=== PATIENT | male | born 1935 | race Caucasian/White ===

== ENCOUNTER 2024-03-20 09:44 | Outpatient (CLI) | payer MEDICARE, BC, SELFPAY ==
--- OUTSIDE RECORDS SUMMARY | 2024-03-20 09:51 | XMS_ITS | Clinical Summary ---
Author Organization [facility] Address [address] [place] [address] Care Team Providers Care Video Clerk Name Role Phone Unavailable Primary Care Provider Unavailabl e Source Comments Patient records contain information from all sites at [facility]. For routine questions regarding patient records, call [phone] during business hours, M-F 8:00 AM - 5:00 PM Central Time. Record requests for emergency care only can be directed to [phone] at any time.[facility] Allergies No known active allergies Medications Medication Sig Dispensed Refills Start Date End Date Status multivitamin-minerals- lutein (Multivitamin 50 Plus) tablet Take 1 tablet by mouth daily. (CENTRUM SILVER) tablet Active calcium carbonate-vitamin D3 600-125 mg-unit tablet Take 2,000 Units by mouth daily. 2016 Active ascorbic acid, vitamin C, 500 mg capsule Take 1,000 mg by mouth daily. Active Active Problems Problem Noted Date Diagnosed Date Primary Malignant Neoplasm Of Prostate 6 Immunizations Name Administration Dates Next Due Tdap 09/20/2016,06/25/2012 Social History Tobacco Use Types Packs/Day Years Used Date Smoking Tobacco: Unknown Nutrition Answer Date Recorded Nutrition: EVOO Fat Source Unknown 10/27 Nutrition: Servings of Fruits/Vegetables per Day Not on file 10/27/2020 Dental Answer Date Recorded Dental: Regular Dentist Unknown 10/27/19 21 Sex and Gender Information Value Date Recorded Sex Assigned at Not on file Gender Identity Not on file Sexual Orientation Not on file Last Filed Vital Signs Vital Sign Reading Time Taken Comments Blood Pressure 140/74 07/12/2020 11:15 AM DESIGN LEADER Pulse 60 07/12/2020 11:15 AM DESIGN LEADER Temperature 37.3 ??C (99.1 ??F) 07/12/2020 1 1:15 AM DESIGN LEADER Respiratory Rate 20 07/12/2020 8:28 AM DESIGN LEADER Oxygen Saturation 96% 07/12/2020 11: 15 AM DESIGN LEADER Inhaled Oxygen Concentration - - Weight 101 kg (222 lb 10.6 oz) 2016 2:13 PM CDT Vital sign result from Clinical Notes. Height 175.3 cm (5' 9) 07/12/2020 8:27 AM DESIGN LEADER Body Mass Index 32.98 09/20/2016 4:53 PM DESIGN LEADER Plan of Treatment Health Maintenance Due Date Last Done Comments Zoster Vaccines (1 of 2) 1986 Depression Screening (Annual PHQ-2) 09/04/2023 Fall Risk Screen (Annual) 09/04/2023 COVID-19 Vaccine (5 - 2022-2 4 season) 2023 07/11/2023, 07/13/2021, 12/01/2020, Additional history exists Influenza Vaccine (#1) 2024 , 06/08/2022, 06/30/2021, Additional history exists DTaP,Tdap,and Td Vaccines (3 - Td or Tdap) 09/20/2026 09/20/2016, 06/25/2012 Pneumococcal vaccine (65+ years) Completed 02/23/20 23
--- OUTSIDE RECORDS SUMMARY | 2024-03-20 09:51 | XMS_ITS | Encounter Summary ---
Author Organization [facility] Address [address] [address] Care Team Providers Care Educational Coordinator Name Role Phone Unavailable Primary Care Provider Unavailabl e Reason for Referral * Procedure/Equipment (Routine) - Closed Specialty Diagnoses / Procedures Referred By Contac t Referred To Contact Diagnoses TESSIE (obstructive sleep apnea) Excessive daytime sleepiness Procedures Sleep Diagnostic Tests: PSG Colby Hammond MD [address] [facility] [address] [place] [address] Referral ID Status Reason Start Date Expiration Date Visits Re quested Visits Authorized [id number] Closed 07/13/2023 02/13/2024 1 1 Reason for Visit * Procedure/Equipment (Routine) - Closed Specialty Diagnoses / Procedures Referred By Contdania t Referred To Contact Diagnoses TESSIE (obstructive sleep apnea) Excessive daytime sleepiness Procedures Sleep Diagnostic Tests: PSG Colby Hammond MD [address] [facility] [address] [place] [address] Referral ID Status Reason Start Date Expiration Date Visits Re quested Visits Authorized [id number] Closed 07/13/2023 02/13/2024 1 1 Encounter Details Date Type Department Care Team (Latest Contact Info) Description 12/17/2023 8:00 PM CDT - 12/17/2023 11:59 PM CDT Hospital Encounter Specialty Center [address] [facility] [address] [address] [place] [address] Discharge Disposition: Home Social History Tobacco Use Types Packs/Day Years Used Date Smoking Tobacco: Former Pipe Q uit: 1967 Alcohol Use Standard Drinks/Week Comments Yes 4 (1 standard drink = 0.6 oz pur e alcohol) Sex and Gender Information Value Date Recorded Sex Assigned at Not on file Gender Identity Not on file Sexual Orientation Not on file documented as of this encounter Medications at Time of Discharge Medication Sig Dispensed Refills Start Date End Date Doxepin HCl 3 MG TABS Take 1 Tablet (3 mg) by mouth daily at bedtime. For the night of the sleep study if needed. The tech can tell you when to take it. 1 Tablet 11/16/2023 documented as of this encounter Progress Notes * Nancy Hughes - 12/17/2023 8:00 PM CDT This is a diagnostic PSG. Melatonin 10 mg and Benadryl 25 mg was taken prior to lights out. The patient slept reclined in a recliner as he does at home. Moderate snoring was present and therewere frequent associated RERA's at times. Obstructive respiratory events occurred sporadically and there was a abe oxygen saturation of 89%. Frequent periodic leg movements were present as well. * Colby Hammond MD - 12/17/2023 12:00 AM CDT NAME: DASHAWN COTE CSN: [id number] CLINIC NOTE DATE OF SERVICE: 12/17/2023 : 1935 DESCRIPTION OF STUDY: This is a nocturnal polysomnogram. The patient slept 7.1 of 8.4 hours of recording time for a sleep efficiency of 84%. Sleep latency was 4 minutes, REM latency 10 minutes. Overall sleep architecture shows stage R 14%, N3 3%, N2 78%, N1 5%. Cardiac evaluation shows average heart rate of 45 with no arrhythmias noted. Respiratory evaluation shows a baseline sat of 96 with a low of 89. Evaluation for periodic limb movements showed 558periodic limb movements, giving a PLMS index of 79 per hour and a PLMS arousal index of 6 per hour.Evaluation for sleep-disordered breathing demonstrated 12 obstructive apneas, 36 obstructive hypopneas, and 20 RERAs using the 4% rule. This gives an AHI of 7 per hour. The RDI is 11 per hour, low sat is 89 using 4% rule. ASSESSMENT: 1.This sleep study, therefore, shows mild obstructive sleep apnea with AHI of 7 per hour, RDI of 11per hour and a low sat of 89, use a 4% rule. 2.Periodic limb movements of sleep with a PLMS index of 79 per hour and a PLMS arousal index of 6 per hour. PLAN: Followup will be in clinic to review the results of study and would recommend outpatient AutoAdjust CPAP trial with followup download and clinical correlation for therapeutic benefit for mild sleep-disordered breathing. Alternative to CPAP would be a mandibular advancement device. Attention should also be directed to the periodic limb movement to sleep. There is a marked periodic limb movement index of 79 per hour. Recommend clinical correlation for possible periodic limb movement disorder and medical treatment if clinically indicated. MD JANNETH SHANE/DAKOTAS /[id number] documented in this encounter Plan of Treatment Not on file documented as of this encounter Procedures Procedure Name Priority Date/Time Associated Diagnosis Comments SLEEP DIAGNOSTIC TESTS (POLYSMITH) Routine 12/17/2023 10:25 PM CDT TESSIE (obstructive sleep apnea) Excessive daytime sleepiness documented in this encounter Results * Sleep Diagnostic Tests: PSG (12/17/2023 10:25 PM CDT) Colby Hammond MD HP DUMMY [facility]ES PN POLYSMITH documented in this encounter Visit Diagnoses Diagnosis TESSIE (obstructive sleep apnea)- Primary Obstructive sleep apnea (adult) (pediatric) Periodic limb movement disorder Excessive daytime sleepiness documented in this encounter
--- OUTSIDE RECORDS SUMMARY | 2024-03-20 09:51 | XMS_ITS | Clinical Summary ---
Author Organization [facility] Address [place], [place] [address] Care Team Providers Care Fisheries Biologist Name Role Phone Trace Tom MD Primary Care Provid er Allergies No known active allergies Medications Medication Sig Dispensed Refills Start Date End Date Status calcium carb/D3/magnesium/ zinc (CALCIUM-MAGNESIUM -ZINC-VIT D ORAL) Take 1 Tab by mouth once daily. Active cholecalciferol (VITAMIN D3) 2,000 unit capsule Take 2,000 Units by mouth once daily. Active folic acid/multivit-min/ lutein (CENTRUM SILVER ORAL) Take 1 tablet by mouth once daily. Active vit A/C/E/zinc/seleniu m/copper (VISION FORMULA ORAL) Take 1 capsule by mouth once daily. Active zinc 50 mg tablet Take 50 mg by mouth once daily. Active glucosam/nazario-msm1 /C/darin/bosw (OSTEO BI-FLEX TRIPLE STRENGTH ORAL) Take 2 tablets by mouth once daily. Active acetaminophen (TYLENOL EXTRA STRGTH) 500 mg tablet Take 1,000 mg by mouth 2 times daily if needed (For pain). Max acetaminophen dose: 4000mg in 24 hrs. Active torsemide (DEMADEX) 10 mg tablet Take 10 mg by mouth once daily if needed. Active ascorbic acid, vitamin C, (VITAMIN C) 1,000 mg tablet Take 1,000 mg by mouth once daily. Active MAGNESIUM ORAL Take 1,000 mg by mouth once daily. Active HYDROcodone-acetam inophen (NORCO) 5-325 mg per tabletIndications: Basal cell carcinoma (BCC) of chest,Malignant melanoma of skin of abdomen (HC) Take 1 Tablet by mouth every 4 hours if needed for Pain. Max acetaminophen dose: 4000 mg in 24 hrs. 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 02/02/2022 Primary osteoarthritis of right hip 01/18/2018 Prostate cancer Hyperlipidemia H/O: stroke Elevated prostate specific antigen (PSA) BPH with urinary obstruction Basal cell carcinoma of skin Basal cell carcinoma of chest Hip osteoarthritis Social History Tobacco Use Types Packs/Day Years Used Date Smoking Tobacco: Former Pipe Q uit: 1967 Smokeless Tobacco: Never Alcohol Use Standard Drinks/Week Comments Yes 0 (1 standard drink = 0.6 oz pur e alcohol) 3 drinks a week Sex and Gender Information Value Date Recorded Sex Assigned at Not on file Gender Identity Not on file Sexual Orientation Not on file Obstetrics History Last Filed Vital Signs Vital Sign Reading Time Taken Comments Blood Pressure 167/81 02/02/2022 2:00 PM CDT Pulse 54 02/02/2022 2:00 PM CDT Temperature 36 ??C (96.8 ??F) 02/02/2022 2:00 PM CDT Respiratory Rate 22 02/02/2022 2:00 PM CDT Oxygen Saturation 96% 02/02/2022 2:00 PM CDT Inhaled Oxygen Concentration - - Weight 96.8 kg (213 lb 6.4 oz) 02/02/2022 10:05 AM CDT Height 170.2 cm (5' 7) 02/02/2022 10:05 AM CDT Body Mass Index 33.42 02/02/2022 10:05 AM CDT Plan of Treatment Health Maintenance Due Date Last Done Comments Tdap 11/24/1946 Depression screening for age 12+ 1948 BMI (ht and wt on same day) for age 18+ 1954 Tetanus booster 1956 Zoster (shingles) series for age 50+ (1 of 2) 1986 Medicare Wellness for age 65+ 2001 Pneumococcal series for age 65+ (1 of 1 - PCV) 2001 COVID-19 vaccine series ( 2022- season) 2023 07/13/2021, 12/01/2020, 11/04/2020 Influenza for age 65+ 05/05/2024 Medical Devices Implanted Type Area Act Tutor Device Identifier Shelf Expiration Date Model / Serial / Lot Cancellous Bone Screw Implanted:Qty: 1 on 01/30/2018 by Dickson Sevilal MD at [facility] Right: Hip [employer] 10/29/2022 / / [id number] Cluster Acetabluar Shell Implanted:Qty: 1 on 01/30/2018 by Dickson Sevilla MD at [facility] Right: Hip [employer] 10/16/2022 / / [id number] Polyethlene Insert Implanted:Qty: 1 on 01/30/2018 by Dickson Sevilla MD at [facility] Right: Hip [employer] 07/09/2022 / / [id number] Neck Angle Hip Stem Implanted:Qty: 1 on 01/30/2018 by Dickson Sevilla MD at [facility] Right: Hip [employer] 11/24/2022 / / [id number] C-Taper Femoral Head Implanted:Qty: 1 on 01/30/2018 by Dickson Sevilla MD at [facility] Right: Hip [employer] 10/29/2022 / / [id number] Advance Directives * Full Code (Latest Code Status on File) Date Activated Date Inactivated Comments 02/02/2022 9:34 AM 02/02/2022 5:37 PM Question Answer Comments Code Status Discussion: Other not disc ussed * Full Code Date Activated Date Inactivated Comments 01/30/2018 2:58 PM 02/02/2018 4:38 PM * Full Code Date Activated Date Inactivated Comments 01/30/2018 10:51 AM 01/30/2018 2:57 PM Care Teams Fisheries Biologist Relationship Specialty Start Date End Date Trace Tom MD [address] [place] [address] PCP - General Family Practice 01/25/22
--- OUTSIDE RECORDS SUMMARY | 2024-03-20 09:51 | XMS_ITS ---
Author Organization [facility] Address [address] [place] [address] Care Team Providers Care Transitional Kindergarten Teacher Name Role Phone Unavailable Unavailable Unavailable Surgery Details Not on file Complications Check Surgery Details section. Procedure Estimated Blood Loss Check Surgery Details section. Procedure Findings Check Surgery Details section. Procedure Specimens Taken Check Surgery Details section.
--- OUTSIDE RECORDS SUMMARY | 2024-03-20 09:51 | XMS_ITS | Referral Summary ---
Author Organization [place] Address [facility] [place] [address] Care Team Providers Care Road Freight Brake Coupler Name Role Phone Clinic, [facility] Primary Care Provider + Allergies No known active allergies Medications Medication Sig Dispensed Refills Start Date End Date Status HYDROcodone-acetamin ophen (NORCO) 5-325 MG tabletIndications:Le ntigo maligna (H) Take 1 tablet by mouth every 4 hours as needed for moderate to severe pain 25 tablet 06/26/2020 Active multivitamin (CENTRUM SILVER) tablet Take 1 tablet by mouth daily Active zinc gluconate 50 MG tablet Take 50 mg by mouth daily Active aspirin (ASA) 325 MG EC tabletIndications:Ce rebrovascular Accident Take 650 mg by mouth daily Active Ascorbic Acid (VITAMIN C) 500 MG CAPS Take 1,000 mg by mouth Active Social History Tobacco Use Types Packs/Day Years Used Date Smoking Tobacco: Former Pipe Q uit: 1967 Smokeless Tobacco: Never Alcohol Use Standard Drinks/Week Comments Yes 0 (1 standard drink = 0.6 oz pur e alcohol) 1-2 drink per day Adolescent Education Answer Date Record ed Getting School Help Needed Not on file 06/11 Sex and Gender Information Value Date Recorded Sex Assigned at Not on file Gender Identity Not on file Sexual Orientation Not on file Last Filed Vital Signs Vital Sign Reading Time Taken Comments Blood Pressure 140/70 06/26/2020 12:30 PM CDT Pulse 59 06/26/2020 9:10 AM CDT Temperature 37.4 ??C (99.3 ??F) 06/26/2020 9:10 AM CD T Respiratory Rate 16 06/26/2020 12:3 0 PM CDT Oxygen Saturation 98% 06/26/2020 12: 30 PM CDT Inhaled Oxygen Concentration - - Weight 94.7 kg (208 lb 12.8 oz) 06/26/2020 9:10 AM CDT Height 172.7 cm (5' 8) 06/26/2020 9:10 AM CDT Body Mass Index 31.75 06/26/2020 9:10 AM CDT Plan of Treatment Not on file Care Teams Road Freight Brake Coupler Relationship Specialty Start Date End Date Clinic, [address] [address] PCP - General 06/26/20
--- OUTSIDE RECORDS SUMMARY | 2024-03-20 09:51 | XMS_ITS | Clinical Summary ---
Author Organization [place] Address [facility] [place] [address] Care Team Providers Care Railroad Car Cleaning Supervisor Name Role Phone Clinic, [facility] Primary Care Provider + Allergies No [...] of Treatment Not on file Care Teams Railroad Car Cleaning Supervisor Relationship Specialty Start Date End Date Clinic, [address] [address] PCP - General 06/26/20
--- OUTSIDE RECORDS SUMMARY | 2024-03-20 09:51 | XMS_ITS | Encounter Summary ---
Author Organization [facility] Address [address] [place] [address] Care Team Providers Care Health Information Specialist Name Role Phone Unavailable Primary Care Provider Unavailabl e Reason for Visit * Reason Comments Follow-up Encounter Details Date Type Department Care Team (Late st Contact Info) Description 01/09/2024 11:15 AM CDT Tele[facility]icine Special[facility] [address] Pulmonary Medicine [address] [place], [place] [id number] Rebecca Butler PA-C [address] [facility] [address] [place], [place] [id number] Mild obstructive sleep apnea (Primary Dx) Social History Tobacco Use Types Packs/Day Years Used Date Smoking Tobacco: Former Pipe Q uit: 1967 Alcohol Use Standard Drinks/Week Comments Yes 4 (1 standard drink = 0.6 oz pur e alcohol) Sex and Gender Information Value Date Recorded Sex Assigned at Not on file Gender Identity Not on file Sexual Orientation Not on file documented as of this encounter Last Filed Vital Signs Vital Sign Reading Time Taken Comments Blood Pressure - - Pulse - - Temperature - - Respiratory Rate - - Oxygen Saturation - - Inhaled Oxygen Concentration - - Weight 90.7 kg (200 lb) 01/09/2024 9:15 AM CDT Height 167.6 cm (5' 6) 01/09/2024 9:15 AM CDT Body Mass Index 32.28 01/09/2024 9:15 AM CDT documented in this encounter Progress Notes * Rebecca Butler PA-C - 01/09/2024 11:15 AM CDT IMPRESSION AND PLAN: Dashawn Kraus is a 88 y.o. male who returns to discuss results of PSG. Mild obstructive sleep apnea sleeping in recliner. PSG 12/17/2023: AHI 7, RDI 11, O2 abe 89, wt. 200 lbs, sxs: snore, apnea, eds. Pathophysiology and consequences of untreated TESSIE discussed including increased risk for afib, HTN,CVA, heart failure, and fatigue-related motor vehicle accidents. Treatment options discussed including PAP therapy, mandibular repositioning device, weight loss, positional therapy, and surgery. In shared decision making, Dashawn and his elected not to pursue further treatment of TESSIE aside from continuing to sleep in a recliner as he already does - which is reasonable given mild severity with upright / semirecumbent positioning. Informed alcohol will worsen severity. Encouraged to sleep on sides when sleeping on couch or in bed. Discussed importance of maintaining regular sleep schedule to avoid eds. Follow up with sleep medicine as needed. Questions answered to best of ability. Total time 30 minutes, more than half spent in face to face counseling and coordination of care. Rebecca Butler PA-C This visit was conducted via video. Patient was at home / work, provider was at the clinic. -- -- -- -- -- CHIEF COMPLAINT: PSG follow up HPI: Dashawn Kraus is a 88 y.o. male who returns to discuss the results of his recent PSG sleep study for further evaluation of snoring, apnea, eds. Initial consultation with Dr. Hammond. Carroll white by nature. Prefers bedtime around midnight and often wakes just once per night to urinateand goes back to bed until 10-11am. Does not nap. His disagrees. Mayo he slept well on night of sleep study. He slept in a recliner as he does at home. CLINICAL DATA PSG RESULTS personally reviewed in detail with the patient: DATE: 12/17/2023 Weight: 200 lbs Sleep Efficiency: 84% Sleep Architecture: N3 3%, REM 14%, REM latency 10 minutes PLMS index: 79 PLMS arousal index: 6 AHI: 7 events/hr RDI: 11 events/hr O2 abe: 89% ESS: 05/28 (12/17/2023) INTERVAL MEDICAL HISTORY: reviewed SOCIAL HISTORY: reports that he quit smoking about 57 years ago. His smoking use included pipe. He does not have any smokeless tobacco history on file. He reports current alcohol use of about 4.0 standard drinks of alcohol per week. PHYSICAL EXAM: Ht 5' 6 (1.676 m) Wt 200 lb (90.7 kg) BMI 32.28 kg/m?? - video visit GEN: Pleasant male. Alert, demonstrates appropriate insight and judgement. Resp: Appears unlabored. documented in this encounter Plan of Treatment Not on file documented as of this encounter Visit Diagnoses Diagnosis Mild obstructive sleep apnea- Primary Obstructive sleep apnea (adult) (pediatric) documented in this encounter
--- OUTSIDE RECORDS SUMMARY | 2024-03-20 09:51 | XMS_ITS | Referral Summary ---
Author Organization [facility] Address [address] [place] [address] Care Team Providers Care Airframe And Power Plant Mechanic Name Role Phone Unavailable Primary Care Provider Unavailabl e Source Comments Patient records contain information from all sites at [facility]. For routine questions regarding patient records, call [phone] during business hours, M-F 8:00 AM - 5:00 PM Central Time. Record requests for emergency care only can be directed to [phone] at any time.[facility] Allergies No known active allergies Medications Medication [...] Comments Blood Pressure 140/74 07/12/2020 11:15 AM TEACHER BALLET Pulse 60 07/12/2020 11:15 AM TEACHER BALLET Temperature 37.3 ??C (99.1 ??F) 07/12/2020 1 1:15 AM TEACHER BALLET Respiratory Rate 20 07/12/2020 8:28 AM TEACHER BALLET Oxygen Saturation 96% 07/12/2020 11: 15 AM TEACHER BALLET Inhaled Oxygen Concentration - - Weight 101 kg (222 lb 10.6 oz) 2016 2:13 PM CDT Vital sign result from Clinical Notes. Height 175.3 cm (5' 9) 07/12/2020 8:27 AM TEACHER BALLET Body Mass Index 32.98 09/20/2016 4:53 PM TEACHER BALLET Plan of Treatment Not on file
--- OUTSIDE RECORDS SUMMARY | 2024-03-20 09:51 | XMS_ITS | Clinical Summary ---
Author Organization [facility] Address [address], [place] [address] Care Team Providers Care Flamer Sealer Name Role Phone Unavailable Primary Care Provider Unavailabl e Source Comments You are receiving this document as you are listed as the primary care provider,follow-up provider, or the patient has been referred to you for consultation.This is in compliance with the Medicare and[facility] Cent[facility] EHR Incentive Program,which states Providers who transition their patient to another setting of careor provider of care or refers their patient to another provider of care shouldprovide summary care record for each transition of care or referral. [facility] Allergies No known active allergies Medications Medication Sig Dispensed Refills Start Date End Date Status Doxepin HCl 3 MG TABS Take 1 Tablet (3 mg) by mouth daily at bedtime. For the night of the sleep study if needed. The tech can tell you when to take it. 1 Tablet 11/16/2023 Active Active Problems Problem Noted Date Diagnosed Date TESSIE (obstructive sleep apnea) 11/16/2023 Excessive daytime sleepiness 11/16/2023 Encounters Date Type Department Care Team Description 01/09/2024 11:15 AM CDT [facility] [address] Pulmonary Medicine [address] [place] [address] Rebecca Butler PA-C Mild obstructive sleep apnea (Primary Dx) from Last 3 Months Social History Tobacco Use Types Packs/Day Years Used Date Smoking Tobacco: Former Pipe Q uit: 1966 Tobacco Cessation:Counseling Given: Not Answered Alcohol Use Standard Drinks/Week Comments Yes 4 (1 standard drink = 0.6 oz pur e alcohol) Sex and Gender Information Value Date Recorded Sex Assigned at Not on file Gender Identity Not on file Sexual Orientation Not on file Last Filed Vital Signs Vital Sign Reading Time Taken Comments Blood Pressure - - Pulse 53 11/16/2023 1:20 PM CDT Temperature - - Respiratory Rate - - Oxygen Saturation 99% 11/16/2023 1:20 PM CDT Inhaled Oxygen Concentration - - Weight 90.7 kg (200 lb) 01/09/2024 9:15 AM CDT Height 167.6 cm (5' 6) 01/09/2024 9:15 AM CDT Body Mass Index 32.28 01/09/2024 9:15 AM CDT Plan of Treatment Health Maintenance Due Date Last Done Comments Medicare Annual Wellness Visit 1935 Zoster/Shingles (1 of 2) 1986 COVID-19 Vaccine ( season) 2023 07/11/2023, 07/13/2021, 12/01/2020, Additional history exists Influenza (#1) 2024 07/11/2023, 1001/2022, 06/30/2021, Additional history exists DTaP/Tdap/Td (3 - Tdap) 09/20/2026 09/20/2016, 06/25 Pneumococcal 65+ Yrs Completed 02/22/2023 HepA Aged Out No longer eligi ble based on patient's age to complete this topic HepB Aged Out No longer eligi ble based on patient's age to complete this topic Hib Aged Out No longer eligi ble based on patient's age to complete this topic IPV (Polio) Aged Out No longer eligi ble based on patient's age to complete this topic MCV4 Aged Out No longer eligi ble based on patient's age to complete this topic DASHAWN COTE Personal/Famil y 1935 [address] [place] [address]
== END 2024-03-20 09:45 | disposition home or self-care (01) ==
PROVIDERS: Visit Provider Surgery
DX: I87.312 Chronic venous hypertension (idiopathic) with ulcer of left lower extremity (principal); L97.822 Non-pressure chronic ulcer of other part of left lower leg with fat layer exposed; L03.116 Cellulitis of left lower limb; B95.61 Methicillin susceptible Staphylococcus aureus infection as the cause of diseases classified elsewhere
CPT/HCPCS: 87070; 87186; 97597; G0463

== ENCOUNTER 2024-03-27 08:39 | Outpatient (CLI) | payer MEDICARE, BC, SELFPAY ==
--- OUTSIDE RECORDS SUMMARY | 2024-03-27 08:41 | XMS_ITS | Encounter Summary ---
Author Name [facility] [place] [facility] [place] Address [address] [place] [address] Care Team Providers Care [employer] Black Trainer Name Role Phone GARY JONES Primary Care Provider Unavaila ble Insurance Providers: All historical and current Section Date Range: From patient's date of to the date document was created. This section includes the names of all active insurance providers for the patient. Insurance Provider Type of Coverage Plan Name Start of Policy Coverage End of Policy Coverage Group Number Member ID Insurance Provider's Telephone Number Policy Duncan's Name Patient's Relationship to Policy Duncan [facility] (WNR) MEDICARE ADVANTAGE [facility] (WNR) Sep 04, 2021 [id number] [phone] Merna COTE PATIENT Selected Encounter This section includes the information on record at [place] for the Encounter. Date/Time Encounter Type Encounter Description Reason Provider Source Feb 28, 2024 09:00 AM OFFICE O/P EST MOD 30 MIN PRIMARY CARE/MEDICINE ICD-10-CM Z00.8 Encounter for other general examination IVETH JONES Encounter Template Text not used by [place] Assessments - Encounter Diagnoses This section includes the primary and secondary diagnoses documented for the Encounter. Date/Time Primary/Secondary Diagnosis Diagnosis Name Provider Source Feb 28, 2024 10:02 AM PRIMARY Encounter for other general examination IVETH JONSE CB Feb 28, 2024 10:02 AM SECONDARY Edema, unspecified IVETH JONES CB Feb 28, 2024 10:02 AM SECONDARY Personal history of malignant neoplasm of prostate KARENIVETH MENENDEZ [facility] Feb 28, 2024 10:02 AM SECONDARY Unspecified open wound, unspecified ankle, initial encounter IVETH JONES Plan of Treatment: Future Appointments (+ 6 months) and Future Tests (+/- 45 days) The Plan of Treatment section includes future care activities for the patient from all [place] [facility]. This section includes future appointments and future orders which are active, pending or scheduled. Future Appointments This section includes appointments that were scheduled to occur 6 months from the date of the Encounter, up to a maximum of 20 appointments. The data comes from all [place] treatment facilities. Appointment Date/Time Appointment Type Appointme nt Facility Name Mar 14, 2024 11:00 AM AMBULATORY - MEDICINE BETTIE GONZALEZ [facility] May 01, 2024 08:00 AM AMBULATORY - SURGERY [facility] Active, Pending, and Scheduled Orders This section includes a listing of several types of active, pending, and scheduled orders, including clinic medications orders, diagnostic test orders, procedure orders and consult orders; where the start date of the order is 45 days before the date of the Encounter or 45 days after the date of theEncounter. The data comes from all [place] treatment facilities. Test Date/Time Test Type Test Details Facility Name Mar 19, 2024 09:04 AM Consult Order VASCULAR O UTPT-VARICOSE VEINS/VENOUS ULCERS [facility] Director's Choice SHON FERNANEDZ Lab Results: +/- 30 days of the encounter This section includes the Chemistry and Hematology Lab Results on record with [place] for the patient. Radiology Reports and Pathology Reports are provided separately, in subsequent sections. Lab Results This section contains the Chemistry/Hematology Results that were resulted 30 days before or 30 daysafter the date of the Encounter. Date/Time Source Result Type Result - Unit Interpretation Reference Range Comment Feb 28, 2024 09:59 AM [facility] CBC & DIFF Specimen Type: BLOOD Comment: Automated Differential Performed Ordering Provider: IVETH JONES Report Released Date/Time: Feb 28, 2024 09:41 AM Reporting Lab: [facility] [id number] Performing Lab: [facility] [id number] WBC 7.34 10*3/uL 4.0-11.0 RBC 4.19 10*6/uL L 4.6-6.2 HGB 13.4 g/dL L 13.5-17.9 HCT 40.6 L 41-54 MCV 96.9 fL 80-100 MCH 32.0 pg 27-33 MCHC 33.0 g/dL 32.0-37.5 PLT 273 10*3/uL 150-400 MPV 9.8 fL 7.4-10.4 NEUT 67.8 40.0-80.0 LYMPHS 18.9 15.0-45.0 MONO 9.5 2.0-12.0 EOSINO 2.6 0.0-6.0 BASO 0.7 0.0-2.0 RDW 13.8 11.5-14.5 ABS LYMPH 1.39 10*3/uL 1.0-4.0 ABS MONO 0.70 10*3/uL 0.1-1.0 ABS NEUT 4.97 10*3/uL 2.0-7.7 ABS EOS 0.19 10*3/uL 0-0.5 ABS BASO 0.05 10*3/uL 0-0.2 IG(META,MYELO,P RO) 0.5 ABS IMMATURE GRAN 0.04 10*3/uL 0-0.1 Feb 28, 2024 09:59 AM [facility] COMPREHENSIVE METABOLIC PANEL+MG Specimen Type: PLASMA No comment entered. Ordering Provider: IVETH JONES Report Released Date/Time: Feb 28, 2024 09:41 AM Reporting Lab: [facility] [id number] Performing Lab: [facility] [id number] CREATININE 1.0 mg/dL 0.7-1.2 UREA NITROGEN 24 mg/dL 8-26 GLUCOSE 90 mg/dL 70-100 SODIUM 143 mmol/L 136-145 POTASSIUM 4.1 mmol/L 3.5-5.1 CHLORIDE 107 mmol/L 98-107 CO2 27 mmol/L 22-29 CALCIUM 9.8 mg/dL 8.4-10.2 PROTEIN,TOTAL 7.3 g/dL 6.0-8.3 ALBUMIN 4.2 g/dL 3.5-5.2 BILIRUBIN, TOTAL 0.8 mg/dL 0.2-1.2 MAGNESIUM 2.3 mg/dL 1.6-2.6 ANION GAP 9 mmol/L 5-15 ALKALINE PHOSPHATASE 66 U/L 40-150 ALT/SGPT 13 U/L <55 AST/SGOT 18 U/L <34 .CREAT EGFR(CKD-EPI) 73 >60 Feb 28, 2024 09:59 AM [facility] PSA Specimen Type: SERUM No comment entered. Ordering Provider: IVETH JONES Report Released Date/Time: Feb 28, 2024 09:41 AM Reporting Lab: [facility] [id number] Performing Lab: [facility] [id number] PSA 0.28 ng/mL <4.00 Feb 28, 2024 09:59 AM [facility] LIPID PANEL,NON-FASTING Specimen Type: PLASMA No comment entered. Ordering Provider: IVETH JONES Report Released Date/Time: Feb 28, 2024 09:51 AM Reporting Lab: [facility] [id number] Performing Lab: [facility] [id number] CHOLESTEROL 236 mg/dL H <199 .HDL 48 mg/dL >40 LDL CALCULATION 161 mg/dL H <99 VLDL CALCULATION 27 mg/dL <29 NON HDL CHOLESTEROL 188 mg/dL H <129 TRIG(NON FASTING) 134 mg/dL <149 Vital Signs: All taken on the encounter date This section contains inpatient and outpatient Vital Signs collected on the date of the Encounter. Date/Time Temperature Pulse Blood Pressure Respiratory Rate SP02 Pain Height Weight Body Mass Index Source Feb 28, 2024 09:18 AM 97.5 49 128/74 16 95 4 67.5 198.9 31 [facility] Social History: Smoking Status (Most current) and Tobacco Use (All prior to encounter date) This section includes the most current, and the historical, smoking and tobacco- related health factors from the [place] facility where the Encounter took place. Current Smoking Status This section includes the most current smoking, or tobacco-related health factor, from the [place] facility where the Encounter took place. Date/Time Current Smoking Status Comment Brandon paula Feb 28, 2024 09:00 AM VA-TOBACCO NEVER USED [facility] Tobacco Use History This section includes a history of the smoking, or tobacco-related health factors, that were collected on or before the date of the Encounter. The data comes from the [place] facility where the Encounter took place. Date/Time Smoking Status/Tobacco Use Comment F acility Feb 22, 2023 09:30 AM VA-TOBACCO FORMER USER [facility] FERNANDE[facility] Feb 22, 2023 09:30 AM VA-TOBACCO QUIT 15 YRS OR MORE [facility] Advance Directives: All historical and current Section Date Range: From patient's date of to the date document was created. This section includes ALL of a patient's completed or amended [place] Advance and Rescinded Directives. The entries below indicate that a directive exists for the patient, but an actual copy is not included with this document. The data comes from all [place] facilities. Date Advance Directives Provider Source Apr 19, 2023 ADVANCE DIRECTIVE DISCUSSION RALEIGH RHODES Apr 19, 2023 ADVANCE DIRECTIVE YOVANA RHODES [facility] Encounter Notes: All associated encounter notes This section contains the clinical notes associated to the Encounter. Date/Time Encounter Note(s) Provider Source Feb 29, 2024 10:24 AM LETTERS: LOCAL TITLE: FOLLOW UP RESULTS LETTER STANDARD TITLE: LETTERS DATE OF NOTE: FEB 29, 2024@10:24 ENTRY DATE: FEB 29, 2024@10:24:34 AUTHOR: GARY JONES COSIGNER: URGENCY: STATUS: COMPLETED [facility] [address] [place] [address] Feb [place] [address] [facility] [id number] Dear [place]: I am writing to inform you of the results of testing that you had done recently at the [facility]. - Cholesterol Tests (HDL = good and LDL = bad) CHOLESTEROL 236 H (02/28/24) (prefer less than 200) HDL 48 (02/28/24) (prefer more than 39) LDL CALCULATION 161 H (02/28/24) (prefer less than 100) MEASURED LDL____ (prefer less than 100) TRIGLYCERIDE____ (prefer less than 150) - Complete Blood Count (red/white blood cell counts and platelets) White count: WBC 7.34 (02/28/24) (normal is 4.0-11.0) Hemoglobin: HGB 13.4 L (02/28/24) (normal Male is 13.5-17.9; Female is 11.5-16) Hematocrit: HCT 40.6 L (02/28/24) (normal Male is 41-54; Female is 34.5-48) Platelets: PLT 273 (02/28/24) (normal is 150-400) - Electrolytes including sodium and potassium SODIUM 143 (02/28/24) (normal is 136-145) POTASSIUM 4.1 (02/28/24) (normal is 3.5-5.1) - Calcium CALCIUM 9.8 (02/28/24) (normal is 8.5-10.1) - Kidney function CREATININE 1.0 (02/28/24)(normal Male = less than 1.2; normal Female = less than 1.0)) UREA NITROGEN 24 (02/28/24) (normal Male is 8-26; normal Female is 10- 20) - Blood Sugar GLUCOSE 90 (02/28/24) (normal is 70 - 100 if fasting) - Liver function Tests AST/SGOT 18 (02/28/24) (normal 15-37) ALT/SGPT 13 (02/28/24) (normal 13-61) ALK PHOSPHATASE 66 (02/28/24) (normal 45-117) BILIRUBIN, TOTAL 0.8 (02/28/24) (normal 0.2-1.0) - Prostate Test: PSA 0.28 (02/28/24) (normal 0-4) Additional Comments: Your ldl or badcholesterol is very high. This puts you at increased risk of stroke and heart attack. We shoudl put you on a astatin medication to bring it down. If you are agreeable to starting medication please let my nurse know. Everything else looks good. If you have any further questions or problems, please contact our nursing staff or provider at the following number: [phone]. Sincerely, GARY JONES PHYSICIAN GARY JONES [facility] Feb 28, 2024 10:04 AM MEDICATION MGT NOTE: LOCAL TITLE: MEDICATION RECONCILIATION NOTE STANDARD TITLE: MEDICATION MGT NOTE DATE OF NOTE: FEB 28, 2024@10:04 ENTRY DATE: FEB 28, 2024@10:04:09 AUTHOR: GARY JONES EXP COSIGNER: URGENCY: STATUS: COMPLETED MEDICATION RECONCILIATION Active Outpatient Medications (excluding Supplies): Outpatient Medications Status ======= 1) ALBUTEROL 90MCG (CFC-F) 200D ORAL INHL INHALE 1 PUFF ACTIVE BY INHALATION EVERY 6 HOURS NEEDED FOR SHORTNESS OF BREATH 2) CARBOXYMETHYLCELLULOSE NA 0.5% OPH SOLN INSTILL 1 ACTIVE DROP IN BOTH EYES FOUR TIMES A DAY NEEDED FOR DRY EYES 3) TORSEMIDE 20MG TAB TAKE ONE TABLET BY MOUTH EVERY DAY PENDING Non-VA Medications Status ======= 1) Non-VA ASCORBIC ACID 500MG TAB 500MG MOUTH EVERY DAY ACTIVE 2) Non-VA CHOLECALCIFEROL TAB 1 TAB MOUTH ACTIVE 3) Non-VA IBUPROFEN 600MG TAB 600MG MOUTH THREE TIMES A ACTIVE DAY NEEDED 4) Non-VA MULTIVITAMIN CAP/TAB 1 TABLET MOUTH EVERY DAY ACTIVE 5) Non-VA ZINC 50MG (FROM SULFATE) CAP 50MG MOUTH EVERY ACTIVE DAY 8 Total Medications Medications listed above are accurate and should continue as ordered. /felix/ GARY JONES PHYSICIAN Signed: 02/28/2024 10:04 GARY JONES [facility] Feb 28, 2024 09:36 AM H & P NOTE: LOCAL TITLE: CB ANNUAL VISIT STANDARD TITLE: H & P NOTE DATE OF NOTE: FEB 28, 2024@09:36 ENTRY DATE: FEB 28, 2024@09:37:04 AUTHOR: GARY JONES EXP COSIGNER: URGENCY: STATUS: COMPLETED Annual visit Non [facility] Providers: dermatology in [facility], Urology [facility] Chief complaint: Patient is here for a routine annual visit. HPI: Patient continues to have problems with edema in his legs and feet. He tries to wear compression stockings buthas ahard time getting them on. He does puthis feet up durign the day. He has beeo torsemide but was only using it :when needed:. Now he takes it about 5 days a week. A few days ago had an open area develop on the left ankle. He has tirado ulcers before. This one looks clean , shallow and not infected now. They instrument tester ontinue what they are doing with daily dresing changes,. However if gets bigger or infected will need to go to wound clinic Assessment/Plan: 1. Routine labs today 2. ophtho sees regularly 3. dentist sdue 4. Audio got new hearing aides recently 5. Medications reviewed, 6. Will have him follow up with adrianase in 2 weeks for wound check, may need to go to wound cliic and or vascular if does not improve Labs and medications reviewed with patient. Discussed plan of care, patient verbalized understanding and agrees with plan. FU in 1 year for annual exam, sooner with any concerns. Clinical Reminders: Prostate Cancer F/U PSA: PSA ordered at this visit. Past Medical History: Computerized Problem List is the source for the followin. 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 Malignant melanoma ACTIVE 3. Edema ACTIVE trated for prostate ca with 44 radiation treatments treated fro prostate cancer with 44 radiation treatments 4. Exposure to potentially hazardous substance (SCT 1 ACTIVE Entered through [facility] Documentation Initiative 5. 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 NEURO: neg for new motor or sensory complains SKIN: neg for new rash, lesion Physical Exam: Vitals: Blood Pressure: 128/74 (02/28/2024 09:18) Pulse: 49 (02/28/2024 09:18) Pulse Oximetry: 95% (02/28/2024 09:18) Resp: 16 (02/28/2024 09:18) Temp: 97.5 F [36.4 C] (02/28/2024 09:18) Height: 67.5 in [171.5 cm] (02/28/2024 09:18) Weight: 198.9 lb [90.22 kg] (02/28/2024 09:18) BMI:30.8 GENERAL:well developed, well nourished pt in nad. EYES:PERRLA,EOMI, conjuntiva clear, no discharge,wears glasses. EARS:canals clear, TMs intact NOSE:Nostrils patent, no discharge, THROAT:No enlarged tonsils, no inflammation, no exudate or ulcers. NECK: supple, no obvious thyromegaly HEART:Regular rate and rhythm , no obvious murmurs/rubs RESPIRATORY: Lungs clear to auscultation b/l, no rales or wheezes. ABDOMEN:soft, nontender, nondistended, no organomegaly, normal bs. MSK:normal gait, moves all extremities, no joints swelling, rom normal. NEURO:alert and oriented, cranial nerves II-XII intact, speech clear, strength equal b/l, normal gait and movement, PSYCH: normal affect, well groomed SKIN:warm adn dry, normal color, abole lat left ankle quarter sized shallow uleration, not red, no puss only scant clear drainage EXT: no cyanosis, no edema lower ext b/l Allergies: Patient has answered NKA SLT - Lab Tests Selected No data available for: REGIONAL ALLERGY PROFILE Vaccinations: IM - Immunizations ADMINISTERED Immunization Series Date Facility Reaction Info COVID-19 (MODERNA), MRNA, LNP-S,* 3 07/13/2021 [facility]* COVID-19 (MODERNA), MRNA, LNP-S,* 2 12/01/2020 [facility]* COVID-19 (MODERNA), MRNA, LNP-S,* 1 11/04/2020 [facility]* COVID-19 (PFIZER), MRNA, LNP-S, * 1 07/11/2023 [facility] * HEP B, UNSPECIFIED FORMULATION 03/25/2010 [facility] INFLUENZA, HIGH-DOSE, QUADRIVALE* 07/11/2023 [facility] * INFLUENZA, HIGH-DOSE, QUADRIVALE* 06/08/2022 [facility] [facility] INFLU[facility], HIGH-DOSE, QUADRIVALE* 06/30/2021 [facility] [facility] INFLU[facility], HIGH-DOSE, TRIVALENT,* 08/15/2019 [facility] [facility] [place], HIGH-DOSE, TRIVALENT,* 07/17/2017 [facility] [facility] IN[facility], HIGH-DOSE, TRIVALENT,* 10/08/2015 [facility] INFLU[facility], HIGH-DOSE, TRIVALENT,* 06/05/2013 [facility] [facility] INFLUENZA, SPLIT VIRUS, QUADRIVA* 06/24/2016 [facility] INFLU[facility], SPLIT VIRUS, TRIVALEN* 06/30/2011 [facility] [facility] INFLU[facility], SPLIT VIRUS, TRIVALEN* 09/18/2012 [facility] [facility] INFLU[facility]ZA, UNSPECIFIED FORMULATI* 06/08/2022 [facility]* NOVEL [id number] 06/30/2009 [facility] [facility] PNEUMOCOCCAL CONJUGATE PCV20, PO* 02/22/2023 [facility] * TDAP 09/20/2016 [facility]* TDAP 06/25/2012 [facility] [facility] CONTRAINDICATED No data available REFUSED ======= No data available * Value is truncated; see the Detailed Immunizations Health Summary Component [DIM] for complete text ====== Labs: pending /es/ GARY JONES PHYSICIAN Signed: 02/28/2024 10:03 GARY JONES [facility] Feb 28, 2024 09:20 AM PRIMARY CARE NURSING NOTE: LOCAL TITLE: [facility] NURSING PROGRESS NOTE STANDARD TITLE: PRIMARY CARE NURSING NOTE DATE OF NOTE: FEB 28, 2024@09:20 ENTRY DATE: FEB 28, 2024@09:20:24 AUTHOR: TOOTIE ANDERSON COSIGNER: URGENCY: STATUS: COMPLETED [facility] NURSING PROGRESS NOTE Has ADDENDA TYPE OF VISIT: Appointment Check In Type of appointment: In-person appointment REASON FOR VISIT: Annual ALLERGIES: Patient has answered NKA VITAL SIGNS: Blood Pressure: 128/74 (02/28/2024 09:18) Pulse: 49 (02/28/2024 09:18) Respiration: 16 (02/28/2024 09:18) Temperature: 97.5 F [36.4 C] (02/28/2024 09:18) Weight: 198.9 lb [90.22 kg] (02/28/2024 09:18) Height: 67.5 in [171.5 cm] (02/28/2024 09:18) BMI: 30.8 O2 Sat: 95% (02/28/2024 09:18) Pain: 4 (02/28/2024 09:18) PAIN SCREEN: Patient is having significant pain that they would like to talk to their provider about today. Acute pain is new pain, which as been present for less than 6 months Words used to describe pain: achy Number that best describes pain intensity on average in the past week: 4 Pain located in the following location(s): other: L ankle Pain has been happening for: less than one week Pain is worse when: other: . Pain is better when: other: . MEDICATION Active Outpatient Medications (including Supplies): ALBUTEROL 90MCG (CFC-F) 200D ORAL INHL INHALE 1 PUFF BY ACTIVE INHALATION EVERY 6 HOURS NEEDED FOR SHORTNESS OF BREATH CARBOXYMETHYLCELLULOSE NA 0.5% OPH SOLN INSTILL 1 DROP IN ACTIVE BOTH EYES FOUR TIMES A DAY NEEDED FOR DRY EYES Non-VA ASCORBIC ACID 500MG TAB 500MG MOUTH EVERY DAY ACTIVE Non-VA CHOLECALCIFEROL TAB 1 TAB MOUTH ACTIVE Non-VA IBUPROFEN 600MG TAB 600MG MOUTH THREE TIMES A DAY ACTIVE NEEDED Non-VA MULTIVITAMIN CAP/TAB 1 TABLET MOUTH EVERY DAY ACTIVE Non-VA TORSEMIDE 20MG TAB 20MG MOUTH ACTIVE Non-VA ZINC 50MG (FROM SULFATE) CAP 50MG MOUTH EVERY DAY ACTIVE Over the Counter/Herbal Medications: The patient states that they take some outside medications and/or herbals. WHOLE HEALTH QUESTIONS: Whole Health Screening Why is addressing your overall health important to you? What do you want your health for (why do you want to be healthy)? . ADV DIR Notification and Screening: ADVANCE DIRECTIVE NOTIFICATION: Patient was given written notification of the following rights: 1. Accept or refuse any medical treatment. 2. Complete a durable power of transactional attorney for health care. 3. Complete a living will. ADVANCE DIRECTIVE SCREENING: Does patient have an Advance Directive? The patient has an Advance Directive. Does the patient wish to make any changes or revoke their current Advance Directive? No changes requested at this time. Suicide Screen: C-SSRS Screening [place] Suicide Severity Rating Scale (C-SSRS) screener 1. Over the past month, have you wished you were or wished you could go to sleep and not wake up? No 2. Over the past month, have you had any actual thoughts of killing yourself? No 3. Over the past month, have you been thinking about how you might do this? Response not required due to responses to other questions. 4. Over the past month, have you had these thoughts and had some intention of acting on them? Response not required due to responses to other questions. 5. Over the past month, have you started to work out or worked out the details of how to kill yourself? Response not required due to responses to other questions. 6. If yes, at any time in the past month did you intend to carry out this plan? Response not required due to responses to other questions. 7. In your lifetime, have you ever done anything, started to do anything, or prepared to do anything to end your life (for example, collected pills, obtained a gun, gave away valuables, went to the roof but didn't jump)? No 8. If YES, was this within the past 3 months? Response not required due to responses to other questions. Depression Screening: Perform PHQ-2 A PHQ-2 screen was performed. The score was 0 which is a negative screen for depression. Over the past two weeks, how often have you been bothered by the following problems? 1. Little interest or pleasure in doing things Not at all 2. Feeling down, depressed, or hopeless Not at all Alcohol Use Screen (AUDIT-C): Alcohol Screen: SCREEN FOR ALCOHOL (AUDIT-C) An alcohol screening test (AUDIT-C) was negative (score=3). 1. How often did you have a drink containing alcohol in the past year? Consider a drink to be a 12 ounce can or bottle of regular beer, 8 ounces of malt liquor, a 5 ounce glass of table wine, or a 1.5 ounce shot of liquor (like scotch, gin, or vodka). Two to three times per week 2. How many drinks containing alcohol did you have on a typical day when you were drinking in the past year? One or two drinks 3. How often did you have six or more drinks on one occasion in the past year? Never Tobacco Use Screening: The patient has never used tobacco. Nursing Annual Screening: Fall History Screen During the past 12 months, have you had any falls? Patient reports having one fall without injury requiring treatment. MEDICATIONS: Patient is on one of the following medication classes: Antihypertensives, Antidepressants, Antipsychotics, Diuretics, or Controlled substance medication used for pain. Script Talk Screen Are you able to read your prescription bottles with your glasses, magnifiers or other aids? Yes or patient not taking any prescriptions. Skin Screen Patient reports any current pressure ulcers, a history of pressure ulcers, or a wound from a medical biller coder or Patient is bed-confined or a wheelchair-user or Patient requires assistance to transfer/change position No, Skin Screen is Negative Home Abuse/Violence Screen Is your home free of abuse and violence? Yes MOVE! Program Screen Body Mass Index (BMI)= 30.8 [place]: Collection DT Specimen Test Name Result Units Ref Range 02/22/2023 11:09 BLOOD !! HEMOGLOBIN A1C 5.0 % 4.0 - 6.0 !! Indicates COMMENTS AVAILABLE...Refer to Interim Lab Report. [place] Hgb A1C: No data available [place] Hgb A1C: No data available Point of Care Hgb A1C: POC HGB A1C____ Outpatient Nutrition Screen Body Mass Index (BMI)= 30.8 [place]: Collection DT Specimen Test Name Result Units Ref Range 02/22/2023 11:09 BLOOD !! HEMOGLOBIN A1C 5.0 % 4.0 - 6.0 !! Indicates COMMENTS AVAILABLE...Refer to Interim Lab Report. [place] Hgb A1C: No data available [place] Hgb A1C: No data available Point of Care Hgb A1C: POC HGB A1C____ Is patient's BMI less than 18.5? No Does patient have swallowing, coughing, or chewing problems affecting oral intake? No Has patient experienced unplanned weight loss or gain greater than 10 pounds over the last 2 months? No Is patient's Hgb A1C (Glycosylated Hemoglobin) greater than 9.5? Information not available Is patient receiving Total Parenteral Nutrition (TPN) or Tube Feedings? No Patient Health Education Screen BARRIERS/SPECIAL NEEDS: Physical limitations Hearing limitations Visual limitations Other need or barrier (specify): CANE PREFERRED STYLE OF LEARNING: Watching something Listening Reading Client Assistive Service ([place]EN[place]A) Screen Does the patient require assistance with outpatient visit? No /es/ TOOTIE ANDERSON LPN LPN [facility] Signed: 02/28/2024 09:38 02/28/2024 ADDENDUM STATUS: COMPLETED Herpes Zoster (Shingles) Vaccine: The patient declines to receive the recommended dose of zoster (shingles) vaccine. Immunization: ZOSTER RECOMBINANT Refusal Reason: PATIENT DECISION Patient refuses all immunization(s) in the ZOSTER group Date Documented: 02/28/24 11:05 Homelessness/Food Insecurity Screen: In the past 2 months, have you been living in stable housing that you own, rent, or stay in as part of a household? Yes - Living in stable housing. Are you worried or concerned that in the next 2 months you may NOT have stable housing that you own, rent, or stay in as part of a household? No - Not worried about housing near future The reports the following: Within the past 12 months, you worried whether your food would run out before you got money to buy more. Never true Within the past 12 months, the food you bought just didn't last and you didn't have money to get more. Never true Food Assistance Programs [facility] Food Assistance Programs [facility] WHOLE HEALTH QUESTIONS: Whole Health Screening Why is addressing your overall health important to you? What do you want your health for (why do you want to be healthy)? . So I can be active Limited only be my medical problem. /felix/ KANG BELCHER LPN [facility] Signed: 02/28/2024 11:20 TOOTIE ANDERSON [facility]
--- OUTSIDE RECORDS SUMMARY | 2024-03-27 08:41 | XMS_ITS | Encounter Summary ---
Author Name [place] Organization [place] Address [address] [place] [id number] Care Team Providers Care Air Traffic Control Equipment Repairer Name Role Phone GARY JONES Primary Care Provider [facility] Insurance Providers: All historical and current Section Date Range: From patient's date of to the date document was created. This section includes the names of all active insurance providers for the patient. Insurance Provider Type of Coverage Plan Name Start of Policy Coverage End of Policy Coverage Group Number Member ID Insurance Provider's Telephone Number Policy Duncan's Name Patient's Relationship to Policy Duncan [facility] (WNR) MEDICARE ADVANTAGE [facility] (WNR) Sep 04, 2021 [id number] [phone] Merna COTE PATIENT Selected Encounter This section includes the information on record at [place] for the Encounter. Date/Time Encounter Type Encounter Description Reason Pro vider Source Dec 28, 2023 08:11 AM Outpatient Encounter EVENT (HISTORICAL) IHE Encounter Template Text not used by [place] Plan of Treatment: Future Appointments (+ 6 months) and Future Tests (+/- 45 days) The Plan of Treatment section includes future care activities for the patient from all [place] treatmentfacilities. This section includes future appointments and future orders which are active, pending or scheduled. Future Appointments This section includes appointments that were scheduled to occur 6 months from the date of the Encounter, up to a maximum of 20 appointments. The data comes from all [place] treatment facilities. Appointment Date/Time Appointment Type Appointme nt Facility Name January 15, 2024 07:45 AM AMBULATORY - SURGERY [facility] Feb 28, 2024 09:00 AM AMBULATORY - MEDICINE [facility] Mar 14, 2024 11:00 AM AMBULATORY - [facility]ICINE [facility] May 01, 2024 08:00 AM AMBULATORY - SURGERY [facility] Advance Directives: All historical and current Section Date Range: From patient's date of to the date document was created. This section includes ALL of a patient's completed or amended [place] Advance and Rescinded Directives. The entries below indicate that a directive exists for the patient, but an actual copy is not included with this document. The data comes from all [place] facilities. Date Advance Directives Provider Source Apr 19, 2023 ADVANCE DIRECTIVE DISCUSSION RALEIGH RHODES [facility] Apr 19, 2023 ADVANCE DIRECTIVE YOVANA RHODES [facility]
--- OUTSIDE RECORDS SUMMARY | 2024-03-27 08:41 | XMS_ITS | Encounter Summary ---
Author Name [place] Address [address] [place] [id number] Care Team Providers Care Hat Mender Name Role Phone GARY JONES [facility] Insurance Providers: All historical and current Section Date Range: From patient's date of to the date document was created. This section includes the names of all active insurance providers for the patient. Insurance Provider Type of Coverage Plan Name Start of Policy Coverage End of Policy Coverage Group Number Member ID Insurance Provider's Telephone Number Policy Duncan's Name Patient's Relationship to Policy Duncan [facility] (WNR) MEDICARE ADVANTAGE [facility] (WNR) Sep 04, 2021 [id number] [phone] Merna COTE PATIENT Selected Encounter This section includes the information on record at [place] for the Encounter. Date/Time Encounter Type Encounter Description Reason Provider Source January 15, 2024 07:45 AM HEARING AID FITTING/CHECKIN G AUDIOLOGY ICD-10-CM 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 loss, bilateral JOSH TINAJERO Todd Encounter Template Text not used by [place] Assessments - Encounter Diagnoses This section includes the primary and secondary diagnoses documented for the Encounter. Date/Time Primary/Secondary Diagnosis Diagnosis Name Provider Source January 15, 2024 08:35 AM PRIMARY Sensorineural hearing loss, bilateral JOSH TINAJERO [facility] January 15, 2024 08:35 AM SECONDARY Encounter for fitting and adjustment of hearing aid JOSH TINAJERO [facility] January 15, 2024 08:35 AM SECONDARY Tinnitus, bilateral JOSH TINAJERO [facility] Plan of Treatment: Future Appointments (+ 6 months) and Future Tests (+/- 45 days) The Plan of Treatment section includes future care activities for the patient from all [place] [facility]. This section includes future appointments and future orders which are active, pending or scheduled. Future Appointments This section includes appointments that were scheduled to occur 6 months from the date of the Encounter, up to a maximum of 20 appointments. The data comes from all [place] treatment facilities. Appointment Date/Time Appointment Type Appointme nt Facility Name Feb 28, 2024 09:00 AM AM[facility]ULATORY - MEDICINE [facility] Mar 14, 2024 11:00 AM AMBULATORY - MEDICINE [facility] May 01, 2024 08:00 AM AMBULATORY - SURGERY [facility] Advance Directives: All historical and current Section Date Range: From patient's date of to the date document was created. This section includes ALL of a patient's completed or amended [place] Advance and Rescinded Directives. The entries below indicate that a directive exists for the patient, but an actual copy is not included with this document. The data comes from all [place] facilities. Date Advance Directives Provider Source Apr 19, 2023 ADVANCE DIRECTIVE DISCUSSION RALEIGH RHODES [facility] Apr 19, 2023 ADVANCE DIRECTIVE YOVANA RHODES [facility] Encounter Notes: All associated encounter notes This section contains the clinical notes associated to the Encounter. Date/Time Encounter Note(s) Provider Source January 15, 2024 08:25 AM AUDIOLOGY NOTE: LOCAL TITLE: AUDIOLOGY CLINIC NOTE STANDARD TITLE: AUDIOLOGY NOTE DATE OF NOTE: JANUARY 15, 2024@08:25 ENTRY DATE: JANUARY 15, 2024@08:25:58 AUTHOR: JOSH TINAJERO EXP COSIGNER: URGENCY: STATUS: COMPLETED SUBJECT: LEONG Service AUDIOLOGY CLINIC NOTE Has ADDENDA DIAGNOSIS: Sensorineural Hearing Loss, Bilateral Tinnitus, Bilateral Encounter for fitting and adjustment of hearing aid REASON FOR VISIT: Hearing aid service The was last seen in this clinic on 08/02/2023. The is Service Connected for Hearing Loss/Tinnitus. [place] was accompanied by his , Pat. The wears the following hearing aids: HEARING AIDS (Right/Left) fit: 05/30/23 Make: Lloyd Model: Stefany AI ITC R Serial #s: [id number] Accessories: oracle database analyst/Starlink Mini Remote Flex: [id number] [employer] Remote Control 2.0: [id number] Concerns reported today by : Right aid SN: weak/intermittent sound Left aid SN: weak PROCEDURES: OTOSCOPY Bilaterally: Free of excessive cerumen. Normal appearing TM's and canals. HEARING AID REPAIR/MODIFICATION (x2): (Serial #: [id number]) - Both hearing aids are cleaned and checked today. - Wax filters and microphone filters are significantly plugged. - Right food service manager is pushed in - Wax filters and microphone filters are replaced. - After this, listening check confirms both the left aid is working well, the right aid is weak. HEARING AID REPROGRAMMING: (Serial #:[id number] ) - Both hearing aids are connected to the fitting software today. - Firmware updated, AU. - reports the left hearing aid sounds clear and comfortable after these changes. The right food service manager is pushed in and will need to be sent in for repair. - Ordered more supplies in [place] for patient. PLAN: - Regular follow up recommended to monitor for changes in hearing, or as medically indicated. - RTC for servicing of amplification as needed. Patient is in agreement with this plan. Tech note: Please mail repaired hearing aid to once received. /felix/ ISMAEL BRADEN STAFF LIBRARY CLERK Signed: 01/15/2024 08:35 01/20/2024 ADDENDUM STATUS: COMPLETED MAILING REPAIRED RIGHT HEARING AID TO THE ADDRESS ON FILE /felix/ CHRISTY Mckeon [facility] Room Choice WORK ORDER SORTING CLERK Signed: 01/20/2024 07:33 JOSH TINAJERO [facility]
--- OUTSIDE RECORDS SUMMARY | 2024-03-27 08:41 | XMS_ITS | Encounter Summary ---
Author Name [place] Address [address] [place] [address] Care Team Providers Care Licensed Clinical Social Worker Name Role Phone GARY JONES Primary Care Provider Earlene fishman Insurance Providers: All historical and current Section Date Range: From patient's date of to the date document was created. This section includes the names of all active insurance providers for the patient. Insurance Provider Type of Coverage Plan Name Start of Policy Coverage End of Policy Coverage Group Number Member ID Insurance Provider's Telephone Number Policy Duncan's Name Patient's Relationship to Policy Duncan [facility] (WNR) MEDICARE ADVANTAGE [facility] (WNR) Sep 04, 2021 [id number] [phone] Merna COTE PATIENT Selected Encounter This section includes the information on record at [place] for the Encounter. Date/Time Encounter Type Encounter Description Reason Provider Source Mar 14, 2024 11:00 AM OFF/OP EST JANUARY X REQ PHY/QHP PRIMARY CARE/MEDICINE ICD-10-CM Z71.9 Counseling, unspecified ROLAND ROBBINS Encounter Template Text not used by [place] Assessments - Encounter Diagnoses This section includes the primary and secondary diagnoses documented for the Encounter. Date/Time Primary/Secondary Diagnosis Diagnosis Name Provider Source Mar 19, 2024 08:51 AM PRIMARY Counseling, unspecified [facility] Plan of Treatment: Future Appointments (+ 6 months) and Future Tests (+/- 45 days) The Plan of Treatment section includes future care activities for the patient from all [place] [facility]. This section includes future appointments and future orders which are active, pending or scheduled. Future Appointments This section includes appointments that were scheduled to occur 6 months from the date of the Encounter, up to a maximum of 20 appointments. The data comes from all [place] treatment facilities. Appointment Date/Time Appointment Type Appointme nt Facility Name May 01, 2024 08:00 AM AMBULATORY - SURGERY [facility] Active, Pending, and Scheduled Orders This section includes a listing of several types of active, pending, and scheduled orders, including clinic medications orders, diagnostic test orders, procedure orders and consult orders; where the start date of the order is 45 days before the date of the Encounter or 45 days after the date of theEncounter. The data comes from all [facility]. Test Date/Time Test Type Test Details Facility Name Mar 19, 2024 09:04 AM Consult Order VASCULAR O UTPT-VARICOSE VEINS/VENOUS ULCERS Cons Nutritional Services Host's Choice [facility] Lab Results: +/- 30 days of the encounter This section includes the Chemistry and Hematology Lab Results on record with [place] for the patient. Radiology Reports and Pathology Reports are provided separately, in subsequent sections. Lab Results This section contains the Chemistry/Hematology Results that were resulted 30 days before or 30 daysafter the date of the Encounter. Date/Time Source Result Type Result - Unit Interpretation Reference Range Comment Feb 28, 2024 09:59 AM [facility] CBC & DIFF Specimen Type: BLOOD Comment: Automated Differential Performed Ordering Provider: IVETH JONES Report Released Date/Time: Feb 28, 2024 09:41 AM Reporting Lab: [facility] [id number] Performing Lab: [facility] [address] WBC 7.34 10*3/uL 4.0-11.0 RBC 4.19 10*6/uL [...] 10*3/uL 0-0.1 Feb 28, 2024 09:59 AM [facility] COMPREHENSIVE METABOLIC PANEL+MG Specimen Type: PLASMA No comment entered. Ordering Provider: IVETH JONES Report Released Date/Time: Feb 28, 2024 09:41 AM Reporting Lab: [facility] [id number] Performing Lab: [facility] [id number] CREATININE 1.0 mg/dL 0.7-1.2 UREA NITROGEN 24 [...] 73 >60 Feb 28, 2024 09:59 AM [facility] PSA Specimen Type: SERUM No comment entered. Ordering Provider: IVETH JONES Report Released Date/Time: Feb 28, 2024 09:41 AM Reporting Lab: [facility] [id number] Performing Lab: [facility] [id number] PSA 0.28 ng/mL <4.00 Feb 28, 2024 09:59 AM [facility] LIPID PANEL,NON-FASTING Specimen Type: PLASMA No comment entered. Ordering Provider: IVETH JONES Report Released Date/Time: Feb 28, 2024 09:51 AM Reporting Lab: [facility] [id number] Performing Lab: [facility] [address] CHOLESTEROL 236 mg/dL H <199 .HDL 48 mg/dL >40 LDL CALCULATION 161 mg/dL H <99 VLDL CALCULATION 27 mg/dL <29 NON HDL CHOLESTEROL 188 mg/dL H <129 TRIG(NON FASTING) 134 mg/dL <149 Social History: Smoking Status (Most current) and Tobacco Use (All prior to encounter date) This section includes the most current, and the historical, smoking and tobacco- related health factors from the [place] facility where the Encounter took place. Current Smoking Status This section includes the most current smoking, or tobacco-related health factor, from the [place] facility where the Encounter took place. Date/Time Current Smoking Status Comment Brandon nisa Feb 28, 2024 09:00 AM VA-TOBACCO NEVER USED [facility] Tobacco Use History This section includes a history of the smoking, or tobacco-related health factors, that were collected on or before the date of the Encounter. The data comes from the [place] facility where the Encounter took place. Date/Time Smoking Status/Tobacco Use Comment F acility Feb 22, 2023 09:30 AM VA-TOBACCO FORMER USER [facility] Feb 22, 2023 09:30 AM VA-TOBACCO QUIT 15 YRS OR MORE [facility] Advance Directives: All historical and current Section Date Range: From patient's date of to the date document was created. This section includes ALL of a patient's completed or amended [place] Advance and Rescinded Directives. The entries below indicate that a directive exists for the patient, but an actual copy is not included with this document. The data comes from all [place] facilities. Date Advance Directives Provider Source Apr 19, 2023 ADVANCE DIRECTIVE DISCUSSION [facility] RHODES [facility] Apr 19, 2023 ADVANCE DIRECTIVE YOVANA RH[facility]ES [facility] Encounter Notes: All associated encounter notes This section contains the clinical notes associated to the Encounter. Date/Time Encounter Note(s) Provider Source Mar 14, 2024 11:38 AM NURSING OUTPATIENT NOTE: LOCAL TITLE: [facility] MEDIC[facility]INIC NURSING RN NOTE STANDARD TITLE: NURSING OUTPATIENT NOTE DATE OF NOTE: MAR 14, 2024@11:38 ENTRY DATE: MAR 14, 2024@11:38:35 AUTHOR: ROLAND ROBBINS COSIGNER: URGENCY: STATUS: COMPLETED TYPE OF VISIT: Nurse Clinic REASON FOR VISIT: [place] came to clinic for scheduled RN clinic appt, wound check and possible vascular consult as per previous MD note as noted below: Patient continues to have problems with edema [...] , shallow and not infected now. They data deliverables manager ontinue what they are doing with daily dresing changes,. However if gets bigger or infected will need to go to wound clinic Assessment: ALLERGIES: FACILITY ALLERGY/ADR -------- No Remote Allergy/ADR Data available for this patient [facility] No Known Allergies Utility Tender Carding evaluated pt's lower extremities for changes in edema and also wound on left lateral aspect of ankle (approx. size of a quarter). Wound appears to be closed/dry, skin is not open or oozing, no drainage or signs of infection noted. Pt and SO report wound looks better. Pt was not wearing compression stockings. Edema is minimal. Utility Tender Carding did not see wound when pt was in clinic on 02/27. MD alerted and evaluated pt in clinic today. Per MD, wound is looking much better. Pt advised to keep area clean and dry. Wound is closed and healing, MD advised to use a small about of abx oint for the next weeks or so, also ok to use Vaseline, as the purpose is to keep wound from drying out too much while healing. MD did offer vascular consult due to what appears to be vascular issues such as venous insufficiency, hx of ulcerations, and edema. OF note: pt requested the results of recent labs, particularly lipid panel. Pt stated he has been using his own concoction (OTC or natural herbs) to treat cholesterol. Pt did not say what he is taking. 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 MD also reviewed lab results with pt. MSA provided a copy of labs results today at check out. PLAN: Pt reports difficulty with putting on compression stockings, stated they are too tight and uncomfortable. Pt was given 2 pairs of white DM senifoot stockings, which will offer some support and comfort but should not be difficult to put on. Pt tried a pair on in clinic, reports stocking feel good. Will place prosthetics consult and hold for MD review/signature--size large issued as pt reported shoe size of 11. Pt to address need for and concerns with compression stocking with vascular. Will place vascular consult and hold for MD signature. Pt is aware he should receive a call soon regarding an appt. Pt to call PACT if any questions arise such as opening of wound, redness, or s/s of infection. Pt will return to clinic on 03/28 @ 1100 for wound check. Utility Tender Carding will remain available to assist as needed. /felix/ ROLAND ROBBINS,RN REGISTERED NURSE Signed: 03/19/2024 08:52 Receipt Acknowledged By: 03/19/2024 09:06 /felix/ GARY JONES PHYSICIAN ROLAND ROBBINS [facility]
--- OUTSIDE RECORDS SUMMARY | 2024-03-27 08:41 | XMS_ITS | Continuity of Care Document ---
Author Name [facility] Organization [facility] Care Team Providers Care Master Esthetician Name Role Phone [facility] Unavailable Unavailable Problems Combined list of problems from Department of Defense and Veterans Affairs facilities. It does not include entries that were removed or entered in error. Problem Status Onset Date Problem Type Date of Resolution Comments Source Exposure to potentially hazardous substance ([facility] [id number]) Active 11/10/19 24 Condition Nov 10, 2023 Entered By: FLORES KENNEDY Comment: [facility] you bake3 JOSIE Documentation Initiative [facility] Edema Active Condition Feb 22 Entered By: GARY JONES Comment: trated for prostate ca with 44 radiation treatmentsFeb 22, 2023 Entered By: GARY JONES Comment: treated fro prostate cancer with 44 radiation treatments [facility] 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 Active Condition Feb 22, 2023 Entered By: GARY JONES Comment: treated prostate cancer with 44 radiation treatments [facility] Malignant melanoma Active Condition [facility] Obstructive Sleep Apnea of Adult ([facility] [id number]) Active Condition Dec 28, 2023 Entered By: WILEY ARTHUR Comment: See scanned records in [facility] for details [facility] Diagnosis: ICD-10-CM Z71.9 Counseling, unspecified Active Diagnosis [facility] Diagnosis: ICD-10-CM Z00.8 Encounter for other general examination Active Diagnosis [facility] Diagnosis: ICD-10-CM 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 loss, bilateral Active Diagnosis [facility] Diagnosis: ICD-10-CM 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, right eye Active Diagnosis [facility] Diagnosis: ICD-10-CM Z46.1 Encounter for fitting and adjustment of hearing aid Active Diagnosis [facility] Diagnosis: ICD-10-CM G47.39 Other sleep apnea Active Diagnosis [facility] Diagnosis: ICD-10-CM 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 Medication Details Route Status Patient Instructions Prescription Expires Prescription Number Last Dispense Date Ordering Provider Order Date Order Qty Source ALBUTEROL 90MCG/ACTUA T (CFC-F) INHL,ORAL,8 .5GM DOSE COUNTER ALBUTERO L 90MCG/AC TUAT (CFC-F) INHL,ORA L,8.5GM DOSE COUNTER Active INHALE 1 PUFF BY INHALATI ON EVERY 6 HOURS NEEDED FOR SHORTNES S OF BREATH FOR SHORTNES S OF BREATH Jul 12, 2023 2 Jul 12, 2024 [id number] Jul 12, 2023 GARY JONES RESPIR ATORY (INHAL ATION) ACTIVE 07/12/2024 [id number] GARY JONES 2022 2 [facility] ASCORBIC ACID 500MG TAB ASCORBIC ACID 500MG TAB Non-VA TAKE ONE TABLET BY MOUTH EVERY DAY FOR VITAMIN C SUPPLEME NT Feb 22, 2023 Non-VA Document ed by: GARY JONES Document ed at: [facility] ORAL ACTIVE GARY JONES 2022 [facility] CARBOXYMETH YLCELLULOSE NA 0.5% SOLN,OPH CARBOXYM ETHYLCEL LULOSE NA 0.5% SOLN,OPH Active INSTILL 1 DROP IN BOTH EYES FOUR TIMES A DAY NEEDED FOR DRY EYES FOR DRY EYES Nov 01, 2023 15 Nov 01, 2024 [id number] Nov 02, 2023 [facility]AM[facility] ,CHRISTINA H [place] [facility] OPHTHA LMIC ACTIVE 11/01/2024 [id number] GRAMATES, CHRISTINA H 2023 15 [place] [facility] CHOLECALCIF VAL TAB CHOLECAL CIFEROL TAB Non-VA TAKE 1 TAB BY MOUTH Feb 28, 2024 Non-VA Document ed by: GARY JONES Document ed at: [facility] ORAL ACTIVE GARY JONES 2023 [facility] IBUPROFEN 600MG TAB IBUPROFE N 600MG TAB Non-VA TAKE ONE TABLET BY MOUTH THREE TIMES A DAY NEEDED Feb 28, 2024 Non-VA Document ed by: GARY JONES Document ed at: [facility] ORAL ACTIVE GARY JONES 2023 [facility] MULTIVITAMI NS CAP/TAB MULTIVIT AMINS CAP/TAB Non-VA TAKE ONE TABLET BY MOUTH EVERY DAY FOR SUPPLEME NT Feb 22, 2023 Non-VA Document ed by: GARY JONES Document ed at: [facility] ORAL ACTIVE GARY JONES 2022 [facility] TORSEMIDE 20MG TAB TORSEMID E 20MG TAB Active TAKE ONE TABLET BY MOUTH EVERY DAY FOR EXCESS FLUID FOR EXCESS FLUID Feb 28, 2024 90 Feb 28, 2025 [id number] Feb 28, 2024 [facility] ORAL ACTIVE 02/28/2025 [id number] GARY JONES 2023 90 [facility] ZINC 50MG (FROM SULFATE) CAP ZINC 50MG (FROM SULFATE) CAP Non-VA TAKE 1 CAPSULE BY MOUTH EVERY DAY UNKNOWN Feb 22, 2023 Non-VA Document ed by: GARY JONES Document ed at: [facility] ORAL ACTIVE GARY JONES 2022 SHARADHA [facility] Immunizations Combined list of available immunizations from the Department of Defense and Veterans Affairs facilities. Immunization Series Date Given Administered By Site Reaction Lot Number CVX Code Drug Secretary Of Police Status Comments Source COVID-19 (The Original [employer]), MRNA, LNP-S, PF, JASON-SUCROSE, 30 MCG/0.3 ML (AGES 12+ YEARS) 1 2022 TOOTIE ANDERSON LEFT DELTO ID [id number] 309 complet ed [facility] INFLUENZA, HIGH-DOSE, QUADRIVALENT 2022 TOOTIE ANDERSON LEFT DELTO ID [id number] 197 complet ed [facility] PNEUMOCOCCAL CONJUGATE PCV20, POLYSACCHARID E [id number] CONJUGATE, ADJUVANT, PF 2022 TOOTIE ANDERSON LEFT DELTO ID [id number] 216 complet ed [facility] INFLUENZA, HIGH-DOSE, QUADRIVALENT, PF 2021 197 complet ed [facility] INFLUENZA, UNSPECIFIED FORMULATION 2021 88 complet ed [facility] COVID-19 (MODERNA), MRNA, LNP-S, PF, 100 MCG/0.5ML DOSE OR 50 MCG/0.25ML DOSE 3 2020 207 complet ed [facility] INFLUENZA, HIGH-DOSE, QUADRIVALENT, PF 2020 197 complet ed [facility] COVID-19 (MODERNA), MRNA, LNP-S, PF, 100 MCG/0.5ML DOSE OR 50 MCG/0.25ML DOSE 2 2020 207 complet ed [facility] COVID-19 (MODERNA), MRNA, LNP-S, PF, 100 MCG/0.5ML DOSE OR 50 MCG/0.25ML DOSE 1 2020 207 complet ed [facility] INFLUENZA, HIGH-DOSE, TRIVALENT, PF 2018 135 complet ed [facility] INFLUENZA, HIGH-DOSE, TRIVALENT, PF 2016 135 complet ed [facility] TDAP 2016 115 complet ed [facility] INFLUENZA, SPLIT VIRUS, QUADRIVALENT, PF 2015 150 complet ed [facility] INFLUENZA, HIGH-DOSE, TRIVALENT, PF 2015 135 complet ed [facility] INFLUENZA, HIGH-DOSE, TRIVALENT, PF 2012 135 complet ed [facility] INFLUENZA, SPLIT VIRUS, TRIVALENT, PRESERVATIVE 2012 141 complet ed [facility] TDAP 2011 115 complet [employer] INFLUENZA, SPLIT VIRUS, TRIVALENT, PF 2010 140 complet [employer] HEP B, UNSPECIFIED FORMULATION 2009 45 complet [employer] NOVEL INFLUENZA-H1N 1-09 2008 127 complet ed [facility] Results Combined list of recent chemistry, hematology and other laboratory results from Department of Defense and Veterans Affairs, ranging from 15 months to all on record, depending upon the facility. Order Name Results Value Reference Range Date Interpretation Specimen Comments Source CBC & DIFF LEUKOCYTES [#/VOLUME] IN BLOOD BY AUTOMATED COUNT 7.34 10*3/u L 4.0 - 11.0 02/27 Specimen Type: BLOOD Comment: Automated Differentia l Performed Ordering Provider: KATIE JONES Report Released Date/Time: Feb 28, 2024 09:41 AM Reporting Lab: [facility] [address] Performing Lab: [facility] [address] [facility] CBC & DIFF ERYTHROCYTE S [#/VOLUME] IN BLOOD BY AUTOMATED COUNT 4.19 10*6/u L 4.6 - 6.2 02/27 L Specimen Type: BLOOD Comment: Automated Differentia l Performed Ordering Provider: KATIE JONES Report Released Date/Time: Feb 28, 2024 09:41 AM Reporting Lab: [facility] [address] Performing Lab: [facility] [address] [facility] CBC & DIFF HEMOGLOBIN [MASS/VOLUM E] IN BLOOD 13.4 g/dL 13.5 - 17.9 02/27 L Specimen Type: BLOOD Comment: Automated Differentia l Performed Ordering Provider: KATIE JONES Report Released Date/Time: Feb 28, 2024 09:41 AM Reporting Lab: [facility] [address] Performing Lab: [facility] [address] [facility] CBC & DIFF HEMATOCRIT [VOLUME FRACTION] OF BLOOD BY AUTOMATED COUNT 40.6 41 - 54 02/27 L Specimen Type: BLOOD Comment: Automated Differentia l Performed Ordering Provider: KATIE JONES Report Released Date/Time: Feb 28, 2024 09:41 AM Reporting Lab: [facility] [address] Performing Lab: [facility] [address] [facility] CBC & DIFF MCV [ENTITIC VOLUME] BY AUTOMATED COUNT 96.9 fL 80 - 100 02/27 Specimen Type: BLOOD Comment: Automated Differentia l Performed Ordering Provider: KATIE JONES Report Released Date/Time: Feb 28, 2024 09:41 AM Reporting Lab: [facility] [address] Performing Lab: [facility] [address] [facility] CBC & DIFF MCH [ENTITIC MASS] BY AUTOMATED COUNT 32.0 pg 27 - 33 02/27 Specimen Type: BLOOD Comment: Automated Differentia l Performed Ordering Provider: KATIE JONES Report Released Date/Time: Feb 28, 2024 09:41 AM Reporting Lab: [facility] [address] Performing Lab: [facility] [address] [facility] CBC & DIFF MCHC [MASS/VOLUM E] BY AUTOMATED COUNT 33.0 g/dL 32.0 - 37.5 02/27 Specimen Type: BLOOD Comment: Automated Differentia l Performed Ordering Provider: KATIE JONES Report Released Date/Time: Feb 28, 2024 09:41 AM Reporting Lab: [facility] [address] Performing Lab: [facility] [address] [facility] CBC & DIFF PLATELETS [#/VOLUME] IN BLOOD BY AUTOMATED COUNT 273 10*3/u L 150 - 400 02/27 Specimen Type: BLOOD Comment: Automated Differentia l Performed Ordering Provider: KATIE JONES Report Released Date/Time: Feb 28, 2024 09:41 AM Reporting Lab: [facility] [address] Performing Lab: [facility] [address] [facility] CBC & DIFF PLATELET MEAN VOLUME [ENTITIC VOLUME] IN BLOOD BY AUTOMATED COUNT 9.8 fL 7.4 - 10.4 02/27 Specimen Type: BLOOD Comment: Automated Differentia l Performed Ordering Provider: KATIE JONES Report Released Date/Time: Feb 28, 2024 09:41 AM Reporting Lab: [facility] [address] Performing Lab: [facility] [address] [facility] CBC & DIFF NEUTROPHILS /100 LEUKOCYTES IN BLOOD BY MANUAL COUNT 67.8 40.0 - 80.0 02/27 Specimen Type: BLOOD Comment: Automated Differentia l Performed Ordering Provider: KATIE JONES Report Released Date/Time: Feb 28, 2024 09:41 AM Reporting Lab: [facility] [address] Performing Lab: [facility] [address] [facility] CBC & DIFF LYMPHOCYTES /100 LEUKOCYTES IN BLOOD BY MANUAL COUNT 18.9 15.0 - 45.0 02/27 Specimen Type: BLOOD Comment: Automated Differentia l Performed Ordering Provider: KATIE JONES Report Released Date/Time: Feb 28, 2024 09:41 AM Reporting Lab: [facility] [address] Performing Lab: [facility] [address] [facility] CBC & DIFF MONOCYTES/1 00 LEUKOCYTES IN BLOOD BY AUTOMATED COUNT 9.5 2.0 - 12.0 02/27 Specimen Type: BLOOD Comment: Automated Differentia l Performed Ordering Provider: KATIE JONES Report Released Date/Time: Feb 28, 2024 09:41 AM Reporting Lab: [facility] [address] Performing Lab: [facility] [address] [facility] CBC & DIFF EOSINOPHILS /100 LEUKOCYTES IN BLOOD BY AUTOMATED COUNT 2.6 0.0 - 6.0 02/27 Specimen Type: BLOOD Comment: Automated Differentia l Performed Ordering Provider: KATIE JONES Report Released Date/Time: Feb 28, 2024 09:41 AM Reporting Lab: [facility] [address] Performing Lab: [facility] [address] [facility] CBC & DIFF BASOPHILS/1 00 LEUKOCYTES IN BLOOD BY MANUAL COUNT 0.7 0.0 - 2.0 02/27 Specimen Type: BLOOD Comment: Automated Differentia l Performed Ordering Provider: KATIE JONES Report Released Date/Time: Feb 28, 2024 09:41 AM Reporting Lab: [facility] [address] Performing Lab: [facility] [address] [facility] CBC & DIFF ERYTHROCYTE DISTRIBUTIO N WIDTH [RATIO] BY AUTOMATED COUNT 13.8 11.5 - 14.5 02/27 Specimen Type: BLOOD Comment: Automated Differentia l Performed Ordering Provider: KATIE JONES Report Released Date/Time: Feb 28, 2024 09:41 AM Reporting Lab: [facility] [address] Performing Lab: [facility] [address] [facility] CBC & DIFF LYMPHOCYTES [#/VOLUME] IN BLOOD BY AUTOMATED COUNT 1.39 10*3/u L 1.0 - 4.0 02/27 Specimen Type: BLOOD Comment: Automated Differentia l Performed Ordering Provider: KATIE JONES Report Released Date/Time: Feb 28, 2024 09:41 AM Reporting Lab: [facility] [address] Performing Lab: [facility] [address] [facility] CBC & DIFF MONOCYTES [#/VOLUME] IN BLOOD BY AUTOMATED COUNT 0.70 10*3/u L 0.1 - 1.0 02/27 Specimen Type: BLOOD Comment: Automated Differentia l Performed Ordering Provider: KATIE JONES Report Released Date/Time: Feb 28, 2024 09:41 AM Reporting Lab: [facility] [address] Performing Lab: [facility] [address] [facility] CBC & DIFF NEUTROPHILS [#/VOLUME] IN BLOOD BY AUTOMATED COUNT 4.97 10*3/u L 2.0 - 7.7 02/27 Specimen Type: BLOOD Comment: Automated Differentia l Performed Ordering Provider: KATIE JONES Report Released Date/Time: Feb 28, 2024 09:41 AM Reporting Lab: [facility] [address] Performing Lab: [facility] [address] [facility] CBC & DIFF EOSINOPHILS [#/VOLUME] IN BLOOD BY AUTOMATED COUNT 0.19 10*3/u L 0 - 0.5 02/27 Specimen Type: BLOOD Comment: Automated Differentia l Performed Ordering Provider: KATIE JONES Report Released Date/Time: Feb 28, 2024 09:41 AM Reporting Lab: [facility] [address] Performing Lab: [facility] [address] [facility] CBC & DIFF BASOPHILS [#/VOLUME] IN BLOOD BY AUTOMATED COUNT 0.05 10*3/u L 0 - 0.2 02/27 Specimen Type: BLOOD Comment: Automated Differentia l Performed Ordering Provider: KATIE JONES Report Released Date/Time: Feb 28, 2024 09:41 AM Reporting Lab: [facility] [address] Performing Lab: [facility] [address] [facility] CBC & DIFF IG(META,MYE LO,PRO) 0.5 02/27 Specimen Type: BLOOD Comment: Automated Differentia l Performed Ordering Provider: KATIE JONES Report Released Date/Time: Feb 28, 2024 09:41 AM Reporting Lab: [facility] [address] Performing Lab: [facility] [address] [facility] CBC & DIFF IMMATURE GRANULOCYTE S [PRESENCE] IN BLOOD BY AUTOMATED COUNT 0.04 10*3/u L 0 - 0.1 02/27 Specimen Type: BLOOD Comment: Automated Differentia l Performed Ordering Provider: KATIE JONES Report Released Date/Time: Feb 28, 2024 09:41 AM Reporting Lab: [facility] [address] Performing Lab: [facility] [address] [facility] COMPREHEN SIVE METABOLIC PANEL+MG CREATININE [MASS/VOLUM E] IN SERUM OR PLASMA 1.0 mg/dL 0.7 - 1.2 02/27 Specimen Type: PLASMA No comment entered. Ordering Provider: KATIE JONES Report Released Date/Time: Feb 28, 2024 09:41 AM Reporting Lab: [facility] [address] Performing Lab: [facility] [address] [facility] COMPREHEN SIVE METABOLIC PANEL+MG UREA NITROGEN [MASS/VOLUM E] IN SERUM OR PLASMA 24 mg/dL 8 - 26 02/27 Specimen Type: PLASMA No comment entered. Ordering Provider: KATIE JONES Report Released Date/Time: Feb 28, 2024 09:41 AM Reporting Lab: [facility] [address] Performing Lab: [facility] [address] [facility] COMPREHEN SIVE METABOLIC PANEL+MG GLUCOSE [MASS/VOLUM E] IN SERUM OR PLASMA 90 mg/dL 70 - 100 02/27 Specimen Type: PLASMA No comment entered. Ordering Provider: KATIE JONES Report Released Date/Time: Feb 28, 2024 09:41 AM Reporting Lab: [facility] [address] Performing Lab: [facility] [address] [facility] COMPREHEN SIVE METABOLIC PANEL+MG SODIUM [MOLES/VOLU ME] IN SERUM OR PLASMA 143 mmol/L 136 - 145 02/27 Specimen Type: PLASMA No comment entered. Ordering Provider: KATIE JONES Report Released Date/Time: Feb 28, 2024 09:41 AM Reporting Lab: [facility] [address] Performing Lab: [facility] [address] [facility] COMPREHEN SIVE METABOLIC PANEL+MG POTASSIUM [MOLES/VOLU ME] IN SERUM OR PLASMA 4.1 mmol/L 3.5 - 5.1 02/27 Specimen Type: PLASMA No comment entered. Ordering Provider: KATIE JONES Report Released Date/Time: Feb 28, 2024 09:41 AM Reporting Lab: [facility] [address] Performing Lab: [facility] [address] [facility] COMPREHEN SIVE METABOLIC PANEL+MG CHLORIDE [MOLES/VOLU ME] IN SERUM OR PLASMA 107 mmol/L 98 - 107 02/27 Specimen Type: PLASMA No comment entered. Ordering Provider: KATIE JONES Report Released Date/Time: Feb 28, 2024 09:41 AM Reporting Lab: [facility] [address] Performing Lab: [facility] [address] [facility] COMPREHEN SIVE METABOLIC PANEL+MG CARBON DIOXIDE, TOTAL [MOLES/VOLU ME] IN SERUM OR PLASMA 27 mmol/L 22 - 29 02/27 Specimen Type: PLASMA No comment entered. Ordering Provider: KATIE JONES Report Released Date/Time: Feb 28, 2024 09:41 AM Reporting Lab: [facility] [address] Performing Lab: [facility] [address] [facility] COMPREHEN SIVE METABOLIC PANEL+MG CALCIUM [MASS/VOLUM E] IN SERUM OR PLASMA 9.8 mg/dL 8.4 - 10.2 02/27 Specimen Type: PLASMA No comment entered. Ordering Provider: KATIE JONES Report Released Date/Time: Feb 28, 2024 09:41 AM Reporting Lab: [facility] [address] Performing Lab: [facility] [address] [facility] COMPREHEN SIVE METABOLIC PANEL+MG PROTEIN [MASS/VOLUM E] IN SERUM OR PLASMA 7.3 g/dL 6.0 - 8.3 02/27 Specimen Type: PLASMA No comment entered. Ordering Provider: KATIE JONES Report Released Date/Time: Feb 28, 2024 09:41 AM Reporting Lab: [facility] [address] Performing Lab: [facility] [address] [facility] COMPREHEN SIVE METABOLIC PANEL+MG ALBUMIN [MASS/VOLUM E] IN SERUM OR PLASMA 4.2 g/dL 3.5 - 5.2 02/27 Specimen Type: PLASMA No comment entered. Ordering Provider: KATIE JONES Report Released Date/Time: Feb 28, 2024 09:41 AM Reporting Lab: [facility] [address] Performing Lab: [facility] [address] [facility] COMPREHEN SIVE METABOLIC PANEL+MG BILIRUBIN.T OTAL [MASS/VOLUM E] IN SERUM OR PLASMA 0.8 mg/dL 0.2 - 1.2 02/27 Specimen Type: PLASMA No comment entered. Ordering Provider: KATIE JONES Report Released Date/Time: Feb 28, 2024 09:41 AM Reporting Lab: [facility] [address] Performing Lab: [facility] [address] [facility] COMPREHEN SIVE METABOLIC PANEL+MG MAGNESIUM [MASS/VOLUM E] IN SERUM OR PLASMA 2.3 mg/dL 1.6 - 2.6 02/27 Specimen Type: PLASMA No comment entered. Ordering Provider: KATIE JONES Report Released Date/Time: Feb 28, 2024 09:41 AM Reporting Lab: [facility] [address] Performing Lab: [facility] [address] [facility] COMPREHEN SIVE METABOLIC PANEL+MG ANION GAP IN SERUM OR PLASMA 9 mmol/L 5 - 15 02/27 Specimen Type: PLASMA No comment entered. Ordering Provider: KATIE JONES Report Released Date/Time: Feb 28, 2024 09:41 AM Reporting Lab: [facility] [address] Performing Lab: [facility] [address] [facility] COMPREHEN SIVE METABOLIC PANEL+MG ALKALINE PHOSPHATASE [ENZYMATIC ACTIVITY/VO LUME] IN SERUM OR PLASMA 66 U/L 40 - 150 02/27 Specimen Type: PLASMA No comment entered. Ordering Provider: KATIE JONES Report Released Date/Time: Feb 28, 2024 09:41 AM Reporting Lab: [facility] [address] Performing Lab: [facility] [address] [facility] COMPREHEN SIVE METABOLIC PANEL+MG ALANINE AMINOTRANSF ERASE [ENZYMATIC ACTIVITY/VO LUME] IN SERUM OR PLASMA 13 U/L <55 - 55 02/27 Specimen Type: PLASMA No comment entered. Ordering Provider: KATIE JONES Report Released Date/Time: Feb 28, 2024 09:41 AM Reporting Lab: [facility] [address] Performing Lab: [facility] [address] [facility] COMPREHEN SIVE METABOLIC PANEL+MG ASPARTATE AMINOTRANSF ERASE [ENZYMATIC ACTIVITY/VO LUME] IN SERUM OR PLASMA 18 U/L <34 - 34 02/27 Specimen Type: PLASMA No comment entered. Ordering Provider: KATIE JONES Report Released Date/Time: Feb 28, 2024 09:41 AM Reporting Lab: [facility] [address] Performing Lab: [facility] [address] [facility] COMPREHEN SIVE METABOLIC PANEL+MG GLOMERULAR FILTRATION RATE/1.73 SQ M.PREDICTED [VOLUME RATE/AREA] IN SERUM, PLASMA OR BLOOD BY CREATININE- BASED FORMULA (CKD-EPI 2020) 73 60 02/27 Specimen Type: PLASMA No comment entered. Ordering Provider: KATIE JONES Report Released Date/Time: Feb 28, 2024 09:41 AM Reporting Lab: [facility] [address] Performing Lab: [facility] [address] [facility] PSA PROSTATE SPECIFIC AG [MASS/VOLUM E] IN SERUM OR PLASMA 0.28 ng/mL <4.00 - 4.00 02/27 Specimen Type: SERUM No comment entered. Ordering Provider: KATIE JONES Report Released Date/Time: Feb 28, 2024 09:41 AM Reporting Lab: [facility] [address] Performing Lab: [facility] [address] [facility] LIPID PANEL,NON -FASTING CHOLESTEROL [MASS/VOLUM E] IN SERUM OR PLASMA 236 mg/dL <199 - 199 02/27 H Specimen Type: PLASMA No comment entered. Ordering Provider: KATIE JONES Report Released Date/Time: Feb 28, 2024 09:51 AM Reporting Lab: [facility] [address] Performing Lab: [facility] [address] [facility] LIPID PANEL,NON -FASTING CHOLESTEROL IN HDL [MASS/VOLUM E] IN SERUM OR PLASMA 48 mg/dL 40 02/27 Specimen Type: PLASMA No comment entered. Ordering Provider: KATIE JONES Report Released Date/Time: Feb 28, 2024 09:51 AM Reporting Lab: [facility] [address] Performing Lab: [facility] [address] [facility] LIPID PANEL,NON -FASTING CHOLESTEROL IN LDL [MASS/VOLUM E] IN SERUM OR PLASMA BY CALCULATION 161 mg/dL <99 - 99 02/27 H Specimen Type: PLASMA No comment entered. Ordering Provider: KATIE JONES Report Released Date/Time: Feb 28, 2024 09:51 AM Reporting Lab: [facility] [address] Performing Lab: [facility] [address] [facility] LIPID PANEL,NON -FASTING CHOLESTEROL IN VLDL [MASS/VOLUM E] IN SERUM OR PLASMA BY CALCULATION 27 mg/dL <29 - 29 02/27 Specimen Type: PLASMA No comment entered. Ordering Provider: KATIE JONES Report Released Date/Time: Feb 28, 2024 09:51 AM Reporting Lab: [facility] [address] Performing Lab: [facility] [address] [facility] LIPID PANEL,NON -FASTING CHOLESTEROL NON HDL [MASS/VOLUM E] IN SERUM OR PLASMA 188 mg/dL <129 - 129 02/27 H Specimen Type: PLASMA No comment entered. Ordering Provider: KATIE JONES Report Released Date/Time: Feb 28, 2024 09:51 AM Reporting Lab: [facility] [address] Performing Lab: [facility] [address] [facility] LIPID PANEL,NON -FASTING TRIGLYCERID E [MASS/VOLUM E] IN SERUM OR PLASMA 134 mg/dL <149 - 149 02/27 Specimen Type: PLASMA No comment entered. Ordering Provider: KATIE JONES Report Released Date/Time: Feb 28, 2024 09:51 AM Reporting Lab: [facility] [address] Performing Lab: [facility] [address] [facility] B 12 COBALAMIN (VITAMIN B12) [MASS/VOLUM E] IN SERUM OR PLASMA 532 pg/mL 213 - 816 04/04 Specimen Type: SERUM No comment entered. Ordering Provider: KATIE JONES Report Released Date/Time: Feb 23, 2023 09:34 AM Reporting Lab: [facility] [address] Performing Lab: [facility] [address] [facility] FOLATE FOLATE [MASS/VOLUM E] IN SERUM OR PLASMA 14.8 ng/mL 7.0 04/04 Specimen Type: SERUM No comment entered. Ordering Provider: KATIE JONES Report Released Date/Time: Feb 23, 2023 09:34 AM Reporting Lab: [facility] [address] Performing Lab: [facility] [address] [facility] CBC & DIFF LEUKOCYTES [#/VOLUME] IN BLOOD BY AUTOMATED COUNT 6.47 10*3/u L 4.0 - 11.0 04/04 Specimen Type: BLOOD Comment: Automated Differentia l Performed Ordering Provider: KATIE JONES Report Released Date/Time: Feb 23, 2023 09:34 AM Reporting Lab: [facility] [address] Performing Lab: [facility] [address] [facility] CBC & DIFF ERYTHROCYTE S [#/VOLUME] IN BLOOD BY AUTOMATED COUNT 3.99 10*6/u L 4.6 - 6.2 04/04 L Specimen Type: BLOOD Comment: Automated Differentia l Performed Ordering Provider: KATIE JONES Report Released Date/Time: Feb 23, 2023 09:34 AM Reporting Lab: [facility] [address] Performing Lab: [facility] [address] [facility] CBC & DIFF HEMOGLOBIN [MASS/VOLUM E] IN BLOOD 12.6 g/dL 13.5 - 17.9 04/04 L Specimen Type: BLOOD Comment: Automated Differentia l Performed Ordering Provider: KATIE JONES Report Released Date/Time: Feb 23, 2023 09:34 AM Reporting Lab: [facility] [address] Performing Lab: [facility] [address] [facility] CBC & DIFF HEMATOCRIT [VOLUME FRACTION] OF BLOOD BY AUTOMATED COUNT 38.2 41 - 54 04/04 L Specimen Type: BLOOD Comment: Automated Differentia l Performed Ordering Provider: KATEI JONES Report Released Date/Time: Feb 23, 2023 09:34 AM Reporting Lab: [facility] [address] Performing Lab: [facility] [address] [facility] CBC & DIFF MCV [ENTITIC VOLUME] BY AUTOMATED COUNT 95.7 fL 80 - 100 04/04 Specimen Type: BLOOD Comment: Automated Differentia l Performed Ordering Provider: KATIE JONES Report Released Date/Time: Feb 23, 2023 09:34 AM Reporting Lab: [facility] [address] Performing Lab: [facility] [address] [facility] CBC & DIFF MCH [ENTITIC MASS] BY AUTOMATED COUNT 31.6 pg 27 - 33 04/04 Specimen Type: BLOOD Comment: Automated Differentia l Performed Ordering Provider: KATIE JONES Report Released Date/Time: Feb 23, 2023 09:34 AM Reporting Lab: [facility] [address] Performing Lab: [facility] [address] [facility] CBC & DIFF MCHC [MASS/VOLUM E] BY AUTOMATED COUNT 33.0 g/dL 32.0 - 37.5 04/04 Specimen Type: BLOOD Comment: Automated Differentia l Performed Ordering Provider: KATIE JONES Report Released Date/Time: Feb 23, 2023 09:34 AM Reporting Lab: [facility] [address] Performing Lab: [facility] [address] [facility] CBC & DIFF PLATELETS [#/VOLUME] IN BLOOD BY AUTOMATED COUNT 285 10*3/u L 150 - 400 04/04 Specimen Type: BLOOD Comment: Automated Differentia l Performed Ordering Provider: KATIE JONES Report Released Date/Time: Feb 23, 2023 09:34 AM Reporting Lab: [facility] [address] Performing Lab: [facility] [address] [facility] CBC & DIFF PLATELET MEAN VOLUME [ENTITIC VOLUME] IN BLOOD BY AUTOMATED COUNT 9.0 fL 7.4 - 10.4 04/04 Specimen Type: BLOOD Comment: Automated Differentia l Performed Ordering Provider: KATIE JONES Report Released Date/Time: Feb 23, 2023 09:34 AM Reporting Lab: [facility] [address] Performing Lab: [facility] [address] [facility] CBC & DIFF NEUTROPHILS /100 LEUKOCYTES IN BLOOD BY MANUAL COUNT 67.9 40.0 - 80.0 04/04 Specimen Type: BLOOD Comment: Automated Differentia l Performed Ordering Provider: KATIE JONES Report Released Date/Time: Feb 23, 2023 09:34 AM Reporting Lab: [facility] [address] Performing Lab: [facility] [address] [facility] CBC & DIFF LYMPHOCYTES /100 LEUKOCYTES IN BLOOD BY MANUAL COUNT 18.7 15.0 - 45.0 04/04 Specimen Type: BLOOD Comment: Automated Differentia l Performed Ordering Provider: KATIE JONES Report Released Date/Time: Feb 23, 2023 09:34 AM Reporting Lab: [facility] [address] Performing Lab: [facility] [address] [facility] CBC & DIFF MONOCYTES/1 00 LEUKOCYTES IN BLOOD BY AUTOMATED COUNT 8.8 2.0 - 12.0 04/04 Specimen Type: BLOOD Comment: Automated Differentia l Performed Ordering Provider: KATEI JONES Report Released Date/Time: Feb 23, 2023 09:34 AM Reporting Lab: [facility] [address] Performing Lab: [facility] [address] [facility] CBC & DIFF EOSINOPHILS /100 LEUKOCYTES IN BLOOD BY AUTOMATED COUNT 3.1 0.0 - 6.0 04/04 Specimen Type: BLOOD Comment: Automated Differentia l Performed Ordering Provider: KATIE JONES Report Released Date/Time: Feb 23, 2023 09:34 AM Reporting Lab: [facility] [address] Performing Lab: [facility] [address] [facility] CBC & DIFF BASOPHILS/1 00 LEUKOCYTES IN BLOOD BY MANUAL COUNT 0.6 0.0 - 2.0 04/04 Specimen Type: BLOOD Comment: Automated Differentia l Performed Ordering Provider: KATIE JONES Report Released Date/Time: Feb 23, 2023 09:34 AM Reporting Lab: [facility] [address] Performing Lab: [facility] [address] [facility] CBC & DIFF ERYTHROCYTE DISTRIBUTIO N WIDTH [RATIO] BY AUTOMATED COUNT 14.1 11.5 - 14.5 04/04 Specimen Type: BLOOD Comment: Automated Differentia l Performed Ordering Provider: KATIE JONES Report Released Date/Time: Feb 23, 2023 09:34 AM Reporting Lab: [facility] [address] Performing Lab: [facility] [address] [facility] CBC & DIFF LYMPHOCYTES [#/VOLUME] IN BLOOD BY AUTOMATED COUNT 1.21 10*3/u L 1.0 - 4.0 04/04 Specimen Type: BLOOD Comment: Automated Differentia l Performed Ordering Provider: KATIE JONES Report Released Date/Time: Feb 23, 2023 09:34 AM Reporting Lab: [facility] [address] Performing Lab: [facility] [address] [facility] CBC & DIFF MONOCYTES [#/VOLUME] IN BLOOD BY AUTOMATED COUNT 0.57 10*3/u L 0.1 - 1.0 04/04 Specimen Type: BLOOD Comment: Automated Differentia l Performed Ordering Provider: KATIE JONES Report Released Date/Time: Feb 23, 2023 09:34 AM Reporting Lab: [facility] [address] Performing Lab: [facility] [address] [facility] CBC & DIFF NEUTROPHILS [#/VOLUME] IN BLOOD BY AUTOMATED COUNT 4.39 10*3/u L 2.0 - 7.7 04/04 Specimen Type: BLOOD Comment: Automated Differentia l Performed Ordering Provider: KATIE JONES Report Released Date/Time: Feb 23, 2023 09:34 AM Reporting Lab: [facility] [address] Performing Lab: [facility] [address] [facility] CBC & DIFF EOSINOPHILS [#/VOLUME] IN BLOOD BY AUTOMATED COUNT 0.20 10*3/u L 0 - 0.5 04/04 Specimen Type: BLOOD Comment: Automated Differentia l Performed Ordering Provider: KATIE JONES Report Released Date/Time: Feb 23, 2023 09:34 AM Reporting Lab: [facility] [address] Performing Lab: [facility] [address] [facility] CBC & DIFF BASOPHILS [#/VOLUME] IN BLOOD BY AUTOMATED COUNT 0.04 10*3/u L 0 - 0.2 04/04 Specimen Type: BLOOD Comment: Automated Differentia l Performed Ordering Provider: KATIE JONES Report Released Date/Time: Feb 23, 2023 09:34 AM Reporting Lab: [facility] [address] Performing Lab: [facility] [address] [facility] CBC & DIFF IG(META,MYE LO,PRO) 0.9 04/04 Specimen Type: BLOOD Comment: Automated Differentia l Performed Ordering Provider: KATIE JONES Report Released Date/Time: Feb 23, 2023 09:34 AM Reporting Lab: [facility] [address] Performing Lab: [facility] [address] [facility] CBC & DIFF IMMATURE GRANULOCYTE S [PRESENCE] IN BLOOD BY AUTOMATED COUNT 0.06 10*3/u L 0 - 0.1 04/04 Specimen Type: BLOOD Comment: Automated Differentia l Performed Ordering Provider: KATIE JONES Report Released Date/Time: Feb 23, 2023 09:34 AM Reporting Lab: [facility] [address] Performing Lab: [facility] [address] [facility] IRON GROUP IRON [MASS/VOLUM E] IN SERUM OR PLASMA 69 ug/dL 65 - 175 04/04 Specimen Type: PLASMA No comment entered. Ordering Provider: KATIE JONES Report Released Date/Time: Feb 23, 2023 09:34 AM Reporting Lab: [facility] [address] Performing Lab: [facility] [address] [facility] IRON GROUP IRON BINDING CAPACITY [MASS/VOLUM E] IN SERUM OR PLASMA 263 ug/dL 250 - 425 04/04 Specimen Type: PLASMA No comment entered. Ordering Provider: KATIE JONES Report Released Date/Time: Feb 23, 2023 09:34 AM Reporting Lab: [facility] [address] Performing Lab: [facility] [address] [facility] IRON GROUP FERRITIN [MASS/VOLUM E] IN SERUM OR PLASMA 453.6 ng/mL 21.8 - 274.7 04/04 H Specimen Type: PLASMA No comment entered. Ordering Provider: KATIE JONES Report Released Date/Time: Feb 23, 2023 09:34 AM Reporting Lab: [facility] [address] Performing Lab: [facility] [address] [facility] IRON GROUP IRON SATURATION 26 20 - 50 04/04 Specimen Type: PLASMA No comment entered. Ordering Provider: KATIE JONES Report Released Date/Time: Feb 23, 2023 09:34 AM Reporting Lab: [facility] [address] Performing Lab: [facility] [address] [facility] IRON GROUP TRANSFERRIN [MASS/VOLUM E] IN SERUM OR PLASMA 210 mg/dL 163 - 382 04/04 Specimen Type: PLASMA No comment entered. Ordering Provider: KATIE JONES Report Released Date/Time: Feb 23, 2023 09:34 AM Reporting Lab: [facility] [address] Performing Lab: [facility] [address] [facility] COMPREHEN SIVE METABOLIC PANEL+MG CREATININE [MASS/VOLUM E] IN SERUM OR PLASMA 0.9 mg/dL 0.7 - 1.2 02/22 Specimen Type: PLASMA No comment entered. Ordering Provider: KATIE JONES Report Released Date/Time: Feb 22, 2023 10:40 AM Reporting Lab: [facility] [address] Performing Lab: [facility] [address] [facility] COMPREHEN SIVE METABOLIC PANEL+MG UREA NITROGEN [MASS/VOLUM E] IN SERUM OR PLASMA 16 mg/dL 8 - 26 02/22 Specimen Type: PLASMA No comment entered. Ordering Provider: KATIE JONES Report Released Date/Time: Feb 22, 2023 10:40 AM Reporting Lab: [facility] [address] Performing Lab: [facility] [address] [facility] COMPREHEN SIVE METABOLIC PANEL+MG GLUCOSE [MASS/VOLUM E] IN SERUM OR PLASMA 88 mg/dL 70 - 100 02/22 Specimen Type: PLASMA No comment entered. Ordering Provider: KATIE OJNES Report Released Date/Time: Feb 22, 2023 10:40 AM Reporting Lab: [facility] [address] Performing Lab: [facility] [address] [facility] COMPREHEN SIVE METABOLIC PANEL+MG SODIUM [MOLES/VOLU ME] IN SERUM OR PLASMA 141 mmol/L 136 - 145 02/22 Specimen Type: PLASMA No comment entered. Ordering Provider: KATIE JONES Report Released Date/Time: Feb 22, 2023 10:40 AM Reporting Lab: [facility] [address] Performing Lab: [facility] [address] [facility] COMPREHEN SIVE METABOLIC PANEL+MG POTASSIUM [MOLES/VOLU ME] IN SERUM OR PLASMA 4.4 mmol/L 3.5 - 5.1 02/22 Specimen Type: PLASMA No comment entered. Ordering Provider: KATIE JONES Report Released Date/Time: Feb 22, 2023 10:40 AM Reporting Lab: [facility] [address] Performing Lab: [facility] [address] [facility] COMPREHEN SIVE METABOLIC PANEL+MG CHLORIDE [MOLES/VOLU ME] IN SERUM OR PLASMA 109 mmol/L 98 - 107 02/22 H Specimen Type: PLASMA No comment entered. Ordering Provider: KATIE JONES Report Released Date/Time: Feb 22, 2023 10:40 AM Reporting Lab: [facility] [address] Performing Lab: [facility] [address] [facility] COMPREHEN SIVE METABOLIC PANEL+MG CARBON DIOXIDE, TOTAL [MOLES/VOLU ME] IN SERUM OR PLASMA 24 mmol/L 22 - 29 02/22 Specimen Type: PLASMA No comment entered. Ordering Provider: KATIE JONES Report Released Date/Time: Feb 22, 2023 10:40 AM Reporting Lab: [facility] [address] Performing Lab: [facility] [address] [facility] COMPREHEN SIVE METABOLIC PANEL+MG CALCIUM [MASS/VOLUM E] IN SERUM OR PLASMA 9.1 mg/dL 8.4 - 10.2 02/22 Specimen Type: PLASMA No comment entered. Ordering Provider: KATIE JONES Report Released Date/Time: Feb 22, 2023 10:40 AM Reporting Lab: [facility] [address] Performing Lab: [facility] [address] [facility] COMPREHEN SIVE METABOLIC PANEL+MG PROTEIN [MASS/VOLUM E] IN SERUM OR PLASMA 6.7 g/dL 6.0 - 8.3 02/22 Specimen Type: PLASMA No comment entered. Ordering Provider: KATIE JONES Report Released Date/Time: Feb 22, 2023 10:40 AM Reporting Lab: [facility] [address] Performing Lab: [facility] [address] [facility] COMPREHEN SIVE METABOLIC PANEL+MG ALBUMIN [MASS/VOLUM E] IN SERUM OR PLASMA 3.9 g/dL 3.5 - 5.2 02/22 Specimen Type: PLASMA No comment entered. Ordering Provider: KATIE JONES Report Released Date/Time: Feb 22, 2023 10:40 AM Reporting Lab: [facility] [address] Performing Lab: [facility] [address] [facility] COMPREHEN SIVE METABOLIC PANEL+MG BILIRUBIN.T OTAL [MASS/VOLUM E] IN SERUM OR PLASMA 0.8 mg/dL 0.2 - 1.2 02/22 Specimen Type: PLASMA No comment entered. Ordering Provider: KATIE JONES Report Released Date/Time: Feb 22, 2023 10:40 AM Reporting Lab: [facility] [address] Performing Lab: [facility] [address] [facility] COMPREHEN SIVE METABOLIC PANEL+MG MAGNESIUM [MASS/VOLUM E] IN SERUM OR PLASMA 2.2 mg/dL 1.6 - 2.6 02/22 Specimen Type: PLASMA No comment entered. Ordering Provider: KATIE JONES Report Released Date/Time: Feb 22, 2023 10:40 AM Reporting Lab: [facility] [address] Performing Lab: [facility] [address] [facility] COMPREHEN SIVE METABOLIC PANEL+MG ANION GAP IN SERUM OR PLASMA 8 mmol/L 5 - 15 02/22 Specimen Type: PLASMA No comment entered. Ordering Provider: KATIE JONES Report Released Date/Time: Feb 22, 2023 10:40 AM Reporting Lab: [facility] [address] Performing Lab: [facility] [address] [facility] COMPREHEN SIVE METABOLIC PANEL+MG ALKALINE PHOSPHATASE [ENZYMATIC ACTIVITY/VO LUME] IN SERUM OR PLASMA 70 U/L 40 - 150 02/22 Specimen Type: PLASMA No comment entered. Ordering Provider: KATIE JONES Report Released Date/Time: Feb 22, 2023 10:40 AM Reporting Lab: [facility] [address] Performing Lab: [facility] [address] [facility] COMPREHEN SIVE METABOLIC PANEL+MG ALANINE AMINOTRANSF ERASE [ENZYMATIC ACTIVITY/VO LUME] IN SERUM OR PLASMA 10 U/L 02/22 Specimen Type: PLASMA No comment entered. Ordering Provider: KATIE JONES Report Released Date/Time: Feb 22, 2023 10:40 AM Reporting Lab: [facility] [address] Performing Lab: [facility] [address] [facility] COMPREHEN SIVE METABOLIC PANEL+MG ASPARTATE AMINOTRANSF ERASE [ENZYMATIC ACTIVITY/VO LUME] IN SERUM OR PLASMA 19 U/L 02/22 Specimen Type: PLASMA No comment entered. Ordering Provider: KATIE JONES Report Released Date/Time: Feb 22, 2023 10:40 AM Reporting Lab: [facility] [address] Performing Lab: [place] [address] [facility] COMPREHEN SIVE METABOLIC PANEL+MG GLOMERULAR FILTRATION RATE/1.73 SQ M.PREDICTED [VOLUME RATE/AREA] IN SERUM, PLASMA OR BLOOD BY CREATININE- BASED FORMULA (CKD-EPI 2020) 83 02/22 Specimen Type: PLASMA No comment entered. Ordering Provider: KATIE JONES Report Released Date/Time: Feb 22, 2023 10:40 AM Reporting Lab: [facility] [address] Performing Lab: [facility] [address] [facility] HEMOGLOBI N A1C HEMOGLOBIN A1C/HEMOGLO BIN.TOTAL IN BLOOD 5.0 4.0 - 6.0 02/22 Specimen Type: BLOOD Comment: Values obtained from A1C measurement s can vary. For typical A1C assays, a reported value of 7.0 could actually be between 6.7 and 7.3 if measured by a reference method. A reported value of 9.0 could actually be between 8.7 and 9.3. Ref: http://www. ngsp.org/[place] Pdata.asp Ordering Provider: KATIE JONES Report Released Date/Time: Feb 22, 2023 10:40 AM Reporting Lab: [facility] [address] Performing Lab: [facility] [place] [address] [facility] Vital Signs Combined list of inpatient and outpatient Vital Signs from Department of Defense and Veterans Affairs, ranging from 12 months to all on record, depending upon the facility. Vital Sign Value Date Comments Source Encounters Combined list of: 1) Encounters from Department of [facility] facilities going back up to thelast 18 months. 2) Encounters from the Department of [facility] facilities going back up to 280 months. Location Location Details Encounter Type Encounter Number Reason For Visit Attending Provider ADM Date DC Date Status Disposition Source [facility] Outpatient Encounter [id number] 02[facility]P EST MOD 30-39 MIN [id number] Diagnos is: ICD-10- CM Z00.8 Encount er for other general examina tion
Bob JONES EBMANA Martinez 02/22 [facility] Outpatient Encounter [id number] 02/24 [facility] [place] Outpatient Encounter [id number] 03/20 [facility] [place] [facility] [place] [place] [id number] Diagnos is: ICD-10- CM Z01.118 Encntr for exam of ears and hearing w oth abnorma l finding s
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, right eye<br/ > KAM FLORES 04/10 [facility] Outpatient Encounter [id number] 04/11 [facility] Outpatient Encounter [id number] 04/19 [facility] OFFICE O/P NEW MOD 45-59 MIN [id number] Diagnos is: ICD-10- CM 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, right eye<br/ > GRAMATES,P EGGY H 05/10 [facility] CONFORMITY EVALUATION [id number] Diagnos is: ICD-10- CM Z46.1 Encount er for fitting and adjustm ent of hearing aid<br/ > NEERU TINAJERO 05/30 [facility] Outpatient Encounter [id number] 07/01 [facility] OFFICE O/P EST LOW 20-29 MIN [id number] Diagnos is: ICD-10- CM G47.39 Other sleep apnea<b r/> KRAEN,R EBECCA L 07/11 [facility] EAR IMPRESSION [id number] Diagnos is: ICD-10- CM Z46.1 Encount er for fitting and adjustm ent of hearing aid<br/ > NEERU TINAJERO 08/02 [facility] OFFICE O/P EST MOD 30 MIN [id number] Diagnos is: ICD-10- CM 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
NEREU TINAJERO 01/14 [place] [facility] SHON FERNANDEZ OFFICE O/P EST MOD 30 MIN [id number] Diagnos is: ICD-10- CM Z00.8 Encount er for other general examina tion
Bob JONES EBECCA L 02/27 [facility] OFF/OP EST MAY X REQ PHY/QHP [id number] Diagnos is: ICD-10- CM Z71.9 [place] Maori ing, unspeci fied
WHITE,MARC A R 03/14 [facility] Social History Combined list of available smoking, tobacco, and other social history from Department of Defense and Veterans Affairs facilities. Social History Type Response Date Comment Sourc e Tobacco smoking status [facility]-TOBAC[facility] NEVER USED 02/28/20 24 [facility] FERNANDE[facility] History of tobacco use [place]-TOBAC[place] FORMER USER 02/22/2023 SHON FERNANDEZ Plan of Care List of future care activities from Department [facility] facilities. Additional future care activities may be listed in the Assessment and Plan section. Date/Time Care Activity Care Activity Detail Facili ty 05/01/2024 AMBULATORY - SURGERY AMBULATORY - SURGERY [facility] 03/19/2024 Consult Order VASCULAR OUTPT-V ARICOSE VEINS/VENOUS ULCERS Cons [employer]ement Storage Worker's Choice SHON FERNANDEZ Advance Directives List of completed, amended, or rescinded Advance Directives on record at [facility] facilities. An actual copy of the Directive is not included. Date Advance Directive Provider Source 04/19/2023 ADVANCE DIRECTIVE DISCUSSION RALEIGH RHODES 04/19/2023 ADVANCE DIRECTIVE YOVANA RHODES [facility]
--- OUTSIDE RECORDS SUMMARY | 2024-03-27 08:41 | XMS_ITS | Clinical Summary ---
Author Organization [facility] Address [address] [place] [address] Care Team Providers Care Respiratory Assistant Name Role Phone Unavailable Primary Care Provider Unavailabl e Source Comments Patient records contain information from all sites at [facility]. For routine questions regarding patient records, call [phone] during business hours, M-F 8:00 AM - 5:00 PM Central Time. Record requests for emergency care only can be directed to [phone] at any time.[facility] Allergies No known active allergies Medications Medication [...] Comments Blood Pressure 140/74 07/12/2020 11:15 AM RUBBER WORKER Pulse 60 07/12/2020 11:15 AM RUBBER WORKER Temperature 37.3 ??C (99.1 ??F) 07/12/2020 1 1:15 AM RUBBER WORKER Respiratory Rate 20 07/12/2020 8:28 AM RUBBER WORKER Oxygen Saturation 96% 07/12/2020 11: 15 AM RUBBER WORKER Inhaled Oxygen Concentration - - Weight 101 kg (222 lb 10.6 oz) 2016 2:13 PM CDT Vital sign result from Clinical Notes. Height 175.3 cm (5' 9) 07/12/2020 8:27 AM RUBBER WORKER Body Mass Index 32.98 09/20/2016 4:53 PM RUBBER WORKER Plan of Treatment Health Maintenance Due Date [...]
--- OUTSIDE RECORDS SUMMARY | 2024-03-27 08:41 | XMS_ITS | Referral Summary ---
Author Organization [facility] Address [address] [place] [address] Care Team Providers Care Electro Mechanical Engineer Name Role Phone Unavailable Primary Care Provider Unavailabl e Source Comments Patient records contain information from all sites at [facility]. For routine questions regarding patient records, call [phone] during business hours, M-F 8:00 AM - 5:00 PM Central Time. Record requests for emergency care only can be directed to [phone] at any time.[facility] Allergies No known active allergies Medications Medication [...] Comments Blood Pressure 140/74 07/12/2020 11:15 AM DOUBLE NEEDLE OPERATOR LOCKSTITCH Pulse 60 07/12/2020 11:15 AM DOUBLE NEEDLE OPERATOR LOCKSTITCH Temperature 37.3 ??C (99.1 ??F) 07/12/2020 1 1:15 AM DOUBLE NEEDLE OPERATOR LOCKSTITCH Respiratory Rate 20 07/12/2020 8:28 AM DOUBLE NEEDLE OPERATOR LOCKSTITCH Oxygen Saturation 96% 07/12/2020 11: 15 AM DOUBLE NEEDLE OPERATOR LOCKSTITCH Inhaled Oxygen Concentration - - Weight 101 kg (222 lb 10.6 oz) 2016 2:13 PM CDT Vital sign result from Clinical Notes. Height 175.3 cm (5' 9) 07/12/2020 8:27 AM DOUBLE NEEDLE OPERATOR LOCKSTITCH Body Mass Index 32.98 09/20/2016 4:53 PM DOUBLE NEEDLE OPERATOR LOCKSTITCH Plan of Treatment Not on file
--- OUTSIDE RECORDS SUMMARY | 2024-03-27 08:41 | XMS_ITS ---
Author Organization [facility] Address [address] [place] [address] Care Team Providers Care Utility Maintenance Worker Name Role Phone Unavailable Unavailable Unavailable Surgery Details Not on file Complications Check Surgery Details section. Procedure Estimated Blood Loss Check Surgery Details section. Procedure Findings Check Surgery Details section. Procedure Specimens Taken Check Surgery Details section.
--- OUTSIDE RECORDS SUMMARY | 2024-03-27 08:42 | XMS_ITS | Clinical Summary ---
Author Organization [facility] Address [place], [place] [address] Care Team Providers Care Pneumatic Deicer Inspector Name Role Phone Trace oTm MD Primary Care Provid er Allergies No [...] 1 - PCV) 2001 COVID-19 vaccine series (2022- season) 2023 07/13/2021, 12/01/2020, 11/04/2020 Influenza for age 65+ 05/05/2024 Medical Devices Implanted Type Area Room Service Associate Device Identifier Shelf Expiration Date Model / Serial / Lot Cancellous Bone Screw Implanted:Qty: 1 on 01/30/2018 by Dickson Sevilla MD at [facility] Right: Hip [employer] 10/29/2022 / / [id number] Cluster Acetabluar Shell Implanted:Qty: 1 on 01/30/2018 by Dickson Sevilla MD at [facility] Right: Hip [employer] 10/16/2022 / / [id number] Polyethlene Insert Implanted:Qty: 1 on 01/30/2018 by Dickson Sevilla MD at [facility] Right: Hip [employer] 07/09/2022 / / [id number] Neck Angle Hip Stem Implanted:Qty: 1 on 01/30/2018 by Dickson Sevilla MD at [facility] Right: Hip [employer] 11/24/2022 / / [id number] C-Taper Femoral Head Implanted:Qty: 1 on 01/30/2018 by Dicksno Sevilla MD at [facility] Right: Hip [employer] 10/29/2022 / [...] 10:51 AM 01/30/2018 2:57 PM Care Teams Pneumatic Deicer Inspector Relationship Specialty Start Date End Date Trace Tom MD [address] [place] [address] PCP - General Family Practice 01/25/22
--- OUTSIDE RECORDS SUMMARY | 2024-03-27 08:42 | XMS_ITS | Encounter Summary ---
Author Organization [facility] Address [address] [address] Care Team Providers Care Course Developer Name Role Phone Unavailable Primary Care Provider Unavailabl e Reason for Visit * Reason Comments Follow-up Encounter Details Date Type Department Care Team (Late st Contact Info) Description 01/09/2024 11:15 AM CDT [facility] [address] [facility] [address] [place], [place] [address] Rebecca Butler PA-C [address] [facility] [address] [place], [place] [id number] Mild obstructive sleep apnea (Primary Dx) Social [...] until 10-11am. Does not nap. His disagrees. Beeler he slept well on night of sleep [...]
--- OUTSIDE RECORDS SUMMARY | 2024-03-27 08:42 | XMS_ITS | Clinical Summary ---
Author Organization [place] Address [facility] [place] [address] Care Team Providers Care Grain Unloader Name Role Phone Clinic, [facility] Primary Care Provider + Allergies No [...] of Treatment Not on file Care Teams Grain Unloader Relationship Specialty Start Date End Date Clinic, [address] [address] PCP - General 06/26/20
--- OUTSIDE RECORDS SUMMARY | 2024-03-27 08:42 | XMS_ITS | Encounter Summary ---
Author Organization [facility] Address [address] [address] Care Team Providers Care Hydrology Teacher Name Role Phone Unavailable Primary Care Provider Unavailabl e Reason for Referral * Procedure/Equipment (Routine) - Closed Specialty Diagnoses / Procedures Referred By Contac t Referred To Contact Diagnoses TESSIE (obstructive sleep apnea) Excessive daytime sleepiness Procedures Sleep Diagnostic Tests: PSG Colby Hammond MD [address] [facility] [address] [place] [address] Referral ID Status Reason Start Date Expiration Date Visits Re quested Visits Authorized [id number] Closed 07/13/2023 02/13/2024 1 1 Reason for Visit * Procedure/Equipment (Routine) - Closed Specialty Diagnoses / Procedures Referred By Contdania t Referred To Contact Diagnoses TESSIE (obstructive sleep apnea) Excessive daytime sleepiness Procedures Sleep Diagnostic Tests: PSG Colby Hammond MD [address] [facility] [address] [place] [address] Referral ID Status Reason Start Date Expiration Date Visits Re quested Visits Authorized [id number] Closed 07/13/2023 02/13/2024 1 1 Encounter Details Date Type Department Care Team (Latest Contact Info) Description 12/17/2023 8:00 PM CDT - 12/17/2023 11:59 PM CDT Hospital Encounter Specialty Center [address]eds [address] [place] [address] Discharge Disposition: Home Social History Tobacco Use [...] 12:00 AM CDT NAME: DASHAWN COTE CSN: [id number] CLINIC NOTE DATE OF SERVICE: 12/17/2023 : [...] treatment if clinically indicated. MD JANNETH SHANE/DAKOTAS /[id number] documented in this encounter Plan of Treatment [...]
--- OUTSIDE RECORDS SUMMARY | 2024-03-27 08:42 | XMS_ITS | Referral Summary ---
Author Organization [place] Address [facility] [place] [address] Care Team Providers Care Certified Dialysis Technician Name Role Phone Clinic, [facility] Primary Care Provider + Allergies No known [...] of Treatment Not on file Care Teams Certified Dialysis Technician Relationship Specialty Start Date End Date Clinic, [address] [address] PCP - General 06/26/20
--- OUTSIDE RECORDS SUMMARY | 2024-03-27 08:42 | XMS_ITS | Clinical Summary ---
Author Organization [facility] Address [address] [address] Care Team Providers Care Business Functional Analyst Name Role Phone Unavailable Primary Care Provider Unavailabl e Source Comments You are receiving this document as you are listed as the primary care provider,follow-up provider, or the patient has been referred to you for consultation.This is in compliance with the Medicare and[facility] E[facility] Incentive Program,which states Providers who transition [...] [facility] [address] Pulmonary Medicine [address] [place] [address] Rebecca Butler PA-C Mild obstructive sleep apnea [...] COTE Personal/Famil y 1935 [address] [place] [address]
== END 2024-03-27 08:40 | disposition home or self-care (01) ==
LOC: WOUND 08:39
PROVIDERS: Visit Provider Surgery
DX: I87.312 Chronic venous hypertension (idiopathic) with ulcer of left lower extremity (principal); L97.822 Non-pressure chronic ulcer of other part of left lower leg with fat layer exposed; L03.116 Cellulitis of left lower limb; B95.61 Methicillin susceptible Staphylococcus aureus infection as the cause of diseases classified elsewhere
CPT/HCPCS: 97597

== ENCOUNTER 2024-04-10 11:04 | Outpatient (CLI) | payer MEDICARE, BC, SELFPAY ==
--- OUTSIDE RECORDS SUMMARY | 2024-04-10 11:06 | XMS_ITS | Continuity of Care Document ---
Author Name [facility] Organization [facility] Care Team Providers Care Education Analyst Name Role Phone [facility] Unavailable Unavailable Problems Combined list of problems from Department of Defense and Veterans Affairs facilities. It does not include entries that were removed or entered in error. Problem Status Onset Date Problem Type Date of Resolution Comments Source Exposure to potentially hazardous substance ([facility] [id number]) Active 11/10/19 24 Condition Nov 10, 2023 Entered By: FLORES KENNEDY Comment: [facility]IE Documentation Initiative [facility] Edema Active Condition Feb 22 Entered By: GARY JONES Comment: trated for prostate ca with 44 radiation treatmentsFeb 22, 2023 Entered By: GARY JONES Comment: treated fro prostate cancer with 44 radiation treatments [facility] 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 Active Condition Feb 22, 2023 Entered By: GARY JONES Comment: treated prostate cancer with 44 radiation treatments [facility] Malignant melanoma Active Condition [facility] Obstructive Sleep Apnea of Adult ([facility] [id number]) Active Condition Dec 28, 2023 Entered By: WILEY ARTHUR Comment: See scanned records in [facility] for details [facility] Diagnosis: ICD-10-CM Z71.9 Counseling, unspecified Active Diagnosis [facility] Diagnosis: ICD-10-CM Z00.8 Encounter for other general examination Active Diagnosis [facility] Diagnosis: ICD-10-CM 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 loss, bilateral Active Diagnosis [facility] Diagnosis: ICD-10-CM 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, right eye Active Diagnosis [facility] Diagnosis: ICD-10-CM Z46.1 Encounter for fitting and adjustment of hearing aid Active Diagnosis [facility] Diagnosis: ICD-10-CM G47.39 Other sleep apnea Active Diagnosis [facility] Diagnosis: ICD-10-CM 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, right eye Active Diagnosis [facility] Diagnosis: ICD-10-CM Z01.118 Encntr for exam of ears and hearing w oth abnormal findings Active Diagnosis [facility] Medications Combined list of outpatient medications from [...] Jul 12, 2023 2 Jul 12, 2024 [id number] Jul 12, 2023 GARY JONES RESPIR ATORY (INHAL ATION) ACTIVE 07/12/2024 [id number] GARY JONES 2022 2 [facility]IM[facility] [...] Nov 01, 2023 15 Nov 01, 2024 [id number] Nov 02, 2023 GRAMATES ,CHRISTINA H [place] [facility] OPHTHA LMIC ACTIVE 11/01/2024 [id number] GRAMATES, CHRISTINA H 2023 15 [place] [facility] CHOLECALCIF VAL TAB CHOLECAL CIFEROL TAB Non-VA TAKE 1 TAB BY MOUTH Feb 28, 2024 Non-[place] Document ed by: GARY JONES Document ed at: [facility] ORAL ACTIVE GARY JONES 2023 JIMMY BARRETT IBUPROFEN 600MG TAB IBUPROFE N 600MG TAB Non-VA TAKE ONE TABLET BY MOUTH THREE TIMES A DAY NEEDED Feb 28, 2024 Non-VA Document ed by: GARY JONES Document ed at: [facility] ORAL ACTIVE GARY JONES 2023 CHELSYKOCLAIRE [...] Feb 28, 2024 90 Feb 28, 2025 [id number] Feb 28, 2024 [facility] ORAL ACTIVE 02/28/2025 [id number] GARY JONES 2023 90 JIM[facility] ZINC 50MG (FROM SULFATE) CAP ZINC 50MG (FROM SULFATE) CAP Non-VA TAKE 1 CAPSULE BY MOUTH EVERY DAY UNKNOWN Feb 22, 2023 Non-[place] Document ed by: GARY JONES Document ed at: [facility] ORAL ACTIVE GARY JONES 2022 SHARADHA BARRETT Immunizations Combined list of available immunizations from the Department of Defense and Veterans Affairs facilities. Immunization Series Date Given Administered By Site Reaction Lot Number CVX Code Drug Extension Course Counselor Status Comments Source COVID-19 (Yashi), MRNA, LNP-S, PF, JASON-SUCROSE, 30 MCG/0.3 ML (AGES 12+ YEARS) 1 2022 TOOTIE ANDERSON LEFT DELTO ID [id number] 309 complet ed [facility] INFLUENZA, HIGH-DOSE, QUADRIVALENT 2022 TOOTIE ANDERSON LEFT DELTO ID [id number] 197 complet ed [facility] PNEUMOCOCCAL CONJUGATE PCV20, POLYSACCHARID E [id number] CONJUGATE, ADJUVANT, PF 2022 TOOTIE ADNERSON LEFT DELTO ID [id number] 216 complet ed [facility] INFLUENZA, HIGH-DOSE, QUADRIVALENT, PF 2021 197 complet ed [facility] INFLUENZA, UNSPECIFIED FORMULATION 2021 88 complet ed [facility] COVID-19 (MODERNA), MRNA, LNP-S, PF, 100 MCG/0.5ML DOSE OR 50 MCG/0.25ML DOSE 3 2020 207 complet ed [facility] INFLUENZA, HIGH-DOSE, QUADRIVALENT, PF 2020 197 complet ed [facility] COVID-19 (MODERNA), MRNA, LNP-S, PF, 100 MCG/0.5ML DOSE OR 50 MCG/0.25ML DOSE 2 2020 207 complet ed [facility] COVID-19 (MODERNA), MRNA, LNP-S, PF, 100 MCG/0.5ML DOSE OR 50 MCG/0.25ML DOSE 1 2020 207 complet ed [facility] INFLUENZA, HIGH-DOSE, TRIVALENT, PF 2018 135 complet ed [facility] INFLUENZA, HIGH-DOSE, TRIVALENT, PF 2016 135 complet ed [facility] TDAP 2016 115 complet ed [facility] INFLUENZA, SPLIT VIRUS, QUADRIVALENT, PF 2015 150 complet ed [facility] INFLUENZA, HIGH-DOSE, TRIVALENT, PF 2015 135 complet ed [facility] INFLUENZA, HIGH-DOSE, TRIVALENT, PF 2012 135 complet ed [facility] INFLUENZA, SPLIT VIRUS, TRIVALENT, PRESERVATIVE 2012 141 complet ed [facility] TDAP 2011 115 complet [facility] INFLUENZA, SPLIT VIRUS, TRIVALENT, PF 2010 140 complet [facility] HEP B, UNSPECIFIED FORMULATION 2009 45 complet [facility] NOVEL INFLUENZA-H1N 1-09 2008 127 complet ed [facility] Results Combined list of recent chemistry, hematology [...] Feb 28, 2024 09:41 AM Reporting Lab: [facility] [address] Performing Lab: [facility] [address] [facility] CBC & DIFF ERYTHROCYTE S [#/VOLUME] IN BLOOD BY AUTOMATED COUNT 4.19 10*6/u L 4.6 - 6.2 02/27 L Specimen Type: BLOOD Comment: Automated Differentia l Performed Ordering Provider: KATIE JONES Report Released Date/Time: Feb 28, 2024 09:41 AM Reporting Lab: [facility] [address] Performing Lab: [facility] [address] [facility] CBC & DIFF HEMOGLOBIN [MASS/VOLUM E] IN BLOOD 13.4 g/dL 13.5 - 17.9 02/27 L Specimen Type: BLOOD Comment: Automated Differentia l Performed Ordering Provider: KATIE JONES Report Released Date/Time: Feb 28, 2024 09:41 AM Reporting Lab: [facility] [address] Performing Lab: [facility] [address] [facility] CBC & DIFF HEMATOCRIT [VOLUME FRACTION] OF BLOOD BY AUTOMATED COUNT 40.6 41 - 54 02/27 L Specimen Type: BLOOD Comment: Automated Differentia l Performed Ordering Provider: KATIE JONES Report Released Date/Time: Feb 28, 2024 09:41 AM Reporting Lab: [facility] [address] Performing Lab: [facility] [address] [facility] CBC & DIFF MCV [ENTITIC VOLUME] BY AUTOMATED COUNT 96.9 fL 80 - 100 02/27 Specimen Type: BLOOD Comment: Automated Differentia l Performed Ordering Provider: KATIE JONES Report Released Date/Time: Feb 28, 2024 09:41 AM Reporting Lab: [facility] [address] Performing Lab: [facility] [address] [facility] CBC & DIFF MCH [ENTITIC MASS] BY AUTOMATED COUNT 32.0 pg 27 - 33 02/27 Specimen Type: BLOOD Comment: Automated Differentia l Performed Ordering Provider: KATIE JONES Report Released Date/Time: Feb 28, 2024 09:41 AM Reporting Lab: [facility] [address] Performing Lab: [facility] [address] [facility] CBC & DIFF MCHC [MASS/VOLUM E] BY AUTOMATED COUNT 33.0 g/dL 32.0 - 37.5 02/27 Specimen Type: BLOOD Comment: Automated Differentia l Performed Ordering Provider: KATIE JONES Report Released Date/Time: Feb 28, 2024 09:41 AM Reporting Lab: [facility] [address] Performing Lab: [facility] [address] [facility] CBC & DIFF PLATELETS [#/VOLUME] IN BLOOD BY AUTOMATED COUNT 273 10*3/u L 150 - 400 02/27 Specimen Type: BLOOD Comment: Automated Differentia l Performed Ordering Provider: KATIE JONES Report Released Date/Time: Feb 28, 2024 09:41 AM Reporting Lab: [facility] [address] Performing Lab: [facility] [address] [facility] CBC & DIFF PLATELET MEAN VOLUME [ENTITIC VOLUME] IN BLOOD BY AUTOMATED COUNT 9.8 fL 7.4 - 10.4 02/27 Specimen Type: BLOOD Comment: Automated Differentia l Performed Ordering Provider: KATIE JONES Report Released Date/Time: Feb 28, 2024 09:41 AM Reporting Lab: [facility] [address] Performing Lab: [facility] [address] [facility] CBC & DIFF NEUTROPHILS /100 LEUKOCYTES IN BLOOD BY MANUAL COUNT 67.8 40.0 - 80.0 02/27 Specimen Type: BLOOD Comment: Automated Differentia l Performed Ordering Provider: KATIE JONES Report Released Date/Time: Feb 28, 2024 09:41 AM Reporting Lab: [facility] [address] Performing Lab: [facility] [address] [facility] CBC & DIFF LYMPHOCYTES /100 LEUKOCYTES IN BLOOD BY MANUAL COUNT 18.9 15.0 - 45.0 02/27 Specimen Type: BLOOD Comment: Automated Differentia l Performed Ordering Provider: KATIE JONES Report Released Date/Time: Feb 28, 2024 09:41 AM Reporting Lab: [facility] [address] Performing Lab: [facility] [address] [facility] CBC & DIFF MONOCYTES/1 00 LEUKOCYTES IN BLOOD BY AUTOMATED COUNT 9.5 2.0 - 12.0 02/27 Specimen Type: BLOOD Comment: Automated Differentia l Performed Ordering Provider: KATIE JONES Report Released Date/Time: Feb 28, 2024 09:41 AM Reporting Lab: [facility] [address] Performing Lab: [facility] [address] [facility] CBC & DIFF EOSINOPHILS /100 LEUKOCYTES IN BLOOD BY AUTOMATED COUNT 2.6 0.0 - 6.0 02/27 Specimen Type: BLOOD Comment: Automated Differentia l Performed Ordering Provider: KATIE JONES Report Released Date/Time: Feb 28, 2024 09:41 AM Reporting Lab: [facility] [address] Performing Lab: [facility] [address] [facility] CBC & DIFF BASOPHILS/1 00 LEUKOCYTES IN BLOOD BY MANUAL COUNT 0.7 0.0 - 2.0 02/27 Specimen Type: BLOOD Comment: Automated Differentia l Performed Ordering Provider: KATIE JONES Report Released Date/Time: Feb 28, 2024 09:41 AM Reporting Lab: [facility] [address] Performing Lab: [facility] [address] [facility] CBC & DIFF ERYTHROCYTE DISTRIBUTIO N WIDTH [RATIO] BY AUTOMATED COUNT 13.8 11.5 - 14.5 02/27 Specimen Type: BLOOD Comment: Automated Differentia l Performed Ordering Provider: KATIE JONES Report Released Date/Time: Feb 28, 2024 09:41 AM Reporting Lab: [facility] [address] Performing Lab: [facility] [address] [facility] CBC & DIFF LYMPHOCYTES [#/VOLUME] IN BLOOD BY AUTOMATED COUNT 1.39 10*3/u L 1.0 - 4.0 02/27 Specimen Type: BLOOD Comment: Automated Differentia l Performed Ordering Provider: KATIE JONES Report Released Date/Time: Feb 28, 2024 09:41 AM Reporting Lab: [facility] [address] Performing Lab: [facility] [address] [facility] CBC & DIFF MONOCYTES [#/VOLUME] IN BLOOD BY AUTOMATED COUNT 0.70 10*3/u L 0.1 - 1.0 02/27 Specimen Type: BLOOD Comment: Automated Differentia l Performed Ordering Provider: KATIE JONES Report Released Date/Time: Feb 28, 2024 09:41 AM Reporting Lab: [facility] [address] Performing Lab: [facility] [address] [facility] CBC & DIFF NEUTROPHILS [#/VOLUME] IN BLOOD BY AUTOMATED COUNT 4.97 10*3/u L 2.0 - 7.7 02/27 Specimen Type: BLOOD Comment: Automated Differentia l Performed Ordering Provider: KATIE JONES Report Released Date/Time: Feb 28, 2024 09:41 AM Reporting Lab: [facility] [address] Performing Lab: [facility] [address] [facility] CBC & DIFF EOSINOPHILS [#/VOLUME] IN BLOOD BY AUTOMATED COUNT 0.19 10*3/u L 0 - 0.5 02/27 Specimen Type: BLOOD Comment: Automated Differentia l Performed Ordering Provider: KATIE JONES Report Released Date/Time: Feb 28, 2024 09:41 AM Reporting Lab: [facility] [address] Performing Lab: [facility] [address] [facility] CBC & DIFF BASOPHILS [#/VOLUME] IN BLOOD BY AUTOMATED COUNT 0.05 10*3/u L 0 - 0.2 02/27 Specimen Type: BLOOD Comment: Automated Differentia l Performed Ordering Provider: KATIE JONES Report Released Date/Time: Feb 28, 2024 09:41 AM Reporting Lab: [facility] [address] Performing Lab: [facility] [address] [facility] CBC & DIFF IG(META,MYE LO,PRO) 0.5 02/27 Specimen Type: BLOOD Comment: Automated Differentia l Performed Ordering Provider: KATIE JONES Report Released Date/Time: Feb 28, 2024 09:41 AM Reporting Lab: [facility] [address] Performing Lab: [facility] [address] [facility] CBC & DIFF IMMATURE GRANULOCYTE S [PRESENCE] IN BLOOD BY AUTOMATED COUNT 0.04 10*3/u L 0 - 0.1 02/27 Specimen Type: BLOOD Comment: Automated Differentia l Performed Ordering Provider: KATIE JONES Report Released Date/Time: Feb 28, 2024 09:41 AM Reporting Lab: [facility] [address] Performing Lab: [facility] [address] [facility] COMPREHEN SIVE METABOLIC PANEL+MG CREATININE [MASS/VOLUM E] IN SERUM OR PLASMA 1.0 mg/dL 0.7 - 1.2 02/27 Specimen Type: PLASMA No comment entered. Ordering Provider: KATIE JOENS Report Released Date/Time: Feb 28, 2024 09:41 AM Reporting Lab: [facility] [address] Performing Lab: [facility] [address] [facility] COMPREHEN SIVE METABOLIC PANEL+MG UREA NITROGEN [MASS/VOLUM E] IN SERUM OR PLASMA 24 mg/dL 8 - 26 02/27 Specimen Type: PLASMA No comment entered. Ordering Provider: KATIE JONES Report Released Date/Time: Feb 28, 2024 09:41 AM Reporting Lab: [facility] [address] Performing Lab: [facility] [address] [facility] COMPREHEN SIVE METABOLIC PANEL+MG GLUCOSE [MASS/VOLUM E] IN SERUM OR PLASMA 90 mg/dL 70 - 100 02/27 Specimen Type: PLASMA No comment entered. Ordering Provider: KATIE JONES Report Released Date/Time: Feb 28, 2024 09:41 AM Reporting Lab: [facility] [address] Performing Lab: [facility] [address] [facility] COMPREHEN SIVE METABOLIC PANEL+MG SODIUM [MOLES/VOLU ME] IN SERUM OR PLASMA 143 mmol/L 136 - 145 02/27 Specimen Type: PLASMA No comment entered. Ordering Provider: KATIE JONES Report Released Date/Time: Feb 28, 2024 09:41 AM Reporting Lab: [facility] [address] Performing Lab: [facility] [address] [facility] COMPREHEN SIVE METABOLIC PANEL+MG POTASSIUM [MOLES/VOLU ME] IN SERUM OR PLASMA 4.1 mmol/L 3.5 - 5.1 02/27 Specimen Type: PLASMA No comment entered. Ordering Provider: KATIE JONES Report Released Date/Time: Feb 28, 2024 09:41 AM Reporting Lab: [facility] [address] Performing Lab: [facility] [address] [facility] COMPREHEN SIVE METABOLIC PANEL+MG CHLORIDE [MOLES/VOLU ME] IN SERUM OR PLASMA 107 mmol/L 98 - 107 02/27 Specimen Type: PLASMA No comment entered. Ordering Provider: KATIE JONSE Report Released Date/Time: Feb 28, 2024 09:41 AM Reporting Lab: [facility] [address] Performing Lab: [facility] [address] [facility] COMPREHEN SIVE METABOLIC PANEL+MG CARBON DIOXIDE, TOTAL [MOLES/VOLU ME] IN SERUM OR PLASMA 27 mmol/L 22 - 29 02/27 Specimen Type: PLASMA No comment entered. Ordering Provider: KATIE JONES Report Released Date/Time: Feb 28, 2024 09:41 AM Reporting Lab: [facility] [address] Performing Lab: [facility] [address] [facility] COMPREHEN SIVE METABOLIC PANEL+MG CALCIUM [MASS/VOLUM E] IN SERUM OR PLASMA 9.8 mg/dL 8.4 - 10.2 02/27 Specimen Type: PLASMA No comment entered. Ordering Provider: KATEI JONES Report Released Date/Time: Feb 28, 2024 09:41 AM Reporting Lab: [facility] [address] Performing Lab: [facility] [address] [facility] COMPREHEN SIVE METABOLIC PANEL+MG PROTEIN [MASS/VOLUM E] IN SERUM OR PLASMA 7.3 g/dL 6.0 - 8.3 02/27 Specimen Type: PLASMA No comment entered. Ordering Provider: KATIE JONES Report Released Date/Time: Feb 28, 2024 09:41 AM Reporting Lab: [facility] [address] Performing Lab: [facility] [address] [facility] COMPREHEN SIVE METABOLIC PANEL+MG ALBUMIN [MASS/VOLUM E] IN SERUM OR PLASMA 4.2 g/dL 3.5 - 5.2 02/27 Specimen Type: PLASMA No comment entered. Ordering Provider: KATIE JONES Report Released Date/Time: Feb 28, 2024 09:41 AM Reporting Lab: [facility] [address] Performing Lab: [facility] [address] [facility] COMPREHEN SIVE METABOLIC PANEL+MG BILIRUBIN.T OTAL [MASS/VOLUM E] IN SERUM OR PLASMA 0.8 mg/dL 0.2 - 1.2 02/27 Specimen Type: PLASMA No comment entered. Ordering Provider: KATIE JONES Report Released Date/Time: Feb 28, 2024 09:41 AM Reporting Lab: [facility] [address] Performing Lab: [facility] [address] [facility] COMPREHEN SIVE METABOLIC PANEL+MG MAGNESIUM [MASS/VOLUM E] IN SERUM OR PLASMA 2.3 mg/dL 1.6 - 2.6 02/27 Specimen Type: PLASMA No comment entered. Ordering Provider: KATIE JONES Report Released Date/Time: Feb 28, 2024 09:41 AM Reporting Lab: [facility] [address] Performing Lab: [facility] [address] [facility] COMPREHEN SIVE METABOLIC PANEL+MG ANION GAP IN SERUM OR PLASMA 9 mmol/L 5 - 15 02/27 Specimen Type: PLASMA No comment entered. Ordering Provider: KATIE JONES Report Released Date/Time: Feb 28, 2024 09:41 AM Reporting Lab: [facility] [address] Performing Lab: [facility] [address] [facility] COMPREHEN SIVE METABOLIC PANEL+MG ALKALINE PHOSPHATASE [ENZYMATIC ACTIVITY/VO LUME] IN SERUM OR PLASMA 66 U/L 40 - 150 02/27 Specimen Type: PLASMA No comment entered. Ordering Provider: KATIE JONES Report Released Date/Time: Feb 28, 2024 09:41 AM Reporting Lab: [facility] [address] Performing Lab: [facility] [address] [facility] COMPREHEN SIVE METABOLIC PANEL+MG ALANINE AMINOTRANSF ERASE [ENZYMATIC ACTIVITY/VO LUME] IN SERUM OR PLASMA 13 U/L <55 - 55 02/27 Specimen Type: PLASMA No comment entered. Ordering Provider: KATIE JONES Report Released Date/Time: Feb 28, 2024 09:41 AM Reporting Lab: [facility] [address] Performing Lab: [facility] [address] [facility] COMPREHEN SIVE METABOLIC PANEL+MG ASPARTATE AMINOTRANSF ERASE [ENZYMATIC ACTIVITY/VO LUME] IN SERUM OR PLASMA 18 U/L <34 - 34 02/27 Specimen Type: PLASMA No comment entered. Ordering Provider: KATIE JONES Report Released Date/Time: Feb 28, 2024 09:41 AM Reporting Lab: [facility] [address] Performing Lab: [facility] [address] [facility] COMPREHEN SIVE METABOLIC PANEL+MG GLOMERULAR FILTRATION RATE/1.73 SQ M.PREDICTED [VOLUME RATE/AREA] IN SERUM, PLASMA OR BLOOD BY CREATININE- BASED FORMULA (CKD-EPI 2020) 73 60 02/27 Specimen Type: PLASMA No comment entered. Ordering Provider: KATIE JONES Report Released Date/Time: Feb 28, 2024 09:41 AM Reporting Lab: [facility] [address] Performing Lab: [facility] [address] [facility] PSA PROSTATE SPECIFIC AG [MASS/VOLUM E] IN SERUM OR PLASMA 0.28 ng/mL <4.00 - 4.00 02/27 Specimen Type: SERUM No comment entered. Ordering Provider: KATIE JONES Report Released Date/Time: Feb 28, 2024 09:41 AM Reporting Lab: [facility] [address] Performing Lab: [facility] [address] [facility] LIPID PANEL,NON -FASTING CHOLESTEROL [MASS/VOLUM E] IN SERUM OR PLASMA 236 mg/dL <199 - 199 02/27 H Specimen Type: PLASMA No comment entered. Ordering Provider: KATIE JONES Report Released Date/Time: Feb 28, 2024 09:51 AM Reporting Lab: [facility] [address] Performing Lab: [facility] [address] [facility] LIPID PANEL,NON -FASTING CHOLESTEROL IN HDL [MASS/VOLUM E] IN SERUM OR PLASMA 48 mg/dL 40 02/27 Specimen Type: PLASMA No comment entered. Ordering Provider: KATIE JONES Report Released Date/Time: Feb 28, 2024 09:51 AM Reporting Lab: [facility] [address] Performing Lab: [facility] [address] [facility] LIPID PANEL,NON -FASTING CHOLESTEROL IN LDL [MASS/VOLUM E] IN SERUM OR PLASMA BY CALCULATION 161 mg/dL <99 - 99 02/27 H Specimen Type: PLASMA No comment entered. Ordering Provider: KATIE JONES Report Released Date/Time: Feb 28, 2024 09:51 AM Reporting Lab: [facility] [address] Performing Lab: [facility] [address] [facility] LIPID PANEL,NON -FASTING CHOLESTEROL IN VLDL [MASS/VOLUM E] IN SERUM OR PLASMA BY CALCULATION 27 mg/dL <29 - 29 02/27 Specimen Type: PLASMA No comment entered. Ordering Provider: KATIE JONES Report Released Date/Time: Feb 28, 2024 09:51 AM Reporting Lab: [facility] [address] Performing Lab: [facility] [address] [facility] LIPID PANEL,NON -FASTING CHOLESTEROL NON HDL [MASS/VOLUM E] IN SERUM OR PLASMA 188 mg/dL <129 - 129 02/27 H Specimen Type: PLASMA No comment entered. Ordering Provider: KATIE JONES Report Released Date/Time: Feb 28, 2024 09:51 AM Reporting Lab: [facility] [address] Performing Lab: [facility] [address] [facility] LIPID PANEL,NON -FASTING TRIGLYCERID E [MASS/VOLUM E] IN SERUM OR PLASMA 134 mg/dL <149 - 149 02/27 Specimen Type: PLASMA No comment entered. Ordering Provider: KATIE JONES Report Released Date/Time: Feb 28, 2024 09:51 AM Reporting Lab: [facility] [address] Performing Lab: [facility] [address] [facility] B 12 COBALAMIN (VITAMIN B12) [MASS/VOLUM E] IN SERUM OR PLASMA 532 pg/mL 213 - 816 04/04 Specimen Type: SERUM No comment entered. Ordering Provider: KATIE JONES Report Released Date/Time: Feb 23, 2023 09:34 AM Reporting Lab: [facility] [address] Performing Lab: [facility] [address] [facility] FOLATE FOLATE [MASS/VOLUM E] IN SERUM OR PLASMA 14.8 ng/mL 7.0 04/04 Specimen Type: SERUM No comment entered. Ordering Provider: KATIE JONES Report Released Date/Time: Feb 23, 2023 09:34 AM Reporting Lab: [facility] [address] Performing Lab: [facility] [address] [facility] CBC & DIFF LEUKOCYTES [#/VOLUME] IN BLOOD BY AUTOMATED COUNT 6.47 10*3/u L 4.0 - 11.0 04/04 Specimen Type: BLOOD Comment: Automated Differentia l Performed Ordering Provider: KATIE JONES Report Released Date/Time: Feb 23, 2023 09:34 AM Reporting Lab: [facility] [address] Performing Lab: [facility] [address] [facility] CBC & DIFF ERYTHROCYTE S [#/VOLUME] IN BLOOD BY AUTOMATED COUNT 3.99 10*6/u L 4.6 - 6.2 04/04 L Specimen Type: BLOOD Comment: Automated Differentia l Performed Ordering Provider: KATIE JONES Report Released Date/Time: Feb 23, 2023 09:34 AM Reporting Lab: [facility] [address] Performing Lab: [facility] [address] [facility] CBC & DIFF HEMOGLOBIN [MASS/VOLUM E] IN BLOOD 12.6 g/dL 13.5 - 17.9 04/04 L Specimen Type: BLOOD Comment: Automated Differentia l Performed Ordering Provider: KATIE JONES Report Released Date/Time: Feb 23, 2023 09:34 AM Reporting Lab: [facility] [address] Performing Lab: [facility] [address] [facility] CBC & DIFF HEMATOCRIT [VOLUME FRACTION] OF BLOOD BY AUTOMATED COUNT 38.2 41 - 54 04/04 L Specimen Type: BLOOD Comment: Automated Differentia l Performed Ordering Provider: KATIE JONES Report Released Date/Time: Feb 23, 2023 09:34 AM Reporting Lab: [facility] [address] Performing Lab: [facility] [address] [facility] CBC & DIFF MCV [ENTITIC VOLUME] BY AUTOMATED COUNT 95.7 fL 80 - 100 04/04 Specimen Type: BLOOD Comment: Automated Differentia l Performed Ordering Provider: KATIE JONES Report Released Date/Time: Feb 23, 2023 09:34 AM Reporting Lab: [facility] [id number] Performing Lab: [facility] [id number] [facility] CBC & DIFF MCH [ENTITIC MASS] BY AUTOMATED COUNT 31.6 pg 27 - 33 04/04 Specimen Type: BLOOD Comment: Automated Differentia l Performed Ordering Provider: KATIE JONES Report Released Date/Time: Feb 23, 2023 09:34 AM Reporting Lab: [facility] [id number] Performing Lab: [facility] [address] [facility] CBC & DIFF MCHC [MASS/VOLUM E] BY AUTOMATED COUNT 33.0 g/dL 32.0 - 37.5 04/04 Specimen Type: BLOOD Comment: Automated Differentia l Performed Ordering Provider: KATIE JONES Report Released Date/Time: Feb 23, 2023 09:34 AM Reporting Lab: [facility] [address] Performing Lab: [facility] [address] [facility] CBC & DIFF PLATELETS [#/VOLUME] IN BLOOD BY AUTOMATED COUNT 285 10*3/u L 150 - 400 04/04 Specimen Type: BLOOD Comment: Automated Differentia l Performed Ordering Provider: KATIE JONES Report Released Date/Time: Feb 23, 2023 09:34 AM Reporting Lab: [facility] [address] Performing Lab: [facility] [address] [facility] CBC & DIFF PLATELET MEAN VOLUME [ENTITIC VOLUME] IN BLOOD BY AUTOMATED COUNT 9.0 fL 7.4 - 10.4 04/04 Specimen Type: BLOOD Comment: Automated Differentia l Performed Ordering Provider: KATIE JONES Report Released Date/Time: Feb 23, 2023 09:34 AM Reporting Lab: [facility] [address] Performing Lab: [facility] [address] [facility] CBC & DIFF NEUTROPHILS /100 LEUKOCYTES IN BLOOD BY MANUAL COUNT 67.9 40.0 - 80.0 04/04 Specimen Type: BLOOD Comment: Automated Differentia l Performed Ordering Provider: KATIE JONES Report Released Date/Time: Feb 23, 2023 09:34 AM Reporting Lab: [facility] [address] Performing Lab: [facility] [address] [facility] CBC & DIFF LYMPHOCYTES /100 LEUKOCYTES IN BLOOD BY MANUAL COUNT 18.7 15.0 - 45.0 04/04 Specimen Type: BLOOD Comment: Automated Differentia l Performed Ordering Provider: KATIE JONES Report Released Date/Time: Feb 23, 2023 09:34 AM Reporting Lab: [facility] [address] Performing Lab: [facility] [address] [facility] CBC & DIFF MONOCYTES/1 00 LEUKOCYTES IN BLOOD BY AUTOMATED COUNT 8.8 2.0 - 12.0 04/04 Specimen Type: BLOOD Comment: Automated Differentia l Performed Ordering Provider: KATIE JONES Report Released Date/Time: Feb 23, 2023 09:34 AM Reporting Lab: [facility] [address] Performing Lab: [facility] [address] [facility] CBC & DIFF EOSINOPHILS /100 LEUKOCYTES IN BLOOD BY AUTOMATED COUNT 3.1 0.0 - 6.0 04/04 Specimen Type: BLOOD Comment: Automated Differentia l Performed Ordering Provider: KATIE JONES Report Released Date/Time: Feb 23, 2023 09:34 AM Reporting Lab: [facility] [address] Performing Lab: [facility] [address] [facility] CBC & DIFF BASOPHILS/1 00 LEUKOCYTES IN BLOOD BY MANUAL COUNT 0.6 0.0 - 2.0 04/04 Specimen Type: BLOOD Comment: Automated Differentia l Performed Ordering Provider: KATIE JONES Report Released Date/Time: Feb 23, 2023 09:34 AM Reporting Lab: [facility] [address] Performing Lab: [facility] [address] [facility] CBC & DIFF ERYTHROCYTE DISTRIBUTIO N WIDTH [RATIO] BY AUTOMATED COUNT 14.1 11.5 - 14.5 04/04 Specimen Type: BLOOD Comment: Automated Differentia l Performed Ordering Provider: KATIE JONES Report Released Date/Time: Feb 23, 2023 09:34 AM Reporting Lab: [facility] [address] Performing Lab: [facility] [address] [facility] CBC & DIFF LYMPHOCYTES [#/VOLUME] IN BLOOD BY AUTOMATED COUNT 1.21 10*3/u L 1.0 - 4.0 04/04 Specimen Type: BLOOD Comment: Automated Differentia l Performed Ordering Provider: KATIE JONES Report Released Date/Time: Feb 23, 2023 09:34 AM Reporting Lab: [facility] [address] Performing Lab: [facility] [address] [facility] CBC & DIFF MONOCYTES [#/VOLUME] IN BLOOD BY AUTOMATED COUNT 0.57 10*3/u L 0.1 - 1.0 04/04 Specimen Type: BLOOD Comment: Automated Differentia l Performed Ordering Provider: KATIE JONES Report Released Date/Time: Feb 23, 2023 09:34 AM Reporting Lab: [facility] [address] Performing Lab: [facility] [address] [facility] CBC & DIFF NEUTROPHILS [#/VOLUME] IN BLOOD BY AUTOMATED COUNT 4.39 10*3/u L 2.0 - 7.7 04/04 Specimen Type: BLOOD Comment: Automated Differentia l Performed Ordering Provider: KATIE JONES Report Released Date/Time: Feb 23, 2023 09:34 AM Reporting Lab: [facility] [address] Performing Lab: [facility] [address] [facility] CBC & DIFF EOSINOPHILS [#/VOLUME] IN BLOOD BY AUTOMATED COUNT 0.20 10*3/u L 0 - 0.5 04/04 Specimen Type: BLOOD Comment: Automated Differentia l Performed Ordering Provider: KATIE JONES Report Released Date/Time: Feb 23, 2023 09:34 AM Reporting Lab: [facility] [address] Performing Lab: [facility] [address] [facility] CBC & DIFF BASOPHILS [#/VOLUME] IN BLOOD BY AUTOMATED COUNT 0.04 10*3/u L 0 - 0.2 04/04 Specimen Type: BLOOD Comment: Automated Differentia l Performed Ordering Provider: KATIE JONES Report Released Date/Time: Feb 23, 2023 09:34 AM Reporting Lab: [facility] [address] Performing Lab: [facility] [address] [facility] CBC & DIFF IG(META,MYE LO,PRO) 0.9 04/04 Specimen Type: BLOOD Comment: Automated Differentia l Performed Ordering Provider: KATIE JONES Report Released Date/Time: Feb 23, 2023 09:34 AM Reporting Lab: [facility] [address] Performing Lab: [facility] [address] [facility] CBC & DIFF IMMATURE GRANULOCYTE S [PRESENCE] IN BLOOD BY AUTOMATED COUNT 0.06 10*3/u L 0 - 0.1 04/04 Specimen Type: BLOOD Comment: Automated Differentia l Performed Ordering Provider: KATIE JONES Report Released Date/Time: Feb 23, 2023 09:34 AM Reporting Lab: [facility] [address] Performing Lab: [facility] [address] [facility] IRON GROUP IRON [MASS/VOLUM E] IN SERUM OR PLASMA 69 ug/dL 65 - 175 04/04 Specimen Type: PLASMA No comment entered. Ordering Provider: KATIE JONES Report Released Date/Time: Feb 23, 2023 09:34 AM Reporting Lab: [facility] [address] Performing Lab: [facility] [address] [facility] IRON GROUP IRON BINDING CAPACITY [MASS/VOLUM E] IN SERUM OR PLASMA 263 ug/dL 250 - 425 04/04 Specimen Type: PLASMA No comment entered. Ordering Provider: KATIE JONES Report Released Date/Time: Feb 23, 2023 09:34 AM Reporting Lab: [facility] [address] Performing Lab: [facility] [address] [facility] IRON GROUP FERRITIN [MASS/VOLUM E] IN SERUM OR PLASMA 453.6 ng/mL 21.8 - 274.7 04/04 H Specimen Type: PLASMA No comment entered. Ordering Provider: KATIE JONES Report Released Date/Time: Feb 23, 2023 09:34 AM Reporting Lab: [facility] [address] Performing Lab: [facility] [address] [facility] IRON GROUP IRON SATURATION 26 20 - 50 04/04 Specimen Type: PLASMA No comment entered. Ordering Provider: KATIE JONES Report Released Date/Time: Feb 23, 2023 09:34 AM Reporting Lab: [facility] [address] Performing Lab: [facility] [address] [facility] IRON GROUP TRANSFERRIN [MASS/VOLUM E] IN SERUM OR PLASMA 210 mg/dL 163 - 382 04/04 Specimen Type: PLASMA No comment entered. Ordering Provider: KATIE JONES Report Released Date/Time: Feb 23, 2023 09:34 AM Reporting Lab: [facility] [address] Performing Lab: [facility] [address] [facility] COMPREHEN SIVE METABOLIC PANEL+MG CREATININE [MASS/VOLUM E] IN SERUM OR PLASMA 0.9 mg/dL 0.7 - 1.2 02/22 Specimen Type: PLASMA No comment entered. Ordering Provider: KATIE JONES Report Released Date/Time: Feb 22, 2023 10:40 AM Reporting Lab: [facility] [address] Performing Lab: [facility] [address] [facility] COMPREHEN SIVE METABOLIC PANEL+MG UREA NITROGEN [MASS/VOLUM E] IN SERUM OR PLASMA 16 mg/dL 8 - 26 02/22 Specimen Type: PLASMA No comment entered. Ordering Provider: KATIE JONES Report Released Date/Time: Feb 22, 2023 10:40 AM Reporting Lab: [facility] [address] Performing Lab: [facility] [address] [facility] COMPREHEN SIVE METABOLIC PANEL+MG GLUCOSE [MASS/VOLUM E] IN SERUM OR PLASMA 88 mg/dL 70 - 100 02/22 Specimen Type: PLASMA No comment entered. Ordering Provider: KATIE JONES Report Released Date/Time: Feb 22, 2023 10:40 AM Reporting Lab: [facility] [address] Performing Lab: [facility] [address] [facility] COMPREHEN SIVE METABOLIC PANEL+MG SODIUM [MOLES/VOLU ME] IN SERUM OR PLASMA 141 mmol/L 136 - 145 02/22 Specimen Type: PLASMA No comment entered. Ordering Provider: KATIE JONES Report Released Date/Time: Feb 22, 2023 10:40 AM Reporting Lab: [facility] [address] Performing Lab: [facility] [address] [facility] COMPREHEN SIVE METABOLIC PANEL+MG POTASSIUM [MOLES/VOLU ME] IN SERUM OR PLASMA 4.4 mmol/L 3.5 - 5.1 02/22 Specimen Type: PLASMA No comment entered. Ordering Provider: KATIE JONES Report Released Date/Time: Feb 22, 2023 10:40 AM Reporting Lab: [facility] [address] Performing Lab: [facility] [address] [facility] COMPREHEN SIVE METABOLIC PANEL+MG CHLORIDE [MOLES/VOLU ME] IN SERUM OR PLASMA 109 mmol/L 98 - 107 02/22 H Specimen Type: PLASMA No comment entered. Ordering Provider: KATIE JONES Report Released Date/Time: Feb 22, 2023 10:40 AM Reporting Lab: [facility] [address] Performing Lab: [facility] [address] [facility] COMPREHEN SIVE METABOLIC PANEL+MG CARBON DIOXIDE, TOTAL [MOLES/VOLU ME] IN SERUM OR PLASMA 24 mmol/L 22 - 29 02/22 Specimen Type: PLASMA No comment entered. Ordering Provider: KATIE JONES Report Released Date/Time: Feb 22, 2023 10:40 AM Reporting Lab: [facility] [address] Performing Lab: [facility] [address] [facility] COMPREHEN SIVE METABOLIC PANEL+MG CALCIUM [MASS/VOLUM E] IN SERUM OR PLASMA 9.1 mg/dL 8.4 - 10.2 02/22 Specimen Type: PLASMA No comment entered. Ordering Provider: KATIE JONSE Report Released Date/Time: Feb 22, 2023 10:40 AM Reporting Lab: [facility] [address] Performing Lab: [facility] [address] [facility] COMPREHEN SIVE METABOLIC PANEL+MG PROTEIN [MASS/VOLUM E] IN SERUM OR PLASMA 6.7 g/dL 6.0 - 8.3 02/22 Specimen Type: PLASMA No comment entered. Ordering Provider: KATIE JONES Report Released Date/Time: Feb 22, 2023 10:40 AM Reporting Lab: [facility] [address] Performing Lab: [facility] [address] [facility] COMPREHEN SIVE METABOLIC PANEL+MG ALBUMIN [MASS/VOLUM E] IN SERUM OR PLASMA 3.9 g/dL 3.5 - 5.2 02/22 Specimen Type: PLASMA No comment entered. Ordering Provider: KATIE JONES Report Released Date/Time: Feb 22, 2023 10:40 AM Reporting Lab: [facility] [address] Performing Lab: [facility] [address] [facility] COMPREHEN SIVE METABOLIC PANEL+MG BILIRUBIN.T OTAL [MASS/VOLUM E] IN SERUM OR PLASMA 0.8 mg/dL 0.2 - 1.2 02/22 Specimen Type: PLASMA No comment entered. Ordering Provider: KATIE JONES Report Released Date/Time: Feb 22, 2023 10:40 AM Reporting Lab: [facility] [address] Performing Lab: [facility] [address] [facility] COMPREHEN SIVE METABOLIC PANEL+MG MAGNESIUM [MASS/VOLUM E] IN SERUM OR PLASMA 2.2 mg/dL 1.6 - 2.6 02/22 Specimen Type: PLASMA No comment entered. Ordering Provider: KATIE JONES Report Released Date/Time: Feb 22, 2023 10:40 AM Reporting Lab: [facility] [address] Performing Lab: [facility] [address] [facility] COMPREHEN SIVE METABOLIC PANEL+MG ANION GAP IN SERUM OR PLASMA 8 mmol/L 5 - 15 02/22 Specimen Type: PLASMA No comment entered. Ordering Provider: KATIE JONES Report Released Date/Time: Feb 22, 2023 10:40 AM Reporting Lab: [facility] [address] Performing Lab: [facility] [address] [facility] COMPREHEN SIVE METABOLIC PANEL+MG ALKALINE PHOSPHATASE [ENZYMATIC ACTIVITY/VO LUME] IN SERUM OR PLASMA 70 U/L 40 - 150 02/22 Specimen Type: PLASMA No comment entered. Ordering Provider: KATIE JONES Report Released Date/Time: Feb 22, 2023 10:40 AM Reporting Lab: [facility] [address] Performing Lab: [facility] [address] [facility] COMPREHEN SIVE METABOLIC PANEL+MG ALANINE AMINOTRANSF ERASE [ENZYMATIC ACTIVITY/VO LUME] IN SERUM OR PLASMA 10 U/L 02/22 Specimen Type: PLASMA No comment entered. Ordering Provider: KATIE JONES Report Released Date/Time: Feb 22, 2023 10:40 AM Reporting Lab: [facility] [address] Performing Lab: [facility] [address] [facility] COMPREHEN SIVE METABOLIC PANEL+MG ASPARTATE AMINOTRANSF ERASE [ENZYMATIC ACTIVITY/VO LUME] IN SERUM OR PLASMA 19 U/L 02/22 Specimen Type: PLASMA No comment entered. Ordering Provider: KATIE JONES Report Released Date/Time: Feb 22, 2023 10:40 AM Reporting Lab: [facility] [address] Performing Lab: [place] [address] [facility] COMPREHEN SIVE METABOLIC PANEL+MG GLOMERULAR FILTRATION RATE/1.73 SQ M.PREDICTED [VOLUME RATE/AREA] IN SERUM, PLASMA OR BLOOD BY CREATININE- BASED FORMULA (CKD-EPI 2020) 83 02/22 Specimen Type: PLASMA No comment entered. Ordering Provider: KATIE JONES Report Released Date/Time: Feb 22, 2023 10:40 AM Reporting Lab: [facility] [address] Performing Lab: [facility] [address] [facility] HEMOGLOBI N A1C HEMOGLOBIN A1C/HEMOGLO BIN.TOTAL [...] Feb 22, 2023 10:40 AM Reporting Lab: [facility] [address] Performing Lab: [facility] [place] [address] [facility] Vital Signs Combined list of inpatient and outpatient Vital Signs from Department of Defense and Veterans Affairs, ranging from 12 months to all on record, depending upon the facility. Vital Sign Value Date Comments Source Encounters Combined list of: 1) Encounters from Department of [facility] facilities going back up to thelast 18 months. 2) Encounters from the Department of [facility] facilities going back up to 280 months. Location Location Details Encounter Type Encounter Number Reason For Visit Attending Provider ADM Date DC Date Status Disposition Source [facility] Outpatient Encounter [id number] 02[facility]P EST MOD 30-39 MIN [id number] Diagnos is: ICD-10- CM Z00.8 Encount er for other general examina tion
Bob JONES EBMANA Martinez 02/22 [facility] Outpatient Encounter [id number] 02/24 [facility] [place] [facility] Outpatient Encounter [id number] 03/20 [facility] [place] [facility] [place] [id number] Diagnos is: ICD-10- CM Z01.118 Encntr for exam of ears and hearing w oth abnorma l finding s
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, right eye<br/ > KAM FLORES 04/10 [facility] Outpatient Encounter [id number] 04/11 [facility] Outpatient Encounter [id number] 04/19 [facility] OFFICE O/P NEW MOD 45-59 MIN [id number] Diagnos is: ICD-10- CM 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
NEERU TINAJERO 01/14 [facility] OFFICE O/P EST MOD 30 MIN [id number] Diagnos is: ICD-10- CM Z00.8 Encount er for other general examina tion
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
WHITE,TERR A R 03/14 [facility] Social History Combined list of available smoking, tobacco, and other social history from Department of Defense and Veterans Affairs facilities. Social History Type Response Date Comment Sourc e Tobacco smoking status NHIS SC-TOBACCO NEVER USED 02/28/20 24 SHON BARRETT History of tobacco use SC-TOBACCO FORMER USER 02/22/2023 [facility] Plan of Care List of future care activities from Department of Veterans [facility] facilities. Additional future care activities may be listed in the Assessment and Plan section. Date/Time Care Activity Care Activity Detail Facili ty 05/01/2024 AMBULATORY - SURGERY AMBULATORY - SURGERY [facility] Advance Directives List of completed, amended, or rescinded Advance Directives on record at Department of Veterans Affairs facilities. An actual copy of the Directive is not included. Date Advance Directive Provider Source 04/19/2023 ADVANCE DIRECTIVE DISCUSSION [facility] 04/19/2023 [facility]VANCE DIRECTIVE [facility]
--- OUTSIDE RECORDS SUMMARY | 2024-04-10 11:07 | XMS_ITS | Clinical Summary ---
Author Organization [facility] Address [address] [place] [address] Care Team Providers Care System Operation Superintendent Name Role Phone Unavailable Primary Care Provider Unavailabl e Source Comments Patient records contain information from all sites at [facility]. For routine questions regarding patient records, call [phone] during business hours, M-F 8:00 AM - 5:00 PM Central Time. Record requests for emergency care only can be directed to [phone] at any time.[facility] Allergies No known active allergies Medications Medication [...] Comments Blood Pressure 140/74 07/12/2020 11:15 AM [facility] Pulse 60 07/12/2020 11:15 AM [facility] Temperature 37.3 ??C (99.1 ??F) 07/12/2020 1 1:15 AM [facility] Respiratory Rate 20 07/12/2020 8:28 AM [facility] Oxygen Saturation 96% 07/12/2020 11: 15 AM [facility] Inhaled Oxygen Concentration - - Weight 101 kg (222 lb 10.6 oz) 2016 2:13 PM CDT Vital sign result from Clinical Notes. Height 175.3 cm (5' 9) 07/12/2020 8:27 AM [facility] Body Mass Index 32.98 09/20/2016 4:53 PM [facility] Plan of Treatment Health Maintenance Due Date [...]
--- OUTSIDE RECORDS SUMMARY | 2024-04-10 11:07 | XMS_ITS | Encounter Summary ---
Author Organization [facility] Address [address] [address] Care Team Providers Care Major Donor Coordinator Name Role Phone Unavailable Primary Care Provider Unavailabl e Reason for Visit * Reason Comments Follow-up Encounter Details Date Type Department Care Team (Late st Contact Info) Description 01/09/2024 11:15 AM CDT [facility] [facility] [address] [place], [place] [id number] Rebecca Butler PA-C [address] [facility] [address] [place], [place] [address] Mild obstructive sleep apnea (Primary Dx) Social [...] until 10-11am. Does not nap. His disagrees. [place] he slept well on night of sleep [...]
--- OUTSIDE RECORDS SUMMARY | 2024-04-10 11:07 | XMS_ITS | Clinical Summary ---
Author Organization [employer] [facility] Address [place], [place] [address] Care Team Providers Care Broadcast Technician Name Role Phone Trace Tom MD Primary [...] 65+ 05/05/2024 Medical Devices Implanted Type Area Vegetable Grader Device Identifier Shelf Expiration Date Model / Serial / Lot Cancellous Bone Screw Implanted:Qty: 1 on 01/30/2018 by Dickson Sevilla MD at [facility] Right: Hip [employer] 10/29/2022 / / [id number] Cluster Acetabluar Shell Implanted:Qty: 1 on 01/30/2018 by Dickson Sevilla MD at [facility] Right: Hip [employer] 10/16/2022 / / [id number] Polyethlene Insert Implanted:Qty: 1 on 01/30/2018 by Dickson Sevilla MD at [facility] Right: Hip [employer] 07/09/2022 / / [id number] Neck Angle Hip Stem Implanted:Qty: 1 on 01/30/2018 by Dickson Sevilla MD at [facility] Right: Hip [employer] 11/24/2022 / / [id number] C-Taper Femoral Head Implanted:Qty: 1 on 01/30/2018 by Dickson Sevilla MD at [facility] Right: Hip [employer] 10/29/2022 / / [...] 10:51 AM 01/30/2018 2:57 PM Care Teams Broadcast Technician Relationship Specialty Start Date End Date Trace Tom MD [address] [place] [address] PCP - General Family Practice 01/25/22
--- OUTSIDE RECORDS SUMMARY | 2024-04-10 11:07 | XMS_ITS | Clinical Summary ---
Author Organization [facility] Address [address], [place] [address] Care Team Providers Care Veneer Taper Name Role Phone Unavailable Primary Care Provider Unavailabl e Source Comments You are receiving this document as you are listed as the primary care provider,follow-up provider, or the patient has been referred to you for consultation.This is in compliance with the Medicare and[employer] Hospital[employer] EHR Incentive Program,which states Providers who [...] [facility] [address] [facility] [address] [place] [address] Rebecca Butler PA-C Mild obstructive sleep apnea [...] COTE Personal/Famil y 1935 [address] [place] [address]
--- OUTSIDE RECORDS SUMMARY | 2024-04-10 11:07 | XMS_ITS ---
Author Organization [facility] Address [address] [place] [address] Care Team Providers Care Fisheries Technician Name Role Phone Unavailable Unavailable Unavailable Surgery Details Not on file Complications Check Surgery Details section. Procedure Estimated Blood Loss Check Surgery Details section. Procedure Findings Check Surgery Details section. Procedure Specimens Taken Check Surgery Details section.
--- OUTSIDE RECORDS SUMMARY | 2024-04-10 11:07 | XMS_ITS | Clinical Summary ---
Author Organization [place] Address [facility] [place] [address] Care Team Providers Care White Lead Filterer Name Role Phone Clinic, [facility] Primary Care Provider + Allergies No known [...] of Treatment Not on file Care Teams White Lead Filterer Relationship Specialty Start Date End Date Clinic, [address] [address] PCP - General 06/26/20
--- OUTSIDE RECORDS SUMMARY | 2024-04-10 11:07 | XMS_ITS | Referral Summary ---
Author Organization [facility] Address [address] [place] [address] Care Team Providers Care Warehouse Man Name Role Phone Unavailable Primary Care Provider Unavailabl e Source Comments Patient records contain information from all sites at [facility]. For routine questions regarding patient records, call [phone] during business hours, M-F 8:00 AM - 5:00 PM Central Time. Record requests for emergency care only can be directed to [phone] at any time.[facility] Allergies No known active allergies Medications Medication [...] Comments Blood Pressure 140/74 07/12/2020 11:15 AM [employer] Pulse 60 07/12/2020 11:15 AM [employer] Temperature 37.3 ??C (99.1 ??F) 07/12/2020 1 1:15 AM [employer] Respiratory Rate 20 07/12/2020 8:28 AM [employer] Oxygen Saturation 96% 07/12/2020 11: 15 AM [employer] SAL[employer] Inhaled Oxygen Concentration - - Weight 101 kg (222 lb 10.6 oz) 2016 2:13 PM CDT Vital sign result from Clinical Notes. Height 175.3 cm (5' 9) 07/12/2020 8:27 AM [employer] Body Mass Index 32.98 09/20/2016 4:53 PM [employer] Plan of Treatment Not on file
--- OUTSIDE RECORDS SUMMARY | 2024-04-10 11:07 | XMS_ITS | Referral Summary ---
Author Organization [facility] Address [facility] hospital[facility] [place] [address] Care Team Providers Care [employer] Member Name Role Phone Clinic, [facility] Primary Care Provider + Allergies No known [...] of Treatment Not on file Care Teams [employer] Member Relationship Specialty Start Date End Date Clinic, [address] [address] PCP - General 06/26/20
== END 2024-04-10 11:05 | disposition home or self-care (01) ==
PROVIDERS: Visit Provider Surgery
DX: I87.312 Chronic venous hypertension (idiopathic) with ulcer of left lower extremity (principal); L97.822 Non-pressure chronic ulcer of other part of left lower leg with fat layer exposed
CPT/HCPCS: 97597

== ENCOUNTER 2024-04-17 11:10 | Outpatient (CLI) | payer MEDICARE, BC, SELFPAY ==
--- OUTSIDE RECORDS SUMMARY | 2024-04-17 11:12 | XMS_ITS | Continuity of Care Document ---
Author Name [facility] Organization [facility] Care Team Providers Care Carrot Tier Name Role Phone [facility] Unavailable Unavailable Problems Combined list of problems from Department of Defense and Veterans Affairs facilities. It does not include entries that were removed or entered in error. Problem Status Onset Date Problem Type Date of Resolution Comments Source Exposure to potentially hazardous substance ([facility] [id number]) Active 11/10/19 24 Condition Nov 10, 2023 Entered By: FLORES KENNEDY Comment: [facility] [place] JOSIE Documentation Initiative [facility] Edema Active Condition Feb 22 Entered By: GARY JONES Comment: trated for prostate ca with 44 radiation treatmentsFeb 22, 2023 Entered By: GARY JONES Comment: treated fro prostate cancer with 44 radiation treatments [facility] 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 Active Condition Feb 22, 2023 Entered By: GARY JONES Comment: treated prostate cancer with 44 radiation treatments [facility] Malignant melanoma Active Condition [facility] Obstructive Sleep Apnea of Adult ([facility] [id number]) Active Condition Dec 28, 2023 Entered By: WILEY ARTHUR Comment: See scanned records in [place] for details [facility] Diagnosis: ICD-10-CM Z71.9 Counseling, unspecified Active Diagnosis [facility] Diagnosis: ICD-10-CM Z00.8 Encounter for other general examination Active Diagnosis [facility] Diagnosis: ICD-10-CM 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 loss, bilateral Active Diagnosis [facility] Diagnosis: ICD-10-CM 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, right eye Active Diagnosis [facility] Diagnosis: ICD-10-CM Z46.1 Encounter for fitting and adjustment of hearing aid Active Diagnosis [facility] Diagnosis: ICD-10-CM G47.39 Other sleep apnea Active Diagnosis [facility] Diagnosis: ICD-10-CM 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, right eye Active Diagnosis [facility] Diagnosis: ICD-10-CM Z01.118 Encntr for exam of ears and hearing w oth abnormal findings Active Diagnosis [facility] Medications Combined list of outpatient medications [...] Jul 12, 2023 2 Jul 12, 2024 [id number] Jul 12, 2023 GARY JONES RESPIR ATORY (INHAL ATION) ACTIVE 07/12/2024 [id number] GARY JONES 2022 2 [facility]IM[facility] [...] Nov 01, 2023 15 Nov 01, 2024 [id number] Nov 02, 2023 GRAMATES ,CHRISTINA H [place] [facility] OPHTHA LMIC ACTIVE 11/01/2024 [id number] GRAMATES, CHRISTINA H 2023 15 [place] [facility] CHOLECALCIF VAL TAB CHOLECAL CIFEROL TAB Non-VA TAKE 1 TAB BY MOUTH Feb 28, 2024 Non-[place] Document ed by: GARY JONES Document ed at: [facility] ORAL ACTIVE GARY JONES 2023 JIMMY BARRE[facility] IBUPROFEN 600MG TAB IBUPROFE N 600MG TAB Non-VA TAKE ONE TABLET BY MOUTH THREE TIMES A DAY NEEDED Feb 28, 2024 Non-VA Document ed by: GARY JONES Document ed at: [facility] ORAL ACTIVE GARY JONES 2023 CHELSYKOCLAIRE [...] Feb 28, 2024 90 Feb 28, 2025 [id number] Feb 28, 2024 [facility] ORAL ACTIVE 02/28/2025 [id number] GARY JONES 2023 90 [facility] ZINC 50MG (FROM SULFATE) CAP ZINC 50MG (FROM SULFATE) CAP Non-VA TAKE 1 CAPSULE BY MOUTH EVERY DAY UNKNOWN Feb 22, 2023 Non-VA Document ed by: GARY JONES Document ed at: [facility] ORAL ACTIVE GARY JONES 2022 SHARADHA BARRETT Immunizations Combined list of available immunizations from the Department of Defense and Veterans Affairs facilities. 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 Status Comments Source COVID-19 ([employer]), MRNA, LNP-S, PF, JASON-SUCROSE, 30 MCG/0.3 ML (AGES 12+ YEARS) 1 2022 TOOTIE ANDERSON LEFT DELTO ID [id number] 309 complet ed [facility] INFLUENZA, HIGH-DOSE, QUADRIVALENT 2022 TOOTIE ANDERSON LEFT DELTO ID [id number] 197 complet ed [facility] PNEUMOCOCCAL CONJUGATE PCV20, POLYSACCHARID E [id number] CONJUGATE, ADJUVANT, PF 2022 TOOTIE ANDERSON LEFT DELTO ID [id number] 216 complet ed [facility] INFLUENZA, HIGH-DOSE, QUADRIVALENT, PF 2021 197 complet ed [facility] INFLUENZA, UNSPECIFIED FORMULATION 2021 88 complet ed [facility] COVID-19 (MODERNA), MRNA, LNP-S, PF, 100 MCG/0.5ML DOSE OR 50 MCG/0.25ML DOSE 3 2020 207 complet ed [facility] INFLUENZA, HIGH-DOSE, QUADRIVALENT, PF 2020 197 complet ed [facility] COVID-19 (MODERNA), MRNA, LNP-S, PF, 100 MCG/0.5ML DOSE OR 50 MCG/0.25ML DOSE 2 2020 207 complet ed [facility] COVID-19 (MODERNA), MRNA, LNP-S, PF, 100 MCG/0.5ML DOSE OR 50 MCG/0.25ML DOSE 1 2020 207 complet ed [facility] INFLUENZA, HIGH-DOSE, TRIVALENT, PF 2018 135 complet ed [facility] INFLUENZA, HIGH-DOSE, TRIVALENT, PF 2016 135 complet ed [facility] TDAP 2016 115 complet ed [facility] INFLUENZA, SPLIT VIRUS, QUADRIVALENT, PF 2015 150 complet ed [facility] INFLUENZA, HIGH-DOSE, TRIVALENT, PF 2015 135 complet ed [facility] INFLUENZA, HIGH-DOSE, TRIVALENT, PF 2012 135 complet ed [facility] INFLUENZA, SPLIT VIRUS, TRIVALENT, PRESERVATIVE 2012 141 complet ed [facility] TDAP 2011 115 complet [facility] INFLUENZA, SPLIT VIRUS, TRIVALENT, PF 2010 140 complet [facility] HEP B, UNSPECIFIED FORMULATION 2009 45 complet [facility] NOVEL INFLUENZA-H1N 1-09 2008 127 complet ed [facility] Results Combined list of recent [...] Feb 28, 2024 09:41 AM Reporting Lab: [facility] [address] Performing Lab: [facility] [address] [facility] CBC & DIFF ERYTHROCYTE S [#/VOLUME] IN BLOOD BY AUTOMATED COUNT 4.19 10*6/u L 4.6 - 6.2 02/27 L Specimen Type: BLOOD Comment: Automated Differentia l Performed Ordering Provider: KATIE JONES Report Released Date/Time: Feb 28, 2024 09:41 AM Reporting Lab: [facility] [address] Performing Lab: [facility] [address] [facility] CBC & DIFF HEMOGLOBIN [MASS/VOLUM E] IN BLOOD 13.4 g/dL 13.5 - 17.9 02/27 L Specimen Type: BLOOD Comment: Automated Differentia l Performed Ordering Provider: KATIE JONES Report Released Date/Time: Feb 28, 2024 09:41 AM Reporting Lab: [facility] [address] Performing Lab: [facility] [address] [facility] CBC & DIFF HEMATOCRIT [VOLUME FRACTION] OF BLOOD BY AUTOMATED COUNT 40.6 41 - 54 02/27 L Specimen Type: BLOOD Comment: Automated Differentia l Performed Ordering Provider: KATIE JONES Report Released Date/Time: Feb 28, 2024 09:41 AM Reporting Lab: [facility] [address] Performing Lab: [facility] [address] [facility] CBC & DIFF MCV [ENTITIC VOLUME] BY AUTOMATED COUNT 96.9 fL 80 - 100 02/27 Specimen Type: BLOOD Comment: Automated Differentia l Performed Ordering Provider: KATIE JONES Report Released Date/Time: Feb 28, 2024 09:41 AM Reporting Lab: [facility] [address] Performing Lab: [facility] [address] [facility] CBC & DIFF MCH [ENTITIC MASS] BY AUTOMATED COUNT 32.0 pg 27 - 33 02/27 Specimen Type: BLOOD Comment: Automated Differentia l Performed Ordering Provider: KATIE JONES Report Released Date/Time: Feb 28, 2024 09:41 AM Reporting Lab: [facility] [address] Performing Lab: [facility] [address] [facility] CBC & DIFF MCHC [MASS/VOLUM E] BY AUTOMATED COUNT 33.0 g/dL 32.0 - 37.5 02/27 Specimen Type: BLOOD Comment: Automated Differentia l Performed Ordering Provider: KATIE JONES Report Released Date/Time: Feb 28, 2024 09:41 AM Reporting Lab: [facility] [address] Performing Lab: [facility] [address] [facility] CBC & DIFF PLATELETS [#/VOLUME] IN BLOOD BY AUTOMATED COUNT 273 10*3/u L 150 - 400 02/27 Specimen Type: BLOOD Comment: Automated Differentia l Performed Ordering Provider: KATIE JONES Report Released Date/Time: Feb 28, 2024 09:41 AM Reporting Lab: [facility] [address] Performing Lab: [facility] [address] [facility] CBC & DIFF PLATELET MEAN VOLUME [ENTITIC VOLUME] IN BLOOD BY AUTOMATED COUNT 9.8 fL 7.4 - 10.4 02/27 Specimen Type: BLOOD Comment: Automated Differentia l Performed Ordering Provider: KATIE JONES Report Released Date/Time: Feb 28, 2024 09:41 AM Reporting Lab: [facility] [address] Performing Lab: [facility] [address] [facility] CBC & DIFF NEUTROPHILS /100 LEUKOCYTES IN BLOOD BY MANUAL COUNT 67.8 40.0 - 80.0 02/27 Specimen Type: BLOOD Comment: Automated Differentia l Performed Ordering Provider: KATIE JONES Report Released Date/Time: Feb 28, 2024 09:41 AM Reporting Lab: [facility] [address] Performing Lab: [facility] [address] [facility] CBC & DIFF LYMPHOCYTES /100 LEUKOCYTES IN BLOOD BY MANUAL COUNT 18.9 15.0 - 45.0 02/27 Specimen Type: BLOOD Comment: Automated Differentia l Performed Ordering Provider: KATIE JONES Report Released Date/Time: Feb 28, 2024 09:41 AM Reporting Lab: [facility] [address] Performing Lab: [facility] [address] [facility] CBC & DIFF MONOCYTES/1 00 LEUKOCYTES IN BLOOD BY AUTOMATED COUNT 9.5 2.0 - 12.0 02/27 Specimen Type: BLOOD Comment: Automated Differentia l Performed Ordering Provider: KATIE JONES Report Released Date/Time: Feb 28, 2024 09:41 AM Reporting Lab: [facility] [address] Performing Lab: [facility] [address] [facility] CBC & DIFF EOSINOPHILS /100 LEUKOCYTES IN BLOOD BY AUTOMATED COUNT 2.6 0.0 - 6.0 02/27 Specimen Type: BLOOD Comment: Automated Differentia l Performed Ordering Provider: KATIE JONES Report Released Date/Time: Feb 28, 2024 09:41 AM Reporting Lab: [facility] [address] Performing Lab: [facility] [address] [facility] CBC & DIFF BASOPHILS/1 00 LEUKOCYTES IN BLOOD BY MANUAL COUNT 0.7 0.0 - 2.0 02/27 Specimen Type: BLOOD Comment: Automated Differentia l Performed Ordering Provider: KATIE JONES Report Released Date/Time: Feb 28, 2024 09:41 AM Reporting Lab: [facility] [address] Performing Lab: [facility] [address] [facility] CBC & DIFF ERYTHROCYTE DISTRIBUTIO N WIDTH [RATIO] BY AUTOMATED COUNT 13.8 11.5 - 14.5 02/27 Specimen Type: BLOOD Comment: Automated Differentia l Performed Ordering Provider: KATIE JONES Report Released Date/Time: Feb 28, 2024 09:41 AM Reporting Lab: [facility] [address] Performing Lab: [facility] [address] [facility] CBC & DIFF LYMPHOCYTES [#/VOLUME] IN BLOOD BY AUTOMATED COUNT 1.39 10*3/u L 1.0 - 4.0 02/27 Specimen Type: BLOOD Comment: Automated Differentia l Performed Ordering Provider: KATIE JONES Report Released Date/Time: Feb 28, 2024 09:41 AM Reporting Lab: [facility] [address] Performing Lab: [facility] [address] [facility] CBC & DIFF MONOCYTES [#/VOLUME] IN BLOOD BY AUTOMATED COUNT 0.70 10*3/u L 0.1 - 1.0 02/27 Specimen Type: BLOOD Comment: Automated Differentia l Performed Ordering Provider: KATIE JONES Report Released Date/Time: Feb 28, 2024 09:41 AM Reporting Lab: [facility] [address] Performing Lab: [facility] [address] [facility] CBC & DIFF NEUTROPHILS [#/VOLUME] IN BLOOD BY AUTOMATED COUNT 4.97 10*3/u L 2.0 - 7.7 02/27 Specimen Type: BLOOD Comment: Automated Differentia l Performed Ordering Provider: KATIE JONES Report Released Date/Time: Feb 28, 2024 09:41 AM Reporting Lab: [facility] [address] Performing Lab: [facility] [address] [facility] CBC & DIFF EOSINOPHILS [#/VOLUME] IN BLOOD BY AUTOMATED COUNT 0.19 10*3/u L 0 - 0.5 02/27 Specimen Type: BLOOD Comment: Automated Differentia l Performed Ordering Provider: KATIE JONES Report Released Date/Time: Feb 28, 2024 09:41 AM Reporting Lab: [facility] [address] Performing Lab: [facility] [address] [facility] CBC & DIFF BASOPHILS [#/VOLUME] IN BLOOD BY AUTOMATED COUNT 0.05 10*3/u L 0 - 0.2 02/27 Specimen Type: BLOOD Comment: Automated Differentia l Performed Ordering Provider: KATIE JONES Report Released Date/Time: Feb 28, 2024 09:41 AM Reporting Lab: [facility] [address] Performing Lab: [facility] [address] [facility] CBC & DIFF IG(META,MYE LO,PRO) 0.5 02/27 Specimen Type: BLOOD Comment: Automated Differentia l Performed Ordering Provider: KATIE JONES Report Released Date/Time: Feb 28, 2024 09:41 AM Reporting Lab: [facility] [address] Performing Lab: [facility] [address] [facility] CBC & DIFF IMMATURE GRANULOCYTE S [PRESENCE] IN BLOOD BY AUTOMATED COUNT 0.04 10*3/u L 0 - 0.1 02/27 Specimen Type: BLOOD Comment: Automated Differentia l Performed Ordering Provider: KATIE JONES Report Released Date/Time: Feb 28, 2024 09:41 AM Reporting Lab: [facility] [address] Performing Lab: [facility] [address] [facility] COMPREHEN SIVE METABOLIC PANEL+MG CREATININE [MASS/VOLUM E] IN SERUM OR PLASMA 1.0 mg/dL 0.7 - 1.2 02/27 Specimen Type: PLASMA No comment entered. Ordering Provider: KATIE JONES Report Released Date/Time: Feb 28, 2024 09:41 AM Reporting Lab: [facility] [address] Performing Lab: [facility] [address] [facility] COMPREHEN SIVE METABOLIC PANEL+MG UREA NITROGEN [MASS/VOLUM E] IN SERUM OR PLASMA 24 mg/dL 8 - 26 02/27 Specimen Type: PLASMA No comment entered. Ordering Provider: KATIE JONES Report Released Date/Time: Feb 28, 2024 09:41 AM Reporting Lab: [facility] [address] Performing Lab: [facility] [address] [facility] COMPREHEN SIVE METABOLIC PANEL+MG GLUCOSE [MASS/VOLUM E] IN SERUM OR PLASMA 90 mg/dL 70 - 100 02/27 Specimen Type: PLASMA No comment entered. Ordering Provider: KATIE JONES Report Released Date/Time: Feb 28, 2024 09:41 AM Reporting Lab: [facility] [address] Performing Lab: [facility] [address] [facility] COMPREHEN SIVE METABOLIC PANEL+MG SODIUM [MOLES/VOLU ME] IN SERUM OR PLASMA 143 mmol/L 136 - 145 02/27 Specimen Type: PLASMA No comment entered. Ordering Provider: KATIE JONES Report Released Date/Time: Feb 28, 2024 09:41 AM Reporting Lab: [facility] [address] Performing Lab: [facility] [address] [facility] COMPREHEN SIVE METABOLIC PANEL+MG POTASSIUM [MOLES/VOLU ME] IN SERUM OR PLASMA 4.1 mmol/L 3.5 - 5.1 02/27 Specimen Type: PLASMA No comment entered. Ordering Provider: KATIE JONES Report Released Date/Time: Feb 28, 2024 09:41 AM Reporting Lab: [facility] [address] Performing Lab: [facility] [address] [facility] COMPREHEN SIVE METABOLIC PANEL+MG CHLORIDE [MOLES/VOLU ME] IN SERUM OR PLASMA 107 mmol/L 98 - 107 02/27 Specimen Type: PLASMA No comment entered. Ordering Provider: KATIE JONES Report Released Date/Time: Feb 28, 2024 09:41 AM Reporting Lab: [facility] [address] Performing Lab: [facility] [address] [facility] COMPREHEN SIVE METABOLIC PANEL+MG CARBON DIOXIDE, TOTAL [MOLES/VOLU ME] IN SERUM OR PLASMA 27 mmol/L 22 - 29 02/27 Specimen Type: PLASMA No comment entered. Ordering Provider: KATIE JONES Report Released Date/Time: Feb 28, 2024 09:41 AM Reporting Lab: [facility] [address] Performing Lab: [facility] [address] [facility] COMPREHEN SIVE METABOLIC PANEL+MG CALCIUM [MASS/VOLUM E] IN SERUM OR PLASMA 9.8 mg/dL 8.4 - 10.2 02/27 Specimen Type: PLASMA No comment entered. Ordering Provider: KATIE JONES Report Released Date/Time: Feb 28, 2024 09:41 AM Reporting Lab: [facility] [address] Performing Lab: [facility] [address] [facility] COMPREHEN SIVE METABOLIC PANEL+MG PROTEIN [MASS/VOLUM E] IN SERUM OR PLASMA 7.3 g/dL 6.0 - 8.3 02/27 Specimen Type: PLASMA No comment entered. Ordering Provider: KATIE JONES Report Released Date/Time: Feb 28, 2024 09:41 AM Reporting Lab: [facility] [address] Performing Lab: [facility] [address] [facility] COMPREHEN SIVE METABOLIC PANEL+MG ALBUMIN [MASS/VOLUM E] IN SERUM OR PLASMA 4.2 g/dL 3.5 - 5.2 02/27 Specimen Type: PLASMA No comment entered. Ordering Provider: KATIE JONES Report Released Date/Time: Feb 28, 2024 09:41 AM Reporting Lab: [facility] [address] Performing Lab: [facility] [address] [facility] COMPREHEN SIVE METABOLIC PANEL+MG BILIRUBIN.T OTAL [MASS/VOLUM E] IN SERUM OR PLASMA 0.8 mg/dL 0.2 - 1.2 02/27 Specimen Type: PLASMA No comment entered. Ordering Provider: KATIE JONES Report Released Date/Time: Feb 28, 2024 09:41 AM Reporting Lab: [facility] [address] Performing Lab: [facility] [address] [facility] COMPREHEN SIVE METABOLIC PANEL+MG MAGNESIUM [MASS/VOLUM E] IN SERUM OR PLASMA 2.3 mg/dL 1.6 - 2.6 02/27 Specimen Type: PLASMA No comment entered. Ordering Provider: KATIE JONES Report Released Date/Time: Feb 28, 2024 09:41 AM Reporting Lab: [facility] [address] Performing Lab: [facility] [address] [facility] COMPREHEN SIVE METABOLIC PANEL+MG ANION GAP IN SERUM OR PLASMA 9 mmol/L 5 - 15 02/27 Specimen Type: PLASMA No comment entered. Ordering Provider: KATIE JONES Report Released Date/Time: Feb 28, 2024 09:41 AM Reporting Lab: [facility] [address] Performing Lab: [facility] [address] [facility] COMPREHEN SIVE METABOLIC PANEL+MG ALKALINE PHOSPHATASE [ENZYMATIC ACTIVITY/VO LUME] IN SERUM OR PLASMA 66 U/L 40 - 150 02/27 Specimen Type: PLASMA No comment entered. Ordering Provider: KATIE JONES Report Released Date/Time: Feb 28, 2024 09:41 AM Reporting Lab: [facility] [address] Performing Lab: [facility] [address] [facility] COMPREHEN SIVE METABOLIC PANEL+MG ALANINE AMINOTRANSF ERASE [ENZYMATIC ACTIVITY/VO LUME] IN SERUM OR PLASMA 13 U/L <55 - 55 02/27 Specimen Type: PLASMA No comment entered. Ordering Provider: KATIE JONES Report Released Date/Time: Feb 28, 2024 09:41 AM Reporting Lab: [facility] [address] Performing Lab: [facility] [address] [facility] COMPREHEN SIVE METABOLIC PANEL+MG ASPARTATE AMINOTRANSF ERASE [ENZYMATIC ACTIVITY/VO LUME] IN SERUM OR PLASMA 18 U/L <34 - 34 02/27 Specimen Type: PLASMA No comment entered. Ordering Provider: KATIE JONES Report Released Date/Time: Feb 28, 2024 09:41 AM Reporting Lab: [facility] [address] Performing Lab: [facility] [address] [facility] COMPREHEN SIVE METABOLIC PANEL+MG GLOMERULAR FILTRATION RATE/1.73 SQ M.PREDICTED [VOLUME RATE/AREA] IN SERUM, PLASMA OR BLOOD BY CREATININE- BASED FORMULA (CKD-EPI 2020) 73 60 02/27 Specimen Type: PLASMA No comment entered. Ordering Provider: KATIE JONES Report Released Date/Time: Feb 28, 2024 09:41 AM Reporting Lab: [facility] [address] Performing Lab: [facility] [address] [facility] PSA PROSTATE SPECIFIC AG [MASS/VOLUM E] IN SERUM OR PLASMA 0.28 ng/mL <4.00 - 4.00 02/27 Specimen Type: SERUM No comment entered. Ordering Provider: KATIE JONES Report Released Date/Time: Feb 28, 2024 09:41 AM Reporting Lab: [facility] [address] Performing Lab: [facility] [address] [facility] LIPID PANEL,NON -FASTING CHOLESTEROL [MASS/VOLUM E] IN SERUM OR PLASMA 236 mg/dL <199 - 199 02/27 H Specimen Type: PLASMA No comment entered. Ordering Provider: KATIE JONES Report Released Date/Time: Feb 28, 2024 09:51 AM Reporting Lab: [facility] [address] Performing Lab: [facility] [address] [facility] LIPID PANEL,NON -FASTING CHOLESTEROL IN HDL [MASS/VOLUM E] IN SERUM OR PLASMA 48 mg/dL 40 02/27 Specimen Type: PLASMA No comment entered. Ordering Provider: KATIE JONES Report Released Date/Time: Feb 28, 2024 09:51 AM Reporting Lab: [facility] [address] Performing Lab: [facility] [address] [facility] LIPID PANEL,NON -FASTING CHOLESTEROL IN LDL [MASS/VOLUM E] IN SERUM OR PLASMA BY CALCULATION 161 mg/dL <99 - 99 02/27 H Specimen Type: PLASMA No comment entered. Ordering Provider: KATIE JONES Report Released Date/Time: Feb 28, 2024 09:51 AM Reporting Lab: [facility] [address] Performing Lab: [facility] [address] [facility] LIPID PANEL,NON -FASTING CHOLESTEROL IN VLDL [MASS/VOLUM E] IN SERUM OR PLASMA BY CALCULATION 27 mg/dL <29 - 29 02/27 Specimen Type: PLASMA No comment entered. Ordering Provider: KATIE JONES Report Released Date/Time: Feb 28, 2024 09:51 AM Reporting Lab: [facility] [address] Performing Lab: [facility] [address] [facility] LIPID PANEL,NON -FASTING CHOLESTEROL NON HDL [MASS/VOLUM E] IN SERUM OR PLASMA 188 mg/dL <129 - 129 02/27 H Specimen Type: PLASMA No comment entered. Ordering Provider: KATIE JONES Report Released Date/Time: Feb 28, 2024 09:51 AM Reporting Lab: [facility] [address] Performing Lab: [facility] [address] [facility] LIPID PANEL,NON -FASTING TRIGLYCERID E [MASS/VOLUM E] IN SERUM OR PLASMA 134 mg/dL <149 - 149 02/27 Specimen Type: PLASMA No comment entered. Ordering Provider: KATIE JONES Report Released Date/Time: Feb 28, 2024 09:51 AM Reporting Lab: [facility] [address] Performing Lab: [facility] [address] [facility] B 12 COBALAMIN (VITAMIN B12) [MASS/VOLUM E] IN SERUM OR PLASMA 532 pg/mL 213 - 816 04/04 Specimen Type: SERUM No comment entered. Ordering Provider: KATIE JONES Report Released Date/Time: Feb 23, 2023 09:34 AM Reporting Lab: [facility] [address] Performing Lab: [facility] [address] [facility] FOLATE FOLATE [MASS/VOLUM E] IN SERUM OR PLASMA 14.8 ng/mL 7.0 04/04 Specimen Type: SERUM No comment entered. Ordering Provider: KATIE JONES Report Released Date/Time: Feb 23, 2023 09:34 AM Reporting Lab: [facility] [address] Performing Lab: [facility] [address] [facility] CBC & DIFF LEUKOCYTES [#/VOLUME] IN BLOOD BY AUTOMATED COUNT 6.47 10*3/u L 4.0 - 11.0 04/04 Specimen Type: BLOOD Comment: Automated Differentia l Performed Ordering Provider: KATIE JONES Report Released Date/Time: Feb 23, 2023 09:34 AM Reporting Lab: [facility] [address] Performing Lab: [facility] [address] [facility] CBC & DIFF ERYTHROCYTE S [#/VOLUME] IN BLOOD BY AUTOMATED COUNT 3.99 10*6/u L 4.6 - 6.2 04/04 L Specimen Type: BLOOD Comment: Automated Differentia l Performed Ordering Provider: KATIE JONES Report Released Date/Time: Feb 23, 2023 09:34 AM Reporting Lab: [facility] [id number] Performing Lab: [facility] [id number] [facility] CBC & DIFF HEMOGLOBIN [MASS/VOLUM E] IN BLOOD 12.6 g/dL 13.5 - 17.9 04/04 L Specimen Type: BLOOD Comment: Automated Differentia l Performed Ordering Provider: KATIE JONES Report Released Date/Time: Feb 23, 2023 09:34 AM [facility] [facility] [address] Performing Lab: [facility] [address] [facility] CBC & DIFF HEMATOCRIT [VOLUME FRACTION] OF BLOOD BY AUTOMATED COUNT 38.2 41 - 54 04/04 L Specimen Type: BLOOD Comment: Automated Differentia l Performed Ordering Provider: KATIE JONES Report Released Date/Time: Feb 23, 2023 09:34 AM Reporting Lab: [facility] [address] Performing Lab: [facility] [address] [facility] CBC & DIFF MCV [ENTITIC VOLUME] BY AUTOMATED COUNT 95.7 fL 80 - 100 04/04 Specimen Type: BLOOD Comment: Automated Differentia l Performed Ordering Provider: KATIE JONES Report Released Date/Time: Feb 23, 2023 09:34 AM Reporting Lab: [facility] [address] Performing Lab: [facility] [address] [facility] CBC & DIFF MCH [ENTITIC MASS] BY AUTOMATED COUNT 31.6 pg 27 - 33 04/04 Specimen Type: BLOOD Comment: Automated Differentia l Performed Ordering Provider: KATIE JONES Report Released Date/Time: Feb 23, 2023 09:34 AM Reporting Lab: [facility] [address] Performing Lab: [facility] [address] [facility] CBC & DIFF MCHC [MASS/VOLUM E] BY AUTOMATED COUNT 33.0 g/dL 32.0 - 37.5 04/04 Specimen Type: BLOOD Comment: Automated Differentia l Performed Ordering Provider: KATIE JONES Report Released Date/Time: Feb 23, 2023 09:34 AM Reporting Lab: [facility] [address] Performing Lab: [facility] [address] [facility] CBC & DIFF PLATELETS [#/VOLUME] IN BLOOD BY AUTOMATED COUNT 285 10*3/u L 150 - 400 04/04 Specimen Type: BLOOD Comment: Automated Differentia l Performed Ordering Provider: KATIE JONES Report Released Date/Time: Feb 23, 2023 09:34 AM Reporting Lab: [facility] [address] Performing Lab: [facility] [address] [facility] CBC & DIFF PLATELET MEAN VOLUME [ENTITIC VOLUME] IN BLOOD BY AUTOMATED COUNT 9.0 fL 7.4 - 10.4 04/04 Specimen Type: BLOOD Comment: Automated Differentia l Performed Ordering Provider: KATIE JONES Report Released Date/Time: Feb 23, 2023 09:34 AM Reporting Lab: [facility] [address] Performing Lab: [facility] [address] [facility] CBC & DIFF NEUTROPHILS /100 LEUKOCYTES IN BLOOD BY MANUAL COUNT 67.9 40.0 - 80.0 04/04 Specimen Type: BLOOD Comment: Automated Differentia l Performed Ordering Provider: KATIE JONES Report Released Date/Time: Feb 23, 2023 09:34 AM Reporting Lab: [facility] [address] Performing Lab: [facility] [address] [facility] CBC & DIFF LYMPHOCYTES /100 LEUKOCYTES IN BLOOD BY MANUAL COUNT 18.7 15.0 - 45.0 04/04 Specimen Type: BLOOD Comment: Automated Differentia l Performed Ordering Provider: KATIE JONES Report Released Date/Time: Feb 23, 2023 09:34 AM Reporting Lab: [facility] [address] Performing Lab: [facility] [address] [facility] CBC & DIFF MONOCYTES/1 00 LEUKOCYTES IN BLOOD BY AUTOMATED COUNT 8.8 2.0 - 12.0 04/04 Specimen Type: BLOOD Comment: Automated Differentia l Performed Ordering Provider: KATIE JONES Report Released Date/Time: Feb 23, 2023 09:34 AM Reporting Lab: [facility] [address] Performing Lab: [facility] [address] [facility] CBC & DIFF EOSINOPHILS /100 LEUKOCYTES IN BLOOD BY AUTOMATED COUNT 3.1 0.0 - 6.0 04/04 Specimen Type: BLOOD Comment: Automated Differentia l Performed Ordering Provider: KATIE JONES Report Released Date/Time: Feb 23, 2023 09:34 AM Reporting Lab: [facility] [address] Performing Lab: [facility] [address] [facility] CBC & DIFF BASOPHILS/1 00 LEUKOCYTES IN BLOOD BY MANUAL COUNT 0.6 0.0 - 2.0 04/04 Specimen Type: BLOOD Comment: Automated Differentia l Performed Ordering Provider: KATIE JONES Report Released Date/Time: Feb 23, 2023 09:34 AM Reporting Lab: [facility] [address] Performing Lab: [facility] [address] [facility] CBC & DIFF ERYTHROCYTE DISTRIBUTIO N WIDTH [RATIO] BY AUTOMATED COUNT 14.1 11.5 - 14.5 04/04 Specimen Type: BLOOD Comment: Automated Differentia l Performed Ordering Provider: KATIE JONES Report Released Date/Time: Feb 23, 2023 09:34 AM Reporting Lab: [facility] [address] Performing Lab: [facility] [address] [facility] CBC & DIFF LYMPHOCYTES [#/VOLUME] IN BLOOD BY AUTOMATED COUNT 1.21 10*3/u L 1.0 - 4.0 04/04 Specimen Type: BLOOD Comment: Automated Differentia l Performed Ordering Provider: KATIE JONES Report Released Date/Time: Feb 23, 2023 09:34 AM Reporting Lab: [facility] [address] Performing Lab: [facility] [address] [facility] CBC & DIFF MONOCYTES [#/VOLUME] IN BLOOD BY AUTOMATED COUNT 0.57 10*3/u L 0.1 - 1.0 04/04 Specimen Type: BLOOD Comment: Automated Differentia l Performed Ordering Provider: KATIE JONES Report Released Date/Time: Feb 23, 2023 09:34 AM Reporting Lab: [facility] [address] Performing Lab: [facility] [address] [facility] CBC & DIFF NEUTROPHILS [#/VOLUME] IN BLOOD BY AUTOMATED COUNT 4.39 10*3/u L 2.0 - 7.7 04/04 Specimen Type: BLOOD Comment: Automated Differentia l Performed Ordering Provider: KATIE JONES Report Released Date/Time: Feb 23, 2023 09:34 AM Reporting Lab: [facility] [address] Performing Lab: [facility] [address] [facility] CBC & DIFF EOSINOPHILS [#/VOLUME] IN BLOOD BY AUTOMATED COUNT 0.20 10*3/u L 0 - 0.5 04/04 Specimen Type: BLOOD Comment: Automated Differentia l Performed Ordering Provider: KATIE JOENS Report Released Date/Time: Feb 23, 2023 09:34 AM Reporting Lab: [facility] [address] Performing Lab: [facility] [address] [facility] CBC & DIFF BASOPHILS [#/VOLUME] IN BLOOD BY AUTOMATED COUNT 0.04 10*3/u L 0 - 0.2 04/04 Specimen Type: BLOOD Comment: Automated Differentia l Performed Ordering Provider: KATIE JONES Report Released Date/Time: Feb 23, 2023 09:34 AM Reporting Lab: [facility] [address] Performing Lab: [facility] [address] [facility] CBC & DIFF IG(META,MYE LO,PRO) 0.9 04/04 Specimen Type: BLOOD Comment: Automated Differentia l Performed Ordering Provider: KATIE JONES Report Released Date/Time: Feb 23, 2023 09:34 AM Reporting Lab: [facility] [address] Performing Lab: [facility] [address] [facility] CBC & DIFF IMMATURE GRANULOCYTE S [PRESENCE] IN BLOOD BY AUTOMATED COUNT 0.06 10*3/u L 0 - 0.1 04/04 Specimen Type: BLOOD Comment: Automated Differentia l Performed Ordering Provider: KATIE JONES Report Released Date/Time: Feb 23, 2023 09:34 AM Reporting Lab: [facility] [address] Performing Lab: [facility] [address] [facility] IRON GROUP IRON [MASS/VOLUM E] IN SERUM OR PLASMA 69 ug/dL 65 - 175 04/04 Specimen Type: PLASMA No comment entered. Ordering Provider: KATIE JONES Report Released Date/Time: Feb 23, 2023 09:34 AM Reporting Lab: [facility] [address] Performing Lab: [facility] [address] [facility] IRON GROUP IRON BINDING CAPACITY [MASS/VOLUM E] IN SERUM OR PLASMA 263 ug/dL 250 - 425 04/04 Specimen Type: PLASMA No comment entered. Ordering Provider: KATIE JONES Report Released Date/Time: Feb 23, 2023 09:34 AM Reporting Lab: [facility] [address] Performing Lab: [facility] [address] [facility] IRON GROUP FERRITIN [MASS/VOLUM E] IN SERUM OR PLASMA 453.6 ng/mL 21.8 - 274.7 04/04 H Specimen Type: PLASMA No comment entered. Ordering Provider: KATIE JONES Report Released Date/Time: Feb 23, 2023 09:34 AM Reporting Lab: [facility] [address] Performing Lab: [facility] [address] [facility] IRON GROUP IRON SATURATION 26 20 - 50 04/04 Specimen Type: PLASMA No comment entered. Ordering Provider: KATIE JONES Report Released Date/Time: Feb 23, 2023 09:34 AM Reporting Lab: [facility] [address] Performing Lab: [facility] [address] [facility] IRON GROUP TRANSFERRIN [MASS/VOLUM E] IN SERUM OR PLASMA 210 mg/dL 163 - 382 04/04 Specimen Type: PLASMA No comment entered. Ordering Provider: KATIE JONES Report Released Date/Time: Feb 23, 2023 09:34 AM Reporting Lab: [facility] [address] Performing Lab: [facility] [address] [facility] COMPREHEN SIVE METABOLIC PANEL+MG CREATININE [MASS/VOLUM E] IN SERUM OR PLASMA 0.9 mg/dL 0.7 - 1.2 02/22 Specimen Type: PLASMA No comment entered. Ordering Provider: KATIE JONES Report Released Date/Time: Feb 22, 2023 10:40 AM Reporting Lab: [facility] [address] Performing Lab: [facility] [address] [facility] COMPREHEN SIVE METABOLIC PANEL+MG UREA NITROGEN [MASS/VOLUM E] IN SERUM OR PLASMA 16 mg/dL 8 - 26 02/22 Specimen Type: PLASMA No comment entered. Ordering Provider: KATIE JONES Report Released Date/Time: Feb 22, 2023 10:40 AM Reporting Lab: [facility] [address] Performing Lab: [facility] [address] [facility] COMPREHEN SIVE METABOLIC PANEL+MG GLUCOSE [MASS/VOLUM E] IN SERUM OR PLASMA 88 mg/dL 70 - 100 02/22 Specimen Type: PLASMA No comment entered. Ordering Provider: KATIE JONES Report Released Date/Time: Feb 22, 2023 10:40 AM Reporting Lab: [facility] [address] Performing Lab: [facility] [address] [facility] COMPREHEN SIVE METABOLIC PANEL+MG SODIUM [MOLES/VOLU ME] IN SERUM OR PLASMA 141 mmol/L 136 - 145 02/22 Specimen Type: PLASMA No comment entered. Ordering Provider: KATIE JONES Report Released Date/Time: Feb 22, 2023 10:40 AM Reporting Lab: [facility] [address] Performing Lab: [facility] [address] [facility] COMPREHEN SIVE METABOLIC PANEL+MG POTASSIUM [MOLES/VOLU ME] IN SERUM OR PLASMA 4.4 mmol/L 3.5 - 5.1 02/22 Specimen Type: PLASMA No comment entered. Ordering Provider: KATIE JONES Report Released Date/Time: Feb 22, 2023 10:40 AM Reporting Lab: [facility] [address] Performing Lab: [facility] [address] [facility] COMPREHEN SIVE METABOLIC PANEL+MG CHLORIDE [MOLES/VOLU ME] IN SERUM OR PLASMA 109 mmol/L 98 - 107 02/22 H Specimen Type: PLASMA No comment entered. Ordering Provider: KATIE JONES Report Released Date/Time: Feb 22, 2023 10:40 AM Reporting Lab: [facility] [address] Performing Lab: [facility] [address] [facility] COMPREHEN SIVE METABOLIC PANEL+MG CARBON DIOXIDE, TOTAL [MOLES/VOLU ME] IN SERUM OR PLASMA 24 mmol/L 22 - 29 02/22 Specimen Type: PLASMA No comment entered. Ordering Provider: KATIE JONES Report Released Date/Time: Feb 22, 2023 10:40 AM Reporting Lab: [facility] [address] Performing Lab: [facility] [address] [facility] COMPREHEN SIVE METABOLIC PANEL+MG CALCIUM [MASS/VOLUM E] IN SERUM OR PLASMA 9.1 mg/dL 8.4 - 10.2 02/22 Specimen Type: PLASMA No comment entered. Ordering Provider: KATIE JONES Report Released Date/Time: Feb 22, 2023 10:40 AM Reporting Lab: [facility] [address] Performing Lab: [facility] [address] [facility] COMPREHEN SIVE METABOLIC PANEL+MG PROTEIN [MASS/VOLUM E] IN SERUM OR PLASMA 6.7 g/dL 6.0 - 8.3 02/22 Specimen Type: PLASMA No comment entered. Ordering Provider: KATIE JONES Report Released Date/Time: Feb 22, 2023 10:40 AM Reporting Lab: [facility] [address] Performing Lab: [facility] [address] [facility] COMPREHEN SIVE METABOLIC PANEL+MG ALBUMIN [MASS/VOLUM E] IN SERUM OR PLASMA 3.9 g/dL 3.5 - 5.2 02/22 Specimen Type: PLASMA No comment entered. Ordering Provider: KATIE JONES Report Released Date/Time: Feb 22, 2023 10:40 AM Reporting Lab: [facility] [address] Performing Lab: [facility] [address] [facility] COMPREHEN SIVE METABOLIC PANEL+MG BILIRUBIN.T OTAL [MASS/VOLUM E] IN SERUM OR PLASMA 0.8 mg/dL 0.2 - 1.2 02/22 Specimen Type: PLASMA No comment entered. Ordering Provider: KATIE JONES Report Released Date/Time: Feb 22, 2023 10:40 AM Reporting Lab: [facility] [address] Performing Lab: [facility] [address] [facility] COMPREHEN SIVE METABOLIC PANEL+MG MAGNESIUM [MASS/VOLUM E] IN SERUM OR PLASMA 2.2 mg/dL 1.6 - 2.6 02/22 Specimen Type: PLASMA No comment entered. Ordering Provider: KATIE JONES Report Released Date/Time: Feb 22, 2023 10:40 AM Reporting Lab: [facility] [address] Performing Lab: [facility] [address] [facility] COMPREHEN SIVE METABOLIC PANEL+MG ANION GAP IN SERUM OR PLASMA 8 mmol/L 5 - 15 02/22 Specimen Type: PLASMA No comment entered. Ordering Provider: KATIE JONES Report Released Date/Time: Feb 22, 2023 10:40 AM Reporting Lab: [facility] [address] Performing Lab: [facility] [address] [facility] COMPREHEN SIVE METABOLIC PANEL+MG ALKALINE PHOSPHATASE [ENZYMATIC ACTIVITY/VO LUME] IN SERUM OR PLASMA 70 U/L 40 - 150 02/22 Specimen Type: PLASMA No comment entered. Ordering Provider: KATIE JONES Report Released Date/Time: Feb 22, 2023 10:40 AM Reporting Lab: [facility] [address] Performing Lab: [facility] [address] [facility] COMPREHEN SIVE METABOLIC PANEL+MG ALANINE AMINOTRANSF ERASE [ENZYMATIC ACTIVITY/VO LUME] IN SERUM OR PLASMA 10 U/L 02/22 Specimen Type: PLASMA No comment entered. Ordering Provider: KATIE JONES Report Released Date/Time: Feb 22, 2023 10:40 AM Reporting Lab: [facility] [address] Performing Lab: [facility] [address] [facility] COMPREHEN SIVE METABOLIC PANEL+MG ASPARTATE AMINOTRANSF ERASE [ENZYMATIC ACTIVITY/VO LUME] IN SERUM OR PLASMA 19 U/L 02/22 Specimen Type: PLASMA No comment entered. Ordering Provider: KATIE JONES Report Released Date/Time: Feb 22, 2023 10:40 AM Reporting Lab: [facility] [address] Performing Lab: [place] [address] [facility] COMPREHEN SIVE METABOLIC PANEL+MG GLOMERULAR FILTRATION RATE/1.73 SQ M.PREDICTED [VOLUME RATE/AREA] IN SERUM, PLASMA OR BLOOD BY CREATININE- BASED FORMULA (CKD-EPI 2020) 83 02/22 Specimen Type: PLASMA No comment entered. Ordering Provider: KATIE JONES Report Released Date/Time: Feb 22, 2023 10:40 AM Reporting Lab: [facility] [address] Performing Lab: [facility] [address] [facility] HEMOGLOBI N A1C HEMOGLOBIN A1C/HEMOGLO BIN.TOTAL [...] Feb 22, 2023 10:40 AM Reporting Lab: [facility] [address] Performing Lab: [facility] [address] [facility] Vital Signs Combined list of inpatient and outpatient Vital Signs from Department of Defense and Veterans Affairs, ranging from 12 months to all on record, depending upon the facility. Vital Sign Value Date Comments Source Encounters Combined list of: 1) Encounters from Department of [facility] facilities going back up to thelast 18 months. 2) Encounters from the Department of [facility] facilities going back up to 280 months. Location Location Details Encounter Type Encounter Number Reason For Visit Attending Provider ADM Date DC Date Status Disposition Source [facility] Outpatient Encounter [id number] 02/01 [facility]P EST MOD 30-39 MIN [id number] Diagnos is: ICD-10- CM Z00.8 Encount er for other general examina tion
Bob JONES EBMANA Martinez 02/22 [facility] Outpatient Encounter [id number] 02/24 [facility] Outpatient Encounter [id number] 03/20 [facility] [place] [id number] Diagnos is: ICD-10- CM Z01.118 Encntr for exam of ears and hearing w oth abnorma l finding s
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 Outpatient Encounter [id number] 04/19 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 CONFORMITY EVALUATION [id number] Diagnos is: ICD-10- CM Z46.1 Encount er for fitting and adjustm ent of hearing aid<br/ > NEERU TINAJERO 05/30 [facility] Outpatient Encounter [id number] 07/01 [facility] OFFICE O/P EST LOW 20-29 MIN [id number] Diagnos is: ICD-10- CM G47.39 Other sleep apnea<b r/> KAREN,R EBECCA L 07/11 [facility] EAR IMPRESSION [id number] Diagnos is: ICD-10- CM Z46.1 Encount er for fitting and adjustm ent of hearing aid<br/ > NEERU TINAJERO 08/02 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 Outpatient Encounter [id number] 12/27 [facility] HEARING AID FITTING/CH ECKING [id number] Diagnos is: ICD-10- CM H90.3 Sensori neural hearing loss, bilater al
NEERU ITNAJERO 01/14 [facility] OFFICE O/P EST MOD 30 MIN [id number] Diagnos is: ICD-10- CM Z00.8 Encount er for other general examina tion
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
WHITE,TERR A R 03/14 [facility] Social History Combined list of available smoking, tobacco, and other social history from Department of Defense and Veterans Affairs facilities. Social History Type Response Date Comment Sourc e Tobacco smoking status NHIS [place] NEVER USED 02/28/20 24 [facility] History of tobacco use [place] FORMER USER 02/22/2023 [facility] Plan of Care List of future care activities from Department of Veterans [facility] facilities. Additional future care activities may be listed in the Assessment and Plan section. Date/Time Care Activity Care Activity Detail Facili ty 05/01/2024 AMBULATORY - SURGERY [facility]ERY [facility] Advance Directives List of completed, amended, or rescinded Advance Directives on record at Department of Veterans Affairs facilities. An actual copy of the Directive is not included. Date Advance Directive Provider Source 04/19/2023 ADVANCE DIRECTIVE DISCUSSION [facility] 04/19/2023 [facility]
--- OUTSIDE RECORDS SUMMARY | 2024-04-17 11:13 | XMS_ITS | Clinical Summary ---
Author Organization [employer] [facility] Address [place], [place] [address] Care Team Providers Care Caser In Name Role Phone Trace Tom MD Primary [...] 65+ 05/05/2024 Medical Devices Implanted Type Area Delivery Aide Device Identifier Shelf Expiration Date Model / Serial / Lot Cancellous Bone Screw Implanted:Qty: 1 on 01/30/2018 by Dickson Sevilla MD at [facility] Right: Hip [employer] 10/29/2022 / / [id number] Cluster Acetabluar Shell Implanted:Qty: 1 on 01/30/2018 by Dickson Sevilla MD at [facility] Right: Hip [employer] [facility] 10/16/2022 / / [id number] Polyethlene Insert Implanted:Qty: 1 on 01/30/2018 by Dickson Sevilla MD at [facility] Right: Hip [employer] [facility] 07/09/2022 / / [id number] Neck Angle Hip Stem Implanted:Qty: 1 on 01/30/2018 by Dickson Sevilla MD at [facility] Right: Hip [employer] [facility] 11/24/2022 / / [id number] C-Taper Femoral Head Implanted:Qty: 1 on 01/30/2018 by Dickson Sevilla MD at [facility] Right: Hip [facility] 10/29/2022 / / [...] 10:51 AM 01/30/2018 2:57 PM Care Teams Caser In Relationship Specialty Start Date End Date Trace Tom MD [address] [place] [address] PCP - General Family Practice 01/25/22
--- OUTSIDE RECORDS SUMMARY | 2024-04-17 11:13 | XMS_ITS | Clinical Summary ---
Author Organization [facility] Address [facility] [place] [address] Care Team Providers Care Care Provider Name Role Phone Clinic, [facility] Primary Care Provider + Allergies No known [...] of Treatment Not on file Care Teams Care Provider Relationship Specialty Start Date End Date Clinic, [address] [address] PCP - General 06/26/20
--- OUTSIDE RECORDS SUMMARY | 2024-04-17 11:13 | XMS_ITS | Clinical Summary ---
Author Organization [facility] Address [address] [address] Care Team Providers Care Dynamite Packing Machine Feeder Name Role Phone Unavailable Primary Care Provider Unavailabl e Source Comments You are receiving this document as you are listed as the primary care provider,follow-up provider, or the patient has been referred to you for consultation.This is in compliance with the Medicare and[facility] EHR Incentive Program,which states Providers who transition [...] sleep apnea) 11/16/2023 Excessive daytime sleepiness 11/16/2023 Social History Tobacco Use Types Packs/Day Years [...] Additional history exists Influenza (#1) 2024 07/11/2023, 01/2022, 06/30/2021, Additional history exists DTaP/Tdap/Td (3 - [...] this topic DASHAWN COTE Personal/Famil y [address] [place] [address]
--- OUTSIDE RECORDS SUMMARY | 2024-04-17 11:13 | XMS_ITS | Referral Summary ---
Author Organization [facility] Address [address] [place] [address] Care Team Providers Care Hazmat Tanker Driver Name Role Phone Unavailable Primary Care Provider Unavailabl e Source Comments Patient records contain information from all sites at [facility]. For routine questions regarding patient records, call [phone] during business hours, M-F 8:00 AM - 5:00 PM Central Time. Record requests for emergency care only can be directed to [phone] at any time.[facility] Allergies No known active allergies Medications Medication [...] Comments Blood Pressure 140/74 07/12/2020 11:15 AM CLINICAL DATA ABSTRACTOR Pulse 60 07/12/2020 11:15 AM CLINICAL DATA ABSTRACTOR Temperature 37.3 ??C (99.1 ??F) 07/12/2020 1 1:15 AM CLINICAL DATA ABSTRACTOR Respiratory Rate 20 07/12/2020 8:28 AM CLINICAL DATA ABSTRACTOR Oxygen Saturation 96% 07/12/2020 11: 15 AM CLINICAL DATA ABSTRACTOR Inhaled Oxygen Concentration - - Weight 101 kg (222 lb 10.6 oz) 2016 2:13 PM CDT Vital sign result from Clinical Notes. Height 175.3 cm (5' 9) 07/12/2020 8:27 AM CLINICAL DATA ABSTRACTOR Body Mass Index 32.98 09/20/2016 4:53 PM CLINICAL DATA ABSTRACTOR Plan of Treatment Not on file
--- OUTSIDE RECORDS SUMMARY | 2024-04-17 11:13 | XMS_ITS | Encounter Summary ---
Author Organization [facility] Address [address], [place] [address] Care Team Providers Care Bus Escort Name Role Phone Unavailable Primary Care Provider Unavailabl e Reason for Visit * Reason Comments Follow-up Encounter Details Date Type Department Care Team (Late st Contact Info) Description 01/09/2024 11:15 AM CDT [facility] [facility] [address] [place], [place] [address] Rebecca Butler PA-C [address] [facility] [address] [place], [place] [address] Mild obstructive sleep apnea (Primary Dx) Social [...] until 10-11am. Does not nap. His disagrees. [place] he slept well on night of sleep [...]
--- OUTSIDE RECORDS SUMMARY | 2024-04-17 11:13 | XMS_ITS | Referral Summary ---
Author Organization [place] Address [facility] [place] [address] Care Team Providers Care Shot Polisher Name Role Phone Clinic, [facility] Primary Care Provider + Allergies No [...] of Treatment Not on file Care Teams Shot Polisher Relationship Specialty Start Date End Date Clinic, [address] [address] PCP - General 06/26/20
--- OUTSIDE RECORDS SUMMARY | 2024-04-17 11:13 | XMS_ITS | Clinical Summary ---
Author Organization [facility] Address [address] [place] [address] Care Team Providers Care News Clerk Name Role Phone Unavailable Primary Care Provider Unavailabl e Source Comments Patient records contain information from all sites at [facility]. For routine questions regarding patient records, call [phone] during business hours, M-F 8:00 AM - 5:00 PM Central Time. Record requests for emergency care only can be directed to [phone] at any time.[facility] Allergies No known active allergies Medications Medication [...] Comments Blood Pressure 140/74 07/12/2020 11:15 AM QUART[facility]ER Pulse 60 07/12/2020 11:15 AM [facility]ER Temperature 37.3 ??C (99.1 ??F) 07/12/2020 1 1:15 AM QUARTZ MINER Respiratory Rate 20 07/12/2020 8:28 AM QUART[facility]ER Oxygen Saturation 96% 07/12/2020 11: 15 AM QUART[facility]ER Inhaled Oxygen Concentration - - Weight 101 kg (222 lb 10.6 oz) 2016 2:13 PM CDT Vital sign result from Clinical Notes. Height 175.3 cm (5' 9) 07/12/2020 8:27 AM [facility]ER Body Mass Index 32.98 09/20/2016 4:53 PM QUARTZ MINER Plan of Treatment Health Maintenance Due Date [...]
--- OUTSIDE RECORDS SUMMARY | 2024-04-17 11:13 | XMS_ITS ---
Author Organization [facility] Address [address] [place] [address] Care Team Providers Care Em Physician Name Role Phone Unavailable Unavailable Unavailable Surgery Details Not on file Complications Check Surgery Details section. Procedure Estimated Blood Loss Check Surgery Details section. Procedure Findings Check Surgery Details section. Procedure Specimens Taken Check Surgery Details section.
== END 2024-04-17 11:11 | disposition home or self-care (01) ==
LOC: WOUND 11:11
PROVIDERS: Visit Provider Physician Assistant
DX: I87.312 Chronic venous hypertension (idiopathic) with ulcer of left lower extremity (principal); L97.822 Non-pressure chronic ulcer of other part of left lower leg with fat layer exposed
CPT/HCPCS: 97597

== ENCOUNTER 2024-04-25 13:22 | Outpatient (CLI) | payer MEDICARE, BC, SELFPAY ==
--- OUTSIDE RECORDS SUMMARY | 2024-04-25 13:24 | XMS_ITS | Continuity of Care Document ---
Author Name [facility] Organization [facility] Care Team Providers Care Oil Lease Buyer Name Role Phone [facility] Unavailable Unavailable Problems Combined list of problems from Department of Defense and Veterans Affairs facilities. It does not include entries that were removed or entered in error. Problem Status Onset Date Problem Type Date of Resolution Comments Source Exposure to potentially hazardous substance ([facility] [id number]) Active 11/10/19 24 Condition Nov 10, 2023 Entered By: FLORES KENNEDY Comment: [facility] Documentation Initiative [facility] Edema Active Condition Feb 22 Entered By: GARY JONES Comment: trated for prostate ca with 44 radiation treatmentsFeb 22, 2023 Entered By: GARY JONES Comment: treated fro prostate cancer with 44 radiation treatments [facility] 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 Active Condition Feb 22, 2023 Entered By: GARY JONES Comment: treated prostate cancer with 44 radiation treatments [facility] Malignant melanoma Active Condition [facility] Obstructive Sleep Apnea of Adult ([facility] [id number]) Active Condition Dec 28, 2023 Entered By: WILEY ARTHUR Comment: See scanned records in [place] for details [facility] Diagnosis: ICD-10-CM Z71.9 Counseling, unspecified Active Diagnosis [facility] Diagnosis: ICD-10-CM Z00.8 Encounter for other general examination Active Diagnosis [facility] Diagnosis: ICD-10-CM 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 loss, bilateral Active Diagnosis [facility] Diagnosis: ICD-10-CM 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, right eye Active Diagnosis [facility] Diagnosis: ICD-10-CM Z46.1 Encounter for fitting and adjustment of hearing aid Active Diagnosis [facility] Diagnosis: ICD-10-CM G47.39 Other sleep apnea Active Diagnosis [facility] Diagnosis: ICD-10-CM 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, right eye Active Diagnosis [facility] Diagnosis: ICD-10-CM Z01.118 Encntr for exam of ears and hearing w oth abnormal findings Active Diagnosis [facility] Medications Combined list of outpatient medications [...] Jul 12, 2023 2 Jul 12, 2024 [id number] Jul 12, 2023 GARY JONES RESPIR ATORY (INHAL ATION) ACTIVE 07/12/2024 [id number] GARY JONES 2022 2 JIMMY BARRETT [...] Nov 01, 2023 15 Nov 01, 2024 [id number] Nov 02, 2023 GRAMATES ,CHRISTINA H [place] [facility] OPHTHA LMIC ACTIVE 11/01/2024 [id number] GRAMATES, CHRISTINA H 2023 15 [place] [facility] CHOLECALCIF VAL TAB CHOLECAL CIFEROL TAB Non-VA TAKE 1 TAB BY MOUTH Feb 28, 2024 Non-VA Document ed by: GARY JONES Document ed at: [facility] ORAL ACTIVE GARY JONES 2023 JIMMY BARRETT IBUPROFEN 600MG TAB IBUPROFE N 600MG TAB Non-VA TAKE ONE TABLET BY MOUTH THREE TIMES A DAY NEEDED Feb 28, 2024 Non-VA Document ed by: GARY JONES Document ed at: [facility] ORAL ACTIVE GARY JONES 2023 CHELSYKOCLAIRE [...] Feb 28, 2024 90 Feb 28, 2025 [id number] Feb 28, 2024 [facility] ORAL ACTIVE 02/28/2025 [id number] GARY JONES 2023 90 JIMMY [facility]RETT ZINC 50MG (FROM SULFATE) CAP ZINC 50MG (FROM SULFATE) CAP Non-VA TAKE 1 CAPSULE BY MOUTH EVERY DAY UNKNOWN Feb 22, 2023 Non-VA Document ed by: GARY JONES Document ed at: [facility] ORAL ACTIVE GARY JONES 2022 SHARADHA BARRETT Immunizations Combined list of available immunizations from the Department of Defense and Veterans Affairs facilities. Immunization Series Date Given Administered By Site Reaction Lot Number CVX Code Drug Mixer And Blender Status Comments Source COVID-19 (madKast), MRNA, LNP-S, PF, JASON-SUCROSE, 30 MCG/0.3 ML (AGES 12+ YEARS) 1 2022 TOOTIE ANDERSON LEFT DELTO ID [id number] 309 complet ed JIMMY [facility]RETT INFLUENZA, HIGH-DOSE, QUADRIVALENT 2022 TOOTIE ANDERSON LEFT DELTO ID [id number] 197 complet ed JIMMY [facility] PNEUMOCOCCAL CONJUGATE PCV20, POLYSACCHARID E [id number] CONJUGATE, ADJUVANT, PF 2022 TOOTIE ANDERSON LEFT DELTO ID [id number] 216 complet ed [facility] INFLUENZA, [...] [facility] TDAP 2011 115 complet [facility] INFLUENZA, SPLIT VIRUS, TRIVALENT, PF 2010 140 complet [facility] HEP B, UNSPECIFIED FORMULATION 2009 45 complet [facility] NOVEL INFLUENZA-H1N 1-09 2008 127 [...] Feb 28, 2024 09:41 AM Reporting Lab: [facility] [address] Performing Lab: [facility] [address] [facility] CBC & DIFF ERYTHROCYTE S [#/VOLUME] IN BLOOD BY AUTOMATED COUNT 4.19 10*6/u L 4.6 - 6.2 02/27 L Specimen Type: BLOOD Comment: Automated Differentia l Performed Ordering Provider: KATIE JONES Report Released Date/Time: Feb 28, 2024 09:41 AM Reporting Lab: [facility] [address] Performing Lab: [facility] [address] [facility] CBC & DIFF HEMOGLOBIN [MASS/VOLUM E] IN BLOOD 13.4 g/dL 13.5 - 17.9 02/27 L Specimen Type: BLOOD Comment: Automated Differentia l Performed Ordering Provider: KATIE JONES Report Released Date/Time: Feb 28, 2024 09:41 AM Reporting Lab: [facility] [address] Performing Lab: [facility] [address] [facility] CBC & DIFF HEMATOCRIT [VOLUME FRACTION] OF BLOOD BY AUTOMATED COUNT 40.6 41 - 54 02/27 L Specimen Type: BLOOD Comment: Automated Differentia l Performed Ordering Provider: KATIE JONES Report Released Date/Time: Feb 28, 2024 09:41 AM Reporting Lab: [facility] [address] Performing Lab: [facility] [address] [facility] CBC & DIFF MCV [ENTITIC VOLUME] BY AUTOMATED COUNT 96.9 fL 80 - 100 02/27 Specimen Type: BLOOD Comment: Automated Differentia l Performed Ordering Provider: KATIE JONES Report Released Date/Time: Feb 28, 2024 09:41 AM Reporting Lab: [facility] [address] Performing Lab: [facility] [address] [facility] CBC & DIFF MCH [ENTITIC MASS] BY AUTOMATED COUNT 32.0 pg 27 - 33 02/27 Specimen Type: BLOOD Comment: Automated Differentia l Performed Ordering Provider: KATIE JONES Report Released Date/Time: Feb 28, 2024 09:41 AM Reporting Lab: [facility] [address] Performing Lab: [facility] [address] [facility] CBC & DIFF MCHC [MASS/VOLUM E] BY AUTOMATED COUNT 33.0 g/dL 32.0 - 37.5 02/27 Specimen Type: BLOOD Comment: Automated Differentia l Performed Ordering Provider: KATIE JONES Report Released Date/Time: Feb 28, 2024 09:41 AM Reporting Lab: [facility] [address] Performing Lab: [facility] [address] [facility] CBC & DIFF PLATELETS [#/VOLUME] IN BLOOD BY AUTOMATED COUNT 273 10*3/u L 150 - 400 02/27 Specimen Type: BLOOD Comment: Automated Differentia l Performed Ordering Provider: KATIE JONES Report Released Date/Time: Feb 28, 2024 09:41 AM Reporting Lab: [facility] [address] Performing Lab: [facility] [address] [facility] CBC & DIFF PLATELET MEAN VOLUME [ENTITIC VOLUME] IN BLOOD BY AUTOMATED COUNT 9.8 fL 7.4 - 10.4 02/27 Specimen Type: BLOOD Comment: Automated Differentia l Performed Ordering Provider: KATIE JONES Report Released Date/Time: Feb 28, 2024 09:41 AM Reporting Lab: [facility] [address] Performing Lab: [facility] [address] [facility] CBC & DIFF NEUTROPHILS /100 LEUKOCYTES IN BLOOD BY MANUAL COUNT 67.8 40.0 - 80.0 02/27 Specimen Type: BLOOD Comment: Automated Differentia l Performed Ordering Provider: KATIE JONES Report Released Date/Time: Feb 28, 2024 09:41 AM Reporting Lab: [facility] [address] Performing Lab: [facility] [address] [facility] CBC & DIFF LYMPHOCYTES /100 LEUKOCYTES IN BLOOD BY MANUAL COUNT 18.9 15.0 - 45.0 02/27 Specimen Type: BLOOD Comment: Automated Differentia l Performed Ordering Provider: KATIE JONES Report Released Date/Time: Feb 28, 2024 09:41 AM Reporting Lab: [facility] [address] Performing Lab: [facility] [address] [facility] CBC & DIFF MONOCYTES/1 00 LEUKOCYTES IN BLOOD BY AUTOMATED COUNT 9.5 2.0 - 12.0 02/27 Specimen Type: BLOOD Comment: Automated Differentia l Performed Ordering Provider: KATIE JONES Report Released Date/Time: Feb 28, 2024 09:41 AM Reporting Lab: [facility] [address] Performing Lab: [facility] [address] [facility] CBC & DIFF EOSINOPHILS /100 LEUKOCYTES IN BLOOD BY AUTOMATED COUNT 2.6 0.0 - 6.0 02/27 Specimen Type: BLOOD Comment: Automated Differentia l Performed Ordering Provider: KATIE JONES Report Released Date/Time: Feb 28, 2024 09:41 AM Reporting Lab: [facility] [address] Performing Lab: [facility] [address] [facility] CBC & DIFF BASOPHILS/1 00 LEUKOCYTES IN BLOOD BY MANUAL COUNT 0.7 0.0 - 2.0 02/27 Specimen Type: BLOOD Comment: Automated Differentia l Performed Ordering Provider: KATIE JONES Report Released Date/Time: Feb 28, 2024 09:41 AM Reporting Lab: [facility] [address] Performing Lab: [facility] [address] [facility] CBC & DIFF ERYTHROCYTE DISTRIBUTIO N WIDTH [RATIO] BY AUTOMATED COUNT 13.8 11.5 - 14.5 02/27 Specimen Type: BLOOD Comment: Automated Differentia l Performed Ordering Provider: KATIE JONES Report Released Date/Time: Feb 28, 2024 09:41 AM Reporting Lab: [facility] [address] Performing Lab: [facility] [address] [facility] CBC & DIFF LYMPHOCYTES [#/VOLUME] IN BLOOD BY AUTOMATED COUNT 1.39 10*3/u L 1.0 - 4.0 02/27 Specimen Type: BLOOD Comment: Automated Differentia l Performed Ordering Provider: KATIE JONES Report Released Date/Time: Feb 28, 2024 09:41 AM Reporting Lab: [facility] [address] Performing Lab: [facility] [address] [facility] CBC & DIFF MONOCYTES [#/VOLUME] IN BLOOD BY AUTOMATED COUNT 0.70 10*3/u L 0.1 - 1.0 02/27 Specimen Type: BLOOD Comment: Automated Differentia l Performed Ordering Provider: KATIE JONES Report Released Date/Time: Feb 28, 2024 09:41 AM Reporting Lab: [facility] [address] Performing Lab: [facility] [address] [facility] CBC & DIFF NEUTROPHILS [#/VOLUME] IN BLOOD BY AUTOMATED COUNT 4.97 10*3/u L 2.0 - 7.7 02/27 Specimen Type: BLOOD Comment: Automated Differentia l Performed Ordering Provider: KATIE JONES Report Released Date/Time: Feb 28, 2024 09:41 AM Reporting Lab: [facility] [address] Performing Lab: [facility] [address] [facility] CBC & DIFF EOSINOPHILS [#/VOLUME] IN BLOOD BY AUTOMATED COUNT 0.19 10*3/u L 0 - 0.5 02/27 Specimen Type: BLOOD Comment: Automated Differentia l Performed Ordering Provider: KATIE JONES Report Released Date/Time: Feb 28, 2024 09:41 AM Reporting Lab: [facility] [address] Performing Lab: [facility] [address] [facility] CBC & DIFF BASOPHILS [#/VOLUME] IN BLOOD BY AUTOMATED COUNT 0.05 10*3/u L 0 - 0.2 02/27 Specimen Type: BLOOD Comment: Automated Differentia l Performed Ordering Provider: KATIE JONES Report Released Date/Time: Feb 28, 2024 09:41 AM Reporting Lab: [facility] [address] Performing Lab: [facility] [address] [facility] CBC & DIFF IG(META,MYE LO,PRO) 0.5 02/27 Specimen Type: BLOOD Comment: Automated Differentia l Performed Ordering Provider: KATIE JONES Report Released Date/Time: Feb 28, 2024 09:41 AM Reporting Lab: [facility] [address] Performing Lab: [facility] [address] [facility] CBC & DIFF IMMATURE GRANULOCYTE S [PRESENCE] IN BLOOD BY AUTOMATED COUNT 0.04 10*3/u L 0 - 0.1 02/27 Specimen Type: BLOOD Comment: Automated Differentia l Performed Ordering Provider: KATIE JONES Report Released Date/Time: Feb 28, 2024 09:41 AM Reporting Lab: [facility] [address] Performing Lab: [facility] [address] [facility] COMPREHEN SIVE METABOLIC PANEL+MG CREATININE [MASS/VOLUM E] IN SERUM OR PLASMA 1.0 mg/dL 0.7 - 1.2 02/27 Specimen Type: PLASMA No comment entered. Ordering Provider: KATIE JONES Report Released Date/Time: Feb 28, 2024 09:41 AM Reporting Lab: [facility] [address] Performing Lab: [facility] [address] [facility] COMPREHEN SIVE METABOLIC PANEL+MG UREA NITROGEN [MASS/VOLUM E] IN SERUM OR PLASMA 24 mg/dL 8 - 26 02/27 Specimen Type: PLASMA No comment entered. Ordering Provider: KATIE JONES Report Released Date/Time: Feb 28, 2024 09:41 AM Reporting Lab: [facility] [address] Performing Lab: [facility] [address] [facility] COMPREHEN SIVE METABOLIC PANEL+MG GLUCOSE [MASS/VOLUM E] IN SERUM OR PLASMA 90 mg/dL 70 - 100 02/27 Specimen Type: PLASMA No comment entered. Ordering Provider: KATIE JONES Report Released Date/Time: Feb 28, 2024 09:41 AM Reporting Lab: [facility] [address] Performing Lab: [facility] [address] [facility] COMPREHEN SIVE METABOLIC PANEL+MG SODIUM [MOLES/VOLU ME] IN SERUM OR PLASMA 143 mmol/L 136 - 145 02/27 Specimen Type: PLASMA No comment entered. Ordering Provider: KATIE JONES Report Released Date/Time: Feb 28, 2024 09:41 AM Reporting Lab: [facility] [address] Performing Lab: [facility] [address] [facility] COMPREHEN SIVE METABOLIC PANEL+MG POTASSIUM [MOLES/VOLU ME] IN SERUM OR PLASMA 4.1 mmol/L 3.5 - 5.1 02/27 Specimen Type: PLASMA No comment entered. Ordering Provider: KATIE JONES Report Released Date/Time: Feb 28, 2024 09:41 AM Reporting Lab: [facility] [address] Performing Lab: [facility] [address] [facility] COMPREHEN SIVE METABOLIC PANEL+MG CHLORIDE [MOLES/VOLU ME] IN SERUM OR PLASMA 107 mmol/L 98 - 107 02/27 Specimen Type: PLASMA No comment entered. Ordering Provider: KATIE JONES Report Released Date/Time: Feb 28, 2024 09:41 AM Reporting Lab: [facility] [address] Performing Lab: [facility] [address] [facility] COMPREHEN SIVE METABOLIC PANEL+MG CARBON DIOXIDE, TOTAL [MOLES/VOLU ME] IN SERUM OR PLASMA 27 mmol/L 22 - 29 02/27 Specimen Type: PLASMA No comment entered. Ordering Provider: KATIE JONES Report Released Date/Time: Feb 28, 2024 09:41 AM Reporting Lab: [facility] [address] Performing Lab: [facility] [address] [facility] COMPREHEN SIVE METABOLIC PANEL+MG CALCIUM [MASS/VOLUM E] IN SERUM OR PLASMA 9.8 mg/dL 8.4 - 10.2 02/27 Specimen Type: PLASMA No comment entered. Ordering Provider: KATIE JONES Report Released Date/Time: Feb 28, 2024 09:41 AM Reporting Lab: [facility] [address] Performing Lab: [facility] [address] [facility] COMPREHEN SIVE METABOLIC PANEL+MG PROTEIN [MASS/VOLUM E] IN SERUM OR PLASMA 7.3 g/dL 6.0 - 8.3 02/27 Specimen Type: PLASMA No comment entered. Ordering Provider: KATIE JONES Report Released Date/Time: Feb 28, 2024 09:41 AM Reporting Lab: [facility] [address] Performing Lab: [facility] [address] [facility] COMPREHEN SIVE METABOLIC PANEL+MG ALBUMIN [MASS/VOLUM E] IN SERUM OR PLASMA 4.2 g/dL 3.5 - 5.2 02/27 Specimen Type: PLASMA No comment entered. Ordering Provider: KATIE JONES Report Released Date/Time: Feb 28, 2024 09:41 AM Reporting Lab: [facility] [address] Performing Lab: [facility] [address] [facility] COMPREHEN SIVE METABOLIC PANEL+MG BILIRUBIN.T OTAL [MASS/VOLUM E] IN SERUM OR PLASMA 0.8 mg/dL 0.2 - 1.2 02/27 Specimen Type: PLASMA No comment entered. Ordering Provider: KATIE JONES Report Released Date/Time: Feb 28, 2024 09:41 AM Reporting Lab: [facility] [address] Performing Lab: [facility] [address] [facility] COMPREHEN SIVE METABOLIC PANEL+MG MAGNESIUM [MASS/VOLUM E] IN SERUM OR PLASMA 2.3 mg/dL 1.6 - 2.6 02/27 Specimen Type: PLASMA No comment entered. Ordering Provider: KATIE JONES Report Released Date/Time: Feb 28, 2024 09:41 AM Reporting Lab: [facility] [address] Performing Lab: [facility] [address] [facility] COMPREHEN SIVE METABOLIC PANEL+MG ANION GAP IN SERUM OR PLASMA 9 mmol/L 5 - 15 02/27 Specimen Type: PLASMA No comment entered. Ordering Provider: KATIE JONES Report Released Date/Time: Feb 28, 2024 09:41 AM Reporting Lab: [facility] [address] Performing Lab: [facility] [address] [facility] COMPREHEN SIVE METABOLIC PANEL+MG ALKALINE PHOSPHATASE [ENZYMATIC ACTIVITY/VO LUME] IN SERUM OR PLASMA 66 U/L 40 - 150 02/27 Specimen Type: PLASMA No comment entered. Ordering Provider: KATIE JONES Report Released Date/Time: Feb 28, 2024 09:41 AM Reporting Lab: [facility] [address] Performing Lab: [facility] [address] [facility] COMPREHEN SIVE METABOLIC PANEL+MG ALANINE AMINOTRANSF ERASE [ENZYMATIC ACTIVITY/VO LUME] IN SERUM OR PLASMA 13 U/L <55 - 55 02/27 Specimen Type: PLASMA No comment entered. Ordering Provider: KATIE JONES Report Released Date/Time: Feb 28, 2024 09:41 AM Reporting Lab: [facility] [address] Performing Lab: [facility] [address] [facility] COMPREHEN SIVE METABOLIC PANEL+MG ASPARTATE AMINOTRANSF ERASE [ENZYMATIC ACTIVITY/VO LUME] IN SERUM OR PLASMA 18 U/L <34 - 34 02/27 Specimen Type: PLASMA No comment entered. Ordering Provider: KATIE JONES Report Released Date/Time: Feb 28, 2024 09:41 AM Reporting Lab: [facility] [address] Performing Lab: [facility] [address] [facility] COMPREHEN SIVE METABOLIC PANEL+MG GLOMERULAR FILTRATION RATE/1.73 SQ M.PREDICTED [VOLUME RATE/AREA] IN SERUM, PLASMA OR BLOOD BY CREATININE- BASED FORMULA (CKD-EPI 2020) 73 60 02/27 Specimen Type: PLASMA No comment entered. Ordering Provider: KATIE JONES Report Released Date/Time: Feb 28, 2024 09:41 AM Reporting Lab: [facility] [address] Performing Lab: [facility] [address] [facility] PSA PROSTATE SPECIFIC AG [MASS/VOLUM E] IN SERUM OR PLASMA 0.28 ng/mL <4.00 - 4.00 02/27 Specimen Type: SERUM No comment entered. Ordering Provider: KATIE JONES Report Released Date/Time: Feb 28, 2024 09:41 AM Reporting Lab: [facility] [address] Performing Lab: [facility] [address] [facility] LIPID PANEL,NON -FASTING CHOLESTEROL [MASS/VOLUM E] IN SERUM OR PLASMA 236 mg/dL <199 - 199 02/27 H Specimen Type: PLASMA No comment entered. Ordering Provider: KATIE JONES Report Released Date/Time: Feb 28, 2024 09:51 AM Reporting Lab: [facility] [address] Performing Lab: [facility] [address] [facility] LIPID PANEL,NON -FASTING CHOLESTEROL IN HDL [MASS/VOLUM E] IN SERUM OR PLASMA 48 mg/dL 40 02/27 Specimen Type: PLASMA No comment entered. Ordering Provider: KATIE JONES Report Released Date/Time: Feb 28, 2024 09:51 AM Reporting Lab: [facility] [address] Performing Lab: [facility] [address] [facility] LIPID PANEL,NON -FASTING CHOLESTEROL IN LDL [MASS/VOLUM E] IN SERUM OR PLASMA BY CALCULATION 161 mg/dL <99 - 99 02/27 H Specimen Type: PLASMA No comment entered. Ordering Provider: KATIE JONES Report Released Date/Time: Feb 28, 2024 09:51 AM Reporting Lab: [facility] [address] Performing Lab: [facility] [address] [facility] LIPID PANEL,NON -FASTING CHOLESTEROL IN VLDL [MASS/VOLUM E] IN SERUM OR PLASMA BY CALCULATION 27 mg/dL <29 - 29 02/27 Specimen Type: PLASMA No comment entered. Ordering Provider: KATIE JONES Report Released Date/Time: Feb 28, 2024 09:51 AM Reporting Lab: [facility] [address] Performing Lab: [facility] [address] [facility] LIPID PANEL,NON -FASTING CHOLESTEROL NON HDL [MASS/VOLUM E] IN SERUM OR PLASMA 188 mg/dL <129 - 129 02/27 H Specimen Type: PLASMA No comment entered. Ordering Provider: KATIE JONES Report Released Date/Time: Feb 28, 2024 09:51 AM Reporting Lab: [facility] [address] Performing Lab: [facility] [address] [facility] LIPID PANEL,NON -FASTING TRIGLYCERID E [MASS/VOLUM E] IN SERUM OR PLASMA 134 mg/dL <149 - 149 02/27 Specimen Type: PLASMA No comment entered. Ordering Provider: KATIE JONES Report Released Date/Time: Feb 28, 2024 09:51 AM Reporting Lab: [facility] [address] Performing Lab: [facility] [address] [facility] B 12 COBALAMIN (VITAMIN B12) [MASS/VOLUM E] IN SERUM OR PLASMA 532 pg/mL 213 - 816 04/04 Specimen Type: SERUM No comment entered. Ordering Provider: KATIE JONES Report Released Date/Time: Feb 23, 2023 09:34 AM Reporting Lab: [facility] [address] Performing Lab: [facility] [address] [facility] FOLATE FOLATE [MASS/VOLUM E] IN SERUM OR PLASMA 14.8 ng/mL 7.0 04/04 Specimen Type: SERUM No comment entered. Ordering Provider: KATIE JONES Report Released Date/Time: Feb 23, 2023 09:34 AM Reporting Lab: [facility] [address] Performing Lab: [facility] [address] [facility] CBC & DIFF LEUKOCYTES [#/VOLUME] IN BLOOD BY AUTOMATED COUNT 6.47 10*3/u L 4.0 - 11.0 04/04 Specimen Type: BLOOD Comment: Automated Differentia l Performed Ordering Provider: KATIE JONES Report Released Date/Time: Feb 23, 2023 09:34 AM Reporting Lab: [facility] [address] Performing Lab: [facility] [address] [facility] CBC & DIFF ERYTHROCYTE S [#/VOLUME] IN BLOOD BY AUTOMATED COUNT 3.99 10*6/u L 4.6 - 6.2 04/04 L Specimen Type: BLOOD Comment: Automated Differentia l Performed Ordering Provider: KATIE JONES Report Released Date/Time: Feb 23, 2023 09:34 AM Reporting Lab: [facility] [address] Performing Lab: [facility] [address] [facility] CBC & DIFF HEMOGLOBIN [MASS/VOLUM E] IN BLOOD 12.6 g/dL 13.5 - 17.9 04/04 L Specimen Type: BLOOD Comment: Automated Differentia l Performed Ordering Provider: KATIE JONES Report Released Date/Time: Feb 23, 2023 09:34 AM Reporting Lab: [facility] [address] Performing Lab: [facility] [address] [facility] CBC & DIFF HEMATOCRIT [VOLUME FRACTION] OF BLOOD BY AUTOMATED COUNT 38.2 41 - 54 04/04 L Specimen Type: BLOOD Comment: Automated Differentia l Performed Ordering Provider: KATIE JONES Report Released Date/Time: Feb 23, 2023 09:34 AM Reporting Lab: [facility] [address] Performing Lab: [facility] [address] [facility] CBC & DIFF MCV [ENTITIC VOLUME] BY AUTOMATED COUNT 95.7 fL 80 - 100 04/04 Specimen Type: BLOOD Comment: Automated Differentia l Performed Ordering Provider: KATIE JONES Report Released Date/Time: Feb 23, 2023 09:34 AM Reporting Lab: [facility] [address] Performing Lab: [facility] [address] [facility] CBC & DIFF MCH [ENTITIC MASS] BY AUTOMATED COUNT 31.6 pg 27 - 33 04/04 Specimen Type: BLOOD Comment: Automated Differentia l Performed Ordering Provider: KATIE JONES Report Released Date/Time: Feb 23, 2023 09:34 AM Reporting Lab: [facility] [id number] Performing Lab: [facility] [id number] [facility] CBC & DIFF MCHC [MASS/VOLUM E] BY AUTOMATED COUNT 33.0 g/dL 32.0 - 37.5 04/04 Specimen Type: BLOOD Comment: Automated Differentia l Performed Ordering Provider: KATIE JONES Report Released Date/Time: Feb 23, 2023 09:34 AM Reporting Lab: [facility] [facility] [address] Performing Lab: [facility] [address] [facility] CBC & DIFF PLATELETS [#/VOLUME] IN BLOOD BY AUTOMATED COUNT 285 10*3/u L 150 - 400 04/04 Specimen Type: BLOOD Comment: Automated Differentia l Performed Ordering Provider: KATIE JONES Report Released Date/Time: Feb 23, 2023 09:34 AM Reporting Lab: [facility] [address] Performing Lab: [facility] [address] [facility] CBC & DIFF PLATELET MEAN VOLUME [ENTITIC VOLUME] IN BLOOD BY AUTOMATED COUNT 9.0 fL 7.4 - 10.4 04/04 Specimen Type: BLOOD Comment: Automated Differentia l Performed Ordering Provider: KATIE JONES Report Released Date/Time: Feb 23, 2023 09:34 AM Reporting Lab: [facility] [address] Performing Lab: [facility] [address] [facility] CBC & DIFF NEUTROPHILS /100 LEUKOCYTES IN BLOOD BY MANUAL COUNT 67.9 40.0 - 80.0 04/04 Specimen Type: BLOOD Comment: Automated Differentia l Performed Ordering Provider: KATIE JONES Report Released Date/Time: Feb 23, 2023 09:34 AM Reporting Lab: [facility] [address] Performing Lab: [facility] [address] [facility] CBC & DIFF LYMPHOCYTES /100 LEUKOCYTES IN BLOOD BY MANUAL COUNT 18.7 15.0 - 45.0 04/04 Specimen Type: BLOOD Comment: Automated Differentia l Performed Ordering Provider: KATIE JONES Report Released Date/Time: Feb 23, 2023 09:34 AM Reporting Lab: [facility] [address] Performing Lab: [facility] [address] [facility] CBC & DIFF MONOCYTES/1 00 LEUKOCYTES IN BLOOD BY AUTOMATED COUNT 8.8 2.0 - 12.0 04/04 Specimen Type: BLOOD Comment: Automated Differentia l Performed Ordering Provider: KATIE JONES Report Released Date/Time: Feb 23, 2023 09:34 AM Reporting Lab: [facility] [address] Performing Lab: [facility] [address] [facility] CBC & DIFF EOSINOPHILS /100 LEUKOCYTES IN BLOOD BY AUTOMATED COUNT 3.1 0.0 - 6.0 04/04 Specimen Type: BLOOD Comment: Automated Differentia l Performed Ordering Provider: KATIE JONES Report Released Date/Time: Feb 23, 2023 09:34 AM Reporting Lab: [facility] [address] Performing Lab: [facility] [address] [facility] CBC & DIFF BASOPHILS/1 00 LEUKOCYTES IN BLOOD BY MANUAL COUNT 0.6 0.0 - 2.0 04/04 Specimen Type: BLOOD Comment: Automated Differentia l Performed Ordering Provider: KATIE JONES Report Released Date/Time: Feb 23, 2023 09:34 AM Reporting Lab: [facility] [address] Performing Lab: [facility] [address] [facility] CBC & DIFF ERYTHROCYTE DISTRIBUTIO N WIDTH [RATIO] BY AUTOMATED COUNT 14.1 11.5 - 14.5 04/04 Specimen Type: BLOOD Comment: Automated Differentia l Performed Ordering Provider: KATIE JONES Report Released Date/Time: Feb 23, 2023 09:34 AM Reporting Lab: [facility] [address] Performing Lab: [facility] [address] [facility] CBC & DIFF LYMPHOCYTES [#/VOLUME] IN BLOOD BY AUTOMATED COUNT 1.21 10*3/u L 1.0 - 4.0 04/04 Specimen Type: BLOOD Comment: Automated Differentia l Performed Ordering Provider: KATIE JONES Report Released Date/Time: Feb 23, 2023 09:34 AM Reporting Lab: [facility] [address] Performing Lab: [facility] [address] [facility] CBC & DIFF MONOCYTES [#/VOLUME] IN BLOOD BY AUTOMATED COUNT 0.57 10*3/u L 0.1 - 1.0 04/04 Specimen Type: BLOOD Comment: Automated Differentia l Performed Ordering Provider: KATIE JONES Report Released Date/Time: Feb 23, 2023 09:34 AM Reporting Lab: [facility] [address] Performing Lab: [facility] [address] [facility] CBC & DIFF NEUTROPHILS [#/VOLUME] IN BLOOD BY AUTOMATED COUNT 4.39 10*3/u L 2.0 - 7.7 04/04 Specimen Type: BLOOD Comment: Automated Differentia l Performed Ordering Provider: KATIE JONES Report Released Date/Time: Feb 23, 2023 09:34 AM Reporting Lab: [facility] [address] Performing Lab: [facility] [address] [facility] CBC & DIFF EOSINOPHILS [#/VOLUME] IN BLOOD BY AUTOMATED COUNT 0.20 10*3/u L 0 - 0.5 04/04 Specimen Type: BLOOD Comment: Automated Differentia l Performed Ordering Provider: KATIE JONES Report Released Date/Time: Feb 23, 2023 09:34 AM Reporting Lab: [facility] [address] Performing Lab: [facility] [address] [facility] CBC & DIFF BASOPHILS [#/VOLUME] IN BLOOD BY AUTOMATED COUNT 0.04 10*3/u L 0 - 0.2 04/04 Specimen Type: BLOOD Comment: Automated Differentia l Performed Ordering Provider: KATIE JONES Report Released Date/Time: Feb 23, 2023 09:34 AM Reporting Lab: [facility] [address] Performing Lab: [facility] [address] [facility] CBC & DIFF IG(META,MYE LO,PRO) 0.9 04/04 Specimen Type: BLOOD Comment: Automated Differentia l Performed Ordering Provider: KATIE JONES Report Released Date/Time: Feb 23, 2023 09:34 AM Reporting Lab: [facility] [address] Performing Lab: [facility] [address] [facility] CBC & DIFF IMMATURE GRANULOCYTE S [PRESENCE] IN BLOOD BY AUTOMATED COUNT 0.06 10*3/u L 0 - 0.1 04/04 Specimen Type: BLOOD Comment: Automated Differentia l Performed Ordering Provider: KATIE JONES Report Released Date/Time: Feb 23, 2023 09:34 AM Reporting Lab: [facility] [address] Performing Lab: [facility] [address] [facility] IRON GROUP IRON [MASS/VOLUM E] IN SERUM OR PLASMA 69 ug/dL 65 - 175 04/04 Specimen Type: PLASMA No comment entered. Ordering Provider: KATIE JONES Report Released Date/Time: Feb 23, 2023 09:34 AM Reporting Lab: [facility] [address] Performing Lab: [facility] [address] [facility] IRON GROUP IRON BINDING CAPACITY [MASS/VOLUM E] IN SERUM OR PLASMA 263 ug/dL 250 - 425 04/04 Specimen Type: PLASMA No comment entered. Ordering Provider: KATIE JONES Report Released Date/Time: Feb 23, 2023 09:34 AM Reporting Lab: [facility] [address] Performing Lab: [facility] [address] [facility] IRON GROUP FERRITIN [MASS/VOLUM E] IN SERUM OR PLASMA 453.6 ng/mL 21.8 - 274.7 04/04 H Specimen Type: PLASMA No comment entered. Ordering Provider: KATIE JONES Report Released Date/Time: Feb 23, 2023 09:34 AM Reporting Lab: [facility] [address] Performing Lab: [facility] [address] [facility] IRON GROUP IRON SATURATION 26 20 - 50 04/04 Specimen Type: PLASMA No comment entered. Ordering Provider: KATIE JONES Report Released Date/Time: Feb 23, 2023 09:34 AM Reporting Lab: [facility] [address] Performing Lab: [facility] [address] [facility] IRON GROUP TRANSFERRIN [MASS/VOLUM E] IN SERUM OR PLASMA 210 mg/dL 163 - 382 04/04 Specimen Type: PLASMA No comment entered. Ordering Provider: KATIE JONES Report Released Date/Time: Feb 23, 2023 09:34 AM Reporting Lab: [facility] [address] Performing Lab: [facility] [address] [facility] COMPREHEN SIVE METABOLIC PANEL+MG CREATININE [MASS/VOLUM E] IN SERUM OR PLASMA 0.9 mg/dL 0.7 - 1.2 02/22 Specimen Type: PLASMA No comment entered. Ordering Provider: KATIE JONES Report Released Date/Time: Feb 22, 2023 10:40 AM Reporting Lab: [facility] [address] Performing Lab: [facility] [address] [facility] COMPREHEN SIVE METABOLIC PANEL+MG UREA NITROGEN [MASS/VOLUM E] IN SERUM OR PLASMA 16 mg/dL 8 - 26 02/22 Specimen Type: PLASMA No comment entered. Ordering Provider: KATIE JONES Report Released Date/Time: Feb 22, 2023 10:40 AM Reporting Lab: [facility] [address] Performing Lab: [facility] [address] [facility] COMPREHEN SIVE METABOLIC PANEL+MG GLUCOSE [MASS/VOLUM E] IN SERUM OR PLASMA 88 mg/dL 70 - 100 02/22 Specimen Type: PLASMA No comment entered. Ordering Provider: KATIE JONES Report Released Date/Time: Feb 22, 2023 10:40 AM Reporting Lab: [facility] [address] Performing Lab: [facility] [address] [facility] COMPREHEN SIVE METABOLIC PANEL+MG SODIUM [MOLES/VOLU ME] IN SERUM OR PLASMA 141 mmol/L 136 - 145 02/22 Specimen Type: PLASMA No comment entered. Ordering Provider: KATIE JONES Report Released Date/Time: Feb 22, 2023 10:40 AM Reporting Lab: [facility] [address] Performing Lab: [facility] [address] [facility] COMPREHEN SIVE METABOLIC PANEL+MG POTASSIUM [MOLES/VOLU ME] IN SERUM OR PLASMA 4.4 mmol/L 3.5 - 5.1 02/22 Specimen Type: PLASMA No comment entered. Ordering Provider: KATIE JONES Report Released Date/Time: Feb 22, 2023 10:40 AM Reporting Lab: [facility] [address] Performing Lab: [facility] [address] [facility] COMPREHEN SIVE METABOLIC PANEL+MG CHLORIDE [MOLES/VOLU ME] IN SERUM OR PLASMA 109 mmol/L 98 - 107 02/22 H Specimen Type: PLASMA No comment entered. Ordering Provider: KATIE JONES Report Released Date/Time: Feb 22, 2023 10:40 AM Reporting Lab: [facility] [address] Performing Lab: [facility] [address] [facility] COMPREHEN SIVE METABOLIC PANEL+MG CARBON DIOXIDE, TOTAL [MOLES/VOLU ME] IN SERUM OR PLASMA 24 mmol/L 22 - 29 02/22 Specimen Type: PLASMA No comment entered. Ordering Provider: KATIE JONES Report Released Date/Time: Feb 22, 2023 10:40 AM Reporting Lab: [facility] [address] Performing Lab: [facility] [address] [facility] COMPREHEN SIVE METABOLIC PANEL+MG CALCIUM [MASS/VOLUM E] IN SERUM OR PLASMA 9.1 mg/dL 8.4 - 10.2 02/22 Specimen Type: PLASMA No comment entered. Ordering Provider: KATIE JONES Report Released Date/Time: Feb 22, 2023 10:40 AM Reporting Lab: [facility] [address] Performing Lab: [facility] [address] [facility] COMPREHEN SIVE METABOLIC PANEL+MG PROTEIN [MASS/VOLUM E] IN SERUM OR PLASMA 6.7 g/dL 6.0 - 8.3 02/22 Specimen Type: PLASMA No comment entered. Ordering Provider: KATIE JONES Report Released Date/Time: Feb 22, 2023 10:40 AM Reporting Lab: [facility] [address] Performing Lab: [facility] [address] [facility] COMPREHEN SIVE METABOLIC PANEL+MG ALBUMIN [MASS/VOLUM E] IN SERUM OR PLASMA 3.9 g/dL 3.5 - 5.2 02/22 Specimen Type: PLASMA No comment entered. Ordering Provider: KATIE JONES Report Released Date/Time: Feb 22, 2023 10:40 AM Reporting Lab: [facility] [address] Performing Lab: [facility] [address] [facility] COMPREHEN SIVE METABOLIC PANEL+MG BILIRUBIN.T OTAL [MASS/VOLUM E] IN SERUM OR PLASMA 0.8 mg/dL 0.2 - 1.2 02/22 Specimen Type: PLASMA No comment entered. Ordering Provider: KATIE JONES Report Released Date/Time: Feb 22, 2023 10:40 AM Reporting Lab: [facility] [address] Performing Lab: [facility] [address] [facility] COMPREHEN SIVE METABOLIC PANEL+MG MAGNESIUM [MASS/VOLUM E] IN SERUM OR PLASMA 2.2 mg/dL 1.6 - 2.6 02/22 Specimen Type: PLASMA No comment entered. Ordering Provider: KATIE JONES Report Released Date/Time: Feb 22, 2023 10:40 AM Reporting Lab: [facility] [address] Performing Lab: [facility] [address] [facility] COMPREHEN SIVE METABOLIC PANEL+MG ANION GAP IN SERUM OR PLASMA 8 mmol/L 5 - 15 02/22 Specimen Type: PLASMA No comment entered. Ordering Provider: KATIE JONES Report Released Date/Time: Feb 22, 2023 10:40 AM Reporting Lab: [facility] [address] Performing Lab: [facility] [address] [facility] COMPREHEN SIVE METABOLIC PANEL+MG ALKALINE PHOSPHATASE [ENZYMATIC ACTIVITY/VO LUME] IN SERUM OR PLASMA 70 U/L 40 - 150 02/22 Specimen Type: PLASMA No comment entered. Ordering Provider: KATIE JONES Report Released Date/Time: Feb 22, 2023 10:40 AM Reporting Lab: [facility] [address] Performing Lab: [facility] [address] [facility] COMPREHEN SIVE METABOLIC PANEL+MG ALANINE AMINOTRANSF ERASE [ENZYMATIC ACTIVITY/VO LUME] IN SERUM OR PLASMA 10 U/L 02/22 Specimen Type: PLASMA No comment entered. Ordering Provider: KATIE JONES Report Released Date/Time: Feb 22, 2023 10:40 AM Reporting Lab: [facility] [address] Performing Lab: [facility] [address] [facility] COMPREHEN SIVE METABOLIC PANEL+MG ASPARTATE AMINOTRANSF ERASE [ENZYMATIC ACTIVITY/VO LUME] IN SERUM OR PLASMA 19 U/L 02/22 Specimen Type: PLASMA No comment entered. Ordering Provider: KATIE JONES Report Released Date/Time: Feb 22, 2023 10:40 AM Reporting Lab: [facility] [address] Performing Lab: [place] [address] [facility] COMPREHEN SIVE METABOLIC PANEL+MG GLOMERULAR FILTRATION RATE/1.73 SQ M.PREDICTED [VOLUME RATE/AREA] IN SERUM, PLASMA OR BLOOD BY CREATININE- BASED FORMULA (CKD-EPI 2020) 83 02/22 Specimen Type: PLASMA No comment entered. Ordering Provider: KATIE JONES Report Released Date/Time: Feb 22, 2023 10:40 AM Reporting Lab: [facility] [address] Performing Lab: [facility] [address] [facility] HEMOGLOBI N A1C HEMOGLOBIN A1C/HEMOGLO BIN.TOTAL [...] Feb 22, 2023 10:40 AM Reporting Lab: [facility] [address] Performing Lab: [place] [address] [facility] Vital Signs Combined list of inpatient and outpatient Vital Signs from Department of Defense and Veterans Affairs, ranging from 12 months to all on record, depending upon the facility. Vital Sign Value Date Comments Source Encounters Combined list of: 1) Encounters from Department of [facility] facilities going back up to thelast 18 months. 2) Encounters from the Department of [facility] facilities going back up to 280 months. Location Location Details Encounter Type Encounter Number Reason For Visit Attending Provider ADM Date DC Date Status Disposition Source [facility] Outpatient Encounter [id number] 02/01 [facility] OFFICE O/P EST MOD 30-39 MIN [id number] Diagnos is: ICD-10- CM Z00.8 Encount er for other general examina tion
Bob JONES EBMANA Martinez 02/22 [facility] Outpatient Encounter [id number] 02/24 [facility] [place] [facility] Outpatient Encounter [id number] 03/20 [facility] [place] [id number] Diagnos is: ICD-10- CM Z01.118 Encntr for exam of ears and hearing w oth abnorma l finding s
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, right eye<br/ > KAM FLORES 04/10 [facility] Outpatient Encounter [id number] 04/11 [facility] Outpatient Encounter [id number] 04/19 [facility] OFFICE O/P NEW MOD 45-59 MIN [id number] Diagnos is: ICD-10- CM 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
NEERU TINAJERO 01/14 [facility] OFFICE O/P EST MOD 30 MIN [id number] Diagnos is: ICD-10- CM Z00.8 Encount er for other general examina tion
Bob JONES EBECCA L 02/27 [facility] OFF/OP EST MAY X REQ PHY/QHP [id number] Diagnos is: ICD-10- CM Z71.9 Monitoring Engineer ing, unspeci fied
WHITE,TERR A R 03/14 [facility] Social History Combined list of available smoking, tobacco, and other social history from Department of Defense and Veterans Affairs facilities. Social History Type Response Date Comment Sourc e Tobacco smoking status NHIS ME-TOBACCO NEVER USED 02/28/20 24 [facility] History of tobacco use ME-TOBACCO FORMER USER 02/22/2023 [facility] Plan of Care List of future care activities from Department of Veterans [facility] facilities. Additional future care activities may be listed in the Assessment and Plan section. Date/Time Care Activity Care Activity Detail Facili ty 05/01/2024 AMBULATORY - SURGERY AMBULATORY - SURGERY [facility] Advance Directives List of completed, amended, or rescinded Advance Directives on record at Department of Veterans Affairs facilities. An actual copy of the Directive is not included. Date Advance Directive Provider Source 04/19/2023 ADVANCE DIRECTIVE DISCUSSION [facility] 04/19/2023 [facility] DIRECTIVE [facility]
--- OUTSIDE RECORDS SUMMARY | 2024-04-25 13:25 | XMS_ITS | Referral Summary ---
Author Organization [place] Address [facility] [place] [address] Care Team Providers Care Flexographic Press Set Up Operator Name Role Phone Clinic, [facility] Primary Care Provider + Allergies [...] of Treatment Not on file Care Teams Flexographic Press Set Up Operator Relationship Specialty Start Date End Date Clinic, [address] [address] PCP - General 06/26/20
--- OUTSIDE RECORDS SUMMARY | 2024-04-25 13:25 | XMS_ITS | Clinical Summary ---
Author Organization [facility] Address [address], [place] [address] Care Team Providers Care Rn Surgical Name Role Phone Unavailable Primary Care Provider Unavailabl e Source Comments You are receiving this document as you are listed as the primary care provider,follow-up provider, or the patient has been referred to you for consultation.This is in compliance with the Medicare and[facility] EHR Incentive Program,which states Providers who transition [...] this topic DASHAWN COTE Personal/Famil y [address] [place] [address]
--- OUTSIDE RECORDS SUMMARY | 2024-04-25 13:25 | XMS_ITS | Clinical Summary ---
Author Organization [facility] Address [place], [place] [address] Care Team Providers Care Electronics Technician Apprentice Name Role Phone Trace Tom MD Primary [...] 65+ 05/05/2024 Medical Devices Implanted Type Area Dining Server Device Identifier Shelf Expiration Date Model / Serial / Lot Cancellous Bone Screw Implanted:Qty: 1 on 01/30/2018 by Dickson Sevilla MD at [facility] Right: Hip [employer] 10/29/2022 / / [id number] Cluster Acetabluar Shell Implanted:Qty: 1 on 01/30/2018 by Dickson Sevilla MD at [facility] Right: Hip [employer] 10/16/2022 / / [id number] Polyethlene Insert Implanted:Qty: 1 on 01/30/2018 by Dickson Sevilla MD at [facility] Right: Hip [employer] 07/09/2022 / / [id number] 132 Neck Angle Hip Stem Implanted:Qty: 1 on 01/30/2018 by Dickson Sevilla MD at [facility] Right: Hip [employer] 11/24/2022 / / [id number] C-Taper Femoral Head Implanted:Qty: 1 on 01/30/2018 by Dickson Sevilla MD at [facility] Right: Hip [employer] 10/29/2022 / [...] 10:51 AM 01/30/2018 2:57 PM Care Teams Electronics Technician Apprentice Relationship Specialty Start Date End Date Trace Tom MD [address] [place] [address] PCP - General Family Practice 01/25/22
--- OUTSIDE RECORDS SUMMARY | 2024-04-25 13:25 | XMS_ITS | Clinical Summary ---
Author Organization [facility] Address [address] [place] [address] Care Team Providers Care Medicine Tech Name Role Phone Unavailable Primary Care Provider Unavailabl e Source Comments Patient records contain information from all sites at [facility]. For routine questions regarding patient records, call [phone] during business hours, M-F 8:00 AM - 5:00 PM Central Time. Record requests for emergency care only can be directed to [phone] at any time.[facility] Allergies No known active allergies Medications Medication [...] Comments Blood Pressure 140/74 07/12/2020 11:15 AM BARREL RIFLER Pulse 60 07/12/2020 11:15 AM BARREL RIFLER Temperature 37.3 ??C (99.1 ??F) 07/12/2020 1 1:15 AM BARREL RIFLER Respiratory Rate 20 07/12/2020 8:28 AM BARREL RIFLER Oxygen Saturation 96% 07/12/2020 11: 15 AM BARREL RIFLER Inhaled Oxygen Concentration - - Weight 101 kg (222 lb 10.6 oz) 2016 2:13 PM CDT Vital sign result from Clinical Notes. Height 175.3 cm (5' 9) 07/12/2020 8:27 AM BARREL RIFLER Body Mass Index 32.98 09/20/2016 4:53 PM BARREL RIFLER Plan of Treatment Health Maintenance Due Date [...]
--- OUTSIDE RECORDS SUMMARY | 2024-04-25 13:25 | XMS_ITS ---
Author Organization [facility] Address [address] [place] [address] Care Team Providers Care Pullman Conductor Name Role Phone Unavailable Unavailable Unavailable Surgery Details Not on file Complications Check Surgery Details section. Procedure Estimated Blood Loss Check Surgery Details section. Procedure Findings Check Surgery Details section. Procedure Specimens Taken Check Surgery Details section.
--- OUTSIDE RECORDS SUMMARY | 2024-04-25 13:25 | XMS_ITS | Referral Summary ---
Author Organization [facility] Address [address] [place] [address] Care Team Providers Care Cash Applications Analyst Name Role Phone Unavailable Primary Care Provider Unavailabl e Source Comments Patient records contain information from all sites at [facility]. For routine questions regarding patient records, call [phone] during business hours, M-F 8:00 AM - 5:00 PM Central Time. Record requests for emergency care only can be directed to [phone] at any time.[facility] Allergies No known active allergies Medications [...] Comments Blood Pressure 140/74 07/12/2020 11:15 AM CREDIT REVIEW OFFICER Pulse 60 07/12/2020 11:15 AM CREDIT REVIEW OFFICER Temperature 37.3 ??C (99.1 ??F) 07/12/2020 1 1:15 AM CREDIT REVIEW OFFICER Respiratory Rate 20 07/12/2020 8:28 AM CREDIT REVIEW OFFICER Oxygen Saturation 96% 07/12/2020 11: 15 AM CREDIT REVIEW OFFICER Inhaled Oxygen Concentration - - Weight 101 kg (222 lb 10.6 oz) 2016 2:13 PM CDT Vital sign result from Clinical Notes. Height 175.3 cm (5' 9) 07/12/2020 8:27 AM CREDIT REVIEW OFFICER Body Mass Index 32.98 09/20/2016 4:53 PM CREDIT REVIEW OFFICER Plan of Treatment Not on file
--- OUTSIDE RECORDS SUMMARY | 2024-04-25 13:25 | XMS_ITS | Clinical Summary ---
Author Organization [place] Address [facility] [place] [place] [address] Care Team Providers Care Room Maid Name Role Phone Clinic, [facility] Primary Care Provider + Allergies No [...] of Treatment Not on file Care Teams Room Maid Relationship Specialty Start Date End Date Clinic, [address] [address] PCP - General 06/26/20
== END 2024-04-25 13:23 | disposition home or self-care (01) ==
LOC: WOUND 13:22
PROVIDERS: Visit Provider Surgery
DX: I87.312 Chronic venous hypertension (idiopathic) with ulcer of left lower extremity (principal); L97.822 Non-pressure chronic ulcer of other part of left lower leg with fat layer exposed; L03.116 Cellulitis of left lower limb
CPT/HCPCS: 11042

== ENCOUNTER 2024-05-01 11:13 | Outpatient (CLI) | payer MEDICARE, BC, SELFPAY ==
--- OUTSIDE RECORDS SUMMARY | 2024-05-01 11:15 | XMS_ITS ---
Author Organization [facility] Address [address] [place] [address] Care Team Providers Care Nuclear Medicine Technologist Name Role Phone Unavailable Unavailable Unavailable Surgery Details Not on file Complications Check Surgery Details section. Procedure Estimated Blood Loss Check Surgery Details section. Procedure Findings Check Surgery Details section. Procedure Specimens Taken Check Surgery Details section.
--- OUTSIDE RECORDS SUMMARY | 2024-05-01 11:15 | XMS_ITS | Clinical Summary ---
Author Organization [employer] [facility] [employer] [facility] Address [place], [place] [address] Care Team Providers Care Linen Folder Name Role Phone Trace Tom MD Primary [...] 65+ 05/05/2024 Medical Devices Implanted Type Area Insurance Account Specialist Device Identifier Shelf Expiration Date Model / Serial / Lot Cancellous Bone Screw Implanted:Qty: 1 on 01/30/2018 by Dickson Sevilla MD at [facility] Right: Hip [employer] 10/29/2022 / / [id number] Cluster Acetabluar Shell Implanted:Qty: 1 on 01/30/2018 by Dickson Sevilla MD at [facility] Right: Hip [employer] 10/16/2022 / / [id number] Polyethlene Insert Implanted:Qty: 1 on 01/30/2018 by Dickson Sevilla MD at [facility] Right: Hip [employer] 07/09/2022 / / [id number] Neck Angle Hip Stem Implanted:Qty: 1 on 01/30/2018 by Dickson Sevilla MD at [facility] Right: Hip [employer] 11/24/2022 / / [id number] C-Taper Femoral Head Implanted:Qty: 1 on 01/30/2018 by Dickson Sevilla MD at [facility] Right: Hip [employer] 10/29/2022 / / [...] 10:51 AM 01/30/2018 2:57 PM Care Teams Linen Folder Relationship Specialty Start Date End Date Trace Tom MD [address] [place] [address] PCP - General Family Practice 01/25/22
--- OUTSIDE RECORDS SUMMARY | 2024-05-01 11:15 | XMS_ITS | Clinical Summary ---
Author Organization [facility] Address [address] [place] [id number] Care Team Providers Care Adult Basic Education Manager Name Role Phone Unavailable Primary Care Provider Unavailabl e Source Comments Patient records contain information from all sites at [facility]. For routine questions regarding patient records, call [phone] during business hours, M-F 8:00 AM - 5:00 PM Central Time. Record requests for emergency care only can be directed to [phone] at any time.[facility] Allergies No known active allergies Medications [...] Blood Pressure 140/74 07/12/2020 11:15 AM CLINICAL NEUROPSYCHOLOGIST Pulse 60 07/12/2020 11:15 AM CLINICAL NEUROPSYCHOLOGIST Temperature 37.3 ??C (99.1 ??F) 07/12/2020 1 1:15 AM CLINICAL NEUROPSYCHOLOGIST Respiratory Rate 20 07/12/2020 8:28 AM CLINICAL NEUROPSYCHOLOGIST Oxygen Saturation 96% 07/12/2020 11: 15 AM CLINICAL NEUROPSYCHOLOGIST Inhaled Oxygen Concentration - - Weight 101 kg (222 lb 10.6 oz) 2016 2:13 PM CDT Vital sign result from Clinical Notes. Height 175.3 cm (5' 9) 07/12/2020 8:27 AM CLINICAL NEUROPSYCHOLOGIST Body Mass Index 32.98 09/20/2016 4:53 PM CLINICAL NEUROPSYCHOLOGIST Plan of Treatment Health Maintenance Due Date [...]
--- OUTSIDE RECORDS SUMMARY | 2024-05-01 11:15 | XMS_ITS | Referral Summary ---
Author Organization [facility] Address [address] [place] [address] Care Team Providers Care Head Miller Name Role Phone Unavailable Primary Care Provider Unavailabl e Source Comments Patient records contain information from all sites at [facility]. For routine questions regarding patient records, call [phone] during business hours, M-F 8:00 AM - 5:00 PM Central Time. Record requests for emergency care only can be directed to [phone] at any time.[facility] Allergies No known active allergies Medications [...] Comments Blood Pressure 140/74 07/12/2020 11:15 AM PRINCIPAL STATISTICAL PROGRAMMER Pulse 60 07/12/2020 11:15 AM PRINCIPAL STATISTICAL PROGRAMMER Temperature 37.3 ??C (99.1 ??F) 07/12/2020 1 1:15 AM PRINCIPAL STATISTICAL PROGRAMMER Respiratory Rate 20 07/12/2020 8:28 AM PRINCIPAL STATISTICAL PROGRAMMER Oxygen Saturation 96% 07/12/2020 11: 15 AM PRINCIPAL STATISTICAL PROGRAMMER Inhaled Oxygen Concentration - - Weight 101 kg (222 lb 10.6 oz) 2016 2:13 PM CDT Vital sign result from Clinical Notes. Height 175.3 cm (5' 9) 07/12/2020 8:27 AM PRINCIPAL STATISTICAL PROGRAMMER Body Mass Index 32.98 09/20/2016 4:53 PM PRINCIPAL STATISTICAL PROGRAMMER Plan of Treatment Not on file
--- OUTSIDE RECORDS SUMMARY | 2024-05-01 11:15 | XMS_ITS | Continuity of Care Document ---
Author Name [facility] Organization [facility] Care Team Providers Care Food Beverage Attendant Name Role Phone [facility] Unavailable Unavailable Problems Combined list of problems from Department of Defense and Veterans Affairs facilities. It does not include entries that were removed or entered in error. 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 Active Condition Feb 22, 2023 Entered By: GARY JONES Comment: treated prostate cancer with 44 radiation treatments [facility] Malignant melanoma Active Condition [facility] Obstructive Sleep Apnea of Adult ([facility] [id number]) Active Condition Dec 28, 2023 Entered By: WILEY ARTHUR Comment: See scanned records in [place] for details [facility] Diagnosis: ICD-10-CM Z71.9 Counseling, unspecified Active Diagnosis [facility] Diagnosis: ICD-10-CM Z00.8 Encounter for other general examination Active Diagnosis [facility] Diagnosis: ICD-10-CM 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 loss, bilateral Active Diagnosis [facility] Diagnosis: ICD-10-CM 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, right eye Active Diagnosis [facility] Diagnosis: ICD-10-CM Z46.1 Encounter for fitting and adjustment of hearing aid Active Diagnosis [facility] Diagnosis: ICD-10-CM G47.39 Other sleep apnea Active Diagnosis [facility] Diagnosis: ICD-10-CM 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, right eye Active Diagnosis [facility] Diagnosis: ICD-10-CM Z01.118 Encntr for exam of ears and hearing w oth abnormal findings Active Diagnosis [facility] Medications Combined list of outpatient medications [...] Jul 12, 2023 2 Jul 12, 2024 [id number] Jul 12, 2023 GARY JONES RESPIR ATORY (INHAL ATION) ACTIVE 07/12/2024 [id number] GARY JONES 2022 2 JIMMY BARRETT [...] Nov 01, 2023 15 Nov 01, 2024 [id number] Nov 02, 2023 [facility]AMATES ,CHRISTINA H [place] [facility] [facility] OPHTHA LMIC ACTIVE 11/01/2024 [id number] 4 GRAMATES, CHRISTINA H 2023 15 [place] [facility] CHOLECALCIF VAL TAB CHOLECAL CIFEROL TAB Non-VA TAKE 1 TAB BY MOUTH Feb 28, 2024 Non-[place] Document ed by: GARY JONES Document ed at: [facility] ORAL ACTIVE GARY JONES 2023 JIMMY BARRETT IBUPROFEN 600MG TAB IBUPROFE N 600MG TAB Non-VA TAKE ONE TABLET BY MOUTH THREE TIMES A DAY NEEDED Feb 28, 2024 Non-VA Document ed by: GARY JONES Document ed at: [facility] ORAL ACTIVE GARY JONES 2023 [facility] MULTIVITAMI NS CAP/TAB MULTIVIT AMINS CAP/TAB Non-VA TAKE ONE TABLET BY MOUTH EVERY DAY FOR SUPPLEME NT Feb 22, 2023 Non-VA Document ed by: GARY JONES Document ed at: [facility] ORAL ACTIVE GARY JONES 2022 JIMMY ABRRETT TORSEMIDE 20MG TAB TORSEMID E 20MG TAB Active TAKE ONE TABLET BY MOUTH EVERY DAY FOR EXCESS FLUID FOR EXCESS FLUID Feb 28, 2024 90 Feb 28, 2025 [id number] Feb 28, 2024 [facility] ORAL ACTIVE 02/28/2025 [id number] GARY JONES 2023 90 JIMMY [facility]RETT ZINC 50MG (FROM SULFATE) CAP ZINC 50MG (FROM SULFATE) CAP Non-VA TAKE 1 CAPSULE BY MOUTH EVERY DAY UNKNOWN Feb 22, 2023 Non-[place] Document ed by: GARY JONES Document ed at: [facility] ORAL ACTIVE GARY JONES 2022 SHARADHA BARRETT Immunizations Combined list of available immunizations from the Department of Defense and Veterans Affairs facilities. 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 Comments Source COVID-19 ([employer]), MRNA, LNP-S, PF, JASON-SUCROSE, 30 MCG/0.3 ML (AGES 12+ YEARS) 1 2022 TOOTIE ANDERSON LEFT DELTO ID [id number] 309 complet ed JIMMY BARRETT INFLUENZA, HIGH-DOSE, QUADRIVALENT 2022 TOOTIE ANDERSON LEFT DELTO ID [id number] 197 complet ed JIMMY BARRETT PNEUMOCOCCAL CONJUGATE PCV20, POLYSACCHARID E [id number] CONJUGATE, ADJUVANT, PF 2022 TOOTIE ANDERSON LEFT DELTO ID [id number] 216 complet ed [facility] INFLUENZA, HIGH-DOSE, QUADRIVALENT, PF 2021 197 complet ed [facility] INFLUENZA, UNSPECIFIED FORMULATION 2021 88 complet ed [facility] COVID-19 (MODERNA), MRNA, LNP-S, PF, 100 MCG/0.5ML DOSE OR 50 MCG/0.25ML DOSE 3 2020 207 complet ed [facility] INFLUENZA, HIGH-DOSE, QUADRIVALENT, PF 2020 197 complet ed [facility] COVID-19 (MODERNA), MRNA, LNP-S, PF, 100 MCG/0.5ML DOSE OR 50 MCG/0.25ML DOSE 2 2020 207 complet ed [facility] COVID-19 (MODERNA), MRNA, LNP-S, PF, 100 MCG/0.5ML DOSE OR 50 MCG/0.25ML DOSE 1 2020 207 complet ed [facility] INFLUENZA, HIGH-DOSE, TRIVALENT, PF 2018 135 complet ed [facility] INFLUENZA, HIGH-DOSE, TRIVALENT, PF 2016 135 complet ed [facility] TDAP 2016 115 complet ed [facility] INFLUENZA, SPLIT VIRUS, QUADRIVALENT, PF 2015 150 complet ed [facility] INFLUENZA, HIGH-DOSE, TRIVALENT, PF 2015 135 complet ed [facility] INFLUENZA, HIGH-DOSE, TRIVALENT, PF 2012 135 complet ed [facility] INFLUENZA, SPLIT VIRUS, TRIVALENT, PRESERVATIVE 2012 141 complet ed [facility] TDAP 2011 115 complet [facility] INFLUENZA, SPLIT VIRUS, TRIVALENT, PF 2010 140 complet [facility] HEP B, UNSPECIFIED FORMULATION 2009 45 complet [facility] NOVEL INFLUENZA-H1N 1-09 2008 127 complet ed [facility] Results Combined list of recent chemistry, [...] Feb 28, 2024 09:41 AM Reporting Lab: [facility] [address] Performing Lab: [facility] [address] [facility] CBC & DIFF ERYTHROCYTE S [#/VOLUME] IN BLOOD BY AUTOMATED COUNT 4.19 10*6/u L 4.6 - 6.2 02/27 L Specimen Type: BLOOD Comment: Automated Differentia l Performed Ordering Provider: KATIE JONES Report Released Date/Time: Feb 28, 2024 09:41 AM Reporting Lab: [facility] [address] Performing Lab: [facility] [address] [facility] CBC & DIFF HEMOGLOBIN [MASS/VOLUM E] IN BLOOD 13.4 g/dL 13.5 - 17.9 02/27 L Specimen Type: BLOOD Comment: Automated Differentia l Performed Ordering Provider: KATIE JONES Report Released Date/Time: Feb 28, 2024 09:41 AM Reporting Lab: [facility] [address] Performing Lab: [facility] [address] [facility] CBC & DIFF HEMATOCRIT [VOLUME FRACTION] OF BLOOD BY AUTOMATED COUNT 40.6 41 - 54 02/27 L Specimen Type: BLOOD Comment: Automated Differentia l Performed Ordering Provider: KATIE JONES Report Released Date/Time: Feb 28, 2024 09:41 AM Reporting Lab: [facility] [address] Performing Lab: [facility] [address] [facility] CBC & DIFF MCV [ENTITIC VOLUME] BY AUTOMATED COUNT 96.9 fL 80 - 100 02/27 Specimen Type: BLOOD Comment: Automated Differentia l Performed Ordering Provider: KATIE JONES Report Released Date/Time: Feb 28, 2024 09:41 AM Reporting Lab: [facility] [address] Performing Lab: [facility] [address] [facility] CBC & DIFF MCH [ENTITIC MASS] BY AUTOMATED COUNT 32.0 pg 27 - 33 02/27 Specimen Type: BLOOD Comment: Automated Differentia l Performed Ordering Provider: KATIE JONES Report Released Date/Time: Feb 28, 2024 09:41 AM Reporting Lab: [facility] [address] Performing Lab: [facility] [address] [facility] CBC & DIFF MCHC [MASS/VOLUM E] BY AUTOMATED COUNT 33.0 g/dL 32.0 - 37.5 02/27 Specimen Type: BLOOD Comment: Automated Differentia l Performed Ordering Provider: KATIE JONES Report Released Date/Time: Feb 28, 2024 09:41 AM Reporting Lab: [facility] [address] Performing Lab: [facility] [address] [facility] CBC & DIFF PLATELETS [#/VOLUME] IN BLOOD BY AUTOMATED COUNT 273 10*3/u L 150 - 400 02/27 Specimen Type: BLOOD Comment: Automated Differentia l Performed Ordering Provider: KATIE JONES Report Released Date/Time: Feb 28, 2024 09:41 AM Reporting Lab: [facility] [address] Performing Lab: [facility] [address] [facility] CBC & DIFF PLATELET MEAN VOLUME [ENTITIC VOLUME] IN BLOOD BY AUTOMATED COUNT 9.8 fL 7.4 - 10.4 02/27 Specimen Type: BLOOD Comment: Automated Differentia l Performed Ordering Provider: KATIE JONES Report Released Date/Time: Feb 28, 2024 09:41 AM Reporting Lab: [facility] [address] Performing Lab: [facility] [address] [facility] CBC & DIFF NEUTROPHILS /100 LEUKOCYTES IN BLOOD BY MANUAL COUNT 67.8 40.0 - 80.0 02/27 Specimen Type: BLOOD Comment: Automated Differentia l Performed Ordering Provider: KATIE JONES Report Released Date/Time: Feb 28, 2024 09:41 AM Reporting Lab: [facility] [address] Performing Lab: [facility] [address] [facility] CBC & DIFF LYMPHOCYTES /100 LEUKOCYTES IN BLOOD BY MANUAL COUNT 18.9 15.0 - 45.0 02/27 Specimen Type: BLOOD Comment: Automated Differentia l Performed Ordering Provider: KATIE JONES Report Released Date/Time: Feb 28, 2024 09:41 AM Reporting Lab: [facility] [address] Performing Lab: [facility] [address] [facility] CBC & DIFF MONOCYTES/1 00 LEUKOCYTES IN BLOOD BY AUTOMATED COUNT 9.5 2.0 - 12.0 02/27 Specimen Type: BLOOD Comment: Automated Differentia l Performed Ordering Provider: KATIE JONES Report Released Date/Time: Feb 28, 2024 09:41 AM Reporting Lab: [facility] [address] Performing Lab: [facility] [address] [facility] CBC & DIFF EOSINOPHILS /100 LEUKOCYTES IN BLOOD BY AUTOMATED COUNT 2.6 0.0 - 6.0 02/27 Specimen Type: BLOOD Comment: Automated Differentia l Performed Ordering Provider: KATIE JONES Report Released Date/Time: Feb 28, 2024 09:41 AM Reporting Lab: [facility] [address] Performing Lab: [facility] [address] [facility] CBC & DIFF BASOPHILS/1 00 LEUKOCYTES IN BLOOD BY MANUAL COUNT 0.7 0.0 - 2.0 02/27 Specimen Type: BLOOD Comment: Automated Differentia l Performed Ordering Provider: KATIE JONES Report Released Date/Time: Feb 28, 2024 09:41 AM Reporting Lab: [facility] [address] Performing Lab: [facility] [address] [facility] CBC & DIFF ERYTHROCYTE DISTRIBUTIO N WIDTH [RATIO] BY AUTOMATED COUNT 13.8 11.5 - 14.5 02/27 Specimen Type: BLOOD Comment: Automated Differentia l Performed Ordering Provider: KATIE JONES Report Released Date/Time: Feb 28, 2024 09:41 AM Reporting Lab: [facility] [address] Performing Lab: [facility] [address] [facility] CBC & DIFF LYMPHOCYTES [#/VOLUME] IN BLOOD BY AUTOMATED COUNT 1.39 10*3/u L 1.0 - 4.0 02/27 Specimen Type: BLOOD Comment: Automated Differentia l Performed Ordering Provider: KATIE JONES Report Released Date/Time: Feb 28, 2024 09:41 AM Reporting Lab: [facility] [address] Performing Lab: [facility] [address] [facility] CBC & DIFF MONOCYTES [#/VOLUME] IN BLOOD BY AUTOMATED COUNT 0.70 10*3/u L 0.1 - 1.0 02/27 Specimen Type: BLOOD Comment: Automated Differentia l Performed Ordering Provider: KATIE JONES Report Released Date/Time: Feb 28, 2024 09:41 AM Reporting Lab: [facility] [address] Performing Lab: [facility] [address] [facility] CBC & DIFF NEUTROPHILS [#/VOLUME] IN BLOOD BY AUTOMATED COUNT 4.97 10*3/u L 2.0 - 7.7 02/27 Specimen Type: BLOOD Comment: Automated Differentia l Performed Ordering Provider: KATIE JONES Report Released Date/Time: Feb 28, 2024 09:41 AM Reporting Lab: [facility] [address] Performing Lab: [facility] [address] [facility] CBC & DIFF EOSINOPHILS [#/VOLUME] IN BLOOD BY AUTOMATED COUNT 0.19 10*3/u L 0 - 0.5 02/27 Specimen Type: BLOOD Comment: Automated Differentia l Performed Ordering Provider: KATIE JONES Report Released Date/Time: Feb 28, 2024 09:41 AM Reporting Lab: [facility] [address] Performing Lab: [facility] [address] [facility] CBC & DIFF BASOPHILS [#/VOLUME] IN BLOOD BY AUTOMATED COUNT 0.05 10*3/u L 0 - 0.2 02/27 Specimen Type: BLOOD Comment: Automated Differentia l Performed Ordering Provider: KATIE JONES Report Released Date/Time: Feb 28, 2024 09:41 AM Reporting Lab: [facility] [address] Performing Lab: [facility] [address] [facility] CBC & DIFF IG(META,MYE LO,PRO) 0.5 02/27 Specimen Type: BLOOD Comment: Automated Differentia l Performed Ordering Provider: KATIE JONES Report Released Date/Time: Feb 28, 2024 09:41 AM Reporting Lab: [facility] [address] Performing Lab: [facility] [address] [facility] CBC & DIFF IMMATURE GRANULOCYTE S [PRESENCE] IN BLOOD BY AUTOMATED COUNT 0.04 10*3/u L 0 - 0.1 02/27 Specimen Type: BLOOD Comment: Automated Differentia l Performed Ordering Provider: KATIE JONES Report Released Date/Time: Feb 28, 2024 09:41 AM Reporting Lab: [facility] [address] Performing Lab: [facility] [address] [facility] COMPREHEN SIVE METABOLIC PANEL+MG CREATININE [MASS/VOLUM E] IN SERUM OR PLASMA 1.0 mg/dL 0.7 - 1.2 02/27 Specimen Type: PLASMA No comment entered. Ordering Provider: KATIE JONES Report Released Date/Time: Feb 28, 2024 09:41 AM Reporting Lab: [facility] [address] Performing Lab: [facility] [address] [facility] COMPREHEN SIVE METABOLIC PANEL+MG UREA NITROGEN [MASS/VOLUM E] IN SERUM OR PLASMA 24 mg/dL 8 - 26 02/27 Specimen Type: PLASMA No comment entered. Ordering Provider: KATIE JONES Report Released Date/Time: Feb 28, 2024 09:41 AM Reporting Lab: [facility] [address] Performing Lab: [facility] [address] [facility] COMPREHEN SIVE METABOLIC PANEL+MG GLUCOSE [MASS/VOLUM E] IN SERUM OR PLASMA 90 mg/dL 70 - 100 02/27 Specimen Type: PLASMA No comment entered. Ordering Provider: KATIE JONES Report Released Date/Time: Feb 28, 2024 09:41 AM Reporting Lab: [facility] [address] Performing Lab: [facility] [address] [facility] COMPREHEN SIVE METABOLIC PANEL+MG SODIUM [MOLES/VOLU ME] IN SERUM OR PLASMA 143 mmol/L 136 - 145 02/27 Specimen Type: PLASMA No comment entered. Ordering Provider: KATIE JONES Report Released Date/Time: Feb 28, 2024 09:41 AM Reporting Lab: [facility] [address] Performing Lab: [facility] [address] [facility] COMPREHEN SIVE METABOLIC PANEL+MG POTASSIUM [MOLES/VOLU ME] IN SERUM OR PLASMA 4.1 mmol/L 3.5 - 5.1 02/27 Specimen Type: PLASMA No comment entered. Ordering Provider: KATIE JONES Report Released Date/Time: Feb 28, 2024 09:41 AM Reporting Lab: [facility] [address] Performing Lab: [facility] [address] [facility] COMPREHEN SIVE METABOLIC PANEL+MG CHLORIDE [MOLES/VOLU ME] IN SERUM OR PLASMA 107 mmol/L 98 - 107 02/27 Specimen Type: PLASMA No comment entered. Ordering Provider: KATIE JONES Report Released Date/Time: Feb 28, 2024 09:41 AM Reporting Lab: [facility] [address] Performing Lab: [facility] [address] [facility] COMPREHEN SIVE METABOLIC PANEL+MG CARBON DIOXIDE, TOTAL [MOLES/VOLU ME] IN SERUM OR PLASMA 27 mmol/L 22 - 29 02/27 Specimen Type: PLASMA No comment entered. Ordering Provider: KATIE JONES Report Released Date/Time: Feb 28, 2024 09:41 AM Reporting Lab: [facility] [address] Performing Lab: [facility] [address] [facility] COMPREHEN SIVE METABOLIC PANEL+MG CALCIUM [MASS/VOLUM E] IN SERUM OR PLASMA 9.8 mg/dL 8.4 - 10.2 02/27 Specimen Type: PLASMA No comment entered. Ordering Provider: KATIE JONES Report Released Date/Time: Feb 28, 2024 09:41 AM Reporting Lab: [facility] [address] Performing Lab: [facility] [address] [facility] COMPREHEN SIVE METABOLIC PANEL+MG PROTEIN [MASS/VOLUM E] IN SERUM OR PLASMA 7.3 g/dL 6.0 - 8.3 02/27 Specimen Type: PLASMA No comment entered. Ordering Provider: KATIE JONES Report Released Date/Time: Feb 28, 2024 09:41 AM Reporting Lab: [facility] [address] Performing Lab: [facility] [address] [facility] COMPREHEN SIVE METABOLIC PANEL+MG ALBUMIN [MASS/VOLUM E] IN SERUM OR PLASMA 4.2 g/dL 3.5 - 5.2 02/27 Specimen Type: PLASMA No comment entered. Ordering Provider: KATIE JONES Report Released Date/Time: Feb 28, 2024 09:41 AM Reporting Lab: [facility] [address] Performing Lab: [facility] [address] [facility] COMPREHEN SIVE METABOLIC PANEL+MG BILIRUBIN.T OTAL [MASS/VOLUM E] IN SERUM OR PLASMA 0.8 mg/dL 0.2 - 1.2 02/27 Specimen Type: PLASMA No comment entered. Ordering Provider: KATIE JONES Report Released Date/Time: Feb 28, 2024 09:41 AM Reporting Lab: [facility] [address] Performing Lab: [facility] [address] [facility] COMPREHEN SIVE METABOLIC PANEL+MG MAGNESIUM [MASS/VOLUM E] IN SERUM OR PLASMA 2.3 mg/dL 1.6 - 2.6 02/27 Specimen Type: PLASMA No comment entered. Ordering Provider: KATIE JONES Report Released Date/Time: Feb 28, 2024 09:41 AM Reporting Lab: [facility] [address] Performing Lab: [facility] [address] [facility] COMPREHEN SIVE METABOLIC PANEL+MG ANION GAP IN SERUM OR PLASMA 9 mmol/L 5 - 15 02/27 Specimen Type: PLASMA No comment entered. Ordering Provider: KATIE JONES Report Released Date/Time: Feb 28, 2024 09:41 AM Reporting Lab: [facility] [address] Performing Lab: [facility] [address] [facility] COMPREHEN SIVE METABOLIC PANEL+MG ALKALINE PHOSPHATASE [ENZYMATIC ACTIVITY/VO LUME] IN SERUM OR PLASMA 66 U/L 40 - 150 02/27 Specimen Type: PLASMA No comment entered. Ordering Provider: KATIE JONES Report Released Date/Time: Feb 28, 2024 09:41 AM Reporting Lab: [facility] [address] Performing Lab: [facility] [address] [facility] COMPREHEN SIVE METABOLIC PANEL+MG ALANINE AMINOTRANSF ERASE [ENZYMATIC ACTIVITY/VO LUME] IN SERUM OR PLASMA 13 U/L <55 - 55 02/27 Specimen Type: PLASMA No comment entered. Ordering Provider: KATIE JONES Report Released Date/Time: Feb 28, 2024 09:41 AM Reporting Lab: [facility] [address] Performing Lab: [facility] [address] [facility] COMPREHEN SIVE METABOLIC PANEL+MG ASPARTATE AMINOTRANSF ERASE [ENZYMATIC ACTIVITY/VO LUME] IN SERUM OR PLASMA 18 U/L <34 - 34 02/27 Specimen Type: PLASMA No comment entered. Ordering Provider: KATIE JONES Report Released Date/Time: Feb 28, 2024 09:41 AM Reporting Lab: [facility] [address] Performing Lab: [facility] [address] [facility] COMPREHEN SIVE METABOLIC PANEL+MG GLOMERULAR FILTRATION RATE/1.73 SQ M.PREDICTED [VOLUME RATE/AREA] IN SERUM, PLASMA OR BLOOD BY CREATININE- BASED FORMULA (CKD-EPI 2020) 73 60 02/27 Specimen Type: PLASMA No comment entered. Ordering Provider: KATIE JONES Report Released Date/Time: Feb 28, 2024 09:41 AM Reporting Lab: [facility] [address] Performing Lab: [facility] [address] [facility] PSA PROSTATE SPECIFIC AG [MASS/VOLUM E] IN SERUM OR PLASMA 0.28 ng/mL <4.00 - 4.00 02/27 Specimen Type: SERUM No comment entered. Ordering Provider: KATIE JONES Report Released Date/Time: Feb 28, 2024 09:41 AM Reporting Lab: [facility] [address] Performing Lab: [facility] [address] [facility] LIPID PANEL,NON -FASTING CHOLESTEROL [MASS/VOLUM E] IN SERUM OR PLASMA 236 mg/dL <199 - 199 02/27 H Specimen Type: PLASMA No comment entered. Ordering Provider: KATIE JONES Report Released Date/Time: Feb 28, 2024 09:51 AM Reporting Lab: [facility] [address] Performing Lab: [facility] [address] [facility] LIPID PANEL,NON -FASTING CHOLESTEROL IN HDL [MASS/VOLUM E] IN SERUM OR PLASMA 48 mg/dL 40 02/27 Specimen Type: PLASMA No comment entered. Ordering Provider: KTAIE JONES Report Released Date/Time: Feb 28, 2024 09:51 AM Reporting Lab: [facility] [address] Performing Lab: [facility] [address] [facility] LIPID PANEL,NON -FASTING CHOLESTEROL IN LDL [MASS/VOLUM E] IN SERUM OR PLASMA BY CALCULATION 161 mg/dL <99 - 99 02/27 H Specimen Type: PLASMA No comment entered. Ordering Provider: KATIE JONES Report Released Date/Time: Feb 28, 2024 09:51 AM Reporting Lab: [facility] [address] Performing Lab: [facility] [address] [facility] LIPID PANEL,NON -FASTING CHOLESTEROL IN VLDL [MASS/VOLUM E] IN SERUM OR PLASMA BY CALCULATION 27 mg/dL <29 - 29 02/27 Specimen Type: PLASMA No comment entered. Ordering Provider: KATIE JONES Report Released Date/Time: Feb 28, 2024 09:51 AM Reporting Lab: [facility] [address] Performing Lab: [facility] [address] [facility] LIPID PANEL,NON -FASTING CHOLESTEROL NON HDL [MASS/VOLUM E] IN SERUM OR PLASMA 188 mg/dL <129 - 129 02/27 H Specimen Type: PLASMA No comment entered. Ordering Provider: KATIE JONES Report Released Date/Time: Feb 28, 2024 09:51 AM Reporting Lab: [facility] [address] Performing Lab: [facility] [address] [facility] LIPID PANEL,NON -FASTING TRIGLYCERID E [MASS/VOLUM E] IN SERUM OR PLASMA 134 mg/dL <149 - 149 02/27 Specimen Type: PLASMA No comment entered. Ordering Provider: KATIE JONES Report Released Date/Time: Feb 28, 2024 09:51 AM Reporting Lab: [facility] [address] Performing Lab: [facility] [address] [facility] B 12 COBALAMIN (VITAMIN B12) [MASS/VOLUM E] IN SERUM OR PLASMA 532 pg/mL 213 - 816 04/04 Specimen Type: SERUM No comment entered. Ordering Provider: KATIE JONES Report Released Date/Time: Feb 23, 2023 09:34 AM Reporting Lab: [facility] [address] Performing Lab: [facility] [address] [facility] FOLATE FOLATE [MASS/VOLUM E] IN SERUM OR PLASMA 14.8 ng/mL 7.0 04/04 Specimen Type: SERUM No comment entered. Ordering Provider: KATIE JONES Report Released Date/Time: Feb 23, 2023 09:34 AM Reporting Lab: [facility] [address] Performing Lab: [facility] [address] [facility] CBC & DIFF LEUKOCYTES [#/VOLUME] IN BLOOD BY AUTOMATED COUNT 6.47 10*3/u L 4.0 - 11.0 04/04 Specimen Type: BLOOD Comment: Automated Differentia l Performed Ordering Provider: KATIE JONES Report Released Date/Time: Feb 23, 2023 09:34 AM Reporting Lab: [facility] [address] Performing Lab: [facility] [address] [facility] CBC & DIFF ERYTHROCYTE S [#/VOLUME] IN BLOOD BY AUTOMATED COUNT 3.99 10*6/u L 4.6 - 6.2 04/04 L Specimen Type: BLOOD Comment: Automated Differentia l Performed Ordering Provider: KATIE JONES Report Released Date/Time: Feb 23, 2023 09:34 AM Reporting Lab: [facility] [id number] Performing Lab: [facility] [phone] [facility] CBC & DIFF HEMOGLOBIN [MASS/VOLUM E] IN BLOOD 12.6 g/dL 13.5 - 17.9 04/04 L Specimen Type: BLOOD Comment: Automated Differentia l Performed Ordering Provider: KATIE JONES Report Released Date/Time: Feb 23, 2023 09:34 AM Reporting Lab: [facility] [phone] Performing Lab: [facility] [phone] [facility] CBC & DIFF HEMATOCRIT [VOLUME FRACTION] OF BLOOD BY AUTOMATED COUNT 38.2 41 - 54 04/04 L Specimen Type: BLOOD Comment: Automated Differentia l Performed Ordering Provider: KATIE JONES Report Released Date/Time: Feb 23, 2023 09:34 AM Reporting Lab: [facility] [address] Performing Lab: [facility] [address] [facility] CBC & DIFF MCV [ENTITIC VOLUME] BY AUTOMATED COUNT 95.7 fL 80 - 100 04/04 Specimen Type: BLOOD Comment: Automated Differentia l Performed Ordering Provider: KATIE JONES Report Released Date/Time: Feb 23, 2023 09:34 AM Reporting Lab: [facility] [address] Performing Lab: [facility] [address] [facility] CBC & DIFF MCH [ENTITIC MASS] BY AUTOMATED COUNT 31.6 pg 27 - 33 04/04 Specimen Type: BLOOD Comment: Automated Differentia l Performed Ordering Provider: KATIE JONES Report Released Date/Time: Feb 23, 2023 09:34 AM Reporting Lab: [facility] [address] Performing Lab: [facility] [address] [facility] CBC & DIFF MCHC [MASS/VOLUM E] BY AUTOMATED COUNT 33.0 g/dL 32.0 - 37.5 04/04 Specimen Type: BLOOD Comment: Automated Differentia l Performed Ordering Provider: KATIE JONES Report Released Date/Time: Feb 23, 2023 09:34 AM Reporting Lab: [facility] [address] Performing Lab: [facility] [address] [facility] CBC & DIFF PLATELETS [#/VOLUME] IN BLOOD BY AUTOMATED COUNT 285 10*3/u L 150 - 400 04/04 Specimen Type: BLOOD Comment: Automated Differentia l Performed Ordering Provider: KATIE JONES Report Released Date/Time: Feb 23, 2023 09:34 AM Reporting Lab: [facility] [address] Performing Lab: [facility] [address] [facility] CBC & DIFF PLATELET MEAN VOLUME [ENTITIC VOLUME] IN BLOOD BY AUTOMATED COUNT 9.0 fL 7.4 - 10.4 04/04 Specimen Type: BLOOD Comment: Automated Differentia l Performed Ordering Provider: KATIE JONES Report Released Date/Time: Feb 23, 2023 09:34 AM Reporting Lab: [facility] [address] Performing Lab: [facility] [address] [facility] CBC & DIFF NEUTROPHILS /100 LEUKOCYTES IN BLOOD BY MANUAL COUNT 67.9 40.0 - 80.0 04/04 Specimen Type: BLOOD Comment: Automated Differentia l Performed Ordering Provider: KATIE JONES Report Released Date/Time: Feb 23, 2023 09:34 AM Reporting Lab: [facility] [address] Performing Lab: [facility] [address] [facility] CBC & DIFF LYMPHOCYTES /100 LEUKOCYTES IN BLOOD BY MANUAL COUNT 18.7 15.0 - 45.0 04/04 Specimen Type: BLOOD Comment: Automated Differentia l Performed Ordering Provider: KATIE JONES Report Released Date/Time: Feb 23, 2023 09:34 AM Reporting Lab: [facility] [address] Performing Lab: [facility] [address] [facility] CBC & DIFF MONOCYTES/1 00 LEUKOCYTES IN BLOOD BY AUTOMATED COUNT 8.8 2.0 - 12.0 04/04 Specimen Type: BLOOD Comment: Automated Differentia l Performed Ordering Provider: KATIE JONES Report Released Date/Time: Feb 23, 2023 09:34 AM Reporting Lab: [facility] [address] Performing Lab: [facility] [address] [facility] CBC & DIFF EOSINOPHILS /100 LEUKOCYTES IN BLOOD BY AUTOMATED COUNT 3.1 0.0 - 6.0 04/04 Specimen Type: BLOOD Comment: Automated Differentia l Performed Ordering Provider: KATIE JONES Report Released Date/Time: Feb 23, 2023 09:34 AM Reporting Lab: [facility] [address] Performing Lab: [facility] [address] [facility] CBC & DIFF BASOPHILS/1 00 LEUKOCYTES IN BLOOD BY MANUAL COUNT 0.6 0.0 - 2.0 04/04 Specimen Type: BLOOD Comment: Automated Differentia l Performed Ordering Provider: KATIE JONES Report Released Date/Time: Feb 23, 2023 09:34 AM Reporting Lab: [facility] [address] Performing Lab: [facility] [address] [facility] CBC & DIFF ERYTHROCYTE DISTRIBUTIO N WIDTH [RATIO] BY AUTOMATED COUNT 14.1 11.5 - 14.5 04/04 Specimen Type: BLOOD Comment: Automated Differentia l Performed Ordering Provider: KATIE JONES Report Released Date/Time: Feb 23, 2023 09:34 AM Reporting Lab: [facility] [address] Performing Lab: [facility] [address] [facility] CBC & DIFF LYMPHOCYTES [#/VOLUME] IN BLOOD BY AUTOMATED COUNT 1.21 10*3/u L 1.0 - 4.0 04/04 Specimen Type: BLOOD Comment: Automated Differentia l Performed Ordering Provider: KATIE JONES Report Released Date/Time: Feb 23, 2023 09:34 AM Reporting Lab: [facility] [address] Performing Lab: [facility] [address] [facility] CBC & DIFF MONOCYTES [#/VOLUME] IN BLOOD BY AUTOMATED COUNT 0.57 10*3/u L 0.1 - 1.0 04/04 Specimen Type: BLOOD Comment: Automated Differentia l Performed Ordering Provider: KATIE JONES Report Released Date/Time: Feb 23, 2023 09:34 AM Reporting Lab: [facility] [address] Performing Lab: [facility] [address] [facility] CBC & DIFF NEUTROPHILS [#/VOLUME] IN BLOOD BY AUTOMATED COUNT 4.39 10*3/u L 2.0 - 7.7 04/04 Specimen Type: BLOOD Comment: Automated Differentia l Performed Ordering Provider: KATIE JONES Report Released Date/Time: Feb 23, 2023 09:34 AM Reporting Lab: [facility] [address] Performing Lab: [facility] [address] [facility] CBC & DIFF EOSINOPHILS [#/VOLUME] IN BLOOD BY AUTOMATED COUNT 0.20 10*3/u L 0 - 0.5 04/04 Specimen Type: BLOOD Comment: Automated Differentia l Performed Ordering Provider: KATIE JONES Report Released Date/Time: Feb 23, 2023 09:34 AM Reporting Lab: [facility] [address] Performing Lab: [facility] [address] [facility] CBC & DIFF BASOPHILS [#/VOLUME] IN BLOOD BY AUTOMATED COUNT 0.04 10*3/u L 0 - 0.2 04/04 Specimen Type: BLOOD Comment: Automated Differentia l Performed Ordering Provider: KATIE JONES Report Released Date/Time: Feb 23, 2023 09:34 AM Reporting Lab: [facility] [address] Performing Lab: [facility] [address] [facility] CBC & DIFF IG(META,MYE LO,PRO) 0.9 04/04 Specimen Type: BLOOD Comment: Automated Differentia l Performed Ordering Provider: KATIE JONES Report Released Date/Time: Feb 23, 2023 09:34 AM Reporting Lab: [facility] [address] Performing Lab: [facility] [address] [facility] CBC & DIFF IMMATURE GRANULOCYTE S [PRESENCE] IN BLOOD BY AUTOMATED COUNT 0.06 10*3/u L 0 - 0.1 04/04 Specimen Type: BLOOD Comment: Automated Differentia l Performed Ordering Provider: KATIE JONES Report Released Date/Time: Feb 23, 2023 09:34 AM Reporting Lab: [facility] [address] Performing Lab: [facility] [address] [facility] IRON GROUP IRON [MASS/VOLUM E] IN SERUM OR PLASMA 69 ug/dL 65 - 175 04/04 Specimen Type: PLASMA No comment entered. Ordering Provider: KATIE JONES Report Released Date/Time: Feb 23, 2023 09:34 AM Reporting Lab: [facility] [address] Performing Lab: [facility] [address] [facility] IRON GROUP IRON BINDING CAPACITY [MASS/VOLUM E] IN SERUM OR PLASMA 263 ug/dL 250 - 425 04/04 Specimen Type: PLASMA No comment entered. Ordering Provider: KATIE JONES Report Released Date/Time: Feb 23, 2023 09:34 AM Reporting Lab: [facility] [address] Performing Lab: [facility] [address] [facility] IRON GROUP FERRITIN [MASS/VOLUM E] IN SERUM OR PLASMA 453.6 ng/mL 21.8 - 274.7 04/04 H Specimen Type: PLASMA No comment entered. Ordering Provider: KATIE JONES Report Released Date/Time: Feb 23, 2023 09:34 AM Reporting Lab: [facility] [address] Performing Lab: [facility] [address] [facility] IRON GROUP IRON SATURATION 26 20 - 50 04/04 Specimen Type: PLASMA No comment entered. Ordering Provider: KATIE JONES Report Released Date/Time: Feb 23, 2023 09:34 AM Reporting Lab: [facility] [address] Performing Lab: [facility] [address] [facility] IRON GROUP TRANSFERRIN [MASS/VOLUM E] IN SERUM OR PLASMA 210 mg/dL 163 - 382 04/04 Specimen Type: PLASMA No comment entered. Ordering Provider: KATIE JONES Report Released Date/Time: Feb 23, 2023 09:34 AM Reporting Lab: [facility] [address] Performing Lab: [facility] [address] [facility] COMPREHEN SIVE METABOLIC PANEL+MG CREATININE [MASS/VOLUM E] IN SERUM OR PLASMA 0.9 mg/dL 0.7 - 1.2 02/22 Specimen Type: PLASMA No comment entered. Ordering Provider: KATIE JONES Report Released Date/Time: Feb 22, 2023 10:40 AM Reporting Lab: [facility] [address] Performing Lab: [facility] [address] [facility] COMPREHEN SIVE METABOLIC PANEL+MG UREA NITROGEN [MASS/VOLUM E] IN SERUM OR PLASMA 16 mg/dL 8 - 26 02/22 Specimen Type: PLASMA No comment entered. Ordering Provider: KATIE JONES Report Released Date/Time: Feb 22, 2023 10:40 AM Reporting Lab: [facility] [address] Performing Lab: [facility] [address] [facility] COMPREHEN SIVE METABOLIC PANEL+MG GLUCOSE [MASS/VOLUM E] IN SERUM OR PLASMA 88 mg/dL 70 - 100 02/22 Specimen Type: PLASMA No comment entered. Ordering Provider: KATIE JONES Report Released Date/Time: Feb 22, 2023 10:40 AM Reporting Lab: [facility] [address] Performing Lab: [facility] [address] [facility] COMPREHEN SIVE METABOLIC PANEL+MG SODIUM [MOLES/VOLU ME] IN SERUM OR PLASMA 141 mmol/L 136 - 145 02/22 Specimen Type: PLASMA No comment entered. Ordering Provider: KATIE JONES Report Released Date/Time: Feb 22, 2023 10:40 AM Reporting Lab: [facility] [address] Performing Lab: [facility] [address] [facility] COMPREHEN SIVE METABOLIC PANEL+MG POTASSIUM [MOLES/VOLU ME] IN SERUM OR PLASMA 4.4 mmol/L 3.5 - 5.1 02/22 Specimen Type: PLASMA No comment entered. Ordering Provider: KATIE JONES Report Released Date/Time: Feb 22, 2023 10:40 AM Reporting Lab: [facility] [address] Performing Lab: [facility] [address] [facility] COMPREHEN SIVE METABOLIC PANEL+MG CHLORIDE [MOLES/VOLU ME] IN SERUM OR PLASMA 109 mmol/L 98 - 107 02/22 H Specimen Type: PLASMA No comment entered. Ordering Provider: KATIE JONES Report Released Date/Time: Feb 22, 2023 10:40 AM Reporting Lab: [facility] [address] Performing Lab: [facility] [address] [facility] COMPREHEN SIVE METABOLIC PANEL+MG CARBON DIOXIDE, TOTAL [MOLES/VOLU ME] IN SERUM OR PLASMA 24 mmol/L 22 - 29 02/22 Specimen Type: PLASMA No comment entered. Ordering Provider: KATIE JONES Report Released Date/Time: Feb 22, 2023 10:40 AM Reporting Lab: [facility] [address] Performing Lab: [facility] [address] [facility] COMPREHEN SIVE METABOLIC PANEL+MG CALCIUM [MASS/VOLUM E] IN SERUM OR PLASMA 9.1 mg/dL 8.4 - 10.2 02/22 Specimen Type: PLASMA No comment entered. Ordering Provider: KATIE JONES Report Released Date/Time: Feb 22, 2023 10:40 AM Reporting Lab: [facility] [address] Performing Lab: [facility] [address] [facility] COMPREHEN SIVE METABOLIC PANEL+MG PROTEIN [MASS/VOLUM E] IN SERUM OR PLASMA 6.7 g/dL 6.0 - 8.3 02/22 Specimen Type: PLASMA No comment entered. Ordering Provider: KATIE JONES Report Released Date/Time: Feb 22, 2023 10:40 AM Reporting Lab: [facility] [address] Performing Lab: [facility] [address] [facility] COMPREHEN SIVE METABOLIC PANEL+MG ALBUMIN [MASS/VOLUM E] IN SERUM OR PLASMA 3.9 g/dL 3.5 - 5.2 02/22 Specimen Type: PLASMA No comment entered. Ordering Provider: KATIE JONES Report Released Date/Time: Feb 22, 2023 10:40 AM Reporting Lab: [facility] [address] Performing Lab: [facility] [address] [facility] COMPREHEN SIVE METABOLIC PANEL+MG BILIRUBIN.T OTAL [MASS/VOLUM E] IN SERUM OR PLASMA 0.8 mg/dL 0.2 - 1.2 02/22 Specimen Type: PLASMA No comment entered. Ordering Provider: KATIE JONES Report Released Date/Time: Feb 22, 2023 10:40 AM Reporting Lab: [facility] [address] Performing Lab: [facility] [address] [facility] COMPREHEN SIVE METABOLIC PANEL+MG MAGNESIUM [MASS/VOLUM E] IN SERUM OR PLASMA 2.2 mg/dL 1.6 - 2.6 02/22 Specimen Type: PLASMA No comment entered. Ordering Provider: KATIE JONES Report Released Date/Time: Feb 22, 2023 10:40 AM Reporting Lab: [facility] [address] Performing Lab: [facility] [address] [facility] COMPREHEN SIVE METABOLIC PANEL+MG ANION GAP IN SERUM OR PLASMA 8 mmol/L 5 - 15 02/22 Specimen Type: PLASMA No comment entered. Ordering Provider: KATIE JONES Report Released Date/Time: Feb 22, 2023 10:40 AM Reporting Lab: [facility] [address] Performing Lab: [facility] [address] [facility] COMPREHEN SIVE METABOLIC PANEL+MG ALKALINE PHOSPHATASE [ENZYMATIC ACTIVITY/VO LUME] IN SERUM OR PLASMA 70 U/L 40 - 150 02/22 Specimen Type: PLASMA No comment entered. Ordering Provider: KATIE JONES Report Released Date/Time: Feb 22, 2023 10:40 AM Reporting Lab: [facility] [address] Performing Lab: [facility] [address] [facility] COMPREHEN SIVE METABOLIC PANEL+MG ALANINE AMINOTRANSF ERASE [ENZYMATIC ACTIVITY/VO LUME] IN SERUM OR PLASMA 10 U/L 02/22 Specimen Type: PLASMA No comment entered. Ordering Provider: KATIE JONES Report Released Date/Time: Feb 22, 2023 10:40 AM Reporting Lab: [facility] [address] Performing Lab: [facility] [address] [facility] COMPREHEN SIVE METABOLIC PANEL+MG ASPARTATE AMINOTRANSF ERASE [ENZYMATIC ACTIVITY/VO LUME] IN SERUM OR PLASMA 19 U/L 02/22 Specimen Type: PLASMA No comment entered. Ordering Provider: KATIE JONES Report Released Date/Time: Feb 22, 2023 10:40 AM Reporting Lab: [facility] [address] Performing Lab: [place] [address] [facility] COMPREHEN SIVE METABOLIC PANEL+MG GLOMERULAR FILTRATION RATE/1.73 SQ M.PREDICTED [VOLUME RATE/AREA] IN SERUM, PLASMA OR BLOOD BY CREATININE- BASED FORMULA (CKD-EPI 2020) 83 02/22 Specimen Type: PLASMA No comment entered. Ordering Provider: KATIE JONES Report Released Date/Time: Feb 22, 2023 10:40 AM Reporting Lab: [facility] [address] Performing Lab: [facility] [address] [facility] HEMOGLOBI N A1C HEMOGLOBIN A1C/HEMOGLO BIN.TOTAL [...] Feb 22, 2023 10:40 AM Reporting Lab: [facility] [address] Performing Lab: [place] [address] [facility] Vital Signs Combined list of inpatient and outpatient Vital Signs from Department of Defense and Veterans Affairs, ranging from 12 months to all on record, depending upon the facility. Vital Sign Value Date Comments Source Encounters Combined list of: 1) Encounters from [facility] facilities going back up to thelast 18 months. 2) Encounters from the Department of [facility] facilities going back up to 280 months. Location Location Details Encounter Type Encounter Number Reason For Visit Attending Provider ADM Date DC Date Status Disposition Source [facility] Outpatient Encounter [id number] 02[facility]01 [facility]/P EST MOD 30-39 MIN [id number] Diagnos is: ICD-10- CM Z00.8 Encount er for other general examina tion
Bob JONES EBMANA Martinez 02/22 [facility] Outpatient Encounter [id number] 02/24 [facility] Outpatient Encounter [id number] 03/20 [facility] [place] [facility] [place] [id number] Diagnos is: ICD-10- CM Z01.118 Encntr for exam of ears and hearing w oth abnorma l finding s
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, right eye<br/ > KAM FLORES 04/10 [facility] Outpatient Encounter [id number] 04/11 [facility] Outpatient Encounter [id number] 04/19 [facility] OFFICE O/P NEW MOD 45-59 MIN [id number] Diagnos is: ICD-10- CM 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, right eye<br/ > GRAMATES,P EGGY H 05/10 [facility] CONFORMITY EVALUATION [id number] Diagnos is: ICD-10- CM Z46.1 Encount er for fitting and adjustm ent of hearing aid<br/ > NEERU TINAJERO 05/30 [facility] Outpatient Encounter [id number] 07/01 [facility] OFFICE O/P EST LOW 20-29 MIN [id number] Diagnos is: ICD-10- CM G47.39 Other sleep apnea<b r/> KAREN,R EBECCA L 07/11 [facility] EAR IMPRESSION [id number] Diagnos is: ICD-10- CM Z46.1 Encount er for fitting and adjustm ent of hearing aid<br/ > NEERU TINAJERO 08/02 [facility] OFFICE O/P EST MOD 30 MIN [id number] Diagnos is: ICD-10- CM 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
NEERU TINAJERO 01/14 [place] OFFICE O/P EST MOD 30 MIN [id number] Diagnos is: ICD-10- CM Z00.8 Encount er for other general examina tion
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
WHITE,TERR A R 03/14 [facility] Social History Combined list of available smoking, tobacco, and other social history from Department of Defense and Veterans Affairs facilities. Social History Type Response Date Comment Sourc e Tobacco smoking status NHIS [place]-TOBACCO NEVER USED 02/28/20 [facility] History of tobacco use [place]-TOBACCO FORMER USER 02/22/2023 [facility] Plan of Care List of future care activities from Department of Veterans [facility] facilities. Additional future care activities may be listed in the Assessment and Plan section. Date/Time Care Activity Care Activity Detail Facili ty 06/27/2024 AMBULATORY - SURGERY [facility] Advance Directives List of completed, amended, or rescinded Advance Directives on record at Department of Veterans Affairs facilities. An actual copy of the Directive is not included. Date Advance Directive Provider Source 04/19/2023 [facility]VANCE DIRECTIVE DISCUSSION [facility] 04/19/2023 [facility]
--- OUTSIDE RECORDS SUMMARY | 2024-05-01 11:15 | XMS_ITS | Clinical Summary ---
Author Organization [facility] Address [address], [place] [address] Care Team Providers Care Substation Operator Conversion Name Role Phone Unavailable Primary Care Provider Unavailabl e Source Comments You are receiving this document as you are listed as the primary care provider,follow-up provider, or the patient has been referred to you for consultation.This is in compliance with the Medicare and[facility] EHR Incentive Program,which states Providers who transition [...] this topic DASHAWN COTE Personal/Famil y [address] [place] [address]
--- OUTSIDE RECORDS SUMMARY | 2024-05-01 11:15 | XMS_ITS | Clinical Summary ---
Author Organization [place] Address [facility] [place] [address] Care Team Providers Care Transliterator Name Role Phone Clinic, [facility] Primary Care Provider + Allergies No [...] of Treatment Not on file Care Teams Transliterator Relationship Specialty Start Date End Date Clinic, [address] [address] PCP - General 06/26/20
--- OUTSIDE RECORDS SUMMARY | 2024-05-01 11:16 | XMS_ITS | Referral Summary ---
Author Organization [facility] Address [facility] [place] [address] Care Team Providers Care Stitcher Standard Machine Name Role Phone Clinic, [facility] [...] of Treatment Not on file Care Teams Stitcher Standard Machine Relationship Specialty Start Date End Date Clinic, [address] [address] PCP - General 06/26/20
== END 2024-05-01 11:14 | disposition home or self-care (01) ==
LOC: WOUND 11:13
PROVIDERS: Visit Provider Surgery
DX: I87.312 Chronic venous hypertension (idiopathic) with ulcer of left lower extremity (principal); L97.822 Non-pressure chronic ulcer of other part of left lower leg with fat layer exposed
CPT/HCPCS: 97597

== ENCOUNTER 2024-05-08 11:02 | Outpatient (CLI) | payer MEDICARE, BC, SELFPAY ==
--- OUTSIDE RECORDS SUMMARY | 2024-05-08 11:05 | XMS_ITS | Clinical Summary ---
Author Organization [facility] Address [address] [place] [address] Care Team Providers Care Rn Baby Name Role Phone Unavailable Primary Care Provider Unavailabl e Source Comments Patient records contain information from all sites at [facility]. For routine questions regarding patient records, call [phone] during business hours, M-F 8:00 AM - 5:00 PM Central Time. Record requests for emergency care only can be directed to [phone] at any time.[facility] Allergies No known active allergies [...] Comments Blood Pressure 140/74 07/12/2020 11:15 AM COIL CLEANER Pulse 60 07/12/2020 11:15 AM COIL CLEANER Temperature 37.3 ??C (99.1 ??F) 07/12/2020 1 1:15 AM COIL CLEANER Respiratory Rate 20 07/12/2020 8:28 AM COIL CLEANER Oxygen Saturation 96% 07/12/2020 11: 15 AM COIL CLEANER Inhaled Oxygen Concentration - - Weight 101 kg (222 lb 10.6 oz) 2016 2:13 PM CDT Vital sign result from Clinical Notes. Height 175.3 cm (5' 9) 07/12/2020 8:27 AM COIL CLEANER Body Mass Index 32.98 09/20/2016 4:53 PM COIL CLEANER Plan of Treatment Health Maintenance Due Date Last Done Comments Zoster Vaccines (1 of 2) 1986 Depression Screening (Annual PHQ-2) 09/04/2023 Fall Risk Screen (Annual) 09/04/2023 COVID-19 Vaccine ( - 2022-2 4 season) 2024 07/11/2023, 07/13/2021, 12/01/2020, Additional history exists Influenza Vaccine (#1) 2024 , 06/08/2022, 06/30/2021, Additional history exists DTaP,Tdap,and Td Vaccines (3 - Td or Tdap) 09/20/2026 09/20/2016, 06/25/2012 Pneumococcal vaccine (65+ years) Completed 02/23/20 23
--- OUTSIDE RECORDS SUMMARY | 2024-05-08 11:05 | XMS_ITS | Continuity of Care Document ---
Author Name [facility] Organization [facility] Care Team Providers Care Recruiting Intern Name Role Phone [facility] Unavailable Unavailable Problems Combined list of problems from Department of Defense and Veterans Affairs facilities. It does not include entries that were removed or entered in error. Problem Status Onset Date Problem Type Date of Resolution Comments Source Exposure to potentially hazardous substance ([facility] [id number]) Active 11/10/19 24 Condition Nov 10, 2023 Entered By: FLORES KENNEDY Comment: [facility] JOSIE Documentation Initiative [facility] Edema Active Condition Feb 22 Entered By: GARY JONES Comment: trated for prostate ca with 44 radiation treatmentsFeb 22, 2023 Entered By: GARY JONES Comment: treated fro prostate cancer with 44 radiation treatments [facility] 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 Active Condition Feb 22, 2023 Entered By: GARY JONES Comment: treated prostate cancer with 44 radiation treatments [facility] Malignant melanoma Active Condition [facility] Obstructive Sleep Apnea of Adult ([facility] [id number]) Active Condition Dec 28, 2023 Entered By: WILEY ARTHUR Comment: See scanned records in [place] for details [facility] Diagnosis: ICD-10-CM Z71.9 Counseling, unspecified Active Diagnosis [facility] Diagnosis: ICD-10-CM Z00.8 Encounter for other general examination Active Diagnosis [facility] Diagnosis: ICD-10-CM 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 loss, bilateral Active Diagnosis [facility] Diagnosis: ICD-10-CM 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, right eye Active Diagnosis [facility] Diagnosis: ICD-10-CM Z46.1 Encounter for fitting and adjustment of hearing aid Active Diagnosis [facility] Diagnosis: ICD-10-CM G47.39 Other sleep apnea Active Diagnosis [facility] Diagnosis: ICD-10-CM 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, right eye Active Diagnosis [facility] Diagnosis: ICD-10-CM Z01.118 Encntr for exam of ears and hearing w oth abnormal findings Active Diagnosis [facility] Medications Combined list of outpatient medications [...] Jul 12, 2023 2 Jul 12, 2024 [id number] Jul 12, 2023 GARY JONES RESPIR ATORY (INHAL ATION) ACTIVE 07/12/2024 [id number] GARY JONES 2022 2 JIMMY BARRETT [...] Nov 01, 2023 15 Nov 01, 2024 [id number] Nov 02, 2023 GRAMATES ,CHRISTINA H [place] [facility] OPHTHA LMIC ACTIVE 11/01/2024 [id number] GRAMATES, CHRISTINA H 2023 15 [place] [facility] CHOLECALCIF VAL TAB CHOLECAL CIFEROL TAB Non-VA TAKE 1 TAB BY MOUTH Feb 28, 2024 Non-[place] Document ed by: GARY JONES Document ed at: [facility] ORAL ACTIVE GARY JONES 2023 JIMMY BARRETT IBUPROFEN 600MG TAB IBUPROFE N 600MG TAB Non-VA TAKE ONE TABLET BY MOUTH THREE TIMES A DAY NEEDED Feb 28, 2024 Non-VA Document ed by: GARY JONES Document ed at: [facility] ORAL ACTIVE GARY JONES 2023 CHELSYKOCLAIRE [...] Feb 28, 2024 90 Feb 28, 2025 [id number] Feb 28, 2024 GARY JONES [facility] ORAL ACTIVE 02/28/2025 [id number] GARY JONES 2023 90 JIMMY BARRETT ZINC 50MG (FROM SULFATE) CAP ZINC 50MG (FROM SULFATE) CAP Non-VA TAKE 1 CAPSULE BY MOUTH EVERY DAY UNKNOWN Feb 22, 2023 Non-VA Document ed by: GARY JONES Document ed at: [facility] ORAL ACTIVE GARY JONES 2022 SHARADHA BARRETT Immunizations Combined list of available immunizations from the Department of Defense and Veterans Affairs facilities. Immunization Series Date Given Administered By Site Reaction Lot Number CVX Code Drug Silver Designer Status Comments Source COVID-19 (EndoSphere), MRNA, LNP-S, PF, JASON-SUCROSE, 30 MCG/0.3 ML (AGES 12+ YEARS) 1 2022 TOOTIE ANDERSON LEFT DELTO ID [id number] 309 complet ed [facility]IMMY [facility] INFLUENZA, HIGH-DOSE, QUADRIVALENT 2022 TOOTIE ANDERSON LEFT DELTO ID [id number] 197 complet ed [facility] PNEUMOCOCCAL CONJUGATE PCV20, POLYSACCHARID E [id number] CONJUGATE, ADJUVANT, PF 2022 TOOTIE ANDERSON LEFT DELTO ID [id number] 216 complet ed [facility] INFLUENZA, HIGH-DOSE, QUADRIVALENT, PF 2021 197 complet ed [facility] INFLUENZA, UNSPECIFIED FORMULATION 2021 88 complet ed [facility] COVID-19 (MODERNA), MRNA, LNP-S, PF, 100 MCG/0.5ML DOSE OR 50 MCG/0.25ML DOSE 3 2020 207 complet ed [facility] INFLUENZA, HIGH-DOSE, QUADRIVALENT, PF 2020 197 complet ed [facility] COVID-19 (MODERNA), MRNA, LNP-S, PF, 100 MCG/0.5ML DOSE OR 50 MCG/0.25ML DOSE 2 2020 207 complet ed [facility] COVID-19 (MODERNA), MRNA, LNP-S, PF, 100 MCG/0.5ML DOSE OR 50 MCG/0.25ML DOSE 1 2020 207 complet ed [facility] INFLUENZA, HIGH-DOSE, TRIVALENT, PF 2018 135 complet ed [facility] INFLUENZA, HIGH-DOSE, TRIVALENT, PF 2016 135 complet ed [facility] TDAP 2016 115 complet ed [facility] INFLUENZA, SPLIT VIRUS, QUADRIVALENT, PF 2015 150 complet ed [facility] INFLUENZA, HIGH-DOSE, TRIVALENT, PF 2015 135 complet ed [facility] INFLUENZA, HIGH-DOSE, TRIVALENT, PF 2012 135 complet ed [facility] INFLUENZA, SPLIT VIRUS, TRIVALENT, PRESERVATIVE 2012 141 complet ed [facility] TDAP 2011 115 complet [facility] INFLUENZA, SPLIT VIRUS, TRIVALENT, PF 2010 140 complet [facility] HEP B, UNSPECIFIED FORMULATION 2009 45 complet [facility] NOVEL INFLUENZA-H1N 1-09 2008 127 complet ed [facility] Results Combined list of recent chemistry, [...] Feb 28, 2024 09:41 AM Reporting Lab: [facility] [address] Performing Lab: [facility] [address] [facility] CBC & DIFF ERYTHROCYTE S [#/VOLUME] IN BLOOD BY AUTOMATED COUNT 4.19 10*6/u L 4.6 - 6.2 02/27 L Specimen Type: BLOOD Comment: Automated Differentia l Performed Ordering Provider: KATIE JONES Report Released Date/Time: Feb 28, 2024 09:41 AM Reporting Lab: [facility] [address] Performing Lab: [facility] [address] [facility] CBC & DIFF HEMOGLOBIN [MASS/VOLUM E] IN BLOOD 13.4 g/dL 13.5 - 17.9 02/27 L Specimen Type: BLOOD Comment: Automated Differentia l Performed Ordering Provider: KATIE JONES Report Released Date/Time: Feb 28, 2024 09:41 AM Reporting Lab: [facility] [address] Performing Lab: [facility] [address] [facility] CBC & DIFF HEMATOCRIT [VOLUME FRACTION] OF BLOOD BY AUTOMATED COUNT 40.6 41 - 54 02/27 L Specimen Type: BLOOD Comment: Automated Differentia l Performed Ordering Provider: KATIE JONES Report Released Date/Time: Feb 28, 2024 09:41 AM Reporting Lab: [facility] [address] Performing Lab: [facility] [address] [facility] CBC & DIFF MCV [ENTITIC VOLUME] BY AUTOMATED COUNT 96.9 fL 80 - 100 02/27 Specimen Type: BLOOD Comment: Automated Differentia l Performed Ordering Provider: KATIE OJNES Report Released Date/Time: Feb 28, 2024 09:41 AM Reporting Lab: [facility] [address] Performing Lab: [facility] [address] [facility] CBC & DIFF MCH [ENTITIC MASS] BY AUTOMATED COUNT 32.0 pg 27 - 33 02/27 Specimen Type: BLOOD Comment: Automated Differentia l Performed Ordering Provider: KATIE JONES Report Released Date/Time: Feb 28, 2024 09:41 AM Reporting Lab: [facility] [address] Performing Lab: [facility] [address] [facility] CBC & DIFF MCHC [MASS/VOLUM E] BY AUTOMATED COUNT 33.0 g/dL 32.0 - 37.5 02/27 Specimen Type: BLOOD Comment: Automated Differentia l Performed Ordering Provider: KATIE JONES Report Released Date/Time: Feb 28, 2024 09:41 AM Reporting Lab: [facility] [address] Performing Lab: [facility] [address] [facility] CBC & DIFF PLATELETS [#/VOLUME] IN BLOOD BY AUTOMATED COUNT 273 10*3/u L 150 - 400 02/27 Specimen Type: BLOOD Comment: Automated Differentia l Performed Ordering Provider: KATIE JONES Report Released Date/Time: Feb 28, 2024 09:41 AM Reporting Lab: [facility] [address] Performing Lab: [facility] [address] [facility] CBC & DIFF PLATELET MEAN VOLUME [ENTITIC VOLUME] IN BLOOD BY AUTOMATED COUNT 9.8 fL 7.4 - 10.4 02/27 Specimen Type: BLOOD Comment: Automated Differentia l Performed Ordering Provider: KATIE JONES Report Released Date/Time: Feb 28, 2024 09:41 AM Reporting Lab: [facility] [address] Performing Lab: [facility] [address] [facility] CBC & DIFF NEUTROPHILS /100 LEUKOCYTES IN BLOOD BY MANUAL COUNT 67.8 40.0 - 80.0 02/27 Specimen Type: BLOOD Comment: Automated Differentia l Performed Ordering Provider: KATIE JONES Report Released Date/Time: Feb 28, 2024 09:41 AM Reporting Lab: [facility] [address] Performing Lab: [facility] [address] [facility] CBC & DIFF LYMPHOCYTES /100 LEUKOCYTES IN BLOOD BY MANUAL COUNT 18.9 15.0 - 45.0 02/27 Specimen Type: BLOOD Comment: Automated Differentia l Performed Ordering Provider: KATIE JONES Report Released Date/Time: Feb 28, 2024 09:41 AM Reporting Lab: [facility] [address] Performing Lab: [facility] [address] [facility] CBC & DIFF MONOCYTES/1 00 LEUKOCYTES IN BLOOD BY AUTOMATED COUNT 9.5 2.0 - 12.0 02/27 Specimen Type: BLOOD Comment: Automated Differentia l Performed Ordering Provider: KATIE JONES Report Released Date/Time: Feb 28, 2024 09:41 AM Reporting Lab: [facility] [address] Performing Lab: [facility] [address] [facility] CBC & DIFF EOSINOPHILS /100 LEUKOCYTES IN BLOOD BY AUTOMATED COUNT 2.6 0.0 - 6.0 02/27 Specimen Type: BLOOD Comment: Automated Differentia l Performed Ordering Provider: KATIE JONES Report Released Date/Time: Feb 28, 2024 09:41 AM Reporting Lab: [facility] [address] Performing Lab: [facility] [address] [facility] CBC & DIFF BASOPHILS/1 00 LEUKOCYTES IN BLOOD BY MANUAL COUNT 0.7 0.0 - 2.0 02/27 Specimen Type: BLOOD Comment: Automated Differentia l Performed Ordering Provider: KATIE JONES Report Released Date/Time: Feb 28, 2024 09:41 AM Reporting Lab: [facility] [address] Performing Lab: [facility] [address] [facility] CBC & DIFF ERYTHROCYTE DISTRIBUTIO N WIDTH [RATIO] BY AUTOMATED COUNT 13.8 11.5 - 14.5 02/27 Specimen Type: BLOOD Comment: Automated Differentia l Performed Ordering Provider: KATIE JONES Report Released Date/Time: Feb 28, 2024 09:41 AM Reporting Lab: [facility] [address] Performing Lab: [facility] [address] [facility] CBC & DIFF LYMPHOCYTES [#/VOLUME] IN BLOOD BY AUTOMATED COUNT 1.39 10*3/u L 1.0 - 4.0 02/27 Specimen Type: BLOOD Comment: Automated Differentia l Performed Ordering Provider: KATIE JONES Report Released Date/Time: Feb 28, 2024 09:41 AM Reporting Lab: [facility] [address] Performing Lab: [facility] [address] [facility] CBC & DIFF MONOCYTES [#/VOLUME] IN BLOOD BY AUTOMATED COUNT 0.70 10*3/u L 0.1 - 1.0 02/27 Specimen Type: BLOOD Comment: Automated Differentia l Performed Ordering Provider: KATIE JONES Report Released Date/Time: Feb 28, 2024 09:41 AM Reporting Lab: [facility] [address] Performing Lab: [facility] [address] [facility] CBC & DIFF NEUTROPHILS [#/VOLUME] IN BLOOD BY AUTOMATED COUNT 4.97 10*3/u L 2.0 - 7.7 02/27 Specimen Type: BLOOD Comment: Automated Differentia l Performed Ordering Provider: KATIE JONES Report Released Date/Time: Feb 28, 2024 09:41 AM Reporting Lab: [facility] [address] Performing Lab: [facility] [address] [facility] CBC & DIFF EOSINOPHILS [#/VOLUME] IN BLOOD BY AUTOMATED COUNT 0.19 10*3/u L 0 - 0.5 02/27 Specimen Type: BLOOD Comment: Automated Differentia l Performed Ordering Provider: KATIE JONES Report Released Date/Time: Feb 28, 2024 09:41 AM Reporting Lab: [facility] [address] Performing Lab: [facility] [address] [facility] CBC & DIFF BASOPHILS [#/VOLUME] IN BLOOD BY AUTOMATED COUNT 0.05 10*3/u L 0 - 0.2 02/27 Specimen Type: BLOOD Comment: Automated Differentia l Performed Ordering Provider: KATIE JONES Report Released Date/Time: Feb 28, 2024 09:41 AM Reporting Lab: [facility] [address] Performing Lab: [facility] [address] [facility] CBC & DIFF IG(META,MYE LO,PRO) 0.5 02/27 Specimen Type: BLOOD Comment: Automated Differentia l Performed Ordering Provider: KATIE JONES Report Released Date/Time: Feb 28, 2024 09:41 AM Reporting Lab: [facility] [address] Performing Lab: [facility] [address] [facility] CBC & DIFF IMMATURE GRANULOCYTE S [PRESENCE] IN BLOOD BY AUTOMATED COUNT 0.04 10*3/u L 0 - 0.1 02/27 Specimen Type: BLOOD Comment: Automated Differentia l Performed Ordering Provider: KATIE JONES Report Released Date/Time: Feb 28, 2024 09:41 AM Reporting Lab: [facility] [address] Performing Lab: [facility] [address] [facility] COMPREHEN SIVE METABOLIC PANEL+MG CREATININE [MASS/VOLUM E] IN SERUM OR PLASMA 1.0 mg/dL 0.7 - 1.2 02/27 Specimen Type: PLASMA No comment entered. Ordering Provider: KATIE JONES Report Released Date/Time: Feb 28, 2024 09:41 AM Reporting Lab: [facility] [address] Performing Lab: [facility] [address] [facility] COMPREHEN SIVE METABOLIC PANEL+MG UREA NITROGEN [MASS/VOLUM E] IN SERUM OR PLASMA 24 mg/dL 8 - 26 02/27 Specimen Type: PLASMA No comment entered. Ordering Provider: KATIE JONES Report Released Date/Time: Feb 28, 2024 09:41 AM Reporting Lab: [facility] [address] Performing Lab: [facility] [address] [facility] COMPREHEN SIVE METABOLIC PANEL+MG GLUCOSE [MASS/VOLUM E] IN SERUM OR PLASMA 90 mg/dL 70 - 100 02/27 Specimen Type: PLASMA No comment entered. Ordering Provider: KATIE JONES Report Released Date/Time: Feb 28, 2024 09:41 AM Reporting Lab: [facility] [address] Performing Lab: [facility] [address] [facility] COMPREHEN SIVE METABOLIC PANEL+MG SODIUM [MOLES/VOLU ME] IN SERUM OR PLASMA 143 mmol/L 136 - 145 02/27 Specimen Type: PLASMA No comment entered. Ordering Provider: KATIE JONES Report Released Date/Time: Feb 28, 2024 09:41 AM Reporting Lab: [facility] [address] Performing Lab: [facility] [address] [facility] COMPREHEN SIVE METABOLIC PANEL+MG POTASSIUM [MOLES/VOLU ME] IN SERUM OR PLASMA 4.1 mmol/L 3.5 - 5.1 02/27 Specimen Type: PLASMA No comment entered. Ordering Provider: KATIE JONES Report Released Date/Time: Feb 28, 2024 09:41 AM Reporting Lab: [facility] [address] Performing Lab: [facility] [address] [facility] COMPREHEN SIVE METABOLIC PANEL+MG CHLORIDE [MOLES/VOLU ME] IN SERUM OR PLASMA 107 mmol/L 98 - 107 02/27 Specimen Type: PLASMA No comment entered. Ordering Provider: KATIE JONES Report Released Date/Time: Feb 28, 2024 09:41 AM Reporting Lab: [facility] [address] Performing Lab: [facility] [address] [facility] COMPREHEN SIVE METABOLIC PANEL+MG CARBON DIOXIDE, TOTAL [MOLES/VOLU ME] IN SERUM OR PLASMA 27 mmol/L 22 - 29 02/27 Specimen Type: PLASMA No comment entered. Ordering Provider: KATIE JONES Report Released Date/Time: Feb 28, 2024 09:41 AM Reporting Lab: [facility] [address] Performing Lab: [facility] [address] [facility] COMPREHEN SIVE METABOLIC PANEL+MG CALCIUM [MASS/VOLUM E] IN SERUM OR PLASMA 9.8 mg/dL 8.4 - 10.2 02/27 Specimen Type: PLASMA No comment entered. Ordering Provider: KATIE JONES Report Released Date/Time: Feb 28, 2024 09:41 AM Reporting Lab: [facility] [address] Performing Lab: [facility] [address] [facility] COMPREHEN SIVE METABOLIC PANEL+MG PROTEIN [MASS/VOLUM E] IN SERUM OR PLASMA 7.3 g/dL 6.0 - 8.3 02/27 Specimen Type: PLASMA No comment entered. Ordering Provider: KATIE JONES Report Released Date/Time: Feb 28, 2024 09:41 AM Reporting Lab: [facility] [address] Performing Lab: [facility] [address] [facility] COMPREHEN SIVE METABOLIC PANEL+MG ALBUMIN [MASS/VOLUM E] IN SERUM OR PLASMA 4.2 g/dL 3.5 - 5.2 02/27 Specimen Type: PLASMA No comment entered. Ordering Provider: KATIE JONES Report Released Date/Time: Feb 28, 2024 09:41 AM Reporting Lab: [facility] [address] Performing Lab: [facility] [address] [facility] COMPREHEN SIVE METABOLIC PANEL+MG BILIRUBIN.T OTAL [MASS/VOLUM E] IN SERUM OR PLASMA 0.8 mg/dL 0.2 - 1.2 02/27 Specimen Type: PLASMA No comment entered. Ordering Provider: KATIE JONES Report Released Date/Time: Feb 28, 2024 09:41 AM Reporting Lab: [facility] [address] Performing Lab: [facility] [address] [facility] COMPREHEN SIVE METABOLIC PANEL+MG MAGNESIUM [MASS/VOLUM E] IN SERUM OR PLASMA 2.3 mg/dL 1.6 - 2.6 02/27 Specimen Type: PLASMA No comment entered. Ordering Provider: KATIE JONES Report Released Date/Time: Feb 28, 2024 09:41 AM Reporting Lab: [facility] [address] Performing Lab: [facility] [address] [facility] COMPREHEN SIVE METABOLIC PANEL+MG ANION GAP IN SERUM OR PLASMA 9 mmol/L 5 - 15 02/27 Specimen Type: PLASMA No comment entered. Ordering Provider: KATIE JONES Report Released Date/Time: Feb 28, 2024 09:41 AM Reporting Lab: [facility] [address] Performing Lab: [facility] [address] [facility] COMPREHEN SIVE METABOLIC PANEL+MG ALKALINE PHOSPHATASE [ENZYMATIC ACTIVITY/VO LUME] IN SERUM OR PLASMA 66 U/L 40 - 150 02/27 Specimen Type: PLASMA No comment entered. Ordering Provider: KATIE JONES Report Released Date/Time: Feb 28, 2024 09:41 AM Reporting Lab: [facility] [address] Performing Lab: [facility] [address] [facility] COMPREHEN SIVE METABOLIC PANEL+MG ALANINE AMINOTRANSF ERASE [ENZYMATIC ACTIVITY/VO LUME] IN SERUM OR PLASMA 13 U/L <55 - 55 02/27 Specimen Type: PLASMA No comment entered. Ordering Provider: KATIE JONES Report Released Date/Time: Feb 28, 2024 09:41 AM Reporting Lab: [facility] [address] Performing Lab: [facility] [address] [facility] COMPREHEN SIVE METABOLIC PANEL+MG ASPARTATE AMINOTRANSF ERASE [ENZYMATIC ACTIVITY/VO LUME] IN SERUM OR PLASMA 18 U/L <34 - 34 02/27 Specimen Type: PLASMA No comment entered. Ordering Provider: KATIE JONES Report Released Date/Time: Feb 28, 2024 09:41 AM Reporting Lab: [facility] [address] Performing Lab: [facility] [address] [facility] COMPREHEN SIVE METABOLIC PANEL+MG GLOMERULAR FILTRATION RATE/1.73 SQ M.PREDICTED [VOLUME RATE/AREA] IN SERUM, PLASMA OR BLOOD BY CREATININE- BASED FORMULA (CKD-EPI 2020) 73 60 02/27 Specimen Type: PLASMA No comment entered. Ordering Provider: KATIE JONES Report Released Date/Time: Feb 28, 2024 09:41 AM Reporting Lab: [facility] [address] Performing Lab: [facility] [address] [facility] PSA PROSTATE SPECIFIC AG [MASS/VOLUM E] IN SERUM OR PLASMA 0.28 ng/mL <4.00 - 4.00 02/27 Specimen Type: SERUM No comment entered. Ordering Provider: KATIE JONES Report Released Date/Time: Feb 28, 2024 09:41 AM Reporting Lab: [facility] [address] Performing Lab: [facility] [address] [facility] LIPID PANEL,NON -FASTING CHOLESTEROL [MASS/VOLUM E] IN SERUM OR PLASMA 236 mg/dL <199 - 199 02/27 H Specimen Type: PLASMA No comment entered. Ordering Provider: KATIE JONES Report Released Date/Time: Feb 28, 2024 09:51 AM Reporting Lab: [facility] [address] Performing Lab: [facility] [address] [facility] LIPID PANEL,NON -FASTING CHOLESTEROL IN HDL [MASS/VOLUM E] IN SERUM OR PLASMA 48 mg/dL 40 02/27 Specimen Type: PLASMA No comment entered. Ordering Provider: KATIE JONES Report Released Date/Time: Feb 28, 2024 09:51 AM Reporting Lab: [facility] [address] Performing Lab: [facility] [address] [facility] LIPID PANEL,NON -FASTING CHOLESTEROL IN LDL [MASS/VOLUM E] IN SERUM OR PLASMA BY CALCULATION 161 mg/dL <99 - 99 02/27 H Specimen Type: PLASMA No comment entered. Ordering Provider: KATIE JONES Report Released Date/Time: Feb 28, 2024 09:51 AM Reporting Lab: [facility] [address] Performing Lab: [facility] [address] [facility] LIPID PANEL,NON -FASTING CHOLESTEROL IN VLDL [MASS/VOLUM E] IN SERUM OR PLASMA BY CALCULATION 27 mg/dL <29 - 29 02/27 Specimen Type: PLASMA No comment entered. Ordering Provider: KATIE JONES Report Released Date/Time: Feb 28, 2024 09:51 AM Reporting Lab: [facility] [address] Performing Lab: [facility] [address] [facility] LIPID PANEL,NON -FASTING CHOLESTEROL NON HDL [MASS/VOLUM E] IN SERUM OR PLASMA 188 mg/dL <129 - 129 02/27 H Specimen Type: PLASMA No comment entered. Ordering Provider: KATIE JONES Report Released Date/Time: Feb 28, 2024 09:51 AM Reporting Lab: [facility] [address] Performing Lab: [facility] [address] [facility] LIPID PANEL,NON -FASTING TRIGLYCERID E [MASS/VOLUM E] IN SERUM OR PLASMA 134 mg/dL <149 - 149 02/27 Specimen Type: PLASMA No comment entered. Ordering Provider: KATIE JONES Report Released Date/Time: Feb 28, 2024 09:51 AM Reporting Lab: [facility] [address] Performing Lab: [facility] [address] [facility] B 12 COBALAMIN (VITAMIN B12) [MASS/VOLUM E] IN SERUM OR PLASMA 532 pg/mL 213 - 816 04/04 Specimen Type: SERUM No comment entered. Ordering Provider: KATIE JONES Report Released Date/Time: Feb 23, 2023 09:34 AM Reporting Lab: [facility] [id number] Performing Lab: [facility] [id number] [facility] FOLATE FOLATE [MASS/VOLUM E] IN SERUM OR PLASMA 14.8 ng/mL 7.0 04/04 Specimen Type: SERUM No comment entered. Ordering Provider: KATIE JONES Report Released Date/Time: Feb 23, 2023 09:34 AM Reporting Lab: [facility] [id number] Performing Lab: [facility] [id number] [facility] CBC & DIFF LEUKOCYTES [#/VOLUME] IN BLOOD BY AUTOMATED COUNT 6.47 10*3/u L 4.0 - 11.0 04/04 Specimen Type: BLOOD Comment: Automated Differentia l Performed Ordering Provider: KATIE JONES Report Released Date/Time: Feb 23, 2023 09:34 AM Reporting Lab: [facility] [phone] Performing Lab: [facility] [phone] [facility] CBC & DIFF ERYTHROCYTE S [#/VOLUME] IN BLOOD BY AUTOMATED COUNT 3.99 10*6/u L 4.6 - 6.2 04/04 L Specimen Type: BLOOD Comment: Automated Differentia l Performed Ordering Provider: KATIE JONES Report Released Date/Time: Feb 23, 2023 09:34 AM Reporting Lab: [facility] [address] Performing Lab: [facility] [address] [facility] CBC & DIFF HEMOGLOBIN [MASS/VOLUM E] IN BLOOD 12.6 g/dL 13.5 - 17.9 04/04 L Specimen Type: BLOOD Comment: Automated Differentia l Performed Ordering Provider: KATIE JONES Report Released Date/Time: Feb 23, 2023 09:34 AM Reporting Lab: [facility] [address] Performing Lab: [facility] [address] [facility] CBC & DIFF HEMATOCRIT [VOLUME FRACTION] OF BLOOD BY AUTOMATED COUNT 38.2 41 - 54 04/04 L Specimen Type: BLOOD Comment: Automated Differentia l Performed Ordering Provider: KATIE JONES Report Released Date/Time: Feb 23, 2023 09:34 AM Reporting Lab: [facility] [address] Performing Lab: [facility] [address] [facility] CBC & DIFF MCV [ENTITIC VOLUME] BY AUTOMATED COUNT 95.7 fL 80 - 100 04/04 Specimen Type: BLOOD Comment: Automated Differentia l Performed Ordering Provider: KATIE JONES Report Released Date/Time: Feb 23, 2023 09:34 AM Reporting Lab: [facility] [address] Performing Lab: [facility] [address] [facility] CBC & DIFF MCH [ENTITIC MASS] BY AUTOMATED COUNT 31.6 pg 27 - 33 04/04 Specimen Type: BLOOD Comment: Automated Differentia l Performed Ordering Provider: KATIE JONES Report Released Date/Time: Feb 23, 2023 09:34 AM Reporting Lab: [facility] [address] Performing Lab: [facility] [address] [facility] CBC & DIFF MCHC [MASS/VOLUM E] BY AUTOMATED COUNT 33.0 g/dL 32.0 - 37.5 04/04 Specimen Type: BLOOD Comment: Automated Differentia l Performed Ordering Provider: KATIE JONES Report Released Date/Time: Feb 23, 2023 09:34 AM Reporting Lab: [facility] [address] Performing Lab: [facility] [address] [facility] CBC & DIFF PLATELETS [#/VOLUME] IN BLOOD BY AUTOMATED COUNT 285 10*3/u L 150 - 400 04/04 Specimen Type: BLOOD Comment: Automated Differentia l Performed Ordering Provider: KATIE JONES Report Released Date/Time: Feb 23, 2023 09:34 AM Reporting Lab: [facility] [address] Performing Lab: [facility] [address] [facility] CBC & DIFF PLATELET MEAN VOLUME [ENTITIC VOLUME] IN BLOOD BY AUTOMATED COUNT 9.0 fL 7.4 - 10.4 04/04 Specimen Type: BLOOD Comment: Automated Differentia l Performed Ordering Provider: KATIE JONES Report Released Date/Time: Feb 23, 2023 09:34 AM Reporting Lab: [facility] [address] Performing Lab: [facility] [address] [facility] CBC & DIFF NEUTROPHILS /100 LEUKOCYTES IN BLOOD BY MANUAL COUNT 67.9 40.0 - 80.0 04/04 Specimen Type: BLOOD Comment: Automated Differentia l Performed Ordering Provider: KATIE JONES Report Released Date/Time: Feb 23, 2023 09:34 AM Reporting Lab: [facility] [address] Performing Lab: [facility] [address] [facility] CBC & DIFF LYMPHOCYTES /100 LEUKOCYTES IN BLOOD BY MANUAL COUNT 18.7 15.0 - 45.0 04/04 Specimen Type: BLOOD Comment: Automated Differentia l Performed Ordering Provider: KATIE JONES Report Released Date/Time: Feb 23, 2023 09:34 AM Reporting Lab: [facility] [address] Performing Lab: [facility] [address] [facility] CBC & DIFF MONOCYTES/1 00 LEUKOCYTES IN BLOOD BY AUTOMATED COUNT 8.8 2.0 - 12.0 04/04 Specimen Type: BLOOD Comment: Automated Differentia l Performed Ordering Provider: KATIE JONES Report Released Date/Time: Feb 23, 2023 09:34 AM Reporting Lab: [facility] [address] Performing Lab: [facility] [address] [facility] CBC & DIFF EOSINOPHILS /100 LEUKOCYTES IN BLOOD BY AUTOMATED COUNT 3.1 0.0 - 6.0 04/04 Specimen Type: BLOOD Comment: Automated Differentia l Performed Ordering Provider: KATIE JONES Report Released Date/Time: Feb 23, 2023 09:34 AM Reporting Lab: [facility] [address] Performing Lab: [facility] [address] [facility] CBC & DIFF BASOPHILS/1 00 LEUKOCYTES IN BLOOD BY MANUAL COUNT 0.6 0.0 - 2.0 04/04 Specimen Type: BLOOD Comment: Automated Differentia l Performed Ordering Provider: KATIE JONES Report Released Date/Time: Feb 23, 2023 09:34 AM Reporting Lab: [facility] [address] Performing Lab: [facility] [address] [facility] CBC & DIFF ERYTHROCYTE DISTRIBUTIO N WIDTH [RATIO] BY AUTOMATED COUNT 14.1 11.5 - 14.5 04/04 Specimen Type: BLOOD Comment: Automated Differentia l Performed Ordering Provider: KATIE JONES Report Released Date/Time: Feb 23, 2023 09:34 AM Reporting Lab: [facility] [address] Performing Lab: [facility] [address] [facility] CBC & DIFF LYMPHOCYTES [#/VOLUME] IN BLOOD BY AUTOMATED COUNT 1.21 10*3/u L 1.0 - 4.0 04/04 Specimen Type: BLOOD Comment: Automated Differentia l Performed Ordering Provider: KATIE JONES Report Released Date/Time: Feb 23, 2023 09:34 AM Reporting Lab: [facility] [address] Performing Lab: [facility] [address] [facility] CBC & DIFF MONOCYTES [#/VOLUME] IN BLOOD BY AUTOMATED COUNT 0.57 10*3/u L 0.1 - 1.0 04/04 Specimen Type: BLOOD Comment: Automated Differentia l Performed Ordering Provider: KATIE JONES Report Released Date/Time: Feb 23, 2023 09:34 AM Reporting Lab: [facility] [address] Performing Lab: [facility] [address] [facility] CBC & DIFF NEUTROPHILS [#/VOLUME] IN BLOOD BY AUTOMATED COUNT 4.39 10*3/u L 2.0 - 7.7 04/04 Specimen Type: BLOOD Comment: Automated Differentia l Performed Ordering Provider: KATIE JONES Report Released Date/Time: Feb 23, 2023 09:34 AM Reporting Lab: [facility] [address] Performing Lab: [facility] [address] [facility] CBC & DIFF EOSINOPHILS [#/VOLUME] IN BLOOD BY AUTOMATED COUNT 0.20 10*3/u L 0 - 0.5 04/04 Specimen Type: BLOOD Comment: Automated Differentia l Performed Ordering Provider: KATIE JONES Report Released Date/Time: Feb 23, 2023 09:34 AM Reporting Lab: [facility] [address] Performing Lab: [facility] [address] [facility] CBC & DIFF BASOPHILS [#/VOLUME] IN BLOOD BY AUTOMATED COUNT 0.04 10*3/u L 0 - 0.2 04/04 Specimen Type: BLOOD Comment: Automated Differentia l Performed Ordering Provider: KATIE JONES Report Released Date/Time: Feb 23, 2023 09:34 AM Reporting Lab: [facility] [address] Performing Lab: [facility] [address] [facility] CBC & DIFF IG(META,MYE LO,PRO) 0.9 04/04 Specimen Type: BLOOD Comment: Automated Differentia l Performed Ordering Provider: KATIE JONES Report Released Date/Time: Feb 23, 2023 09:34 AM Reporting Lab: [facility] [address] Performing Lab: [facility] [address] [facility] CBC & DIFF IMMATURE GRANULOCYTE S [PRESENCE] IN BLOOD BY AUTOMATED COUNT 0.06 10*3/u L 0 - 0.1 04/04 Specimen Type: BLOOD Comment: Automated Differentia l Performed Ordering Provider: KATIE JONES Report Released Date/Time: Feb 23, 2023 09:34 AM Reporting Lab: [facility] [address] Performing Lab: [facility] [address] [facility] IRON GROUP IRON [MASS/VOLUM E] IN SERUM OR PLASMA 69 ug/dL 65 - 175 04/04 Specimen Type: PLASMA No comment entered. Ordering Provider: KATIE JONES Report Released Date/Time: Feb 23, 2023 09:34 AM Reporting Lab: [facility] [address] Performing Lab: [facility] [address] [facility] IRON GROUP IRON BINDING CAPACITY [MASS/VOLUM E] IN SERUM OR PLASMA 263 ug/dL 250 - 425 04/04 Specimen Type: PLASMA No comment entered. Ordering Provider: KATIE JONES Report Released Date/Time: Feb 23, 2023 09:34 AM Reporting Lab: [facility] [address] Performing Lab: [facility] [address] [facility] IRON GROUP FERRITIN [MASS/VOLUM E] IN SERUM OR PLASMA 453.6 ng/mL 21.8 - 274.7 04/04 H Specimen Type: PLASMA No comment entered. Ordering Provider: KATIE JONES Report Released Date/Time: Feb 23, 2023 09:34 AM Reporting Lab: [facility] [address] Performing Lab: [facility] [address] [facility] IRON GROUP IRON SATURATION 26 20 - 50 04/04 Specimen Type: PLASMA No comment entered. Ordering Provider: KATIE JONES Report Released Date/Time: Feb 23, 2023 09:34 AM Reporting Lab: [facility] [address] Performing Lab: [facility] [address] [facility] IRON GROUP TRANSFERRIN [MASS/VOLUM E] IN SERUM OR PLASMA 210 mg/dL 163 - 382 04/04 Specimen Type: PLASMA No comment entered. Ordering Provider: KATIE JONES Report Released Date/Time: Feb 23, 2023 09:34 AM Reporting Lab: [facility] [address] Performing Lab: [facility] [address] [facility] COMPREHEN SIVE METABOLIC PANEL+MG CREATININE [MASS/VOLUM E] IN SERUM OR PLASMA 0.9 mg/dL 0.7 - 1.2 02/22 Specimen Type: PLASMA No comment entered. Ordering Provider: KATIE JONES Report Released Date/Time: Feb 22, 2023 10:40 AM Reporting Lab: [facility] [address] Performing Lab: [facility] [address] [facility] COMPREHEN SIVE METABOLIC PANEL+MG UREA NITROGEN [MASS/VOLUM E] IN SERUM OR PLASMA 16 mg/dL 8 - 26 02/22 Specimen Type: PLASMA No comment entered. Ordering Provider: KATIE JONES Report Released Date/Time: Feb 22, 2023 10:40 AM Reporting Lab: [facility] [address] Performing Lab: [facility] [address] [facility] COMPREHEN SIVE METABOLIC PANEL+MG GLUCOSE [MASS/VOLUM E] IN SERUM OR PLASMA 88 mg/dL 70 - 100 02/22 Specimen Type: PLASMA No comment entered. Ordering Provider: KATIE JONES Report Released Date/Time: Feb 22, 2023 10:40 AM Reporting Lab: [facility] [address] Performing Lab: [facility] [address] [facility] COMPREHEN SIVE METABOLIC PANEL+MG SODIUM [MOLES/VOLU ME] IN SERUM OR PLASMA 141 mmol/L 136 - 145 02/22 Specimen Type: PLASMA No comment entered. Ordering Provider: KATIE JONES Report Released Date/Time: Feb 22, 2023 10:40 AM Reporting Lab: [facility] [address] Performing Lab: [facility] [address] [facility] COMPREHEN SIVE METABOLIC PANEL+MG POTASSIUM [MOLES/VOLU ME] IN SERUM OR PLASMA 4.4 mmol/L 3.5 - 5.1 02/22 Specimen Type: PLASMA No comment entered. Ordering Provider: KATIE JONES Report Released Date/Time: Feb 22, 2023 10:40 AM Reporting Lab: [facility] [address] Performing Lab: [facility] [address] [facility] COMPREHEN SIVE METABOLIC PANEL+MG CHLORIDE [MOLES/VOLU ME] IN SERUM OR PLASMA 109 mmol/L 98 - 107 02/22 H Specimen Type: PLASMA No comment entered. Ordering Provider: KATIE JONES Report Released Date/Time: Feb 22, 2023 10:40 AM Reporting Lab: [facility] [address] Performing Lab: [facility] [address] [facility] COMPREHEN SIVE METABOLIC PANEL+MG CARBON DIOXIDE, TOTAL [MOLES/VOLU ME] IN SERUM OR PLASMA 24 mmol/L 22 - 29 02/22 Specimen Type: PLASMA No comment entered. Ordering Provider: KATIE JONES Report Released Date/Time: Feb 22, 2023 10:40 AM Reporting Lab: [facility] [address] Performing Lab: [facility] [address] [facility] COMPREHEN SIVE METABOLIC PANEL+MG CALCIUM [MASS/VOLUM E] IN SERUM OR PLASMA 9.1 mg/dL 8.4 - 10.2 02/22 Specimen Type: PLASMA No comment entered. Ordering Provider: KATIE JONES Report Released Date/Time: Feb 22, 2023 10:40 AM Reporting Lab: [facility] [address] Performing Lab: [facility] [address] [facility] COMPREHEN SIVE METABOLIC PANEL+MG PROTEIN [MASS/VOLUM E] IN SERUM OR PLASMA 6.7 g/dL 6.0 - 8.3 02/22 Specimen Type: PLASMA No comment entered. Ordering Provider: KATIE JONES Report Released Date/Time: Feb 22, 2023 10:40 AM Reporting Lab: [facility] [address] Performing Lab: [facility] [address] [facility] COMPREHEN SIVE METABOLIC PANEL+MG ALBUMIN [MASS/VOLUM E] IN SERUM OR PLASMA 3.9 g/dL 3.5 - 5.2 02/22 Specimen Type: PLASMA No comment entered. Ordering Provider: KATIE JONES Report Released Date/Time: Feb 22, 2023 10:40 AM Reporting Lab: [facility] [address] Performing Lab: [facility] [address] [facility] COMPREHEN SIVE METABOLIC PANEL+MG BILIRUBIN.T OTAL [MASS/VOLUM E] IN SERUM OR PLASMA 0.8 mg/dL 0.2 - 1.2 02/22 Specimen Type: PLASMA No comment entered. Ordering Provider: KATIE JONES Report Released Date/Time: Feb 22, 2023 10:40 AM Reporting Lab: [facility] [address] Performing Lab: [facility] [address] [facility] COMPREHEN SIVE METABOLIC PANEL+MG MAGNESIUM [MASS/VOLUM E] IN SERUM OR PLASMA 2.2 mg/dL 1.6 - 2.6 02/22 Specimen Type: PLASMA No comment entered. Ordering Provider: KATIE JONES Report Released Date/Time: Feb 22, 2023 10:40 AM Reporting Lab: [facility] [address] Performing Lab: [facility] [address] [facility] COMPREHEN SIVE METABOLIC PANEL+MG ANION GAP IN SERUM OR PLASMA 8 mmol/L 5 - 15 02/22 Specimen Type: PLASMA No comment entered. Ordering Provider: KATIE JONES Report Released Date/Time: Feb 22, 2023 10:40 AM Reporting Lab: [facility] [address] Performing Lab: [facility] [address] [facility] COMPREHEN SIVE METABOLIC PANEL+MG ALKALINE PHOSPHATASE [ENZYMATIC ACTIVITY/VO LUME] IN SERUM OR PLASMA 70 U/L 40 - 150 02/22 Specimen Type: PLASMA No comment entered. Ordering Provider: KATIE JONES Report Released Date/Time: Feb 22, 2023 10:40 AM Reporting Lab: [facility] [address] Performing Lab: [facility] [address] [facility] COMPREHEN SIVE METABOLIC PANEL+MG ALANINE AMINOTRANSF ERASE [ENZYMATIC ACTIVITY/VO LUME] IN SERUM OR PLASMA 10 U/L 02/22 Specimen Type: PLASMA No comment entered. Ordering Provider: KATIE JONES Report Released Date/Time: Feb 22, 2023 10:40 AM Reporting Lab: [facility] [address] Performing Lab: [facility] [address] [facility] COMPREHEN SIVE METABOLIC PANEL+MG ASPARTATE AMINOTRANSF ERASE [ENZYMATIC ACTIVITY/VO LUME] IN SERUM OR PLASMA 19 U/L 02/22 Specimen Type: PLASMA No comment entered. Ordering Provider: KATIE JONES Report Released Date/Time: Feb 22, 2023 10:40 AM Reporting Lab: [facility] [address] Performing Lab: [place] [address] [facility] COMPREHEN SIVE METABOLIC PANEL+MG GLOMERULAR FILTRATION RATE/1.73 SQ M.PREDICTED [VOLUME RATE/AREA] IN SERUM, PLASMA OR BLOOD BY CREATININE- BASED FORMULA (CKD-EPI 2020) 83 02/22 Specimen Type: PLASMA No comment entered. Ordering Provider: KATIE JONES Report Released Date/Time: Feb 22, 2023 10:40 AM Reporting Lab: [facility] [address] Performing Lab: [facility] [address] [facility] HEMOGLOBI N A1C HEMOGLOBIN A1C/HEMOGLO BIN.TOTAL [...] Feb 22, 2023 10:40 AM Reporting Lab: [facility] [address] Performing Lab: [place] [address] [facility] Vital Signs Combined list of inpatient and outpatient Vital Signs from Department of Defense and Veterans Affairs, ranging from 12 months to all on record, depending upon the facility. Vital Sign Value Date Comments Source Encounters Combined list of: 1) Encounters from Department of [facility] facilities going back up to thelast 18 months. 2) Encounters from the Department of [facility] facilities going back up to 280 months. Location Location Details Encounter Type Encounter Number Reason For Visit Attending Provider ADM Date DC Date Status Disposition Source [facility] Outpatient Encounter [id number] 02/[facility]P EST MOD 30-39 MIN [id number] Diagnos is: ICD-10- CM Z00.8 Encount er for other general examina tion
Bob JONES EBMANA Martinez 02/22 [facility] Outpatient Encounter [id number] 02/24 [facility] [place] [facility] Outpatient Encounter [id number] 03/20 [facility] [place] [facility] [place] [id number] Diagnos is: ICD-10- CM Z01.118 Encntr for exam of ears and hearing w oth abnorma l finding s
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, right eye<br/ > KAM FLORES 04/10 [facility] Outpatient Encounter [id number] 04/11 [facility] Outpatient Encounter [id number] 04/19 [facility] OFFICE O/P NEW MOD 45-59 MIN [id number] Diagnos is: ICD-10- CM 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, right eye<br/ > GRAMATES,P EGGY H 05/10 [facility] CONFORMITY EVALUATION [id number] Diagnos is: ICD-10- CM Z46.1 Encount er for fitting and adjustm ent of hearing aid<br/ > NEERU TINAJERO 05/30 [facility] Outpatient Encounter [id number] 07/01 [facility] OFFICE O/P EST LOW 20-29 MIN [id number] Diagnos is: ICD-10- CM G47.39 Other sleep apnea<b r/> KAREN,R EBECCA L 07/11 [facility] EAR IMPRESSION [id number] Diagnos is: ICD-10- CM Z46.1 Encount er for fitting and adjustm ent of hearing aid<br/ > NEERU TINAJERO 08/02 [facility] OFFICE O/P EST MOD 30 MIN [id number] Diagnos is: ICD-10- CM 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
NEERU TINAJERO 01/14 [place] [facility] OFFICE O/P EST MOD 30 MIN [id number] Diagnos is: ICD-10- CM Z00.8 Encount er for other general examina tion
Bob JONES EBECCA L 02/27 [facility] OFF/OP EST MAY X REQ PHY/QHP [id number] Diagnos is: ICD-10- CM Z71.9 Edger Runner ing, unspeci fied
WHITE,TERR A R 03/14 [facility] Social History Combined list of available smoking, tobacco, and other social history from Department of Defense and Veterans Affairs facilities. Social History Type Response Date Comment Sourc e Tobacco smoking status NHIS WI-TOBACCO NEVER USED 02/28/20 [facility]TT History of tobacco use WI-TOBACCO FORMER USER 02/22/2023 [facility] Plan of Care List of future care activities from [facility] of [facility] facilities. Additional future care activities may be listed in the Assessment and Plan section. Date/Time Care Activity Care Activity Detail Facili ty 06/27/2024 AMBULATORY - SURGERY AMBULATORY - SURGERY [facility] Advance Directives List of completed, amended, or rescinded Advance Directives on record at Department of Veterans Affairs facilities. An actual copy of the Directive is not included. Date Advance Directive Provider Source 04/19/2023 [facility] DIRECTIVE DISCUSSION [facility] 04/19/2023 [facility]
--- OUTSIDE RECORDS SUMMARY | 2024-05-08 11:05 | XMS_ITS | Referral Summary ---
Author Organization [facility] Address [address] [place] [address] Care Team Providers Care Armature Rewinder Name Role Phone Unavailable Primary Care Provider Unavailabl e Source Comments Patient records contain information from all sites at [facility]. For routine questions regarding patient records, call [phone] during business hours, M-F 8:00 AM - 5:00 PM Central Time. 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 Height 175.3 cm (5' 9) 07/12/2020 8:27 AM [employer] WORKER Body Mass Index 32.98 09/20/2016 4:53 PM [employer] WORKER Plan of Treatment Not on file
--- OUTSIDE RECORDS SUMMARY | 2024-05-08 11:05 | XMS_ITS ---
Author Organization [facility] Address [address] [place] [address] Care Team Providers Care Fish Dressing Machine Feeder Name Role Phone Unavailable Unavailable Unavailable Surgery Details Not on file Complications Check Surgery Details section. Procedure Estimated Blood Loss Check Surgery Details section. Procedure Findings Check Surgery Details section. Procedure Specimens Taken Check Surgery Details section.
--- OUTSIDE RECORDS SUMMARY | 2024-05-08 11:06 | XMS_ITS | Clinical Summary ---
Author Organization [facility] Address [place], [place] [address] Care Team Providers Care Manager Research Name Role Phone Trace Tom MD Primary [...] for age 50+ (1 of 2) 1986 RSV vaccine for adults or pr egnancy (1 - 1-dose 60+ series) 1996 Medicare Wellness for age 65+ 2001 Pneumococcal series for age 65+ (1 of 1 - PCV) 2001 COVID-19 vaccine series (4 2022- season) 2024 07/13/2021, 12/01/2020, 11/04/2020 Influenza for age 65+ 05/05/2024 Medical Devices Implanted Type Area Filler Mixer Device Identifier Shelf Expiration Date Model / Serial / Lot Cancellous Bone Screw Implanted:Qty: 1 on 01/30/2018 by Dickson Sevilla MD at [facility] Right: Hip [employer] 10/29/2022 / / [id number] Cluster Acetabluar Shell Implanted:Qty: 1 on 01/30/2018 by Dickson Sevilla MD at [facility] Right: Hip [employer] 10/16/2022 / / [id number] Polyethlene Insert Implanted:Qty: 1 on 01/30/2018 by Dickson Sevilla MD at [facility] Right: Hip [facility] 07/09/2022 / / [id number] Neck Angle Hip Stem Implanted:Qty: 1 on 01/30/2018 by Dickson Sevilla MD at [facility] Right: Hip [facility] 11/24/2022 / / [id number] C-Taper Femoral Head Implanted:Qty: 1 on 01/30/2018 by Dickson Sevilla MD at [facility] Right: Hip [facility] 10/29/2022 / / [id number] Directives [...] 10:51 AM 01/30/2018 2:57 PM Care Teams Manager Research Relationship Specialty Start Date End Date Trace Tom MD [address] [place] [address] PCP - General Family Practice 01/25/22
--- OUTSIDE RECORDS SUMMARY | 2024-05-08 11:06 | XMS_ITS | Referral Summary ---
Author Organization Section Address [facility] [place] [address] Care Team Providers Care Detasseler Name Role Phone Clinic, [facility] Primary Care Provider + Allergies [...] of Treatment Not on file Care Teams Detasseler Relationship Specialty Start Date End Date Clinic, [address] [address] PCP - General 06/26/20
--- OUTSIDE RECORDS SUMMARY | 2024-05-08 11:06 | XMS_ITS | Clinical Summary ---
Author Organization [facility] Address [address] [address] Care Team Providers Care Admissions Supervisor Name Role Phone Unavailable Primary Care Provider Unavailabl e Source Comments You are receiving this document as you are listed as the primary care provider,follow-up provider, or the patient has been referred to you for consultation.This is in compliance with the Medicare and[facility] EHR Incentive Program,which states Providers who transition [...] this topic DASHAWN COTE Personal/Famil y [address] [place] [address]
--- OUTSIDE RECORDS SUMMARY | 2024-05-08 11:06 | XMS_ITS | Clinical Summary ---
Author Organization [place] Address [facility] [place] [address] Care Team Providers Care Chamber Walker Name Role Phone Clinic, [facility] Primary Care Provider + Allergies [...] of Treatment Not on file Care Teams Chamber Walker Relationship Specialty Start Date End Date Clinic, [address] [address] PCP - General 06/26/20
== END 2024-05-08 11:03 | disposition home or self-care (01) ==
LOC: WOUND 11:02
PROVIDERS: Visit Provider Surgery
DX: I87.312 Chronic venous hypertension (idiopathic) with ulcer of left lower extremity (principal); L97.822 Non-pressure chronic ulcer of other part of left lower leg with fat layer exposed
CPT/HCPCS: 11042

== ENCOUNTER 2024-05-15 11:13 | Outpatient (CLI) | payer MEDICARE, BC, SELFPAY ==
--- OUTSIDE RECORDS SUMMARY | 2024-05-15 11:17 | XMS_ITS | Encounter Summary ---
Author Name [facility] [place] Organization [facility] [place] Address [address] [place] [address] Care Team Providers Care Front Desk Specialist Name Role Phone GARY JONES Primary Care [...] Duncan's Name Patient's Relationship to Policy Duncan [facility] (WNR) MEDICARE ADVANTAGE [facility] (WNR) Sep 04, 2021 [id number] [phone] Merna COTE PATIENT Selected Encounter This section includes the information on record at [place] for the Encounter. Date/Time Encounter Type Encounter Description Reason Provider Source Feb 28, 2024 09:00 AM OFFICE O/P EST MOD 30 MIN PRIMARY CARE/MEDICINE ICD-10-CM Z00.8 Encounter for other general examination IVETH JONES Encounter Template Text not used by [place] Assessments - Encounter Diagnoses This section includes the primary and secondary diagnoses documented for the Encounter. Date/Time Primary/Secondary Diagnosis Diagnosis Name Provider Source Feb 28, 2024 10:02 AM PRIMARY Encounter for other general examination IVETH JONES CB Feb 28, 2024 10:02 AM SECONDARY Edema, unspecified IVETH JONES [facility] Feb 28, 2024 10:02 AM SECONDARY Personal history of malignant neoplasm of prostate IVETH JONES BEV MENENDEZ [facility] Feb 28, 2024 10:02 AM SECONDARY Unspecified open wound, unspecified ankle, initial encounter KARENIVETH MENENDEZ JUANCARLOS Plan of Treatment: Future Appointments (+ 6 months) and Future Tests (+/- 45 days) The Plan of Treatment section includes future care activities for the patient from all [place] treatmentfacilities. This section includes future appointments and future orders which are active, pending or scheduled. Future Appointments This section includes appointments that were scheduled to occur 6 months from the date of the Encounter, up to a maximum of 20 appointments. The data comes from all [place] treatment facilities. Appointment Date/Time Appointment Type Appointme nt Facility Name Mar 14, 2024 11:00 AM AMBULATORY - MEDICINE BETTIE GONZALEZ [facility] Jun 27, 2024 08:40 AM AMBULATORY - SURGERY [facility] Lab Results: +/- 30 days of the encounter This section includes the Chemistry and Hematology Lab Results on record with [place] for the patient. Radiology Reports and Pathology Reports are provided separately, in subsequent sections. Lab Results This section contains the Chemistry/Hematology Results that were resulted 30 days before or 30 daysafter the date of the Encounter. Date/Time Source Result Type Result - Unit Interpretation Reference Range Comment Feb 28, 2024 09:59 AM [facility] CBC & DIFF Specimen Type: BLOOD Comment: Automated Differential Performed Ordering Provider: IVETH JONES Report Released Date/Time: Feb 28, 2024 09:41 AM Reporting Lab: [facility] [id number] Performing Lab: [facility] [id number] WBC 7.34 10*3/uL 4.0-11.0 RBC 4.19 10*6/uL [...] 10*3/uL 0-0.1 Feb 28, 2024 09:59 AM [place] [facility] COMPREHENSIVE METABOLIC PANEL+MG Specimen Type: PLASMA No comment entered. Ordering Provider: IVETH JONES Report Released Date/Time: Feb 28, 2024 09:41 AM Reporting Lab: [facility] [id number] Performing Lab: [facility] [address] CREATININE 1.0 mg/dL 0.7-1.2 UREA NITROGEN 24 [...] 73 >60 Feb 28, 2024 09:59 AM [facility] PSA Specimen Type: SERUM No comment entered. Ordering Provider: IVETH JONES Report Released Date/Time: Feb 28, 2024 09:41 AM Reporting Lab: [facility] [address] Performing Lab: [facility] [id number] PSA 0.28 ng/mL <4.00 Feb 28, 2024 09:59 AM [facility] LIPID PANEL,NON-FASTING Specimen Type: PLASMA No comment entered. Ordering Provider: IVETH JONES Report Released Date/Time: Feb 28, 2024 09:51 AM Reporting Lab: [facility] [id number] Performing Lab: [facility] [address] CHOLESTEROL 236 mg/dL H <199 .HDL 48 [...] and tobacco- related health factors from the [place] facility where the Encounter took place. Current Smoking Status This section includes the most current smoking, or tobacco-related health factor, from the [place] facility where the Encounter took place. Date/Time Current Smoking Status Comment Brandon ity Feb 28, 2024 09:00 AM VA-TOBACCO NEVER USED [facility] Tobacco Use History This section includes a history of the smoking, or tobacco-related health factors, that were collected on or before the date of the Encounter. The data comes from the [place] facility where the Encounter took place. Date/Time Smoking Status/Tobacco Use Comment F acility Feb 22, 2023 09:30 AM VA-TOBACCO FORMER USER [facility] Feb 22, 2023 09:30 AM VA-TOBACCO QUIT 15 YRS OR MORE [facility] Advance Directives: All historical and current Section Date Range: From patient's date of to the date document was created. This section includes ALL of a patient's completed or amended [place] Advance and Rescinded Directives. The entries below indicate that a directive exists for the patient, but an actual copy is not included with this document. The data comes from all [place] facilities. Date Advance Directives Provider Source Apr 19, 2023 ADVANCE DIRECTIVE DISCUSSION RALEIGH RHODES [facility] Apr 19, 2023 ADVANCE DIRECTIVE YOVANA RHODES [facility] Encounter Notes: All associated encounter notes This section contains the clinical notes associated to the Encounter. Date/Time Encounter Note(s) Provider Source Feb 29, 2024 10:24 AM LETTERS: LOCAL TITLE: FOLLOW UP RESULTS LETTER STANDARD TITLE: LETTERS DATE OF NOTE: FEB 29, 2024@10:24 ENTRY DATE: FEB 29, 2024@10:24:34 AUTHOR: GARY JONES COSIGNER: URGENCY: STATUS: COMPLETED [facility] [address] [place] [address] Feb TAE COTE [address] [facility] [address] Dear : I am writing to inform you of the results of testing that you had done recently at the [facility]. - Cholesterol Tests (HDL = good and [...] staff or provider at the following number: [phone]. Sincerely, GARY JONES PHYSICIAN GARY JONES [facility] Feb 28, 2024 10:04 AM MEDICATION MGT [...] JONES PHYSICIAN Signed: 02/28/2024 10:04 GARY JONES [facility] Feb 28, 2024 09:36 AM H & P NOTE: LOCAL TITLE: [facility] ANNUAL VISIT STANDARD TITLE: H & P NOTE DATE OF NOTE: FEB 28, 2024@09:36 ENTRY DATE: FEB 28, 2024@09:37:04 AUTHOR: GARY JONES EXP COSIGNER: URGENCY: STATUS: COMPLETED Annual visit Non [place] Providers: dermatology in [facility], Urology [facility] Chief complaint: Patient is here for a [...] , shallow and not infected now. 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 However if gets bigger or infected will need to go to wound clinic Assessment/Plan: 1. Routine labs today 2. ophtho sees regularly 3. dentist sdue 4. Audio got new hearing aides recently 5. Medications reviewed, 6. Will have him follow up with [facility] in 2 weeks for wound check, may [...] hazardous substance (SCT 1 ACTIVE Entered through [facility] [facility]OSIE Documentation Initiative 5. Obstructive Sleep Apnea of Adult (SCT [id number] ACTIVE See scanned records in [place] for details PSH: SURGERIES - s/p surgery [...] COVID-19 (MODERNA), MRNA, LNP-S,* 3 07/13/2021 [facility] * COVID-19 (MODERNA), MRNA, LNP-S,* 2 12/01/2020 [facility]* COVID-19 (MODERNA), MRNA, LNP-S,* 1 11/04/2020 [facility]* COVID-19 (PFIZER), MRNA, LNP-S, * 1 07/11/2023 [facility] * HEP B, UNSPECIFIED FORMULATION 03/25/2010 [facility] [facility] INFLUENZA, HIGH-DOSE, QUADRIVALE* 07/11/2023 [facility] * INFLUENZA, HIGH-DOSE, QUADRIVALE* 06/08/2022 [facility] [facility] [...] IIS INFLUENZA, UNSPECIFIED FORMULATI* 06/08/2022 [facility]* NOVEL [id number] 06/30/2009 [facility] [facility] PNEUMOCOCCAL CONJUGATE PCV20, PO* 02/22/2023 [facility] * TDAP 09/20/2016 [facility]* TDAP 06/25/2012 [facility] [facility] CONTRAINDICATED No data available REFUSED ======= No data available * Value is truncated; see the Detailed Immunizations Health Summary Component [DIM] for complete text ====== Labs: pending /felix/ GARY JONES PHYSICIAN Signed: 02/28/2024 10:03 GARY JONES [facility] Feb 28, 2024 09:20 AM PRIMARY CARE NURSING NOTE: LOCAL TITLE: [facility] NURSING PROGRESS NOTE STANDARD TITLE: PRIMARY CARE NURSING NOTE DATE OF NOTE: FEB 28, 2024@09:20 ENTRY DATE: FEB 28, 2024@09:20:24 AUTHOR: TOOTIE ANDERSON EXP COSIGNER: URGENCY: STATUS: COMPLETED [facility] NURSING PROGRESS [...] treatment. 2. Complete a durable power of collections attorney for health care. 3. Complete a living will. ADVANCE DIRECTIVE SCREENING: Does patient have an Advance Directive? The patient has an Advance Directive. Does the patient wish to make any changes or revoke their current Advance Directive? No changes requested at this time. Suicide Screen: C-SSRS Screening [place] Suicide Severity Rating Scale (C-SSRS) screener 1. [...] ulcers, or a wound from a medical fee clerk or Patient is bed-confined or a wheelchair-user or Patient requires assistance to transfer/change position No, Skin Screen is Negative Home Abuse/Violence Screen Is your home free of abuse and violence? Yes MOVE! Program Screen Body Mass Index (BMI)= 30.8 [place]: Collection DT Specimen Test Name Result Units Ref Range 02/22/2023 11:09 BLOOD !! HEMOGLOBIN A1C 5.0 % 4.0 - 6.0 !! Indicates COMMENTS AVAILABLE...Refer to Interim Lab Report. [place] Hgb A1C: No data available [place] Hgb A1C: No data available Point of Care Hgb A1C: POC HGB A1C____ Outpatient Nutrition Screen Body Mass Index (BMI)= 30.8 [place]: Collection DT Specimen Test Name Result Units Ref Range 02/22/2023 11:09 BLOOD !! HEMOGLOBIN A1C 5.0 % 4.0 - 6.0 !! Indicates COMMENTS AVAILABLE...Refer to Interim Lab Report. [place] Hgb A1C: No data available [place] Hgb A1C: No data available Point of [...] outpatient visit? No /es/ TOOTIE ANDERSON LPN CALL CENTER CONSULTANT [facility] Signed: 02/28/2024 09:38 02/28/2024 ADDENDUM STATUS: COMPLETED [...] get more. Never true Food Assistance Programs [facility] Food Assistance Programs [facility] WHOLE HEALTH QUESTIONS: Whole Health Screening Why is addressing your overall health important to you? What do you want your health for (why do you want to be healthy)? . So I can be active Limited only be my medical problem. /felix/ TOOTIE ANDERSON LPN CALL CENTER CONSULTANT [facility] Signed: 02/28/2024 11:20 TOOTIE ANDERSON [facility]
--- OUTSIDE RECORDS SUMMARY | 2024-05-15 11:17 | XMS_ITS | Encounter Summary ---
Author Name [facility] [place] [place] [facility] [place] Address [address] [place] [address] Care Team Providers Care Senior Network Engineer Name Role Phone GARY JONES Primary Care [...] Duncan's Name Patient's Relationship to Policy Duncan [facility] (WNR) MEDICARE ADVANTAGE [facility] (WNR) Sep 04, 2021 [id number] [phone] Merna COTE PATIENT Selected Encounter This section includes the information on record at [place] for the Encounter. Date/Time Encounter Type Encounter [...] care activities for the patient from all [place] treatmentfacilities. This section includes future appointments and future orders which are active, pending or scheduled. Future Appointments This section includes appointments that were scheduled to occur 6 months from the date of the Encounter, up to a maximum of 20 appointments. The data comes from all [place] treatment facilities. Appointment Date/Time Appointment Type Appointme nt Facility Name Jun 27, 2024 08:40 AM AMBULATORY - SURGERY [facility] Lab Results: +/- 30 days of the encounter This section includes the Chemistry and Hematology Lab Results on record with [place] for the patient. Radiology Reports and Pathology Reports are provided separately, in subsequent sections. Lab Results This section contains the Chemistry/Hematology Results that were resulted 30 days before or 30 daysafter the date of the Encounter. Date/Time Source Result Type Result - Unit Interpretation Reference Range Comment Feb 28, 2024 09:59 AM [facility] CBC & DIFF Specimen Type: BLOOD Comment: Automated Differential Performed Ordering Provider: IVETH JONES Report Released Date/Time: Feb 28, 2024 09:41 AM Reporting Lab: [facility] [id number] Performing Lab: [facility] [address] WBC 7.34 10*3/uL 4.0-11.0 RBC 4.19 10*6/uL [...] 10*3/uL 0-0.1 Feb 28, 2024 09:59 AM [facility] COMPREHENSIVE METABOLIC PANEL+MG Specimen Type: PLASMA No comment entered. Ordering Provider: IVETH JONES Report Released Date/Time: Feb 28, 2024 09:41 AM Reporting Lab: [facility] [id number] Performing Lab: [facility] [address] CREATININE 1.0 mg/dL 0.7-1.2 UREA NITROGEN 24 [...] 73 >60 Feb 28, 2024 09:59 AM [facility] PSA Specimen Type: SERUM No comment entered. Ordering Provider: IVETH JONES Report Released Date/Time: Feb 28, 2024 09:41 AM Reporting Lab: [facility] [address] Performing Lab: [facility] [address] PSA 0.28 ng/mL <4.00 Feb 28, 2024 09:59 AM [facility] LIPID PANEL,NON-FASTING Specimen Type: PLASMA No comment entered. Ordering Provider: IVETH JONES Report Released Date/Time: Feb 28, 2024 09:51 AM Reporting Lab: [facility] [place] [address] Performing Lab: [facility] [address] CHOLESTEROL 236 mg/dL H <199 .HDL 48 mg/dL >40 LDL CALCULATION 161 mg/dL H <99 VLDL CALCULATION 27 mg/dL <29 NON HDL CHOLESTEROL 188 mg/dL H <129 TRIG(NON FASTING) 134 mg/dL <149 Social History: Smoking Status (Most current) and Tobacco Use (All prior to encounter date) This section includes the most current, and the historical, smoking and tobacco- related health factors from the [place] facility where the Encounter took place. Current Smoking Status This section includes the most current smoking, or tobacco-related health factor, from the [place] facility where the Encounter took place. Date/Time Current Smoking Status Comment Facil ity Feb 28, 2024 09:00 AM VA-TOBACCO NEVER USED [facility] Tobacco Use History This section includes a history of the smoking, or tobacco-related health factors, that were collected on or before the date of the Encounter. The data comes from the [place] facility where the Encounter took place. Date/Time Smoking Status/Tobacco Use Comment F acility Feb 22, 2023 09:30 AM VA-TOBACCO FORMER USER [facility] Feb 22, 2023 09:30 AM VA-TOBACCO QUIT 15 YRS OR MORE [facility] Advance Directives: All historical and current Section Date Range: From patient's date of to the date document was created. This section includes ALL of a patient's completed or amended [place] Advance and Rescinded Directives. The entries below indicate that a directive exists for the patient, but an actual copy is not included with this document. The data comes from all [place] facilities. Date Advance Directives Provider Source Apr 19, 2023 ADVANCE DIRECTIVE DISCUSSION RALEIGH RHODES [facility] Apr 19, 2023 ADVANCE DIRECTIVE YOVANA RHODES [facility] Encounter Notes: All associated encounter notes This [...] OF VISIT: Nurse Clinic REASON FOR VISIT: came to clinic for scheduled RN clinic [...] , shallow and not infected now. 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 However if gets bigger or infected will need to go to wound clinic Assessment: ALLERGIES: FACILITY ALLERGY/ADR -------- No Remote Allergy/ADR Data available for this patient [facility] No Known Allergies Pharm Spec evaluated pt's lower extremities for changes in edema and also wound on left lateral aspect of ankle (approx. size of a quarter). Wound appears to be closed/dry, skin is not open or oozing, no drainage or signs of infection noted. Pt and SO report wound looks better. Pt was not wearing compression stockings. Edema is minimal. Pharm Spec did not see wound when pt was [...] on 03/28 @ 1100 for wound check. Pharm Spec will remain available to assist as needed. /felix/ ROLAND ROBBINSRN REGISTERED NURSE Signed: 03/19/2024 08:52 Receipt Acknowledged By: 03/19/2024 09:06 /felix/ GARY JONES PHYSICIAN ROLAND ROBBINS [facility]
--- OUTSIDE RECORDS SUMMARY | 2024-05-15 11:17 | XMS_ITS | Referral Summary ---
Author Organization [facility] Address [address] [place] [address] Care Team Providers Care Electrician Name Role Phone Unavailable Primary Care Provider Unavailabl e Source Comments Patient records contain information from all sites at [facility]. For routine questions regarding patient records, call [phone] during business hours, M-F 8:00 AM - 5:00 PM Central Time. Record requests for emergency care only can be directed to [phone] at any time.[facility] Allergies No known active allergies Medications Medication [...] Comments Blood Pressure 140/74 07/12/2020 11:15 AM WOUND SPECIALIST Pulse 60 07/12/2020 11:15 AM WOUND SPECIALIST Temperature 37.3 ??C (99.1 ??F) 07/12/2020 1 1:15 AM WOUND SPECIALIST Respiratory Rate 20 07/12/2020 8:28 AM WOUND SPECIALIST Oxygen Saturation 96% 07/12/2020 11: 15 AM WOUND SPECIALIST Inhaled Oxygen Concentration - - Weight 101 kg (222 lb 10.6 oz) 2016 2:13 PM CDT Vital sign result from Clinical Notes. Height 175.3 cm (5' 9) 07/12/2020 8:27 AM WOUND SPECIALIST Body Mass Index 32.98 09/20/2016 4:53 PM WOUND SPECIALIST Plan of Treatment Not on file
--- OUTSIDE RECORDS SUMMARY | 2024-05-15 11:17 | XMS_ITS | Clinical Summary ---
Author Organization [facility] Address [address] [place] [address] Care Team Providers Care Job Foreman Name Role Phone Unavailable Primary Care Provider Unavailabl e Source Comments Patient records contain information from all sites at [facility]. For routine questions regarding patient records, call [phone] during business hours, M-F 8:00 AM - 5:00 PM Central Time. Record requests for emergency care only can be directed to [phone] at any time.[facility] Allergies No known active allergies Medications Medication [...] Comments Blood Pressure 140/74 07/12/2020 11:15 AM ELECTRONIC ASSEMBLER Pulse 60 07/12/2020 11:15 AM ELECTRONIC ASSEMBLER Temperature 37.3 ??C (99.1 ??F) 07/12/2020 1 1:15 AM ELECTRONIC ASSEMBLER Respiratory Rate 20 07/12/2020 8:28 AM ELECTRONIC ASSEMBLER Oxygen Saturation 96% 07/12/2020 11: 15 AM ELECTRONIC ASSEMBLER Inhaled Oxygen Concentration - - Weight 101 kg (222 lb 10.6 oz) 2016 2:13 PM CDT Vital sign result from Clinical Notes. Height 175.3 cm (5' 9) 07/12/2020 8:27 AM ELECTRONIC ASSEMBLER Body Mass Index 32.98 09/20/2016 4:53 PM ELECTRONIC ASSEMBLER Plan of Treatment Health Maintenance Due Date [...]
--- OUTSIDE RECORDS SUMMARY | 2024-05-15 11:17 | XMS_ITS | Continuity of Care Document ---
Author Name [facility] Organization [facility] Care Team Providers Care Radiology Clerk Name Role Phone [facility] Unavailable Unavailable Problems Combined list of problems from Department of Defense and Veterans Affairs facilities. It does not include entries that were removed or entered in error. Problem Status Onset Date Problem Type Date of Resolution Comments Source Exposure to potentially hazardous substance ([facility] [id number]) Active 11/10/19 24 Condition Nov 10, 2023 Entered By: FLORES KENNEDY Comment: [facility] Documentation Initiative [facility] Edema Active Condition Feb 22 Entered By: GARY JONES Comment: trated for prostate ca with 44 radiation treatmentsFeb 22, 2023 Entered By: GARY JONES Comment: treated fro prostate cancer with 44 radiation treatments [facility] 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 Active Condition Feb 22, 2023 Entered By: GARY JONES Comment: treated prostate cancer with 44 radiation treatments [facility] Malignant melanoma Active Condition [facility] Obstructive Sleep Apnea of Adult ([facility] [id number]) Active Condition Dec 28, 2023 Entered By: WILEY ARTHUR Comment: See scanned records in [place] for details [facility] Diagnosis: ICD-10-CM Z71.9 Counseling, unspecified Active Diagnosis [facility] Diagnosis: ICD-10-CM Z00.8 Encounter for other general examination Active Diagnosis [facility] Diagnosis: ICD-10-CM 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 loss, bilateral Active Diagnosis [facility] Diagnosis: ICD-10-CM 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, right eye Active Diagnosis [facility] Diagnosis: ICD-10-CM Z46.1 Encounter for fitting and adjustment of hearing aid Active Diagnosis [facility] Diagnosis: ICD-10-CM G47.39 Other sleep apnea Active Diagnosis [facility] Diagnosis: ICD-10-CM 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, right eye Active Diagnosis [facility] Diagnosis: ICD-10-CM Z01.118 Encntr for exam of ears and hearing w oth abnormal findings Active Diagnosis [facility] Medications Combined list of outpatient medications [...] Jul 12, 2023 2 Jul 12, 2024 [id number] Jul 12, 2023 GARY JONES RESPIR ATORY (INHAL ATION) ACTIVE 07/12/2024 [id number] GARY JONES 2022 2 JIM[facility]TT [...] Nov 01, 2023 15 Nov 01, 2024 [id number] Nov 02, 2023 GRAMATES ,CHRISTINA H [place] [facility] [facility] OPHTHA LMIC ACTIVE 11/01/2024 [id number] GRAMATES, CHRISTINA H 2023 15 [place] [facility] CHOLECALCIF VAL TAB CHOLECAL CIFEROL TAB Non-VA TAKE 1 TAB BY MOUTH Feb 28, 2024 Non-[place] Document ed by: GARY JONES Document ed at: [facility] ORAL ACTIVE GARY JONES 2023 JIMMY BARRE[facility] IBUPROFEN 600MG TAB IBUPROFE N 600MG TAB Non-VA TAKE ONE TABLET BY MOUTH THREE TIMES A DAY NEEDED Feb 28, 2024 Non-VA Document ed by: GARY JONES Document ed at: [facility] ORAL ACTIVE GARY JONES 2023 CHELSYKOCLAIRE [...] Feb 28, 2024 90 Feb 28, 2025 [id number] Feb 28, 2024 [facility] ORAL ACTIVE 02/28/2025 [id number] GARY JONES 2023 90 JIM[facility] ZINC 50MG (FROM SULFATE) CAP ZINC 50MG (FROM SULFATE) CAP Non-VA TAKE 1 CAPSULE BY MOUTH EVERY DAY UNKNOWN Feb 22, 2023 Non-[place] Document ed by: GARY JONES Document ed at: [facility] ORAL ACTIVE GARY JONES 2022 SHARADHA BARRETT Immunizations Combined list of available immunizations from the Department of Defense and Veterans Affairs facilities. Immunization Series Date Given Administered By Site Reaction Lot Number CVX Code Drug Catalogue Illustrator Status Comments Source COVID-19 (Stitcher), MRNA, LNP-S, PF, JASON-SUCROSE, 30 MCG/0.3 ML (AGES 12+ YEARS) 1 2022 TOOTIE ANDERSON LEFT DELTO ID [id number] 309 complet ed [facility] INFLUENZA, HIGH-DOSE, QUADRIVALENT 2022 TOOTIE ANDERSON LEFT DELTO ID [id number] 197 complet ed [facility] PNEUMOCOCCAL CONJUGATE PCV20, POLYSACCHARID E [id number] CONJUGATE, ADJUVANT, PF 2022 TOOTIE ANDERSON LEFT DELTO ID [id number] 216 complet ed [facility] INFLUENZA, HIGH-DOSE, QUADRIVALENT, PF 2021 197 complet ed [facility] INFLUENZA, UNSPECIFIED FORMULATION 2021 88 complet ed [facility] COVID-19 (MODERNA), MRNA, LNP-S, PF, 100 MCG/0.5ML DOSE OR 50 MCG/0.25ML DOSE 3 2020 207 complet ed [facility] INFLUENZA, HIGH-DOSE, QUADRIVALENT, PF 2020 197 complet ed [facility] COVID-19 (MODERNA), MRNA, LNP-S, PF, 100 MCG/0.5ML DOSE OR 50 MCG/0.25ML DOSE 2 2020 207 complet ed [facility] COVID-19 (MODERNA), MRNA, LNP-S, PF, 100 MCG/0.5ML DOSE OR 50 MCG/0.25ML DOSE 1 2020 207 complet ed [facility] INFLUENZA, HIGH-DOSE, TRIVALENT, PF 2018 135 complet ed [facility] INFLUENZA, HIGH-DOSE, TRIVALENT, PF 2016 135 complet ed [facility] TDAP 2016 115 complet ed [facility] INFLUENZA, SPLIT VIRUS, QUADRIVALENT, PF 2015 150 complet ed [facility] INFLUENZA, HIGH-DOSE, TRIVALENT, PF 2015 135 complet ed [facility] INFLUENZA, HIGH-DOSE, TRIVALENT, PF 2012 135 complet ed [facility] INFLUENZA, SPLIT VIRUS, TRIVALENT, PRESERVATIVE 2012 141 complet ed [facility] TDAP 2011 115 complet [facility] INFLUENZA, SPLIT VIRUS, TRIVALENT, PF 2010 140 complet [facility] HEP B, UNSPECIFIED FORMULATION 2009 45 complet [facility] NOVEL INFLUENZA-H1N 1-09 2008 127 complet ed [facility] Results Combined list of recent chemistry, [...] Feb 28, 2024 09:41 AM Reporting Lab: [facility] [address] Performing Lab: [facility] [address] [facility] CBC & DIFF ERYTHROCYTE S [#/VOLUME] IN BLOOD BY AUTOMATED COUNT 4.19 10*6/u L 4.6 - 6.2 02/27 L Specimen Type: BLOOD Comment: Automated Differentia l Performed Ordering Provider: KATIE JONES Report Released Date/Time: Feb 28, 2024 09:41 AM Reporting Lab: [facility] [address] Performing Lab: [facility] [address] [facility] CBC & DIFF HEMOGLOBIN [MASS/VOLUM E] IN BLOOD 13.4 g/dL 13.5 - 17.9 02/27 L Specimen Type: BLOOD Comment: Automated Differentia l Performed Ordering Provider: KATIE JONES Report Released Date/Time: Feb 28, 2024 09:41 AM Reporting Lab: [facility] [address] Performing Lab: [facility] [address] [facility] CBC & DIFF HEMATOCRIT [VOLUME FRACTION] OF BLOOD BY AUTOMATED COUNT 40.6 41 - 54 02/27 L Specimen Type: BLOOD Comment: Automated Differentia l Performed Ordering Provider: KATIE JONES Report Released Date/Time: Feb 28, 2024 09:41 AM Reporting Lab: [facility] [address] Performing Lab: [facility] [address] [facility] CBC & DIFF MCV [ENTITIC VOLUME] BY AUTOMATED COUNT 96.9 fL 80 - 100 02/27 Specimen Type: BLOOD Comment: Automated Differentia l Performed Ordering Provider: KATIE JONES Report Released Date/Time: Feb 28, 2024 09:41 AM Reporting Lab: [facility] [address] Performing Lab: [facility] [address] [facility] CBC & DIFF MCH [ENTITIC MASS] BY AUTOMATED COUNT 32.0 pg 27 - 33 02/27 Specimen Type: BLOOD Comment: Automated Differentia l Performed Ordering Provider: KATIE JONES Report Released Date/Time: Feb 28, 2024 09:41 AM Reporting Lab: [facility] [address] Performing Lab: [facility] [address] [facility] CBC & DIFF MCHC [MASS/VOLUM E] BY AUTOMATED COUNT 33.0 g/dL 32.0 - 37.5 02/27 Specimen Type: BLOOD Comment: Automated Differentia l Performed Ordering Provider: KATIE JONES Report Released Date/Time: Feb 28, 2024 09:41 AM Reporting Lab: [facility] [address] Performing Lab: [facility] [address] [facility] CBC & DIFF PLATELETS [#/VOLUME] IN BLOOD BY AUTOMATED COUNT 273 10*3/u L 150 - 400 02/27 Specimen Type: BLOOD Comment: Automated Differentia l Performed Ordering Provider: KATIE JONES Report Released Date/Time: Feb 28, 2024 09:41 AM Reporting Lab: [facility] [address] Performing Lab: [facility] [address] [facility] CBC & DIFF PLATELET MEAN VOLUME [ENTITIC VOLUME] IN BLOOD BY AUTOMATED COUNT 9.8 fL 7.4 - 10.4 02/27 Specimen Type: BLOOD Comment: Automated Differentia l Performed Ordering Provider: KATIE JONES Report Released Date/Time: Feb 28, 2024 09:41 AM Reporting Lab: [facility] [address] Performing Lab: [facility] [address] [facility] CBC & DIFF NEUTROPHILS /100 LEUKOCYTES IN BLOOD BY MANUAL COUNT 67.8 40.0 - 80.0 02/27 Specimen Type: BLOOD Comment: Automated Differentia l Performed Ordering Provider: KATIE JONES Report Released Date/Time: Feb 28, 2024 09:41 AM Reporting Lab: [facility] [address] Performing Lab: [facility] [address] [facility] CBC & DIFF LYMPHOCYTES /100 LEUKOCYTES IN BLOOD BY MANUAL COUNT 18.9 15.0 - 45.0 02/27 Specimen Type: BLOOD Comment: Automated Differentia l Performed Ordering Provider: KATIE JONES Report Released Date/Time: Feb 28, 2024 09:41 AM Reporting Lab: [facility] [address] Performing Lab: [facility] [address] [facility] CBC & DIFF MONOCYTES/1 00 LEUKOCYTES IN BLOOD BY AUTOMATED COUNT 9.5 2.0 - 12.0 02/27 Specimen Type: BLOOD Comment: Automated Differentia l Performed Ordering Provider: KATIE JONES Report Released Date/Time: Feb 28, 2024 09:41 AM Reporting Lab: [facility] [address] Performing Lab: [facility] [address] [facility] CBC & DIFF EOSINOPHILS /100 LEUKOCYTES IN BLOOD BY AUTOMATED COUNT 2.6 0.0 - 6.0 02/27 Specimen Type: BLOOD Comment: Automated Differentia l Performed Ordering Provider: KATIE JONES Report Released Date/Time: Feb 28, 2024 09:41 AM Reporting Lab: [facility] [address] Performing Lab: [facility] [address] [facility] CBC & DIFF BASOPHILS/1 00 LEUKOCYTES IN BLOOD BY MANUAL COUNT 0.7 0.0 - 2.0 02/27 Specimen Type: BLOOD Comment: Automated Differentia l Performed Ordering Provider: KATIE JONES Report Released Date/Time: Feb 28, 2024 09:41 AM Reporting Lab: [facility] [address] Performing Lab: [facility] [address] [facility] CBC & DIFF ERYTHROCYTE DISTRIBUTIO N WIDTH [RATIO] BY AUTOMATED COUNT 13.8 11.5 - 14.5 02/27 Specimen Type: BLOOD Comment: Automated Differentia l Performed Ordering Provider: KATIE JONES Report Released Date/Time: Feb 28, 2024 09:41 AM Reporting Lab: [facility] [address] Performing Lab: [facility] [address] [facility] CBC & DIFF LYMPHOCYTES [#/VOLUME] IN BLOOD BY AUTOMATED COUNT 1.39 10*3/u L 1.0 - 4.0 02/27 Specimen Type: BLOOD Comment: Automated Differentia l Performed Ordering Provider: KATIE JONES Report Released Date/Time: Feb 28, 2024 09:41 AM Reporting Lab: [facility] [address] Performing Lab: [facility] [address] [facility] CBC & DIFF MONOCYTES [#/VOLUME] IN BLOOD BY AUTOMATED COUNT 0.70 10*3/u L 0.1 - 1.0 02/27 Specimen Type: BLOOD Comment: Automated Differentia l Performed Ordering Provider: KATIE JONES Report Released Date/Time: Feb 28, 2024 09:41 AM Reporting Lab: [facility] [address] Performing Lab: [facility] [address] [facility] CBC & DIFF NEUTROPHILS [#/VOLUME] IN BLOOD BY AUTOMATED COUNT 4.97 10*3/u L 2.0 - 7.7 02/27 Specimen Type: BLOOD Comment: Automated Differentia l Performed Ordering Provider: KATIE JONES Report Released Date/Time: Feb 28, 2024 09:41 AM Reporting Lab: [facility] [address] Performing Lab: [facility] [address] [facility] CBC & DIFF EOSINOPHILS [#/VOLUME] IN BLOOD BY AUTOMATED COUNT 0.19 10*3/u L 0 - 0.5 02/27 Specimen Type: BLOOD Comment: Automated Differentia l Performed Ordering Provider: KATIE JONES Report Released Date/Time: Feb 28, 2024 09:41 AM Reporting Lab: [facility] [address] Performing Lab: [facility] [address] [facility] CBC & DIFF BASOPHILS [#/VOLUME] IN BLOOD BY AUTOMATED COUNT 0.05 10*3/u L 0 - 0.2 02/27 Specimen Type: BLOOD Comment: Automated Differentia l Performed Ordering Provider: KATIE JONES Report Released Date/Time: Feb 28, 2024 09:41 AM Reporting Lab: [facility] [address] Performing Lab: [facility] [address] [facility] CBC & DIFF IG(META,MYE LO,PRO) 0.5 02/27 Specimen Type: BLOOD Comment: Automated Differentia l Performed Ordering Provider: KATIE JONES Report Released Date/Time: Feb 28, 2024 09:41 AM Reporting Lab: [facility] [address] Performing Lab: [facility] [address] [facility] CBC & DIFF IMMATURE GRANULOCYTE S [PRESENCE] IN BLOOD BY AUTOMATED COUNT 0.04 10*3/u L 0 - 0.1 02/27 Specimen Type: BLOOD Comment: Automated Differentia l Performed Ordering Provider: KATIE JONES Report Released Date/Time: Feb 28, 2024 09:41 AM Reporting Lab: [facility] [address] Performing Lab: [facility] [address] [facility] COMPREHEN SIVE METABOLIC PANEL+MG CREATININE [MASS/VOLUM E] IN SERUM OR PLASMA 1.0 mg/dL 0.7 - 1.2 02/27 Specimen Type: PLASMA No comment entered. Ordering Provider: KATIE JONES Report Released Date/Time: Feb 28, 2024 09:41 AM Reporting Lab: [facility] [address] Performing Lab: [facility] [address] [facility] COMPREHEN SIVE METABOLIC PANEL+MG UREA NITROGEN [MASS/VOLUM E] IN SERUM OR PLASMA 24 mg/dL 8 - 26 02/27 Specimen Type: PLASMA No comment entered. Ordering Provider: KATIE JONES Report Released Date/Time: Feb 28, 2024 09:41 AM Reporting Lab: [facility] [address] Performing Lab: [facility] [address] [facility] COMPREHEN SIVE METABOLIC PANEL+MG GLUCOSE [MASS/VOLUM E] IN SERUM OR PLASMA 90 mg/dL 70 - 100 02/27 Specimen Type: PLASMA No comment entered. Ordering Provider: KATIE JONES Report Released Date/Time: Feb 28, 2024 09:41 AM Reporting Lab: [facility] [address] Performing Lab: [facility] [address] [facility] COMPREHEN SIVE METABOLIC PANEL+MG SODIUM [MOLES/VOLU ME] IN SERUM OR PLASMA 143 mmol/L 136 - 145 02/27 Specimen Type: PLASMA No comment entered. Ordering Provider: KATIE JONES Report Released Date/Time: Feb 28, 2024 09:41 AM Reporting Lab: [facility] [address] Performing Lab: [facility] [address] [facility] COMPREHEN SIVE METABOLIC PANEL+MG POTASSIUM [MOLES/VOLU ME] IN SERUM OR PLASMA 4.1 mmol/L 3.5 - 5.1 02/27 Specimen Type: PLASMA No comment entered. Ordering Provider: KATIE JONES Report Released Date/Time: Feb 28, 2024 09:41 AM Reporting Lab: [facility] [address] Performing Lab: [facility] [address] [facility] COMPREHEN SIVE METABOLIC PANEL+MG CHLORIDE [MOLES/VOLU ME] IN SERUM OR PLASMA 107 mmol/L 98 - 107 02/27 Specimen Type: PLASMA No comment entered. Ordering Provider: KATIE JONES Report Released Date/Time: Feb 28, 2024 09:41 AM Reporting Lab: [facility] [address] Performing Lab: [facility] [address] [facility] COMPREHEN SIVE METABOLIC PANEL+MG CARBON DIOXIDE, TOTAL [MOLES/VOLU ME] IN SERUM OR PLASMA 27 mmol/L 22 - 29 02/27 Specimen Type: PLASMA No comment entered. Ordering Provider: KATIE JONES Report Released Date/Time: Feb 28, 2024 09:41 AM Reporting Lab: [facility] [address] Performing Lab: [facility] [address] [facility] COMPREHEN SIVE METABOLIC PANEL+MG CALCIUM [MASS/VOLUM E] IN SERUM OR PLASMA 9.8 mg/dL 8.4 - 10.2 02/27 Specimen Type: PLASMA No comment entered. Ordering Provider: KATIE JONES Report Released Date/Time: Feb 28, 2024 09:41 AM Reporting Lab: [facility] [address] Performing Lab: [facility] [address] [facility] COMPREHEN SIVE METABOLIC PANEL+MG PROTEIN [MASS/VOLUM E] IN SERUM OR PLASMA 7.3 g/dL 6.0 - 8.3 02/27 Specimen Type: PLASMA No comment entered. Ordering Provider: KATIE JONES Report Released Date/Time: Feb 28, 2024 09:41 AM Reporting Lab: [facility] [address] Performing Lab: [facility] [address] [facility] COMPREHEN SIVE METABOLIC PANEL+MG ALBUMIN [MASS/VOLUM E] IN SERUM OR PLASMA 4.2 g/dL 3.5 - 5.2 02/27 Specimen Type: PLASMA No comment entered. Ordering Provider: KATIE JONES Report Released Date/Time: Feb 28, 2024 09:41 AM Reporting Lab: [facility] [address] Performing Lab: [facility] [address] [facility] COMPREHEN SIVE METABOLIC PANEL+MG BILIRUBIN.T OTAL [MASS/VOLUM E] IN SERUM OR PLASMA 0.8 mg/dL 0.2 - 1.2 02/27 Specimen Type: PLASMA No comment entered. Ordering Provider: KATIE JONES Report Released Date/Time: Feb 28, 2024 09:41 AM Reporting Lab: [facility] [address] Performing Lab: [facility] [address] [facility] COMPREHEN SIVE METABOLIC PANEL+MG MAGNESIUM [MASS/VOLUM E] IN SERUM OR PLASMA 2.3 mg/dL 1.6 - 2.6 02/27 Specimen Type: PLASMA No comment entered. Ordering Provider: KATIE JONES Report Released Date/Time: Feb 28, 2024 09:41 AM Reporting Lab: [facility] [address] Performing Lab: [facility] [address] [facility] COMPREHEN SIVE METABOLIC PANEL+MG ANION GAP IN SERUM OR PLASMA 9 mmol/L 5 - 15 02/27 Specimen Type: PLASMA No comment entered. Ordering Provider: KATIE JONES Report Released Date/Time: Feb 28, 2024 09:41 AM Reporting Lab: [facility] [address] Performing Lab: [facility] [address] [facility] COMPREHEN SIVE METABOLIC PANEL+MG ALKALINE PHOSPHATASE [ENZYMATIC ACTIVITY/VO LUME] IN SERUM OR PLASMA 66 U/L 40 - 150 02/27 Specimen Type: PLASMA No comment entered. Ordering Provider: KATIE JONES Report Released Date/Time: Feb 28, 2024 09:41 AM Reporting Lab: [facility] [address] Performing Lab: [facility] [address] [facility] COMPREHEN SIVE METABOLIC PANEL+MG ALANINE AMINOTRANSF ERASE [ENZYMATIC ACTIVITY/VO LUME] IN SERUM OR PLASMA 13 U/L <55 - 55 02/27 Specimen Type: PLASMA No comment entered. Ordering Provider: KATIE JONES Report Released Date/Time: Feb 28, 2024 09:41 AM Reporting Lab: [facility] [address] Performing Lab: [facility] [address] [facility] COMPREHEN SIVE METABOLIC PANEL+MG ASPARTATE AMINOTRANSF ERASE [ENZYMATIC ACTIVITY/VO LUME] IN SERUM OR PLASMA 18 U/L <34 - 34 02/27 Specimen Type: PLASMA No comment entered. Ordering Provider: KATIE JONES Report Released Date/Time: Feb 28, 2024 09:41 AM Reporting Lab: [facility] [address] Performing Lab: [facility] [address] [facility] COMPREHEN SIVE METABOLIC PANEL+MG GLOMERULAR FILTRATION RATE/1.73 SQ M.PREDICTED [VOLUME RATE/AREA] IN SERUM, PLASMA OR BLOOD BY CREATININE- BASED FORMULA (CKD-EPI 2020) 73 60 02/27 Specimen Type: PLASMA No comment entered. Ordering Provider: KATIE JONES Report Released Date/Time: Feb 28, 2024 09:41 AM Reporting Lab: [facility] [address] Performing Lab: [facility] [address] [facility] PSA PROSTATE SPECIFIC AG [MASS/VOLUM E] IN SERUM OR PLASMA 0.28 ng/mL <4.00 - 4.00 02/27 Specimen Type: SERUM No comment entered. Ordering Provider: KATIE JONES Report Released Date/Time: Feb 28, 2024 09:41 AM Reporting Lab: [facility] [address] Performing Lab: [facility] [address] [facility] LIPID PANEL,NON -FASTING CHOLESTEROL [MASS/VOLUM E] IN SERUM OR PLASMA 236 mg/dL <199 - 199 02/27 H Specimen Type: PLASMA No comment entered. Ordering Provider: KATIE JONES Report Released Date/Time: Feb 28, 2024 09:51 AM Reporting Lab: [facility] [address] Performing Lab: [facility] [address] [facility] LIPID PANEL,NON -FASTING CHOLESTEROL IN HDL [MASS/VOLUM E] IN SERUM OR PLASMA 48 mg/dL 40 02/27 Specimen Type: PLASMA No comment entered. Ordering Provider: KATIE JONES Report Released Date/Time: Feb 28, 2024 09:51 AM Reporting Lab: [facility] [address] Performing Lab: [facility] [address] [facility] LIPID PANEL,NON -FASTING CHOLESTEROL IN LDL [MASS/VOLUM E] IN SERUM OR PLASMA BY CALCULATION 161 mg/dL <99 - 99 02/27 H Specimen Type: PLASMA No comment entered. Ordering Provider: KATIE JONES Report Released Date/Time: Feb 28, 2024 09:51 AM Reporting Lab: [facility] [address] Performing Lab: [facility] [address] [facility] LIPID PANEL,NON -FASTING CHOLESTEROL IN VLDL [MASS/VOLUM E] IN SERUM OR PLASMA BY CALCULATION 27 mg/dL <29 - 29 02/27 Specimen Type: PLASMA No comment entered. Ordering Provider: KATIE JONES Report Released Date/Time: Feb 28, 2024 09:51 AM Reporting Lab: [facility] [address] Performing Lab: [facility] [address] [facility] LIPID PANEL,NON -FASTING CHOLESTEROL NON HDL [MASS/VOLUM E] IN SERUM OR PLASMA 188 mg/dL <129 - 129 02/27 H Specimen Type: PLASMA No comment entered. Ordering Provider: KATIE JONES Report Released Date/Time: Feb 28, 2024 09:51 AM Reporting Lab: [facility] [address] Performing Lab: [facility] [address] [facility] LIPID PANEL,NON -FASTING TRIGLYCERID E [MASS/VOLUM E] IN SERUM OR PLASMA 134 mg/dL <149 - 149 02/27 Specimen Type: PLASMA No comment entered. Ordering Provider: KATIE JONES Report Released Date/Time: Feb 28, 2024 09:51 AM Reporting Lab: [facility] [address] Performing Lab: [facility] [address] [facility] B 12 COBALAMIN (VITAMIN B12) [MASS/VOLUM E] IN SERUM OR PLASMA 532 pg/mL 213 - 816 04/04 Specimen Type: SERUM No comment entered. Ordering Provider: KATIE JONES Report Released Date/Time: Feb 23, 2023 09:34 AM Reporting Lab: [facility] [address] Performing Lab: [facility] [address] [facility] FOLATE FOLATE [MASS/VOLUM E] IN SERUM OR PLASMA 14.8 ng/mL 7.0 04/04 Specimen Type: SERUM No comment entered. Ordering Provider: KATIE JONES Report Released Date/Time: Feb 23, 2023 09:34 AM Reporting Lab: [facility] [address] Performing Lab: [facility] [address] [facility] CBC & DIFF LEUKOCYTES [#/VOLUME] IN BLOOD BY AUTOMATED COUNT 6.47 10*3/u L 4.0 - 11.0 04/04 Specimen Type: BLOOD Comment: Automated Differentia l Performed Ordering Provider: KATIE JONES Report Released Date/Time: Feb 23, 2023 09:34 AM Reporting Lab: [facility] [address] Performing Lab: [facility] [address] [facility] CBC & DIFF ERYTHROCYTE S [#/VOLUME] IN BLOOD BY AUTOMATED COUNT 3.99 10*6/u L 4.6 - 6.2 04/04 L Specimen Type: BLOOD Comment: Automated Differentia l Performed Ordering Provider: KATIE JONES Report Released Date/Time: Feb 23, 2023 09:34 AM Reporting Lab: [facility] [id number] Performing Lab: [facility] [phone] [facility] CBC & DIFF HEMOGLOBIN [MASS/VOLUM E] IN BLOOD 12.6 g/dL 13.5 - 17.9 04/04 L Specimen Type: BLOOD Comment: Automated Differentia l Performed Ordering Provider: KATIE JONES Report Released Date/Time: Feb 23, 2023 09:34 AM Reporting Lab: [facility] [phone] Performing Lab: [facility] [phone] [facility] CBC & DIFF HEMATOCRIT [VOLUME FRACTION] OF BLOOD BY AUTOMATED COUNT 38.2 41 - 54 04/04 L Specimen Type: BLOOD Comment: Automated Differentia l Performed Ordering Provider: KATIE JONES Report Released Date/Time: Feb 23, 2023 09:34 AM Reporting Lab: [facility] [phone] Performing Lab: [facility] [phone] [facility] CBC & DIFF MCV [ENTITIC VOLUME] BY AUTOMATED COUNT 95.7 fL 80 - 100 04/04 Specimen Type: BLOOD Comment: Automated Differentia l Performed Ordering Provider: KATIE JONES Report Released Date/Time: Feb 23, 2023 09:34 AM Reporting Lab: [facility] [address] Performing Lab: [facility] [address] [facility] CBC & DIFF MCH [ENTITIC MASS] BY AUTOMATED COUNT 31.6 pg 27 - 33 04/04 Specimen Type: BLOOD Comment: Automated Differentia l Performed Ordering Provider: KATIE JONES Report Released Date/Time: Feb 23, 2023 09:34 AM Reporting Lab: [facility] [address] Performing Lab: [facility] [address] [facility] CBC & DIFF MCHC [MASS/VOLUM E] BY AUTOMATED COUNT 33.0 g/dL 32.0 - 37.5 04/04 Specimen Type: BLOOD Comment: Automated Differentia l Performed Ordering Provider: KATIE JONES Report Released Date/Time: Feb 23, 2023 09:34 AM Reporting Lab: [facility] [address] Performing Lab: [facility] [address] [facility] CBC & DIFF PLATELETS [#/VOLUME] IN BLOOD BY AUTOMATED COUNT 285 10*3/u L 150 - 400 04/04 Specimen Type: BLOOD Comment: Automated Differentia l Performed Ordering Provider: KATIE JONES Report Released Date/Time: Feb 23, 2023 09:34 AM Reporting Lab: [facility] [address] Performing Lab: [facility] [address] [facility] CBC & DIFF PLATELET MEAN VOLUME [ENTITIC VOLUME] IN BLOOD BY AUTOMATED COUNT 9.0 fL 7.4 - 10.4 04/04 Specimen Type: BLOOD Comment: Automated Differentia l Performed Ordering Provider: KATIE JONES Report Released Date/Time: Feb 23, 2023 09:34 AM Reporting Lab: [facility] [address] Performing Lab: [facility] [address] [facility] CBC & DIFF NEUTROPHILS /100 LEUKOCYTES IN BLOOD BY MANUAL COUNT 67.9 40.0 - 80.0 04/04 Specimen Type: BLOOD Comment: Automated Differentia l Performed Ordering Provider: KATIE JONES Report Released Date/Time: Feb 23, 2023 09:34 AM Reporting Lab: [facility] [address] Performing Lab: [facility] [address] [facility] CBC & DIFF LYMPHOCYTES /100 LEUKOCYTES IN BLOOD BY MANUAL COUNT 18.7 15.0 - 45.0 04/04 Specimen Type: BLOOD Comment: Automated Differentia l Performed Ordering Provider: KATIE JONES Report Released Date/Time: Feb 23, 2023 09:34 AM Reporting Lab: [facility] [address] Performing Lab: [facility] [address] [facility] CBC & DIFF MONOCYTES/1 00 LEUKOCYTES IN BLOOD BY AUTOMATED COUNT 8.8 2.0 - 12.0 04/04 Specimen Type: BLOOD Comment: Automated Differentia l Performed Ordering Provider: KATIE JONES Report Released Date/Time: Feb 23, 2023 09:34 AM Reporting Lab: [facility] [address] Performing Lab: [facility] [address] [facility] CBC & DIFF EOSINOPHILS /100 LEUKOCYTES IN BLOOD BY AUTOMATED COUNT 3.1 0.0 - 6.0 04/04 Specimen Type: BLOOD Comment: Automated Differentia l Performed Ordering Provider: KATIE JONES Report Released Date/Time: Feb 23, 2023 09:34 AM Reporting Lab: [facility] [address] Performing Lab: [facility] [address] [facility] CBC & DIFF BASOPHILS/1 00 LEUKOCYTES IN BLOOD BY MANUAL COUNT 0.6 0.0 - 2.0 04/04 Specimen Type: BLOOD Comment: Automated Differentia l Performed Ordering Provider: KATIE JONES Report Released Date/Time: Feb 23, 2023 09:34 AM Reporting Lab: [facility] [address] Performing Lab: [facility] [address] [facility] CBC & DIFF ERYTHROCYTE DISTRIBUTIO N WIDTH [RATIO] BY AUTOMATED COUNT 14.1 11.5 - 14.5 04/04 Specimen Type: BLOOD Comment: Automated Differentia l Performed Ordering Provider: KATIE JONES Report Released Date/Time: Feb 23, 2023 09:34 AM Reporting Lab: [facility] [address] Performing Lab: [facility] [address] [facility] CBC & DIFF LYMPHOCYTES [#/VOLUME] IN BLOOD BY AUTOMATED COUNT 1.21 10*3/u L 1.0 - 4.0 04/04 Specimen Type: BLOOD Comment: Automated Differentia l Performed Ordering Provider: KATIE JONES Report Released Date/Time: Feb 23, 2023 09:34 AM Reporting Lab: [facility] [address] Performing Lab: [facility] [address] [facility] CBC & DIFF MONOCYTES [#/VOLUME] IN BLOOD BY AUTOMATED COUNT 0.57 10*3/u L 0.1 - 1.0 04/04 Specimen Type: BLOOD Comment: Automated Differentia l Performed Ordering Provider: KATIE JONES Report Released Date/Time: Feb 23, 2023 09:34 AM Reporting Lab: [facility] [address] Performing Lab: [facility] [address] [facility] CBC & DIFF NEUTROPHILS [#/VOLUME] IN BLOOD BY AUTOMATED COUNT 4.39 10*3/u L 2.0 - 7.7 04/04 Specimen Type: BLOOD Comment: Automated Differentia l Performed Ordering Provider: KATIE JONES Report Released Date/Time: Feb 23, 2023 09:34 AM Reporting Lab: [facility] [address] Performing Lab: [facility] [address] [facility] CBC & DIFF EOSINOPHILS [#/VOLUME] IN BLOOD BY AUTOMATED COUNT 0.20 10*3/u L 0 - 0.5 04/04 Specimen Type: BLOOD Comment: Automated Differentia l Performed Ordering Provider: KATIE JONES Report Released Date/Time: Feb 23, 2023 09:34 AM Reporting Lab: [facility] [address] Performing Lab: [facility] [address] [facility] CBC & DIFF BASOPHILS [#/VOLUME] IN BLOOD BY AUTOMATED COUNT 0.04 10*3/u L 0 - 0.2 04/04 Specimen Type: BLOOD Comment: Automated Differentia l Performed Ordering Provider: KATIE JONES Report Released Date/Time: Feb 23, 2023 09:34 AM Reporting Lab: [facility] [address] Performing Lab: [facility] [address] [facility] CBC & DIFF IG(META,MYE LO,PRO) 0.9 04/04 Specimen Type: BLOOD Comment: Automated Differentia l Performed Ordering Provider: KATIE JONES Report Released Date/Time: Feb 23, 2023 09:34 AM Reporting Lab: [facility] [address] Performing Lab: [facility] [address] [facility] CBC & DIFF IMMATURE GRANULOCYTE S [PRESENCE] IN BLOOD BY AUTOMATED COUNT 0.06 10*3/u L 0 - 0.1 04/04 Specimen Type: BLOOD Comment: Automated Differentia l Performed Ordering Provider: KATIE JONES Report Released Date/Time: Feb 23, 2023 09:34 AM Reporting Lab: [facility] [address] Performing Lab: [facility] [address] [facility] IRON GROUP IRON [MASS/VOLUM E] IN SERUM OR PLASMA 69 ug/dL 65 - 175 04/04 Specimen Type: PLASMA No comment entered. Ordering Provider: KATIE JONES Report Released Date/Time: Feb 23, 2023 09:34 AM Reporting Lab: [facility] [address] Performing Lab: [facility] [address] [facility] IRON GROUP IRON BINDING CAPACITY [MASS/VOLUM E] IN SERUM OR PLASMA 263 ug/dL 250 - 425 04/04 Specimen Type: PLASMA No comment entered. Ordering Provider: KATIE JONES Report Released Date/Time: Feb 23, 2023 09:34 AM Reporting Lab: [facility] [address] Performing Lab: [facility] [address] [facility] IRON GROUP FERRITIN [MASS/VOLUM E] IN SERUM OR PLASMA 453.6 ng/mL 21.8 - 274.7 04/04 H Specimen Type: PLASMA No comment entered. Ordering Provider: KATIE JONES Report Released Date/Time: Feb 23, 2023 09:34 AM Reporting Lab: [facility] [address] Performing Lab: [facility] [address] [facility] IRON GROUP IRON SATURATION 26 20 - 50 04/04 Specimen Type: PLASMA No comment entered. Ordering Provider: KATIE JONES Report Released Date/Time: Feb 23, 2023 09:34 AM Reporting Lab: [facility] [address] Performing Lab: [facility] [address] [facility] IRON GROUP TRANSFERRIN [MASS/VOLUM E] IN SERUM OR PLASMA 210 mg/dL 163 - 382 04/04 Specimen Type: PLASMA No comment entered. Ordering Provider: KATIE JONES Report Released Date/Time: Feb 23, 2023 09:34 AM Reporting Lab: [facility] [address] Performing Lab: [facility] [address] [facility] COMPREHEN SIVE METABOLIC PANEL+MG CREATININE [MASS/VOLUM E] IN SERUM OR PLASMA 0.9 mg/dL 0.7 - 1.2 02/22 Specimen Type: PLASMA No comment entered. Ordering Provider: KATIE JONES Report Released Date/Time: Feb 22, 2023 10:40 AM Reporting Lab: [facility] [address] Performing Lab: [facility] [address] [facility] COMPREHEN SIVE METABOLIC PANEL+MG UREA NITROGEN [MASS/VOLUM E] IN SERUM OR PLASMA 16 mg/dL 8 - 26 02/22 Specimen Type: PLASMA No comment entered. Ordering Provider: KATIE JONES Report Released Date/Time: Feb 22, 2023 10:40 AM Reporting Lab: [facility] [address] Performing Lab: [facility] [address] [facility] COMPREHEN SIVE METABOLIC PANEL+MG GLUCOSE [MASS/VOLUM E] IN SERUM OR PLASMA 88 mg/dL 70 - 100 02/22 Specimen Type: PLASMA No comment entered. Ordering Provider: KATIE JONES Report Released Date/Time: Feb 22, 2023 10:40 AM Reporting Lab: [facility] [address] Performing Lab: [facility] [address] [facility] COMPREHEN SIVE METABOLIC PANEL+MG SODIUM [MOLES/VOLU ME] IN SERUM OR PLASMA 141 mmol/L 136 - 145 02/22 Specimen Type: PLASMA No comment entered. Ordering Provider: KATIE JONES Report Released Date/Time: Feb 22, 2023 10:40 AM Reporting Lab: [facility] [address] Performing Lab: [facility] [address] [facility] COMPREHEN SIVE METABOLIC PANEL+MG POTASSIUM [MOLES/VOLU ME] IN SERUM OR PLASMA 4.4 mmol/L 3.5 - 5.1 02/22 Specimen Type: PLASMA No comment entered. Ordering Provider: KATIE JONES Report Released Date/Time: Feb 22, 2023 10:40 AM Reporting Lab: [facility] [address] Performing Lab: [facility] [address] [facility] COMPREHEN SIVE METABOLIC PANEL+MG CHLORIDE [MOLES/VOLU ME] IN SERUM OR PLASMA 109 mmol/L 98 - 107 02/22 H Specimen Type: PLASMA No comment entered. Ordering Provider: KATIE JONES Report Released Date/Time: Feb 22, 2023 10:40 AM Reporting Lab: [facility] [address] Performing Lab: [facility] [address] [facility] COMPREHEN SIVE METABOLIC PANEL+MG CARBON DIOXIDE, TOTAL [MOLES/VOLU ME] IN SERUM OR PLASMA 24 mmol/L 22 - 29 02/22 Specimen Type: PLASMA No comment entered. Ordering Provider: KATIE JONES Report Released Date/Time: Feb 22, 2023 10:40 AM Reporting Lab: [facility] [address] Performing Lab: [facility] [address] [facility] COMPREHEN SIVE METABOLIC PANEL+MG CALCIUM [MASS/VOLUM E] IN SERUM OR PLASMA 9.1 mg/dL 8.4 - 10.2 02/22 Specimen Type: PLASMA No comment entered. Ordering Provider: KATIE JONES Report Released Date/Time: Feb 22, 2023 10:40 AM Reporting Lab: [facility] [address] Performing Lab: [facility] [address] [facility] COMPREHEN SIVE METABOLIC PANEL+MG PROTEIN [MASS/VOLUM E] IN SERUM OR PLASMA 6.7 g/dL 6.0 - 8.3 02/22 Specimen Type: PLASMA No comment entered. Ordering Provider: KATIE JONES Report Released Date/Time: Feb 22, 2023 10:40 AM Reporting Lab: [facility] [address] Performing Lab: [facility] [address] [facility] COMPREHEN SIVE METABOLIC PANEL+MG ALBUMIN [MASS/VOLUM E] IN SERUM OR PLASMA 3.9 g/dL 3.5 - 5.2 02/22 Specimen Type: PLASMA No comment entered. Ordering Provider: KATIE JONES Report Released Date/Time: Feb 22, 2023 10:40 AM Reporting Lab: [facility] [address] Performing Lab: [facility] [address] [facility] COMPREHEN SIVE METABOLIC PANEL+MG BILIRUBIN.T OTAL [MASS/VOLUM E] IN SERUM OR PLASMA 0.8 mg/dL 0.2 - 1.2 02/22 Specimen Type: PLASMA No comment entered. Ordering Provider: KATIE JONES Report Released Date/Time: Feb 22, 2023 10:40 AM Reporting Lab: [facility] [address] Performing Lab: [facility] [address] [facility] COMPREHEN SIVE METABOLIC PANEL+MG MAGNESIUM [MASS/VOLUM E] IN SERUM OR PLASMA 2.2 mg/dL 1.6 - 2.6 02/22 Specimen Type: PLASMA No comment entered. Ordering Provider: KATIE JONES Report Released Date/Time: Feb 22, 2023 10:40 AM Reporting Lab: [facility] [address] Performing Lab: [facility] [address] [facility] COMPREHEN SIVE METABOLIC PANEL+MG ANION GAP IN SERUM OR PLASMA 8 mmol/L 5 - 15 02/22 Specimen Type: PLASMA No comment entered. Ordering Provider: KATIE JONES Report Released Date/Time: Feb 22, 2023 10:40 AM Reporting Lab: [facility] [address] Performing Lab: [facility] [address] [facility] COMPREHEN SIVE METABOLIC PANEL+MG ALKALINE PHOSPHATASE [ENZYMATIC ACTIVITY/VO LUME] IN SERUM OR PLASMA 70 U/L 40 - 150 02/22 Specimen Type: PLASMA No comment entered. Ordering Provider: KATIE JONES Report Released Date/Time: Feb 22, 2023 10:40 AM Reporting Lab: [facility] [address] Performing Lab: [facility] [address] [facility] COMPREHEN SIVE METABOLIC PANEL+MG ALANINE AMINOTRANSF ERASE [ENZYMATIC ACTIVITY/VO LUME] IN SERUM OR PLASMA 10 U/L 02/22 Specimen Type: PLASMA No comment entered. Ordering Provider: KATIE JONES Report Released Date/Time: Feb 22, 2023 10:40 AM Reporting Lab: [facility] [address] Performing Lab: [facility] [address] [facility] COMPREHEN SIVE METABOLIC PANEL+MG ASPARTATE AMINOTRANSF ERASE [ENZYMATIC ACTIVITY/VO LUME] IN SERUM OR PLASMA 19 U/L 02/22 Specimen Type: PLASMA No comment entered. Ordering Provider: KATIE JONES Report Released Date/Time: Feb 22, 2023 10:40 AM Reporting Lab: [facility] [address] Performing Lab: [place] [address] [facility] COMPREHEN SIVE METABOLIC PANEL+MG GLOMERULAR FILTRATION RATE/1.73 SQ M.PREDICTED [VOLUME RATE/AREA] IN SERUM, PLASMA OR BLOOD BY CREATININE- BASED FORMULA (CKD-EPI 2020) 83 02/22 Specimen Type: PLASMA No comment entered. Ordering Provider: KATIE JONES Report Released Date/Time: Feb 22, 2023 10:40 AM Reporting Lab: [facility] [address] Performing Lab: [facility] [address] [facility] HEMOGLOBI N A1C HEMOGLOBIN A1C/HEMOGLO BIN.TOTAL [...] Feb 22, 2023 10:40 AM Reporting Lab: [facility] [address] Performing Lab: [facility] [address] [facility] Vital Signs Combined list of inpatient and outpatient Vital Signs from Department of Defense and Veterans Affairs, ranging from 12 months to all on record, depending upon the facility. Vital Sign Value Date Comments Source Encounters Combined list of: 1) Encounters from Department of [facility] facilities going back up to thelast 18 months. 2) Encounters from the Department of [facility] facilities going back up to 280 months. Location Location Details Encounter Type Encounter Number Reason For Visit Attending Provider ADM Date DC Date Status Disposition Source [facility] Outpatient Encounter [id number] 02/01 [facility] OFFICE O/P EST MOD 30-39 MIN [id number] Diagnos is: ICD-10- CM Z00.8 Encount er for other general examina tion
Bob JONES EBMANA Martinez 02/22 [facility] Outpatient Encounter [id number] 02/24 [facility] Outpatient Encounter [id number] 03/20 [facility] [place] [facility] [place] [id number] Diagnos is: ICD-10- CM Z01.118 Encntr for exam of ears and hearing w oth abnorma l finding s
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 Outpatient Encounter [id number] 04/19 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 CONFORMITY EVALUATION [id number] Diagnos is: ICD-10- CM Z46.1 Encount er for fitting and adjustm ent of hearing aid<br/ > NEERU TINAJERO 05/30 [facility] Outpatient Encounter [id number] 07/01 [facility] OFFICE O/P EST LOW 20-29 MIN [id number] Diagnos is: ICD-10- CM G47.39 Other sleep apnea<b r/> KAREN,R EBECCA L 07/11 [facility] EAR IMPRESSION [id number] Diagnos is: ICD-10- CM Z46.1 Encount er for fitting and adjustm ent of hearing aid<br/ > NEERU TINAJERO 08/02 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 Outpatient Encounter [id number] 12/27 [facility] HEARING AID FITTING/CH ECKING [id number] Diagnos is: ICD-10- CM H90.3 Sensori neural hearing loss, bilater al
NEERU TINAJERO 01/14 [place] [facility] OFFICE O/P EST MOD 30 MIN [id number] Diagnos is: ICD-10- CM Z00.8 Encount er for other general examina tion
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
WHITE,TERR A R 03/14 [facility] Social History Combined list of available smoking, tobacco, and other social history from Department of Defense and Veterans Affairs facilities. Social History Type Response Date Comment Sourc e Tobacco smoking status NHIS AL-TOBACCO NEVER USED 02/28/20 [facility] History of tobacco use AL-TOBACCO FORMER USER 02/22/2023 [facility] Plan of Care List of future care activities from Department of Veterans [facility] facilities. Additional future care activities may be listed in the Assessment and Plan section. Date/Time Care Activity Care Activity Detail Facili ty 06/27/2024 AMBULATORY - SURGERY AMBULATORY - SURGERY [facility] Advance Directives List of completed, amended, or rescinded Advance Directives on record at Department of Veterans Affairs facilities. An actual copy of the Directive is not included. Date Advance Directive Provider Source 04/19/2023 ADVANCE DIRECTIVE DISCUSSION [facility] 04/19/2023 [facility]
--- OUTSIDE RECORDS SUMMARY | 2024-05-15 11:18 | XMS_ITS ---
Author Organization [facility] Address [address] [place] [address] Care Team Providers Care Ticket Scheduler Name Role Phone Unavailable Unavailable Unavailable Surgery Details Not on file Complications Check Surgery Details section. Procedure Estimated Blood Loss Check Surgery Details section. Procedure Findings Check Surgery Details section. Procedure Specimens Taken Check Surgery Details section.
--- OUTSIDE RECORDS SUMMARY | 2024-05-15 11:18 | XMS_ITS | Clinical Summary ---
Author Organization [facility] Address [place], [place] [address] Care Team Providers Care Flight Kitchen Manager Name Role Phone Trace Tom MD Primary [...] - PCV) 2001 COVID-19 vaccine series ( season) 2024 07/13/2021, 12/01/2020, 11/04/2020 Influenza for age 65+ 05/05/2024 Medical Devices Implanted Type Area Nurses Medical Assistants Phlebotomists Device Identifier Shelf Expiration Date Model / Serial / Lot Cancellous Bone Screw Implanted:Qty: 1 on 01/30/2018 by Dickson Sevilla MD at [facility] Right: Hip [employer] 10/29/2022 / / [id number] Cluster Acetabluar Shell Implanted:Qty: 1 on 01/30/2018 by Dickson Sevilla MD at [facility] Right: Hip [employer] 10/16/2022 / / [id number] Polyethlene Insert Implanted:Qty: 1 on 01/30/2018 by Dickson Sevilla MD at [facility] Right: Hip [employer] 07/09/2022 / / [id number] Neck Angle Hip Stem Implanted:Qty: 1 on 01/30/2018 by Dickson Sevilla MD at [facility] Right: Hip [employer] [facility] 11/24/2022 / / [id number] C-Taper Femoral Head Implanted:Qty: 1 on 01/30/2018 by Dickson Sevilla MD at [facility] Right: Hip [employer] 10/29/2022 / / [...] 10:51 AM 01/30/2018 2:57 PM Care Teams Flight Kitchen Manager Relationship Specialty Start Date End Date Trace Tom MD [address] [place] [address] PCP - General Family Practice 01/25/22
--- OUTSIDE RECORDS SUMMARY | 2024-05-15 11:18 | XMS_ITS | Referral Summary ---
Author Organization [place] Address [facility] [place] [address] Care Team Providers Care Steep Tender Name Role Phone Clinic, [facility] Primary Care Provider + Allergies [...] of Treatment Not on file Care Teams Steep Tender Relationship Specialty Start Date End Date Clinic, [address] [address] PCP - General 06/26/20
--- OUTSIDE RECORDS SUMMARY | 2024-05-15 11:18 | XMS_ITS | Clinical Summary ---
Author Organization [facility] Address [address], [place] [address] Care Team Providers Care Manager Investigations Name Role Phone Unavailable Primary Care Provider Unavailabl e Source Comments You are receiving this document as you are listed as the primary care provider,follow-up provider, or the patient has been referred to you for consultation.This is in compliance with the Medicare and[facility] EHR Incentive Program,which states Providers who transition [...] of 2) 1986 COVID-19 Vaccine ( season) 2024 07/11/2023, 07/13/2021, 12/01/2020, Additional history [...] this topic DASHAWN COTE Personal/Famil y [address] [place] [id number]
--- OUTSIDE RECORDS SUMMARY | 2024-05-15 11:18 | XMS_ITS | Clinical Summary ---
Author Organization [facility] Address [facility] [place] [address] Care Team Providers Care Correctional Guard Name Role Phone Clinic, [facility] Primary Care Provider + Allergies [...] of Treatment Not on file Care Teams Correctional Guard Relationship Specialty Start Date End Date Clinic, [address] [address] PCP - General 06/26/20
== END 2024-05-15 11:14 | disposition home or self-care (01) ==
LOC: WOUND 11:13
PROVIDERS: Visit Provider Surgery
DX: I87.312 Chronic venous hypertension (idiopathic) with ulcer of left lower extremity (principal); L97.822 Non-pressure chronic ulcer of other part of left lower leg with fat layer exposed; S81.802A Unspecified open wound, left lower leg, initial encounter; S81.801A Unspecified open wound, right lower leg, initial encounter
CPT/HCPCS: 97597

== ENCOUNTER 2024-05-22 11:11 | Outpatient (CLI) | payer MEDICARE, BC, SELFPAY ==
--- OUTSIDE RECORDS SUMMARY | 2024-05-22 11:12 | XMS_ITS | Continuity of Care Document ---
Author Name [facility] Organization [facility] Care Team Providers Care Production Control Analyst Name Role Phone [facility] Unavailable Unavailable Problems Combined list of problems from Department of Defense and Veterans Affairs facilities. It does not include entries that were removed or entered in error. Problem Status Onset Date Problem Type Date of Resolution Comments Source Exposure to potentially hazardous substance ([facility] [id number]) Active 11/10/19 24 Condition Nov 10, 2023 Entered By: FLORES KENNEDY [facility] JOSIE Documentation Initiative [facility] Edema Active Condition Feb 22 Entered By: GARY JONES Comment: trated for prostate ca with 44 radiation treatmentsFeb 22, 2023 Entered By: GARY JONES Comment: treated fro prostate cancer with 44 radiation treatments [facility] 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 Active Condition Feb 22, 2023 Entered By: GARY JONES Comment: treated prostate cancer with 44 radiation treatments [facility] Malignant melanoma Active Condition [facility] Obstructive Sleep Apnea of Adult ([facility] [id number]) Active Condition Dec 28, 2023 Entered By: WILEY ARTHUR Comment: See scanned records in [place] for details [facility] Diagnosis: ICD-10-CM Z71.9 Counseling, unspecified Active Diagnosis [facility] Diagnosis: ICD-10-CM Z00.8 Encounter for other general examination Active Diagnosis [facility] Diagnosis: ICD-10-CM 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 loss, bilateral Active Diagnosis [facility] Diagnosis: ICD-10-CM 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, right eye Active Diagnosis [facility] Diagnosis: ICD-10-CM Z46.1 Encounter for fitting and adjustment of hearing aid Active Diagnosis [facility] Diagnosis: ICD-10-CM G47.39 Other sleep apnea Active Diagnosis [facility] Diagnosis: ICD-10-CM 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, right eye Active Diagnosis [facility] Diagnosis: ICD-10-CM Z01.118 Encntr for exam of ears and hearing w oth abnormal findings Active Diagnosis [facility] Medications Combined list of outpatient medications [...] Jul 12, 2023 2 Jul 12, 2024 [id number] Jul 12, 2023 GARY JONES RESPIR ATORY (INHAL ATION) ACTIVE 07/12/2024 [id number] GARY JONES 2022 2 [facility] [...] Nov 01, 2023 15 Nov 01, 2024 [id number] Nov 02, 2023 GRAMATES ,CHRISTINA H [place] [facility] OPHTHA LMIC ACTIVE 11/01/2024 [id number] GRAMATES, CHRISTINA H 2023 15 [place] [facility] CHOLECALCIF VLA TAB CHOLECAL CIFEROL TAB Non-VA TAKE 1 TAB BY MOUTH Feb 28, 2024 Non-VA Document ed by: GARY JONES Document ed at: [facility] ORAL ACTIVE GARY JONES 2023 JIM[facility] IBUPROFEN 600MG TAB IBUPROFE N 600MG TAB Non-VA TAKE ONE TABLET BY MOUTH THREE TIMES A DAY NEEDED Feb 28, 2024 Non-VA Document ed by: GARY JONES Document ed at: [facility] ORAL ACTIVE GARY JONES 2023 [facility] MULTIVITAMI NS CAP/TAB MULTIVIT AMINS [...] Feb 28, 2024 90 Feb 28, 2025 [id number] Feb 28, 2024 [facility] ORAL ACTIVE 02/28/2025 [id number] GARY JONES 2023 90 JIM[facility] ZINC 50MG (FROM SULFATE) CAP ZINC 50MG (FROM SULFATE) CAP Non-VA TAKE 1 CAPSULE BY MOUTH EVERY DAY UNKNOWN Feb 22, 2023 Non-VA Document ed by: GARY JONES Document ed at: [facility] ORAL ACTIVE GARY JONES 2022 SHARADHA BARRETT Immunizations Combined list of available immunizations from the Department of Defense and Veterans Affairs facilities. Immunization Series Date Given Administered By Site Reaction Lot Number CVX Code Drug Flour Mixer Helper Status Comments Source COVID-19 ([place]), MRNA, LNP-S, PF, JASON-SUCROSE, 30 MCG/0.3 ML (AGES 12+ YEARS) 1 2022 TOOTIE ANDERSON LEFT DELTO ID [id number] 309 complet ed [facility] INFLUENZA, HIGH-DOSE, QUADRIVALENT 2022 TOOTIE ANDERSON LEFT DELTO ID [id number] 197 complet ed [facility] PNEUMOCOCCAL CONJUGATE PCV20, POLYSACCHARID E [id number] CONJUGATE, ADJUVANT, PF 2022 TOOTIE ANDERSON LEFT DELTO ID [id number] 216 complet ed [facility] INFLUENZA, HIGH-DOSE, QUADRIVALENT, PF 2021 197 complet ed [facility] INFLUENZA, UNSPECIFIED FORMULATION 2021 88 complet ed [facility] COVID-19 ([place]ER[place]), MRNA, LNP-S, PF, 100 MCG/0.5ML DOSE OR 50 MCG/0.25ML DOSE 3 2020 207 complet ed [facility] INFLUENZA, HIGH-DOSE, QUADRIVALENT, PF 2020 197 complet ed [facility] COVID-19 ([place]ER[place]), MRNA, LNP-S, PF, 100 MCG/0.5ML DOSE OR 50 MCG/0.25ML DOSE 2 2020 207 complet ed [facility] COVID-19 (MODERNA), MRNA, LNP-S, PF, 100 MCG/0.5ML DOSE OR 50 MCG/0.25ML DOSE 1 2020 207 complet ed [facility] INFLUENZA, HIGH-DOSE, TRIVALENT, PF 2018 135 complet ed [facility] INFLUENZA, HIGH-DOSE, TRIVALENT, PF 2016 135 complet ed [facility] TDAP 2016 115 complet ed [facility] INFLUENZA, SPLIT VIRUS, QUADRIVALENT, PF 2015 150 complet ed [facility] INFLUENZA, HIGH-DOSE, TRIVALENT, PF 2015 135 complet ed [facility] INFLUENZA, HIGH-DOSE, TRIVALENT, PF 2012 135 complet ed [facility] INFLUENZA, SPLIT VIRUS, TRIVALENT, PRESERVATIVE 2012 141 complet ed [facility] TDAP 2011 115 complet [facility] INFLUENZA, SPLIT VIRUS, TRIVALENT, PF 2010 140 complet [facility] HEP B, UNSPECIFIED FORMULATION 2009 45 complet [facility] NOVEL INFLUENZA-H1N 1-09 2008 127 complet ed [facility] Results Combined list of recent chemistry, [...] Feb 28, 2024 09:41 AM Reporting Lab: [facility] [address] Performing Lab: [facility] [address] [facility] CBC & DIFF ERYTHROCYTE S [#/VOLUME] IN BLOOD BY AUTOMATED COUNT 4.19 10*6/u L 4.6 - 6.2 02/27 L Specimen Type: BLOOD Comment: Automated Differentia l Performed Ordering Provider: KATIE JONES Report Released Date/Time: Feb 28, 2024 09:41 AM Reporting Lab: [facility] [address] Performing Lab: [facility] [address] [facility] CBC & DIFF HEMOGLOBIN [MASS/VOLUM E] IN BLOOD 13.4 g/dL 13.5 - 17.9 02/27 L Specimen Type: BLOOD Comment: Automated Differentia l Performed Ordering Provider: KATIE JONES Report Released Date/Time: Feb 28, 2024 09:41 AM Reporting Lab: [facility] [address] Performing Lab: [facility] [address] [facility] CBC & DIFF HEMATOCRIT [VOLUME FRACTION] OF BLOOD BY AUTOMATED COUNT 40.6 41 - 54 02/27 L Specimen Type: BLOOD Comment: Automated Differentia l Performed Ordering Provider: KATIE JONES Report Released Date/Time: Feb 28, 2024 09:41 AM Reporting Lab: [facility] [address] Performing Lab: [facility] [address] [facility] CBC & DIFF MCV [ENTITIC VOLUME] BY AUTOMATED COUNT 96.9 fL 80 - 100 02/27 Specimen Type: BLOOD Comment: Automated Differentia l Performed Ordering Provider: KATIE JONES Report Released Date/Time: Feb 28, 2024 09:41 AM Reporting Lab: [facility] [address] Performing Lab: [facility] [address] [facility] CBC & DIFF MCH [ENTITIC MASS] BY AUTOMATED COUNT 32.0 pg 27 - 33 02/27 Specimen Type: BLOOD Comment: Automated Differentia l Performed Ordering Provider: KATIE JONES Report Released Date/Time: Feb 28, 2024 09:41 AM Reporting Lab: [facility] [address] Performing Lab: [facility] [address] [facility] CBC & DIFF MCHC [MASS/VOLUM E] BY AUTOMATED COUNT 33.0 g/dL 32.0 - 37.5 02/27 Specimen Type: BLOOD Comment: Automated Differentia l Performed Ordering Provider: KATIE JONES Report Released Date/Time: Feb 28, 2024 09:41 AM Reporting Lab: [facility] [address] Performing Lab: [facility] [address] [facility] CBC & DIFF PLATELETS [#/VOLUME] IN BLOOD BY AUTOMATED COUNT 273 10*3/u L 150 - 400 02/27 Specimen Type: BLOOD Comment: Automated Differentia l Performed Ordering Provider: KATIE JONES Report Released Date/Time: Feb 28, 2024 09:41 AM Reporting Lab: [facility] [address] Performing Lab: [facility] [address] [facility] CBC & DIFF PLATELET MEAN VOLUME [ENTITIC VOLUME] IN BLOOD BY AUTOMATED COUNT 9.8 fL 7.4 - 10.4 02/27 Specimen Type: BLOOD Comment: Automated Differentia l Performed Ordering Provider: KATIE JONES Report Released Date/Time: Feb 28, 2024 09:41 AM Reporting Lab: [facility] [address] Performing Lab: [facility] [address] [facility] CBC & DIFF NEUTROPHILS /100 LEUKOCYTES IN BLOOD BY MANUAL COUNT 67.8 40.0 - 80.0 02/27 Specimen Type: BLOOD Comment: Automated Differentia l Performed Ordering Provider: KATIE JONES Report Released Date/Time: Feb 28, 2024 09:41 AM Reporting Lab: [facility] [address] Performing Lab: [facility] [address] [facility] CBC & DIFF LYMPHOCYTES /100 LEUKOCYTES IN BLOOD BY MANUAL COUNT 18.9 15.0 - 45.0 02/27 Specimen Type: BLOOD Comment: Automated Differentia l Performed Ordering Provider: KATIE JONES Report Released Date/Time: Feb 28, 2024 09:41 AM Reporting Lab: [facility] [address] Performing Lab: [facility] [address] [facility] CBC & DIFF MONOCYTES/1 00 LEUKOCYTES IN BLOOD BY AUTOMATED COUNT 9.5 2.0 - 12.0 02/27 Specimen Type: BLOOD Comment: Automated Differentia l Performed Ordering Provider: KATIE JONES Report Released Date/Time: Feb 28, 2024 09:41 AM Reporting Lab: [facility] [address] Performing Lab: [facility] [address] [facility] CBC & DIFF EOSINOPHILS /100 LEUKOCYTES IN BLOOD BY AUTOMATED COUNT 2.6 0.0 - 6.0 02/27 Specimen Type: BLOOD Comment: Automated Differentia l Performed Ordering Provider: KATIE JONES Report Released Date/Time: Feb 28, 2024 09:41 AM Reporting Lab: [facility] [address] Performing Lab: [facility] [address] [facility] CBC & DIFF BASOPHILS/1 00 LEUKOCYTES IN BLOOD BY MANUAL COUNT 0.7 0.0 - 2.0 02/27 Specimen Type: BLOOD Comment: Automated Differentia l Performed Ordering Provider: KATIE JONES Report Released Date/Time: Feb 28, 2024 09:41 AM Reporting Lab: [facility] [address] Performing Lab: [facility] [address] [facility] CBC & DIFF ERYTHROCYTE DISTRIBUTIO N WIDTH [RATIO] BY AUTOMATED COUNT 13.8 11.5 - 14.5 02/27 Specimen Type: BLOOD Comment: Automated Differentia l Performed Ordering Provider: KATIE JONES Report Released Date/Time: Feb 28, 2024 09:41 AM Reporting Lab: [facility] [address] Performing Lab: [facility] [address] [facility] CBC & DIFF LYMPHOCYTES [#/VOLUME] IN BLOOD BY AUTOMATED COUNT 1.39 10*3/u L 1.0 - 4.0 02/27 Specimen Type: BLOOD Comment: Automated Differentia l Performed Ordering Provider: KATIE JONES Report Released Date/Time: Feb 28, 2024 09:41 AM Reporting Lab: [facility] [address] Performing Lab: [facility] [address] [facility] CBC & DIFF MONOCYTES [#/VOLUME] IN BLOOD BY AUTOMATED COUNT 0.70 10*3/u L 0.1 - 1.0 02/27 Specimen Type: BLOOD Comment: Automated Differentia l Performed Ordering Provider: KATIE JONES Report Released Date/Time: Feb 28, 2024 09:41 AM Reporting Lab: [facility] [address] Performing Lab: [facility] [address] [facility] CBC & DIFF NEUTROPHILS [#/VOLUME] IN BLOOD BY AUTOMATED COUNT 4.97 10*3/u L 2.0 - 7.7 02/27 Specimen Type: BLOOD Comment: Automated Differentia l Performed Ordering Provider: KATIE JONES Report Released Date/Time: Feb 28, 2024 09:41 AM Reporting Lab: [facility] [address] Performing Lab: [facility] [address] [facility] CBC & DIFF EOSINOPHILS [#/VOLUME] IN BLOOD BY AUTOMATED COUNT 0.19 10*3/u L 0 - 0.5 02/27 Specimen Type: BLOOD Comment: Automated Differentia l Performed Ordering Provider: KATIE JONES Report Released Date/Time: Feb 28, 2024 09:41 AM Reporting Lab: [facility] [address] Performing Lab: [facility] [address] [facility] CBC & DIFF BASOPHILS [#/VOLUME] IN BLOOD BY AUTOMATED COUNT 0.05 10*3/u L 0 - 0.2 02/27 Specimen Type: BLOOD Comment: Automated Differentia l Performed Ordering Provider: KATIE JONES Report Released Date/Time: Feb 28, 2024 09:41 AM Reporting Lab: [facility] [address] Performing Lab: [facility] [address] [facility] CBC & DIFF IG(META,MYE LO,PRO) 0.5 02/27 Specimen Type: BLOOD Comment: Automated Differentia l Performed Ordering Provider: KATIE JONES Report Released Date/Time: Feb 28, 2024 09:41 AM Reporting Lab: [facility] [address] Performing Lab: [facility] [address] [facility] CBC & DIFF IMMATURE GRANULOCYTE S [PRESENCE] IN BLOOD BY AUTOMATED COUNT 0.04 10*3/u L 0 - 0.1 02/27 Specimen Type: BLOOD Comment: Automated Differentia l Performed Ordering Provider: KATIE JONES Report Released Date/Time: Feb 28, 2024 09:41 AM Reporting Lab: [facility] [address] Performing Lab: [facility] [address] [facility] COMPREHEN SIVE METABOLIC PANEL+MG CREATININE [MASS/VOLUM E] IN SERUM OR PLASMA 1.0 mg/dL 0.7 - 1.2 02/27 Specimen Type: PLASMA No comment entered. Ordering Provider: KATIE JONES Report Released Date/Time: Feb 28, 2024 09:41 AM Reporting Lab: [facility] [address] Performing Lab: [facility] [address] [facility] COMPREHEN SIVE METABOLIC PANEL+MG UREA NITROGEN [MASS/VOLUM E] IN SERUM OR PLASMA 24 mg/dL 8 - 26 02/27 Specimen Type: PLASMA No comment entered. Ordering Provider: KATIE JONES Report Released Date/Time: Feb 28, 2024 09:41 AM Reporting Lab: [facility] [address] Performing Lab: [facility] [address] [facility] COMPREHEN SIVE METABOLIC PANEL+MG GLUCOSE [MASS/VOLUM E] IN SERUM OR PLASMA 90 mg/dL 70 - 100 02/27 Specimen Type: PLASMA No comment entered. Ordering Provider: KATIE JONES Report Released Date/Time: Feb 28, 2024 09:41 AM Reporting Lab: [facility] [address] Performing Lab: [facility] [address] [facility] COMPREHEN SIVE METABOLIC PANEL+MG SODIUM [MOLES/VOLU ME] IN SERUM OR PLASMA 143 mmol/L 136 - 145 02/27 Specimen Type: PLASMA No comment entered. Ordering Provider: KATIE JONES Report Released Date/Time: Feb 28, 2024 09:41 AM Reporting Lab: [facility] [address] Performing Lab: [facility] [address] [facility] COMPREHEN SIVE METABOLIC PANEL+MG POTASSIUM [MOLES/VOLU ME] IN SERUM OR PLASMA 4.1 mmol/L 3.5 - 5.1 02/27 Specimen Type: PLASMA No comment entered. Ordering Provider: KATIE JONES Report Released Date/Time: Feb 28, 2024 09:41 AM Reporting Lab: [facility] [address] Performing Lab: [facility] [address] [facility] COMPREHEN SIVE METABOLIC PANEL+MG CHLORIDE [MOLES/VOLU ME] IN SERUM OR PLASMA 107 mmol/L 98 - 107 02/27 Specimen Type: PLASMA No comment entered. Ordering Provider: KATIE JONES Report Released Date/Time: Feb 28, 2024 09:41 AM Reporting Lab: [facility] [address] Performing Lab: [facility] [address] [facility] COMPREHEN SIVE METABOLIC PANEL+MG CARBON DIOXIDE, TOTAL [MOLES/VOLU ME] IN SERUM OR PLASMA 27 mmol/L 22 - 29 02/27 Specimen Type: PLASMA No comment entered. Ordering Provider: KATIE JONES Report Released Date/Time: Feb 28, 2024 09:41 AM Reporting Lab: [facility] [address] Performing Lab: [facility] [address] [facility] COMPREHEN SIVE METABOLIC PANEL+MG CALCIUM [MASS/VOLUM E] IN SERUM OR PLASMA 9.8 mg/dL 8.4 - 10.2 02/27 Specimen Type: PLASMA No comment entered. Ordering Provider: KATIE JONES Report Released Date/Time: Feb 28, 2024 09:41 AM Reporting Lab: [facility] [address] Performing Lab: [facility] [address] [facility] COMPREHEN SIVE METABOLIC PANEL+MG PROTEIN [MASS/VOLUM E] IN SERUM OR PLASMA 7.3 g/dL 6.0 - 8.3 02/27 Specimen Type: PLASMA No comment entered. Ordering Provider: KATIE JONES Report Released Date/Time: Feb 28, 2024 09:41 AM Reporting Lab: [facility] [address] Performing Lab: [facility] [address] [facility] COMPREHEN SIVE METABOLIC PANEL+MG ALBUMIN [MASS/VOLUM E] IN SERUM OR PLASMA 4.2 g/dL 3.5 - 5.2 02/27 Specimen Type: PLASMA No comment entered. Ordering Provider: KATIE JONES Report Released Date/Time: Feb 28, 2024 09:41 AM Reporting Lab: [facility] [address] Performing Lab: [facility] [address] [facility] COMPREHEN SIVE METABOLIC PANEL+MG BILIRUBIN.T OTAL [MASS/VOLUM E] IN SERUM OR PLASMA 0.8 mg/dL 0.2 - 1.2 02/27 Specimen Type: PLASMA No comment entered. Ordering Provider: KATIE JONES Report Released Date/Time: Feb 28, 2024 09:41 AM Reporting Lab: [facility] [address] Performing Lab: [facility] [address] [facility] COMPREHEN SIVE METABOLIC PANEL+MG MAGNESIUM [MASS/VOLUM E] IN SERUM OR PLASMA 2.3 mg/dL 1.6 - 2.6 02/27 Specimen Type: PLASMA No comment entered. Ordering Provider: KATIE JONES Report Released Date/Time: Feb 28, 2024 09:41 AM Reporting Lab: [facility] [address] Performing Lab: [facility] [address] [facility] COMPREHEN SIVE METABOLIC PANEL+MG ANION GAP IN SERUM OR PLASMA 9 mmol/L 5 - 15 02/27 Specimen Type: PLASMA No comment entered. Ordering Provider: KATIE JONES Report Released Date/Time: Feb 28, 2024 09:41 AM Reporting Lab: [facility] [address] Performing Lab: [facility] [address] [facility] COMPREHEN SIVE METABOLIC PANEL+MG ALKALINE PHOSPHATASE [ENZYMATIC ACTIVITY/VO LUME] IN SERUM OR PLASMA 66 U/L 40 - 150 02/27 Specimen Type: PLASMA No comment entered. Ordering Provider: KATIE JONES Report Released Date/Time: Feb 28, 2024 09:41 AM Reporting Lab: [facility] [address] Performing Lab: [facility] [address] [facility] COMPREHEN SIVE METABOLIC PANEL+MG ALANINE AMINOTRANSF ERASE [ENZYMATIC ACTIVITY/VO LUME] IN SERUM OR PLASMA 13 U/L <55 - 55 02/27 Specimen Type: PLASMA No comment entered. Ordering Provider: KATIE JONES Report Released Date/Time: Feb 28, 2024 09:41 AM Reporting Lab: [facility] [address] Performing Lab: [facility] [address] [facility] COMPREHEN SIVE METABOLIC PANEL+MG ASPARTATE AMINOTRANSF ERASE [ENZYMATIC ACTIVITY/VO LUME] IN SERUM OR PLASMA 18 U/L <34 - 34 02/27 Specimen Type: PLASMA No comment entered. Ordering Provider: KATIE JONES Report Released Date/Time: Feb 28, 2024 09:41 AM Reporting Lab: [facility] [address] Performing Lab: [facility] [address] [facility] COMPREHEN SIVE METABOLIC PANEL+MG GLOMERULAR FILTRATION RATE/1.73 SQ M.PREDICTED [VOLUME RATE/AREA] IN SERUM, PLASMA OR BLOOD BY CREATININE- BASED FORMULA (CKD-EPI 2020) 73 60 02/27 Specimen Type: PLASMA No comment entered. Ordering Provider: KATIE JONES Report Released Date/Time: Feb 28, 2024 09:41 AM Reporting Lab: [facility] [address] Performing Lab: [facility] [address] [facility] PSA PROSTATE SPECIFIC AG [MASS/VOLUM E] IN SERUM OR PLASMA 0.28 ng/mL <4.00 - 4.00 02/27 Specimen Type: SERUM No comment entered. Ordering Provider: KATIE JONES Report Released Date/Time: Feb 28, 2024 09:41 AM Reporting Lab: [facility] [address] Performing Lab: [facility] [address] [facility] LIPID PANEL,NON -FASTING CHOLESTEROL [MASS/VOLUM E] IN SERUM OR PLASMA 236 mg/dL <199 - 199 02/27 H Specimen Type: PLASMA No comment entered. Ordering Provider: KATIE JONES Report Released Date/Time: Feb 28, 2024 09:51 AM Reporting Lab: [facility] [address] Performing Lab: [facility] [address] [facility] LIPID PANEL,NON -FASTING CHOLESTEROL IN HDL [MASS/VOLUM E] IN SERUM OR PLASMA 48 mg/dL 40 02/27 Specimen Type: PLASMA No comment entered. Ordering Provider: KATIE JONES Report Released Date/Time: Feb 28, 2024 09:51 AM Reporting Lab: [facility] [address] Performing Lab: [facility] [address] [facility] LIPID PANEL,NON -FASTING CHOLESTEROL IN LDL [MASS/VOLUM E] IN SERUM OR PLASMA BY CALCULATION 161 mg/dL <99 - 99 02/27 H Specimen Type: PLASMA No comment entered. Ordering Provider: KATIE JONES Report Released Date/Time: Feb 28, 2024 09:51 AM Reporting Lab: [facility] [address] Performing Lab: [facility] [address] [facility] LIPID PANEL,NON -FASTING CHOLESTEROL IN VLDL [MASS/VOLUM E] IN SERUM OR PLASMA BY CALCULATION 27 mg/dL <29 - 29 02/27 Specimen Type: PLASMA No comment entered. Ordering Provider: KATIE JONES Report Released Date/Time: Feb 28, 2024 09:51 AM Reporting Lab: [facility] [address] Performing Lab: [facility] [address] [facility] LIPID PANEL,NON -FASTING CHOLESTEROL NON HDL [MASS/VOLUM E] IN SERUM OR PLASMA 188 mg/dL <129 - 129 02/27 H Specimen Type: PLASMA No comment entered. Ordering Provider: KATIE JONES Report Released Date/Time: Feb 28, 2024 09:51 AM Reporting Lab: [facility] [address] Performing Lab: [facility] [address] [facility] LIPID PANEL,NON -FASTING TRIGLYCERID E [MASS/VOLUM E] IN SERUM OR PLASMA 134 mg/dL <149 - 149 02/27 Specimen Type: PLASMA No comment entered. Ordering Provider: KATIE JONES Report Released Date/Time: Feb 28, 2024 09:51 AM Reporting Lab: [facility] [address] Performing Lab: [facility] [address] [facility] B 12 COBALAMIN (VITAMIN B12) [MASS/VOLUM E] IN SERUM OR PLASMA 532 pg/mL 213 - 816 04/04 Specimen Type: SERUM No comment entered. Ordering Provider: KATIE JONES Report Released Date/Time: Feb 23, 2023 09:34 AM Reporting Lab: [facility] [address] Performing Lab: [facility] [address] [facility] FOLATE FOLATE [MASS/VOLUM E] IN SERUM OR PLASMA 14.8 ng/mL 7.0 04/04 Specimen Type: SERUM No comment entered. Ordering Provider: KATIE JONES Report Released Date/Time: Feb 23, 2023 09:34 AM Reporting Lab: [facility] [address] Performing Lab: [facility] [address] [facility] CBC & DIFF LEUKOCYTES [#/VOLUME] IN BLOOD BY AUTOMATED COUNT 6.47 10*3/u L 4.0 - 11.0 04/04 Specimen Type: BLOOD Comment: Automated Differentia l Performed Ordering Provider: KATIE JONES Report Released Date/Time: Feb 23, 2023 09:34 AM Reporting Lab: [facility] [phone] Performing Lab: [facility] [phone] [facility] CBC & DIFF ERYTHROCYTE S [#/VOLUME] IN BLOOD BY AUTOMATED COUNT 3.99 10*6/u L 4.6 - 6.2 04/04 L Specimen Type: BLOOD Comment: Automated Differentia l Performed Ordering Provider: KATIE JONES Report Released Date/Time: Feb 23, 2023 09:34 AM Reporting Lab: [facility] [phone] Performing Lab: [facility] [phone] [facility] CBC & DIFF HEMOGLOBIN [MASS/VOLUM E] IN BLOOD 12.6 g/dL 13.5 - 17.9 04/04 L Specimen Type: BLOOD Comment: Automated Differentia l Performed Ordering Provider: KATIE JONES Report Released Date/Time: Feb 23, 2023 09:34 AM Reporting Lab: [facility] [phone] Performing Lab: [facility] [phone] [facility] CBC & DIFF HEMATOCRIT [VOLUME FRACTION] OF BLOOD BY AUTOMATED COUNT 38.2 41 - 54 04/04 L Specimen Type: BLOOD Comment: Automated Differentia l Performed Ordering Provider: KATIE JONES Report Released Date/Time: Feb 23, 2023 09:34 AM Reporting Lab: [facility] [phone] Performing Lab: [facility] [phone] [facility] CBC & DIFF MCV [ENTITIC VOLUME] BY AUTOMATED COUNT 95.7 fL 80 - 100 04/04 Specimen Type: BLOOD Comment: Automated Differentia l Performed Ordering Provider: KATIE JONES Report Released Date/Time: Feb 23, 2023 09:34 AM Reporting Lab: [facility] [phone] Performing Lab: [facility] [phone] [facility] CBC & DIFF MCH [ENTITIC MASS] BY AUTOMATED COUNT 31.6 pg 27 - 33 04/04 Specimen Type: BLOOD Comment: Automated Differentia l Performed Ordering Provider: KATIE JONES Report Released Date/Time: Feb 23, 2023 09:34 AM Reporting Lab: [facility] [address] Performing Lab: [facility] [address] [facility] CBC & DIFF MCHC [MASS/VOLUM E] BY AUTOMATED COUNT 33.0 g/dL 32.0 - 37.5 04/04 Specimen Type: BLOOD Comment: Automated Differentia l Performed Ordering Provider: KATIE JONES Report Released Date/Time: Feb 23, 2023 09:34 AM Reporting Lab: [facility] [address] Performing Lab: [facility] [address] [facility] CBC & DIFF PLATELETS [#/VOLUME] IN BLOOD BY AUTOMATED COUNT 285 10*3/u L 150 - 400 04/04 Specimen Type: BLOOD Comment: Automated Differentia l Performed Ordering Provider: KATIE JONES Report Released Date/Time: Feb 23, 2023 09:34 AM Reporting Lab: [facility] [address] Performing Lab: [facility] [address] [facility] CBC & DIFF PLATELET MEAN VOLUME [ENTITIC VOLUME] IN BLOOD BY AUTOMATED COUNT 9.0 fL 7.4 - 10.4 04/04 Specimen Type: BLOOD Comment: Automated Differentia l Performed Ordering Provider: KATIE JONES Report Released Date/Time: Feb 23, 2023 09:34 AM Reporting Lab: [facility] [address] Performing Lab: [facility] [address] [facility] CBC & DIFF NEUTROPHILS /100 LEUKOCYTES IN BLOOD BY MANUAL COUNT 67.9 40.0 - 80.0 04/04 Specimen Type: BLOOD Comment: Automated Differentia l Performed Ordering Provider: KATIE JONES Report Released Date/Time: Feb 23, 2023 09:34 AM Reporting Lab: [facility] [address] Performing Lab: [facility] [address] [facility] CBC & DIFF LYMPHOCYTES /100 LEUKOCYTES IN BLOOD BY MANUAL COUNT 18.7 15.0 - 45.0 04/04 Specimen Type: BLOOD Comment: Automated Differentia l Performed Ordering Provider: KATIE JONES Report Released Date/Time: Feb 23, 2023 09:34 AM Reporting Lab: [facility] [address] Performing Lab: [facility] [address] [facility] CBC & DIFF MONOCYTES/1 00 LEUKOCYTES IN BLOOD BY AUTOMATED COUNT 8.8 2.0 - 12.0 04/04 Specimen Type: BLOOD Comment: Automated Differentia l Performed Ordering Provider: KATIE JONES Report Released Date/Time: Feb 23, 2023 09:34 AM Reporting Lab: [facility] [address] Performing Lab: [facility] [address] [facility] CBC & DIFF EOSINOPHILS /100 LEUKOCYTES IN BLOOD BY AUTOMATED COUNT 3.1 0.0 - 6.0 04/04 Specimen Type: BLOOD Comment: Automated Differentia l Performed Ordering Provider: KATIE JONES Report Released Date/Time: Feb 23, 2023 09:34 AM Reporting Lab: [facility] [address] Performing Lab: [facility] [address] [facility] CBC & DIFF BASOPHILS/1 00 LEUKOCYTES IN BLOOD BY MANUAL COUNT 0.6 0.0 - 2.0 04/04 Specimen Type: BLOOD Comment: Automated Differentia l Performed Ordering Provider: KATIE JONES Report Released Date/Time: Feb 23, 2023 09:34 AM Reporting Lab: [facility] [address] Performing Lab: [facility] [address] [facility] CBC & DIFF ERYTHROCYTE DISTRIBUTIO N WIDTH [RATIO] BY AUTOMATED COUNT 14.1 11.5 - 14.5 04/04 Specimen Type: BLOOD Comment: Automated Differentia l Performed Ordering Provider: KATIE JONES Report Released Date/Time: Feb 23, 2023 09:34 AM Reporting Lab: [facility] [address] Performing Lab: [facility] [address] [facility] CBC & DIFF LYMPHOCYTES [#/VOLUME] IN BLOOD BY AUTOMATED COUNT 1.21 10*3/u L 1.0 - 4.0 04/04 Specimen Type: BLOOD Comment: Automated Differentia l Performed Ordering Provider: KATIE JONES Report Released Date/Time: Feb 23, 2023 09:34 AM Reporting Lab: [facility] [address] Performing Lab: [facility] [address] [facility] CBC & DIFF MONOCYTES [#/VOLUME] IN BLOOD BY AUTOMATED COUNT 0.57 10*3/u L 0.1 - 1.0 04/04 Specimen Type: BLOOD Comment: Automated Differentia l Performed Ordering Provider: KATIE JONES Report Released Date/Time: Feb 23, 2023 09:34 AM Reporting Lab: [facility] [address] Performing Lab: [facility] [address] [facility] CBC & DIFF NEUTROPHILS [#/VOLUME] IN BLOOD BY AUTOMATED COUNT 4.39 10*3/u L 2.0 - 7.7 04/04 Specimen Type: BLOOD Comment: Automated Differentia l Performed Ordering Provider: KATIE JONES Report Released Date/Time: Feb 23, 2023 09:34 AM Reporting Lab: [facility] [address] Performing Lab: [facility] [address] [facility] CBC & DIFF EOSINOPHILS [#/VOLUME] IN BLOOD BY AUTOMATED COUNT 0.20 10*3/u L 0 - 0.5 04/04 Specimen Type: BLOOD Comment: Automated Differentia l Performed Ordering Provider: KATIE JONES Report Released Date/Time: Feb 23, 2023 09:34 AM Reporting Lab: [facility] [address] Performing Lab: [facility] [address] [facility] CBC & DIFF BASOPHILS [#/VOLUME] IN BLOOD BY AUTOMATED COUNT 0.04 10*3/u L 0 - 0.2 04/04 Specimen Type: BLOOD Comment: Automated Differentia l Performed Ordering Provider: KATIE JONES Report Released Date/Time: Feb 23, 2023 09:34 AM Reporting Lab: [facility] [address] Performing Lab: [facility] [address] [facility] CBC & DIFF IG(META,MYE LO,PRO) 0.9 04/04 Specimen Type: BLOOD Comment: Automated Differentia l Performed Ordering Provider: KATIE JONES Report Released Date/Time: Feb 23, 2023 09:34 AM Reporting Lab: [facility] [address] Performing Lab: [facility] [address] [facility] CBC & DIFF IMMATURE GRANULOCYTE S [PRESENCE] IN BLOOD BY AUTOMATED COUNT 0.06 10*3/u L 0 - 0.1 04/04 Specimen Type: BLOOD Comment: Automated Differentia l Performed Ordering Provider: KATIE JONES Report Released Date/Time: Feb 23, 2023 09:34 AM Reporting Lab: [facility] [address] Performing Lab: [facility] [address] [facility] IRON GROUP IRON [MASS/VOLUM E] IN SERUM OR PLASMA 69 ug/dL 65 - 175 04/04 Specimen Type: PLASMA No comment entered. Ordering Provider: KATIE JONES Report Released Date/Time: Feb 23, 2023 09:34 AM Reporting Lab: [facility] [address] Performing Lab: [facility] [address] [facility] IRON GROUP IRON BINDING CAPACITY [MASS/VOLUM E] IN SERUM OR PLASMA 263 ug/dL 250 - 425 04/04 Specimen Type: PLASMA No comment entered. Ordering Provider: KATIE JONES Report Released Date/Time: Feb 23, 2023 09:34 AM Reporting Lab: [facility] [address] Performing Lab: [facility] [address] [facility] IRON GROUP FERRITIN [MASS/VOLUM E] IN SERUM OR PLASMA 453.6 ng/mL 21.8 - 274.7 04/04 H Specimen Type: PLASMA No comment entered. Ordering Provider: KATIE JONES Report Released Date/Time: Feb 23, 2023 09:34 AM Reporting Lab: [facility] [address] Performing Lab: [facility] [address] [facility] IRON GROUP IRON SATURATION 26 20 - 50 04/04 Specimen Type: PLASMA No comment entered. Ordering Provider: KATIE JONES Report Released Date/Time: Feb 23, 2023 09:34 AM Reporting Lab: [facility] [address] Performing Lab: [facility] [address] [facility] IRON GROUP TRANSFERRIN [MASS/VOLUM E] IN SERUM OR PLASMA 210 mg/dL 163 - 382 04/04 Specimen Type: PLASMA No comment entered. Ordering Provider: KATIE JONES Report Released Date/Time: Feb 23, 2023 09:34 AM Reporting Lab: [facility] [address] Performing Lab: [facility] [address] [facility] COMPREHEN SIVE METABOLIC PANEL+MG CREATININE [MASS/VOLUM E] IN SERUM OR PLASMA 0.9 mg/dL 0.7 - 1.2 02/22 Specimen Type: PLASMA No comment entered. Ordering Provider: KATIE JONES Report Released Date/Time: Feb 22, 2023 10:40 AM Reporting Lab: [facility] [address] Performing Lab: [facility] [address] [facility] COMPREHEN SIVE METABOLIC PANEL+MG UREA NITROGEN [MASS/VOLUM E] IN SERUM OR PLASMA 16 mg/dL 8 - 26 02/22 Specimen Type: PLASMA No comment entered. Ordering Provider: KATIE JONES Report Released Date/Time: Feb 22, 2023 10:40 AM Reporting Lab: [facility] [address] Performing Lab: [facility] [address] [facility] COMPREHEN SIVE METABOLIC PANEL+MG GLUCOSE [MASS/VOLUM E] IN SERUM OR PLASMA 88 mg/dL 70 - 100 02/22 Specimen Type: PLASMA No comment entered. Ordering Provider: KATIE JONES Report Released Date/Time: Feb 22, 2023 10:40 AM Reporting Lab: [facility] [address] Performing Lab: [facility] [address] [facility] COMPREHEN SIVE METABOLIC PANEL+MG SODIUM [MOLES/VOLU ME] IN SERUM OR PLASMA 141 mmol/L 136 - 145 02/22 Specimen Type: PLASMA No comment entered. Ordering Provider: KATIE JONES Report Released Date/Time: Feb 22, 2023 10:40 AM Reporting Lab: [facility] [address] Performing Lab: [facility] [address] [facility] COMPREHEN SIVE METABOLIC PANEL+MG POTASSIUM [MOLES/VOLU ME] IN SERUM OR PLASMA 4.4 mmol/L 3.5 - 5.1 02/22 Specimen Type: PLASMA No comment entered. Ordering Provider: KATIE JONES Report Released Date/Time: Feb 22, 2023 10:40 AM Reporting Lab: [facility] [address] Performing Lab: [facility] [address] [facility] COMPREHEN SIVE METABOLIC PANEL+MG CHLORIDE [MOLES/VOLU ME] IN SERUM OR PLASMA 109 mmol/L 98 - 107 02/22 H Specimen Type: PLASMA No comment entered. Ordering Provider: KATIE JONES Report Released Date/Time: Feb 22, 2023 10:40 AM Reporting Lab: [facility] [address] Performing Lab: [facility] [address] [facility] COMPREHEN SIVE METABOLIC PANEL+MG CARBON DIOXIDE, TOTAL [MOLES/VOLU ME] IN SERUM OR PLASMA 24 mmol/L 22 - 29 02/22 Specimen Type: PLASMA No comment entered. Ordering Provider: KATIE JONES Report Released Date/Time: Feb 22, 2023 10:40 AM Reporting Lab: [facility] [address] Performing Lab: [facility] [address] [facility] COMPREHEN SIVE METABOLIC PANEL+MG CALCIUM [MASS/VOLUM E] IN SERUM OR PLASMA 9.1 mg/dL 8.4 - 10.2 02/22 Specimen Type: PLASMA No comment entered. Ordering Provider: KATIE JONES Report Released Date/Time: Feb 22, 2023 10:40 AM Reporting Lab: [facility] [address] Performing Lab: [facility] [address] [facility] COMPREHEN SIVE METABOLIC PANEL+MG PROTEIN [MASS/VOLUM E] IN SERUM OR PLASMA 6.7 g/dL 6.0 - 8.3 02/22 Specimen Type: PLASMA No comment entered. Ordering Provider: KATIE JONES Report Released Date/Time: Feb 22, 2023 10:40 AM Reporting Lab: [facility] [address] Performing Lab: [facility] [address] [facility] COMPREHEN SIVE METABOLIC PANEL+MG ALBUMIN [MASS/VOLUM E] IN SERUM OR PLASMA 3.9 g/dL 3.5 - 5.2 02/22 Specimen Type: PLASMA No comment entered. Ordering Provider: KATIE JONES Report Released Date/Time: Feb 22, 2023 10:40 AM Reporting Lab: [facility] [address] Performing Lab: [facility] [address] [facility] COMPREHEN SIVE METABOLIC PANEL+MG BILIRUBIN.T OTAL [MASS/VOLUM E] IN SERUM OR PLASMA 0.8 mg/dL 0.2 - 1.2 02/22 Specimen Type: PLASMA No comment entered. Ordering Provider: KATIE JONES Report Released Date/Time: Feb 22, 2023 10:40 AM Reporting Lab: [facility] [address] Performing Lab: [facility] [address] [facility] COMPREHEN SIVE METABOLIC PANEL+MG MAGNESIUM [MASS/VOLUM E] IN SERUM OR PLASMA 2.2 mg/dL 1.6 - 2.6 02/22 Specimen Type: PLASMA No comment entered. Ordering Provider: KATIE JONES Report Released Date/Time: Feb 22, 2023 10:40 AM Reporting Lab: [facility] [address] Performing Lab: [facility] [address] [facility] COMPREHEN SIVE METABOLIC PANEL+MG ANION GAP IN SERUM OR PLASMA 8 mmol/L 5 - 15 02/22 Specimen Type: PLASMA No comment entered. Ordering Provider: KATIE JONES Report Released Date/Time: Feb 22, 2023 10:40 AM Reporting Lab: [facility] [address] Performing Lab: [facility] [address] [facility] COMPREHEN SIVE METABOLIC PANEL+MG ALKALINE PHOSPHATASE [ENZYMATIC ACTIVITY/VO LUME] IN SERUM OR PLASMA 70 U/L 40 - 150 02/22 Specimen Type: PLASMA No comment entered. Ordering Provider: KATIE JONES Report Released Date/Time: Feb 22, 2023 10:40 AM Reporting Lab: [facility] [address] Performing Lab: [facility] [address] [facility] COMPREHEN SIVE METABOLIC PANEL+MG ALANINE AMINOTRANSF ERASE [ENZYMATIC ACTIVITY/VO LUME] IN SERUM OR PLASMA 10 U/L 02/22 Specimen Type: PLASMA No comment entered. Ordering Provider: KATIE JONES Report Released Date/Time: Feb 22, 2023 10:40 AM Reporting Lab: [facility] [address] Performing Lab: [facility] [address] [facility] COMPREHEN SIVE METABOLIC PANEL+MG ASPARTATE AMINOTRANSF ERASE [ENZYMATIC ACTIVITY/VO LUME] IN SERUM OR PLASMA 19 U/L 02/22 Specimen Type: PLASMA No comment entered. Ordering Provider: KATIE JONES Report Released Date/Time: Feb 22, 2023 10:40 AM Reporting Lab: [facility] [address] Performing Lab: [place] [address] [facility] COMPREHEN SIVE METABOLIC PANEL+MG GLOMERULAR FILTRATION RATE/1.73 SQ M.PREDICTED [VOLUME RATE/AREA] IN SERUM, PLASMA OR BLOOD BY CREATININE- BASED FORMULA (CKD-EPI 2020) 83 02/22 Specimen Type: PLASMA No comment entered. Ordering Provider: KATIE JONES Report Released Date/Time: Feb 22, 2023 10:40 AM Reporting Lab: [facility] [address] Performing Lab: [facility] [address] [facility] HEMOGLOBI N A1C HEMOGLOBIN A1C/HEMOGLO BIN.TOTAL [...] Feb 22, 2023 10:40 AM Reporting Lab: [facility] [address] Performing Lab: [place] [address] [facility] Vital Signs Combined list of inpatient and outpatient Vital Signs from Department of Defense and Veterans Affairs, ranging from 12 months to all on record, depending upon the facility. Vital Sign Value Date Comments Source SYSTOLIC BLOOD PRESSURE 128 02/28/2024 09:18:48 [facility] DIASTOLIC BLOOD PRESSURE 74 02/28/2024 09:18:48 [facility] PULSE OXIMETRY 95 02/28/2024 09:18:48 [facility] WEIGHT 198.9 02/28/2024 09:18:48 [facility] BMI 31kg/m2 02/28/2024 09:18:48 [facility] PAIN 4 02/28/2024 09:18:48 [facility] HEIGHT 67.5 02/28/2024 09:18:48 [facility] TEMPERATURE 97.5 02/28/2024 09:18:48 [facility] PULSE 49 02/28/2024 09:18:48 [facility] RESPIRATION 16 02/28/2024 09:18:48 [facility] SYSTOLIC BLOOD PRESSURE 159 07/11/2023 14:56:56 [facility] DIASTOLIC BLOOD PRESSURE 84 07/11/2023 14:56:56 [facility] PULSE OXIMETRY 97% 07/11/2023 14:56:56 [facility] WEIGHT 209.6 07/11/2023 14:56:56 [facility] BMI 32kg/m2 07/11/2023 14:56:56 [facility] PAIN 0 07/11/2023 14:56:56 [facility] TEMPERATURE 98 07/11/2023 14:56:56 [facility] PULSE 50 07/11/2023 14:56:56 [facility] RESPIRATION 16 07/11/2023 14:56:56 [facility] Encounters Combined list of: 1) Encounters from Department of Veterans Affairs facilities going back up to thelast 18 months. 2) Encounters from the Department of Defense facilities going back up to 280 months. Location Location Details Encounter Type Encounter Number Reason For Visit Attending Provider ADM Date DC Date Status Disposition Source [place] [facility] Outpatient Encounter [id number] 02/01 [facility] OFF[facility] O/P EST MOD 30-39 MIN [id number] Diagnos is: ICD-10- CM Z00.8 Encount er for other general examina tion
Bob JONES EBECCA L 02/22 [facility] [place] [facility] Outpatient Encounter [id number] 02/24 [facility] [place] [facility] Outpatient Encounter [id number] 03/20 [facility] [place] [facility] [place] [place] [id number] Diagnos is: ICD-10- CM Z01.118 Encntr for exam of ears and hearing w oth abnorma l finding s
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 CONFORMITY EVALUATION [id number] Diagnos is: ICD-10- CM Z46.1 Encount er for fitting and adjustm ent of hearing aid<br/ > NEERU TINAJERO 05/30 [facility] Outpatient Encounter [id number] 07/01 [facility] OFF[facility] O/P EST LOW 20-29 MIN [id number] Diagnos is: ICD-10- CM G47.39 Other sleep apnea<b r/> Bob JONESECCA L 07/11 [facility] EAR IMPRESSION [id number] Diagnos is: ICD-10- CM Z46.1 Encount er for fitting and adjustm ent of hearing aid<br/ > NEERU TINAJERO 08/02 [facility] OFFICE O/P EST MOD 30 MIN [id number] Diagnos is: ICD-10- CM 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
NEERU TINAJERO 01/14 [facility] OFF[facility] O/P EST MOD 30 MIN [id number] Diagnos is: ICD-10- CM Z00.8 Encount er for other general examina tion
Bob JONES EBECCA L 02/27 [facility] OFF/OP EST MAY X REQ PHY/QHP [id number] Diagnos is: ICD-10- CM Z71.9 Wire Spring Relay Adjuster ing, unspeci fied
WHITE,MARC A R 03/14 JIMMY BARRETT Social History Combined list of available smoking, tobacco, and other social history from Department of Defense and Veterans [facility] facilities. Social History Type Response Date Comment Sour e Tobacco smoking status NHIS [place]-TOBACCO NEVER USED 02/28/20 SHON BARRETT History of tobacco use TX-TOBACCO FORMER USER 02/22/2023 SHON BARRETT Plan of Care List of future care activities from [facility] facilities. Additional future care activities may be listed in the Assessment and Plan section. Date/Time Care Activity Care Activity Detail Facili ty 05/24/2024 AMBULATORY - SURGERY AM[facility]ULATORY - SURGERY [facility] 06/27/2024 AMBULATORY - SURGERY [facility]BULATORY - SURGERY [facility] 06/27/2024 AMBULATORY - SURGERY AM[facility]ULATORY - SURGERY [facility] Advance Directives List of completed, amended, or rescinded Advance Directives on record at Department [facility] facilities. An actual copy of the Directive is not included. Date Advance Directive Provider Source 04/19/2023 [facility] DIRECTIVE DISCUSSION [facility] 04/19/2023 [facility]
--- OUTSIDE RECORDS SUMMARY | 2024-05-22 11:13 | XMS_ITS | Referral Summary ---
Author Organization [facility] Address [facility] [place] [address] Care Team Providers Care Log Washer Name Role Phone Clinic, [facility] [...] of Treatment Not on file Care Teams Log Washer Relationship Specialty Start Date End Date Clinic, [address] [address] PCP - General 06/26/20
--- OUTSIDE RECORDS SUMMARY | 2024-05-22 11:13 | XMS_ITS | Clinical Summary ---
Author Organization [facility] Address [address], [place] [address] Care Team Providers Care Molded Goods Embossing Press Operator Name Role Phone Unavailable Primary Care Provider Unavailabl e Source Comments You are receiving this document as you are listed as the primary care provider,follow-up provider, or the patient has been referred to you for consultation.This is in compliance with the Medicare and[facility] EHR Incentive Program,which states Providers who transition [...] Visit 1935 Zoster/Shingles (1 of 2) 1986 RSV (1 - 1-dose 75+ series) 11/24/2011 COVID-19 Vaccine ( season) 2024 07/11/2023, 07/13/2021, [...] DASHAWN COTE Personal/Famil y [address] [facility] [place]AM[place] [address]
--- OUTSIDE RECORDS SUMMARY | 2024-05-22 11:13 | XMS_ITS | Clinical Summary ---
Author Organization [place] Address [facility] [place] [address] Care Team Providers Care Free Lance Artist Name Role Phone Clinic, [facility] [...] of Treatment Not on file Care Teams Free Lance Artist Relationship Specialty Start Date End Date Clinic, [address] [address] PCP - General 06/26/20
--- OUTSIDE RECORDS SUMMARY | 2024-05-22 11:13 | XMS_ITS | Clinical Summary ---
Author Organization [employer] [facility] [place], [place] [address] Care Team Providers Care Adjunct Faculty Name Role Phone Trace Tom MD Primary [...] 65+ 05/05/2024 Medical Devices Implanted Type Area Lien Searcher Device Identifier Shelf Expiration Date Model / Serial / Lot Cancellous Bone Screw Implanted:Qty: 1 on 01/30/2018 by Dickson Sevilla MD at [facility] Right: Hip [employer] 10/29/2022 / / [id number] Cluster Acetabluar Shell Implanted:Qty: 1 on 01/30/2018 by Dickson Sevilla MD at [facility] Right: Hip [employer] 10/16/2022 / / [id number] Polyethlene Insert Implanted:Qty: 1 on 01/30/2018 by Dickson Sevilla MD at [facility] Right: Hip [employer] 07/09/2022 / / [id number] Neck Angle Hip Stem Implanted:Qty: 1 on 01/30/2018 by Dickson Sevilla MD at [facility] Right: Hip [employer] 11/24/2022 / / [id number] C-Taper Femoral Head Implanted:Qty: 1 on 01/30/2018 by Dickson Sevilla MD at [facility] Right: Hip [employer] 10/29/2022 / / [...] 10:51 AM 01/30/2018 2:57 PM Care Teams Adjunct Faculty Relationship Specialty Start Date End Date Trace Tom MD [address] [place] [address] PCP - General Family Practice 01/25/22
--- OUTSIDE RECORDS SUMMARY | 2024-05-22 11:13 | XMS_ITS ---
Author Organization [facility] Address [address] [place] [address] Care Team Providers Care Service Delivery Manager Name Role Phone Unavailable Unavailable Unavailable Surgery Details Not on file Complications Check Surgery Details section. Procedure Estimated Blood Loss Check Surgery Details section. Procedure Findings Check Surgery Details section. Procedure Specimens Taken Check Surgery Details section.
--- OUTSIDE RECORDS SUMMARY | 2024-05-22 11:13 | XMS_ITS | Clinical Summary ---
Author Organization [facility] Address [address] [place] [address] Care Team Providers Care Quality Liaison Name Role Phone Unavailable Primary Care Provider Unavailabl e Source Comments Patient records contain information from all sites at [facility]. For routine questions regarding patient records, call [phone] during business hours, M-F 8:00 AM - 5:00 PM Central Time. Record requests for emergency care only can be directed to [phone] at any time.[facility] Allergies No known active allergies Medications [...] Comments Blood Pressure 140/74 07/12/2020 11:15 AM SYSTEMS INTEGRATION MANAGER Pulse 60 07/12/2020 11:15 AM SYSTEMS INTEGRATION MANAGER Temperature 37.3 ??C (99.1 ??F) 07/12/2020 1 1:15 AM SYSTEMS INTEGRATION MANAGER Respiratory Rate 20 07/12/2020 8:28 AM SYSTEMS INTEGRATION MANAGER Oxygen Saturation 96% 07/12/2020 11: 15 AM SYSTEMS INTEGRATION MANAGER Inhaled Oxygen Concentration - - Weight 101 kg (222 lb 10.6 oz) 2016 2:13 PM CDT Vital sign result from Clinical Notes. Height 175.3 cm (5' 9) 07/12/2020 8:27 AM SYSTEMS INTEGRATION MANAGER Body Mass Index 32.98 09/20/2016 4:53 PM SYSTEMS INTEGRATION MANAGER Plan of Treatment Health Maintenance Due Date [...]
--- OUTSIDE RECORDS SUMMARY | 2024-05-22 11:13 | XMS_ITS | Referral Summary ---
Author Organization [facility] Address [address] [place] [address] Care Team Providers Care Diesel Tractor Engine Mechanic Name Role Phone Unavailable Primary Care Provider Unavailabl e Source Comments Patient records contain information from all sites at [facility]. For routine questions regarding patient records, call [phone] during business hours, M-F 8:00 AM - 5:00 PM Central Time. Record requests for emergency care only can be directed to [phone] at any time.[facility] Allergies No known active allergies Medications [...] Comments Blood Pressure 140/74 07/12/2020 11:15 AM DIRECTOR DANCE Pulse 60 07/12/2020 11:15 AM DIRECTOR DANCE Temperature 37.3 ??C (99.1 ??F) 07/12/2020 1 1:15 AM DIRECTOR DANCE Respiratory Rate 20 07/12/2020 8:28 AM DIRECTOR DANCE Oxygen Saturation 96% 07/12/2020 11: 15 AM DIRECTOR DANCE Inhaled Oxygen Concentration - - Weight 101 kg (222 lb 10.6 oz) 2016 2:13 PM CDT Vital sign result from Clinical Notes. Height 175.3 cm (5' 9) 07/12/2020 8:27 AM DIRECTOR DANCE Body Mass Index 32.98 09/20/2016 4:53 PM DIRECTOR DANCE Plan of Treatment Not on file
== END 2024-05-22 11:12 | disposition home or self-care (01) ==
LOC: WOUND 11:11
PROVIDERS: Visit Provider Surgery
DX: I87.312 Chronic venous hypertension (idiopathic) with ulcer of left lower extremity (principal); L97.322 Non-pressure chronic ulcer of left ankle with fat layer exposed; S81.802A Unspecified open wound, left lower leg, initial encounter; S81.801A Unspecified open wound, right lower leg, initial encounter
CPT/HCPCS: G0463

== ENCOUNTER 2024-05-29 11:14 | Outpatient (CLI) | payer MEDICARE, BC, SELFPAY ==
--- OUTSIDE RECORDS SUMMARY | 2024-05-29 11:16 | XMS_ITS | Clinical Summary ---
Author Organization [facility] Address [address] [place] [address] Care Team Providers Care Financial Counselor Name Role Phone Unavailable Primary Care Provider Unavailabl e Source Comments Patient records contain information from all sites at [facility]. For routine questions regarding patient records, call [phone] during business hours, M-F 8:00 AM - 5:00 PM Central Time. Record requests for emergency care only can be directed to [phone] at any time.[facility] Allergies No known active allergies Medications Medication [...] Comments Blood Pressure 140/74 07/12/2020 11:15 AM PLATE PRINTER Pulse 60 07/12/2020 11:15 AM PLATE PRINTER Temperature 37.3 ??C (99.1 ??F) 07/12/2020 1 1:15 AM PLATE PRINTER Respiratory Rate 20 07/12/2020 8:28 AM PLATE PRINTER Oxygen Saturation 96% 07/12/2020 11: 15 AM PLATE PRINTER Inhaled Oxygen Concentration - - Weight 101 kg (222 lb 10.6 oz) 2016 2:13 PM CDT Vital sign result from Clinical Notes. Height 175.3 cm (5' 9) 07/12/2020 8:27 AM PLATE PRINTER Body Mass Index 32.98 09/20/2016 4:53 PM PLATE PRINTER Plan of Treatment Health Maintenance Due Date Last Done Comments Zoster Vaccines (1 of 2) 1985 RSV vaccine - (32-3 6 weeks) or 60+ years (1 - 1-dose 75+ series) 11/24/2011 Depression Screening (Annual PHQ-2) 09/04/2023 Fall Risk Screen (Annual) 09/04/2023 COVID-19 Vaccine (5 - 2023-2 5 season) 2024 07/11/2023, 07/13/2021, 12/01/2020, Additional history exists Influenza Vaccine (#1) 2024 , 06/08/2022, 06/30/2021, Additional history exists DTaP,Tdap,and Td Vaccines (3 - Td or Tdap) 09/20/2026 09/20/2016, 06/25/2012 Pneumococcal vaccine (65+ years) Completed 02/23/20 23
--- OUTSIDE RECORDS SUMMARY | 2024-05-29 11:16 | XMS_ITS | Encounter Summary ---
Author Name [facility] Organization [facility] Address [address] [place] [address] Care Team Providers Care Tire Vulcanizer Name Role Phone GARY JONES Primary Care [...] Duncan's Name Patient's Relationship to Policy Duncan [facility] (WNR) MEDICARE ADVANTAGE [facility] (WNR) Sep 04, 2021 [id number] [phone] Merna COTE PATIENT Selected Encounter This section includes the information on record at [place] for the Encounter. Date/Time Encounter Type Encounter Description Reason Provider Source May 24, 2024 12:00 PM OFFICE O/P EST HI 40 MIN VASCULAR SURGERY ICD-10-CM 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) TRISH GUTIERREZ [facility] Encounter Template Text not used by [place] Assessments - Encounter Diagnoses This section includes the primary and secondary diagnoses documented for the Encounter. Date/Time Primary/Secondary Diagnosis Diagnosis Name Provider Source May 24, 2024 12:51 PM PRIMARY Venous insufficiency (chronic) (peripheral) TRISH GUTIERREZ [facility] Plan of Treatment: Future Appointments (+ 6 months) and Future Tests (+/- 45 days) The Plan of Treatment section includes future care activities for the patient from all [place] [facility]. This section includes future appointments and future orders which are active, pending or scheduled. Future Appointments This section includes appointments that were scheduled to occur 6 months from the date of the Encounter, up to a maximum of 20 appointments. The data comes from all [facility] facilities. Appointment Date/Time Appointment Type Appointme nt Facility Name Jun 27, 2024 07:45 AM AMBULATORY - SURGERY [facility] Jun 27, 2024 08:40 AM AMBULATORY - SURGERY [facility] Jul 24, 2024 12:30 PM [facility] - NONE [facility] Advance Directives: All historical and current Section Date Range: From patient's date of to the date document was created. This section includes ALL of a patient's completed or amended [place] Advance and Rescinded Directives. The entries below indicate that a directive exists for the patient, but an actual copy is not included with this document. The data comes from all [facility]. Date Advance Directives Provider Source Apr 19, 2023 ADVANCE DIRECTIVE DISCUSSION [facility] Apr 19, 2023 ADVANCE DIRECTIVE [facility] Encounter Notes: All associated encounter notes This section contains the clinical notes associated to the Encounter. Date/Time Encounter Note(s) Provider Source May 24, 2024 12:43 PM VASCULAR SURGERY CONSULT: LOCAL TITLE: VASCULAR CONSULT STANDARD TITLE: VASCULAR SURGERY CONSULT DATE OF NOTE: MAY 24, 2024@12:43 ENTRY DATE: MAY 24, 2024@12:43:55 AUTHOR: MANUELA GUTIERREZIGNER: URGENCY: STATUS: COMPLETED Vascular Surgery Admission History & Physical / Consult Note: CONSULT: appears to have issues such as venous insufficiency, hx of ulcerations, and edema. Pt has a smaller healing wound on the lateral aspect of his ankle. Pt has a hard time with use of compression stockings. Primary care is monitoring wound at this time. HPI: Pt is a 88 yo gentleman with PMH including h/o prostate CA s/p XRT, TESSIE, LE edema with concern for venous insufficiency and venous ulcerations. Most recent imaging: none Pt is met today in clinic where he/his report ongoing BLE edema that is significant and they have been battling this for years. They report that he has a history of multiple venous wounds that have healed or lingered for a long time, currently working with the [facility], being seen once a week for the past 9 weeks for a lateral left leg venous wound (debriding it every week or so per their report). They endorse that he wears compression stockings, elevates his legs, and is on torsemide for diuresis. He has no ECHO on file He denies smoking (brief smokes a pipe while in the service but not since), denies illicit drug use/marijuana. He endorses 0-2 beers/day, occasional martini. Pt is not on a statin; last Total Cholesterol 236, LDL 161. Last Creatinine 1.0 Past Medical History/Past Surgical History: Active problems - Computerized Problem List is the source for the followin. 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 - treated prostate cancer with 44 radiation treatments 2. Malignant melanoma 3. Edema - trated for prostate ca with 44 radiation treatments - treated fro prostate cancer with 44 radiation treatments 4. Exposure to potentially hazardous substance (SCT [id number]) - Entered through [facility] Documentation Initiative 5. Obstructive Sleep Apnea of Adult (SCT [id number]) - See scanned records in [place] for details Medications: Active and Recently Outpatient Medications (including Supplies): Active Outpatient Medications Status 1) ALBUTEROL 90MCG (CFC-F) 200D ORAL INHL INHALE 1 PUFF ACTIVE BY INHALATION EVERY 6 HOURS NEEDED FOR SHORTNESS OF BREATH 2) CARBOXYMETHYLCELLULOSE NA 0.5% OPH SOLN INSTILL 1 ACTIVE DROP IN BOTH EYES FOUR TIMES A DAY NEEDED FOR DRY EYES 3) TORSEMIDE 20MG TAB TAKE ONE TABLET BY MOUTH EVERY DAY ACTIVE FOR EXCESS FLUID Inactive Outpatient Medications Status 1) DEPEND UNDERWEAR,MAXIMUM,MEN LARGE USE 1 BRIEF DIRECTED Active Non-VA Medications Status 1) Non-VA ASCORBIC ACID 500MG TAB 500MG MOUTH EVERY DAY ACTIVE 2) Non-VA CHOLECALCIFEROL TAB 1 TAB MOUTH ACTIVE 3) Non-VA IBUPROFEN 600MG TAB 600MG MOUTH THREE TIMES A ACTIVE DAY NEEDED 4) Non-VA MULTIVITAMIN CAP/TAB 1 TABLET MOUTH EVERY DAY ACTIVE 5) Non-VA ZINC 50MG (FROM SULFATE) CAP 50MG MOUTH EVERY ACTIVE DAY Inactive Non-VA Medications Status 1) Non-VA TORSEMIDE 20MG TAB 20MG MOUTH DISCONTINUED 10 Total Medications No Active Remote Medications for this patient Allergies: FACILITY ALLERGY/ADR -------- No Remote Allergy/ADR Data available for this patient [facility] No Known Allergies Family History: Social History: Smoking: denies Alcohol: 0-2 beers/day with occasional martini Illicit Drug Use: denies ADL: with assistance Dyspnea with exertion with 1 flight of stairs: Yes Physical Exam: Temp: 97.5 F [36.4 C] (02/28/2024 09:18) Pulse:49 (02/28/2024 09:18) BP: 128/74 (02/28/2024 09:18) O2 Sat: 95% (02/28/2024 09:18) BMI: 30.8 General: pleasant, elderly gentleman, HEENT:glasses in place, bilaterfal hearing aids in place, symmetrical Resp: NLB on RA, no cough CV: RRR per Doppler Abd: ND Neuro: forgetful to a few details but overall alert, oriented x 4, Ext: DPs Biphasic Doppler signals bilaterally, PTs monophasic Doppler Signals. 1-2+ BLE edema with significant varicose veins in BLEs, purple in color, thin skin. Right anterior castillo small venous ulceration (very shallow), left lateral lower leg venous ulceration without s/s of infection at this time. Labs: INR: INR - NONE FOUND WBC: WBC 7.34 (02/28/24) Hemoglobin: HGB 13.4 L (02/28/24) Platelets: PLT 273 (02/28/24) CREATININE 1.0 (02/28/24) Imaging: none on file Assement/Plan: 88 yo gentleman with PMH including h/o prostate CA s/p XRT, TESSIE, LE edema with concern for venous insufficiency and venous ulcerations. Recommend getting venous insufficiency Ultrasound to quantify venous insufficiency for intervention options. Recommend continued compression stockings/elevation/diresis for edema management. Spoke to them about venous pumps but they note they have a venous over-the- counter pump but don't use it, and will try to use it again. We reviewed expectations that if intervention is warranted based on imaging, compression/elevation is still mainstay of treatment, and to speak to PCP before stopping diuretic therapy as might wish for ECHO before stopping. As they drive from [place], will follow up by phone when US is complete for next steps and for discussion of possible intervention, along with clinical assessment. Recommend starting a statin (did not speak to pt about this today). Total time on this visit including chart review, patient visit and coordination of care (if any involved): 47 min /felix/ MANUELA GUTIERREZ CNP NURSE PRACTITIONER Signed: 05/24/2024 12:51 MANUELA GUTIERREZ [facility]
--- OUTSIDE RECORDS SUMMARY | 2024-05-29 11:16 | XMS_ITS | Continuity of Care Document ---
Author Name [facility] Organization [facility] Care Team Providers Care [employer] [facility] Director Name Role Phone [facility] Unavailable Unavailable Problems Combined list of problems from Department of Defense and Veterans Affairs facilities. It does not include entries that were removed or entered in error. Problem Status Onset Date Problem Type Date of Resolution Comments Source Exposure to potentially hazardous substance ([facility] [id number]) Active 11/10/19 24 Condition Nov 10, 2023 Entered By: FLORES KENNEDY Comment: [facility] JOSIE Documentation Initiative [facility] Edema Active Condition Feb 22 Entered By: GARY JONES Comment: trated for prostate ca with 44 radiation treatmentsFeb 22, 2023 Entered By: GARY JONES Comment: treated fro prostate cancer with 44 radiation treatments [facility] 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 Active Condition Feb 22, 2023 Entered By: GARY JONES Comment: treated prostate cancer with 44 radiation treatments [facility] Malignant melanoma Active Condition [facility] Obstructive Sleep Apnea of Adult ([facility] [id number]) Active Condition Dec 28, 2023 Entered By: WILEY ARTHUR Comment: See scanned records in [place] for details [facility] Diagnosis: ICD-10-CM 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) Active Diagnosis [facility] Diagnosis: ICD-10-CM Z71.9 Counseling, unspecified Active Diagnosis [facility] Diagnosis: ICD-10-CM Z00.8 Encounter for other general examination Active Diagnosis [facility] Diagnosis: ICD-10-CM 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 loss, bilateral Active Diagnosis [facility] Diagnosis: ICD-10-CM 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, right eye Active Diagnosis [facility] Diagnosis: ICD-10-CM Z46.1 Encounter for fitting and adjustment of hearing aid Active Diagnosis [facility] Diagnosis: ICD-10-CM G47.39 Other sleep apnea Active Diagnosis [facility] Diagnosis: ICD-10-CM 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, right eye Active Diagnosis [facility] Diagnosis: ICD-10-CM Z01.118 Encntr for exam of ears and hearing w oth abnormal findings Active Diagnosis [facility] Medications Combined list of outpatient medications [...] Jul 12, 2023 2 Jul 12, 2024 [id number] Jul 12, 2023 [facility] RESPIR ATORY (INHAL ATION) ACTIVE 07/12/2024 [id number] GARY JONES 2022 2 [facility] ASCORBIC ACID 500MG TAB ASCORBIC ACID 500MG TAB Non-VA TAKE ONE TABLET BY MOUTH EVERY DAY FOR VITAMIN C SUPPLEME NT Feb 22, 2023 Non-VA Document ed by: GARY JONES Document ed at: [facility] ORAL ACTIVE GARY JONES 2022 [facility] CARBOXYMETH YLCELLULOSE NA 0.5% SOLN,OPH CARBOXYM ETHYLCEL LULOSE NA 0.5% SOLN,OPH Active INSTILL 1 DROP IN BOTH EYES FOUR TIMES A DAY NEEDED FOR DRY EYES FOR DRY EYES Nov 01, 2023 15 Nov 01, 2024 [id number] Nov 02, 2023 [facility] ,CHRISTINA H [place] [facility] OPHTHA LMIC ACTIVE 11/01/2024 [id number] GRAMATES, CHRISTINA H 2023 15 [place] [facility] CHOLECALCIF VAL TAB CHOLECAL CIFEROL TAB Non-VA TAKE 1 TAB BY MOUTH Feb 28, 2024 Non-VA Document ed by: GARY JONES Document ed at: [facility] ACTIVE GARY JONES 2023 [facility] IBUPROFEN 600MG TAB IBUPROFE N 600MG TAB Non-VA TAKE ONE TABLET BY MOUTH THREE TIMES A DAY NEEDED Feb 28, 2024 Non-VA Document ed by: GARY JONES Document ed at: [facility] ORAL ACTIVE GARY JONES 2023 [facility] MULTIVITAMI NS CAP/TAB MULTIVIT AMINS [...] Feb 28, 2024 90 Feb 28, 2025 [id number] Feb 28, 2024 [facility] ORAL ACTIVE 02/28/2025 [id number] GARY JONES 2023 90 [facility] ZINC 50MG (FROM SULFATE) CAP ZINC 50MG (FROM SULFATE) CAP Non-VA TAKE 1 CAPSULE BY MOUTH EVERY DAY UNKNOWN Feb 22, 2023 Non-VA Document ed by: GARY JONES Document ed at: [facility] ORAL ACTIVE GARY JONES 2022 [facility] Immunizations Combined list of available immunizations from the Department of Defense and Veterans Affairs facilities. Immunization Series Date Given Administered By Site Reaction Lot Number CVX Code Drug Facility Assistant Status Comments Source COVID-19 ([employer]), MRNA, LNP-S, PF, JASON-SUCROSE, 30 MCG/0.3 ML (AGES 12+ YEARS) 1 2022 TOOTIE ANDERSON LEFT DELTO ID [id number] 309 complet ed [facility] INFLUENZA, HIGH-DOSE, QUADRIVALENT 2022 [facility] AND[facility] LEFT DELTO ID [id number] 197 complet ed [facility] PNEUMOCOCCAL CONJUGATE PCV20, POLYSACCHARID E [id number] CONJUGATE, ADJUVANT, PF 2022 TO[facility]IE ANDERSON LEFT DELTO ID [id number] 216 complet ed [facility] INFLUENZA, HIGH-DOSE, QUADRIVALENT, PF 2021 197 complet ed [facility] INFLUENZA, UNSPECIFIED FORMULATION 2021 88 complet ed [facility] COVID-19 (MODERNA), MRNA, LNP-S, PF, 100 MCG/0.5ML DOSE OR 50 MCG/0.25ML DOSE 3 2020 207 complet ed [facility] INFLUENZA, HIGH-DOSE, QUADRIVALENT, PF 2020 197 complet ed [facility] COVID-19 (MODERNA), MRNA, LNP-S, PF, 100 MCG/0.5ML DOSE OR 50 MCG/0.25ML DOSE 2 2020 207 complet ed [facility] COVID-19 (MODERNA), MRNA, LNP-S, PF, 100 MCG/0.5ML DOSE OR 50 MCG/0.25ML DOSE 1 2020 207 complet ed [facility] INFLUENZA, HIGH-DOSE, TRIVALENT, PF 2018 135 complet ed [facility] INFLUENZA, HIGH-DOSE, TRIVALENT, PF 2016 135 complet ed [facility] TDAP 2016 115 complet ed [facility] INFLUENZA, SPLIT VIRUS, QUADRIVALENT, PF 2015 150 complet ed [facility] INFLUENZA, HIGH-DOSE, TRIVALENT, PF 2015 135 complet ed [facility] INFLUENZA, HIGH-DOSE, TRIVALENT, PF 2012 135 complet ed [facility] INFLUENZA, SPLIT VIRUS, TRIVALENT, PRESERVATIVE 2012 141 complet ed [facility] TDAP 2011 115 complet ed [facility] INFLUENZA, SPLIT VIRUS, TRIVALENT, PF 2010 140 complet ed [facility] HEP B, UNSPECIFIED FORMULATION 2009 45 complet ed [facility] NOVEL INFLUENZA-H1N 1-09 2009 127 complet ed [facility]IE READ [facility] Results Combined list of recent chemistry, [...] Feb 28, 2024 09:41 AM Reporting Lab: [facility] [address] Performing Lab: [facility] [address] [facility] CBC & DIFF ERYTHROCYTE S [#/VOLUME] IN BLOOD BY AUTOMATED COUNT 4.19 10*6/u L 4.6 - 6.2 02/27 L Specimen Type: BLOOD Comment: Automated Differentia l Performed Ordering Provider: KATIE JONES Report Released Date/Time: Feb 28, 2024 09:41 AM Reporting Lab: [facility] [address] Performing Lab: [facility] [address] [facility] CBC & DIFF HEMOGLOBIN [MASS/VOLUM E] IN BLOOD 13.4 g/dL 13.5 - 17.9 02/27 L Specimen Type: BLOOD Comment: Automated Differentia l Performed Ordering Provider: KATIE JONES Report Released Date/Time: Feb 28, 2024 09:41 AM Reporting Lab: [facility] [address] Performing Lab: [facility] [address] [facility] CBC & DIFF HEMATOCRIT [VOLUME FRACTION] OF BLOOD BY AUTOMATED COUNT 40.6 41 - 54 02/27 L Specimen Type: BLOOD Comment: Automated Differentia l Performed Ordering Provider: KATIE JONES Report Released Date/Time: Feb 28, 2024 09:41 AM Reporting Lab: [facility] [address] Performing Lab: [facility] [address] [facility] CBC & DIFF MCV [ENTITIC VOLUME] BY AUTOMATED COUNT 96.9 fL 80 - 100 02/27 Specimen Type: BLOOD Comment: Automated Differentia l Performed Ordering Provider: KATIE JONES Report Released Date/Time: Feb 28, 2024 09:41 AM Reporting Lab: [facility] [address] Performing Lab: [facility] [address] [facility] CBC & DIFF MCH [ENTITIC MASS] BY AUTOMATED COUNT 32.0 pg 27 - 33 02/27 Specimen Type: BLOOD Comment: Automated Differentia l Performed Ordering Provider: KATIE JONES Report Released Date/Time: Feb 28, 2024 09:41 AM Reporting Lab: [facility] [address] Performing Lab: [facility] [address] [facility] CBC & DIFF MCHC [MASS/VOLUM E] BY AUTOMATED COUNT 33.0 g/dL 32.0 - 37.5 02/27 Specimen Type: BLOOD Comment: Automated Differentia l Performed Ordering Provider: KATIE JONES Report Released Date/Time: Feb 28, 2024 09:41 AM Reporting Lab: [facility] [address] Performing Lab: [facility] [address] [facility] CBC & DIFF PLATELETS [#/VOLUME] IN BLOOD BY AUTOMATED COUNT 273 10*3/u L 150 - 400 02/27 Specimen Type: BLOOD Comment: Automated Differentia l Performed Ordering Provider: KATIE JONES Report Released Date/Time: Feb 28, 2024 09:41 AM Reporting Lab: [facility] [address] Performing Lab: [facility] [address] [facility] CBC & DIFF PLATELET MEAN VOLUME [ENTITIC VOLUME] IN BLOOD BY AUTOMATED COUNT 9.8 fL 7.4 - 10.4 02/27 Specimen Type: BLOOD Comment: Automated Differentia l Performed Ordering Provider: KATIE JONES Report Released Date/Time: Feb 28, 2024 09:41 AM Reporting Lab: [facility] [address] Performing Lab: [facility] [address] [facility] CBC & DIFF NEUTROPHILS /100 LEUKOCYTES IN BLOOD BY MANUAL COUNT 67.8 40.0 - 80.0 02/27 Specimen Type: BLOOD Comment: Automated Differentia l Performed Ordering Provider: KATIE JONES Report Released Date/Time: Feb 28, 2024 09:41 AM Reporting Lab: [facility] [address] Performing Lab: [facility] [address] [facility] CBC & DIFF LYMPHOCYTES /100 LEUKOCYTES IN BLOOD BY MANUAL COUNT 18.9 15.0 - 45.0 02/27 Specimen Type: BLOOD Comment: Automated Differentia l Performed Ordering Provider: KATIE JONES Report Released Date/Time: Feb 28, 2024 09:41 AM Reporting Lab: [facility] [address] Performing Lab: [facility] [address] [facility] CBC & DIFF MONOCYTES/1 00 LEUKOCYTES IN BLOOD BY AUTOMATED COUNT 9.5 2.0 - 12.0 02/27 Specimen Type: BLOOD Comment: Automated Differentia l Performed Ordering Provider: KATIE JONES Report Released Date/Time: Feb 28, 2024 09:41 AM Reporting Lab: [facility] [address] Performing Lab: [facility] [address] [facility] CBC & DIFF EOSINOPHILS /100 LEUKOCYTES IN BLOOD BY AUTOMATED COUNT 2.6 0.0 - 6.0 02/27 Specimen Type: BLOOD Comment: Automated Differentia l Performed Ordering Provider: KATIE JONES Report Released Date/Time: Feb 28, 2024 09:41 AM Reporting Lab: [facility] [address] Performing Lab: [facility] [address] [facility] CBC & DIFF BASOPHILS/1 00 LEUKOCYTES IN BLOOD BY MANUAL COUNT 0.7 0.0 - 2.0 02/27 Specimen Type: BLOOD Comment: Automated Differentia l Performed Ordering Provider: KATIE JONES Report Released Date/Time: Feb 28, 2024 09:41 AM Reporting Lab: [facility] [address] Performing Lab: [facility] [address] [facility] CBC & DIFF ERYTHROCYTE DISTRIBUTIO N WIDTH [RATIO] BY AUTOMATED COUNT 13.8 11.5 - 14.5 02/27 Specimen Type: BLOOD Comment: Automated Differentia l Performed Ordering Provider: KATIE JONES Report Released Date/Time: Feb 28, 2024 09:41 AM Reporting Lab: [facility] [address] Performing Lab: [facility] [address] [facility] CBC & DIFF LYMPHOCYTES [#/VOLUME] IN BLOOD BY AUTOMATED COUNT 1.39 10*3/u L 1.0 - 4.0 02/27 Specimen Type: BLOOD Comment: Automated Differentia l Performed Ordering Provider: KATIE JONES Report Released Date/Time: Feb 28, 2024 09:41 AM Reporting Lab: [facility] [address] Performing Lab: [facility] [address] [facility] CBC & DIFF MONOCYTES [#/VOLUME] IN BLOOD BY AUTOMATED COUNT 0.70 10*3/u L 0.1 - 1.0 02/27 Specimen Type: BLOOD Comment: Automated Differentia l Performed Ordering Provider: KATIE JONES Report Released Date/Time: Feb 28, 2024 09:41 AM Reporting Lab: [facility] [address] Performing Lab: [facility] [address] [facility] CBC & DIFF NEUTROPHILS [#/VOLUME] IN BLOOD BY AUTOMATED COUNT 4.97 10*3/u L 2.0 - 7.7 02/27 Specimen Type: BLOOD Comment: Automated Differentia l Performed Ordering Provider: KATIE JONES Report Released Date/Time: Feb 28, 2024 09:41 AM Reporting Lab: [facility] [address] Performing Lab: [facility] [address] [facility] CBC & DIFF EOSINOPHILS [#/VOLUME] IN BLOOD BY AUTOMATED COUNT 0.19 10*3/u L 0 - 0.5 02/27 Specimen Type: BLOOD Comment: Automated Differentia l Performed Ordering Provider: KATIE JONES Report Released Date/Time: Feb 28, 2024 09:41 AM Reporting Lab: [facility] [address] Performing Lab: [facility] [address] [facility] CBC & DIFF BASOPHILS [#/VOLUME] IN BLOOD BY AUTOMATED COUNT 0.05 10*3/u L 0 - 0.2 02/27 Specimen Type: BLOOD Comment: Automated Differentia l Performed Ordering Provider: KATIE JONES Report Released Date/Time: Feb 28, 2024 09:41 AM Reporting Lab: [facility] [address] Performing Lab: [facility] [address] [facility] CBC & DIFF IG(META,MYE LO,PRO) 0.5 02/27 Specimen Type: BLOOD Comment: Automated Differentia l Performed Ordering Provider: KATIE JONES Report Released Date/Time: Feb 28, 2024 09:41 AM Reporting Lab: [facility] [address] Performing Lab: [facility] [address] [facility] CBC & DIFF IMMATURE GRANULOCYTE S [PRESENCE] IN BLOOD BY AUTOMATED COUNT 0.04 10*3/u L 0 - 0.1 02/27 Specimen Type: BLOOD Comment: Automated Differentia l Performed Ordering Provider: KATIE JONES Report Released Date/Time: Feb 28, 2024 09:41 AM Reporting Lab: [facility] [address] Performing Lab: [facility] [address] [facility] COMPREHEN SIVE METABOLIC PANEL+MG CREATININE [MASS/VOLUM E] IN SERUM OR PLASMA 1.0 mg/dL 0.7 - 1.2 02/27 Specimen Type: PLASMA No comment entered. Ordering Provider: KATIE JONES Report Released Date/Time: Feb 28, 2024 09:41 AM Reporting Lab: [facility] [address] Performing Lab: [facility] [address] [facility] COMPREHEN SIVE METABOLIC PANEL+MG UREA NITROGEN [MASS/VOLUM E] IN SERUM OR PLASMA 24 mg/dL 8 - 26 02/27 Specimen Type: PLASMA No comment entered. Ordering Provider: KATIE JONES Report Released Date/Time: Feb 28, 2024 09:41 AM Reporting Lab: [facility] [address] Performing Lab: [facility] [address] [facility] COMPREHEN SIVE METABOLIC PANEL+MG GLUCOSE [MASS/VOLUM E] IN SERUM OR PLASMA 90 mg/dL 70 - 100 02/27 Specimen Type: PLASMA No comment entered. Ordering Provider: KATIE JONES Report Released Date/Time: Feb 28, 2024 09:41 AM Reporting Lab: [facility] [address] Performing Lab: [facility] [address] [facility] COMPREHEN SIVE METABOLIC PANEL+MG SODIUM [MOLES/VOLU ME] IN SERUM OR PLASMA 143 mmol/L 136 - 145 02/27 Specimen Type: PLASMA No comment entered. Ordering Provider: KATIE JONES Report Released Date/Time: Feb 28, 2024 09:41 AM Reporting Lab: [facility] [address] Performing Lab: [facility] [address] [facility] COMPREHEN SIVE METABOLIC PANEL+MG POTASSIUM [MOLES/VOLU ME] IN SERUM OR PLASMA 4.1 mmol/L 3.5 - 5.1 02/27 Specimen Type: PLASMA No comment entered. Ordering Provider: KATIE JONES Report Released Date/Time: Feb 28, 2024 09:41 AM Reporting Lab: [facility] [address] Performing Lab: [facility] [address] [facility] COMPREHEN SIVE METABOLIC PANEL+MG CHLORIDE [MOLES/VOLU ME] IN SERUM OR PLASMA 107 mmol/L 98 - 107 02/27 Specimen Type: PLASMA No comment entered. Ordering Provider: KATIE JONES Report Released Date/Time: Feb 28, 2024 09:41 AM Reporting Lab: [facility] [address] Performing Lab: [facility] [address] [facility] COMPREHEN SIVE METABOLIC PANEL+MG CARBON DIOXIDE, TOTAL [MOLES/VOLU ME] IN SERUM OR PLASMA 27 mmol/L 22 - 29 02/27 Specimen Type: PLASMA No comment entered. Ordering Provider: KATIE JONES Report Released Date/Time: Feb 28, 2024 09:41 AM Reporting Lab: [facility] [address] Performing Lab: [facility] [address] [facility] COMPREHEN SIVE METABOLIC PANEL+MG CALCIUM [MASS/VOLUM E] IN SERUM OR PLASMA 9.8 mg/dL 8.4 - 10.2 02/27 Specimen Type: PLASMA No comment entered. Ordering Provider: KATIE JONES Report Released Date/Time: Feb 28, 2024 09:41 AM Reporting Lab: [facility] [address] Performing Lab: [facility] [address] [facility] COMPREHEN SIVE METABOLIC PANEL+MG PROTEIN [MASS/VOLUM E] IN SERUM OR PLASMA 7.3 g/dL 6.0 - 8.3 02/27 Specimen Type: PLASMA No comment entered. Ordering Provider: KATIE JONES Report Released Date/Time: Feb 28, 2024 09:41 AM Reporting Lab: [facility] [address] Performing Lab: [facility] [address] [facility] COMPREHEN SIVE METABOLIC PANEL+MG ALBUMIN [MASS/VOLUM E] IN SERUM OR PLASMA 4.2 g/dL 3.5 - 5.2 02/27 Specimen Type: PLASMA No comment entered. Ordering Provider: KATIE JONES Report Released Date/Time: Feb 28, 2024 09:41 AM Reporting Lab: [facility] [address] Performing Lab: [facility] [address] [facility] COMPREHEN SIVE METABOLIC PANEL+MG BILIRUBIN.T OTAL [MASS/VOLUM E] IN SERUM OR PLASMA 0.8 mg/dL 0.2 - 1.2 02/27 Specimen Type: PLASMA No comment entered. Ordering Provider: KATIE JONES Report Released Date/Time: Feb 28, 2024 09:41 AM Reporting Lab: [facility] [address] Performing Lab: [facility] [address] [facility] COMPREHEN SIVE METABOLIC PANEL+MG MAGNESIUM [MASS/VOLUM E] IN SERUM OR PLASMA 2.3 mg/dL 1.6 - 2.6 02/27 Specimen Type: PLASMA No comment entered. Ordering Provider: KATIE JONES Report Released Date/Time: Feb 28, 2024 09:41 AM Reporting Lab: [facility] [address] Performing Lab: [facility] [address] [facility] COMPREHEN SIVE METABOLIC PANEL+MG ANION GAP IN SERUM OR PLASMA 9 mmol/L 5 - 15 02/27 Specimen Type: PLASMA No comment entered. Ordering Provider: KATIE JONES Report Released Date/Time: Feb 28, 2024 09:41 AM Reporting Lab: [facility] [address] Performing Lab: [facility] [address] [facility] COMPREHEN SIVE METABOLIC PANEL+MG ALKALINE PHOSPHATASE [ENZYMATIC ACTIVITY/VO LUME] IN SERUM OR PLASMA 66 U/L 40 - 150 02/27 Specimen Type: PLASMA No comment entered. Ordering Provider: KATIE JONES Report Released Date/Time: Feb 28, 2024 09:41 AM Reporting Lab: [facility] [address] Performing Lab: [facility] [address] [facility] COMPREHEN SIVE METABOLIC PANEL+MG ALANINE AMINOTRANSF ERASE [ENZYMATIC ACTIVITY/VO LUME] IN SERUM OR PLASMA 13 U/L <55 - 55 02/27 Specimen Type: PLASMA No comment entered. Ordering Provider: KATIE JONES Report Released Date/Time: Feb 28, 2024 09:41 AM Reporting Lab: [facility] [address] Performing Lab: [facility] [address] [facility] COMPREHEN SIVE METABOLIC PANEL+MG ASPARTATE AMINOTRANSF ERASE [ENZYMATIC ACTIVITY/VO LUME] IN SERUM OR PLASMA 18 U/L <34 - 34 02/27 Specimen Type: PLASMA No comment entered. Ordering Provider: KATIE JONES Report Released Date/Time: Feb 28, 2024 09:41 AM Reporting Lab: [facility] [address] Performing Lab: [facility] [address] [facility] COMPREHEN SIVE METABOLIC PANEL+MG GLOMERULAR FILTRATION RATE/1.73 SQ M.PREDICTED [VOLUME RATE/AREA] IN SERUM, PLASMA OR BLOOD BY CREATININE- BASED FORMULA (CKD-EPI 2020) 73 60 02/27 Specimen Type: PLASMA No comment entered. Ordering Provider: KATIE JONES Report Released Date/Time: Feb 28, 2024 09:41 AM Reporting Lab: [facility] [address] Performing Lab: [facility] [address] [facility] PSA PROSTATE SPECIFIC AG [MASS/VOLUM E] IN SERUM OR PLASMA 0.28 ng/mL <4.00 - 4.00 02/27 Specimen Type: SERUM No comment entered. Ordering Provider: KATIE JONES Report Released Date/Time: Feb 28, 2024 09:41 AM Reporting Lab: [facility] [address] Performing Lab: [facility] [address] [facility] LIPID PANEL,NON -FASTING CHOLESTEROL [MASS/VOLUM E] IN SERUM OR PLASMA 236 mg/dL <199 - 199 02/27 H Specimen Type: PLASMA No comment entered. Ordering Provider: KATIE JONES Report Released Date/Time: Feb 28, 2024 09:51 AM Reporting Lab: [facility] [address] Performing Lab: [facility] [address] [facility] LIPID PANEL,NON -FASTING CHOLESTEROL IN HDL [MASS/VOLUM E] IN SERUM OR PLASMA 48 mg/dL 40 02/27 Specimen Type: PLASMA No comment entered. Ordering Provider: KATIE JONES Report Released Date/Time: Feb 28, 2024 09:51 AM Reporting Lab: [facility] [address] Performing Lab: [facility] [address] [facility] LIPID PANEL,NON -FASTING CHOLESTEROL IN LDL [MASS/VOLUM E] IN SERUM OR PLASMA BY CALCULATION 161 mg/dL <99 - 99 02/27 H Specimen Type: PLASMA No comment entered. Ordering Provider: KATIE JONES Report Released Date/Time: Feb 28, 2024 09:51 AM Reporting Lab: [facility] [address] Performing Lab: [facility] [address] [facility] LIPID PANEL,NON -FASTING CHOLESTEROL IN VLDL [MASS/VOLUM E] IN SERUM OR PLASMA BY CALCULATION 27 mg/dL <29 - 29 02/27 Specimen Type: PLASMA No comment entered. Ordering Provider: KATIE JONES Report Released Date/Time: Feb 28, 2024 09:51 AM Reporting Lab: [facility] [address] Performing Lab: [facility] [address] [facility] LIPID PANEL,NON -FASTING CHOLESTEROL NON HDL [MASS/VOLUM E] IN SERUM OR PLASMA 188 mg/dL <129 - 129 02/27 H Specimen Type: PLASMA No comment entered. Ordering Provider: KATIE JONES Report Released Date/Time: Feb 28, 2024 09:51 AM Reporting Lab: [facility] [address] Performing Lab: [facility] [address] [facility] LIPID PANEL,NON -FASTING TRIGLYCERID E [MASS/VOLUM E] IN SERUM OR PLASMA 134 mg/dL <149 - 149 02/27 Specimen Type: PLASMA No comment entered. Ordering Provider: KATIE JONES Report Released Date/Time: Feb 28, 2024 09:51 AM Reporting Lab: [facility] [address] Performing Lab: [facility] [address] [facility] B 12 COBALAMIN (VITAMIN B12) [MASS/VOLUM E] IN SERUM OR PLASMA 532 pg/mL 213 - 816 04/04 Specimen Type: SERUM No comment entered. Ordering Provider: KATIE JONES Report Released Date/Time: Feb 23, 2023 09:34 AM Reporting Lab: [facility] [address] Performing Lab: [facility] [address] [facility] FOLATE FOLATE [MASS/VOLUM E] IN SERUM OR PLASMA 14.8 ng/mL 7.0 04/04 Specimen Type: SERUM No comment entered. Ordering Provider: KATIE JONES Report Released Date/Time: Feb 23, 2023 09:34 AM Reporting Lab: [facility] [address] Performing Lab: [facility] [address] [facility] CBC & DIFF LEUKOCYTES [#/VOLUME] IN BLOOD BY AUTOMATED COUNT 6.47 10*3/u L 4.0 - 11.0 04/04 Specimen Type: BLOOD Comment: Automated Differentia l Performed Ordering Provider: KATIE JONES Report Released Date/Time: Feb 23, 2023 09:34 AM Reporting Lab: [facility] [address] Performing Lab: [facility] [address] [facility] CBC & DIFF ERYTHROCYTE S [#/VOLUME] IN BLOOD BY AUTOMATED COUNT 3.99 10*6/u L 4.6 - 6.2 04/04 L Specimen Type: BLOOD Comment: Automated Differentia l Performed Ordering Provider: KATIE JONES Report Released Date/Time: Feb 23, 2023 09:34 AM Reporting Lab: [facility] [id number] Performing Lab: [facility] [address] [facility] CBC & DIFF HEMOGLOBIN [MASS/VOLUM E] IN BLOOD 12.6 g/dL 13.5 - 17.9 04/04 L Specimen Type: BLOOD Comment: Automated Differentia l Performed Ordering Provider: KATIE JONES Report Released Date/Time: Feb 23, 2023 09:34 AM Reporting Lab: [facility] [id number] Performing Lab: [facility] [id number] [facility] CBC & DIFF HEMATOCRIT [VOLUME FRACTION] OF BLOOD BY AUTOMATED COUNT 38.2 41 - 54 04/04 L Specimen Type: BLOOD Comment: Automated Differentia l Performed Ordering Provider: KATIE JONES Report Released Date/Time: Feb 23, 2023 09:34 AM Reporting Lab: [facility] [facility] [address] Performing Lab: [facility] [address] [facility] CBC & DIFF MCV [ENTITIC VOLUME] BY AUTOMATED COUNT 95.7 fL 80 - 100 04/04 Specimen Type: BLOOD Comment: Automated Differentia l Performed Ordering Provider: KATIE JONES Report Released Date/Time: Feb 23, 2023 09:34 AM Reporting Lab: [facility] [address] Performing Lab: [facility] [address] [facility] CBC & DIFF MCH [ENTITIC MASS] BY AUTOMATED COUNT 31.6 pg 27 - 33 04/04 Specimen Type: BLOOD Comment: Automated Differentia l Performed Ordering Provider: KATIE JONES Report Released Date/Time: Feb 23, 2023 09:34 AM Reporting Lab: [facility] [address] Performing Lab: [facility] [address] [facility] CBC & DIFF MCHC [MASS/VOLUM E] BY AUTOMATED COUNT 33.0 g/dL 32.0 - 37.5 04/04 Specimen Type: BLOOD Comment: Automated Differentia l Performed Ordering Provider: KATIE JONES Report Released Date/Time: Feb 23, 2023 09:34 AM Reporting Lab: [facility] [address] Performing Lab: [facility] [address] [facility] CBC & DIFF PLATELETS [#/VOLUME] IN BLOOD BY AUTOMATED COUNT 285 10*3/u L 150 - 400 04/04 Specimen Type: BLOOD Comment: Automated Differentia l Performed Ordering Provider: KATIE JONES Report Released Date/Time: Feb 23, 2023 09:34 AM Reporting Lab: [facility] [address] Performing Lab: [facility] [address] [facility] CBC & DIFF PLATELET MEAN VOLUME [ENTITIC VOLUME] IN BLOOD BY AUTOMATED COUNT 9.0 fL 7.4 - 10.4 04/04 Specimen Type: BLOOD Comment: Automated Differentia l Performed Ordering Provider: KATIE JONES Report Released Date/Time: Feb 23, 2023 09:34 AM Reporting Lab: [facility] [address] Performing Lab: [facility] [address] [facility] CBC & DIFF NEUTROPHILS /100 LEUKOCYTES IN BLOOD BY MANUAL COUNT 67.9 40.0 - 80.0 04/04 Specimen Type: BLOOD Comment: Automated Differentia l Performed Ordering Provider: KATIE JONES Report Released Date/Time: Feb 23, 2023 09:34 AM Reporting Lab: [facility] [address] Performing Lab: [facility] [address] [facility] CBC & DIFF LYMPHOCYTES /100 LEUKOCYTES IN BLOOD BY MANUAL COUNT 18.7 15.0 - 45.0 04/04 Specimen Type: BLOOD Comment: Automated Differentia l Performed Ordering Provider: KATIE JONES Report Released Date/Time: Feb 23, 2023 09:34 AM Reporting Lab: [facility] [address] Performing Lab: [facility] [address] [facility] CBC & DIFF MONOCYTES/1 00 LEUKOCYTES IN BLOOD BY AUTOMATED COUNT 8.8 2.0 - 12.0 04/04 Specimen Type: BLOOD Comment: Automated Differentia l Performed Ordering Provider: KATIE JONES Report Released Date/Time: Feb 23, 2023 09:34 AM Reporting Lab: [facility] [address] Performing Lab: [facility] [address] [facility] CBC & DIFF EOSINOPHILS /100 LEUKOCYTES IN BLOOD BY AUTOMATED COUNT 3.1 0.0 - 6.0 04/04 Specimen Type: BLOOD Comment: Automated Differentia l Performed Ordering Provider: KATIE JONES Report Released Date/Time: Feb 23, 2023 09:34 AM Reporting Lab: [facility] [address] Performing Lab: [facility] [address] [facility] CBC & DIFF BASOPHILS/1 00 LEUKOCYTES IN BLOOD BY MANUAL COUNT 0.6 0.0 - 2.0 04/04 Specimen Type: BLOOD Comment: Automated Differentia l Performed Ordering Provider: KATIE JONES Report Released Date/Time: Feb 23, 2023 09:34 AM Reporting Lab: [facility] [address] Performing Lab: [facility] [address] [facility] CBC & DIFF ERYTHROCYTE DISTRIBUTIO N WIDTH [RATIO] BY AUTOMATED COUNT 14.1 11.5 - 14.5 04/04 Specimen Type: BLOOD Comment: Automated Differentia l Performed Ordering Provider: KATIE JONES Report Released Date/Time: Feb 23, 2023 09:34 AM Reporting Lab: [facility] [address] Performing Lab: [facility] [address] [facility] CBC & DIFF LYMPHOCYTES [#/VOLUME] IN BLOOD BY AUTOMATED COUNT 1.21 10*3/u L 1.0 - 4.0 04/04 Specimen Type: BLOOD Comment: Automated Differentia l Performed Ordering Provider: KATIE JONES Report Released Date/Time: Feb 23, 2023 09:34 AM Reporting Lab: [facility] [address] Performing Lab: [facility] [address] [facility] CBC & DIFF MONOCYTES [#/VOLUME] IN BLOOD BY AUTOMATED COUNT 0.57 10*3/u L 0.1 - 1.0 04/04 Specimen Type: BLOOD Comment: Automated Differentia l Performed Ordering Provider: KATIE JONES Report Released Date/Time: Feb 23, 2023 09:34 AM Reporting Lab: [facility] [address] Performing Lab: [facility] [address] [facility] CBC & DIFF NEUTROPHILS [#/VOLUME] IN BLOOD BY AUTOMATED COUNT 4.39 10*3/u L 2.0 - 7.7 04/04 Specimen Type: BLOOD Comment: Automated Differentia l Performed Ordering Provider: KATIE JONES Report Released Date/Time: Feb 23, 2023 09:34 AM Reporting Lab: [facility] [address] Performing Lab: [facility] [address] [facility] CBC & DIFF EOSINOPHILS [#/VOLUME] IN BLOOD BY AUTOMATED COUNT 0.20 10*3/u L 0 - 0.5 04/04 Specimen Type: BLOOD Comment: Automated Differentia l Performed Ordering Provider: KATIE JONES Report Released Date/Time: Feb 23, 2023 09:34 AM Reporting Lab: [facility] [address] Performing Lab: [facility] [address] [facility] CBC & DIFF BASOPHILS [#/VOLUME] IN BLOOD BY AUTOMATED COUNT 0.04 10*3/u L 0 - 0.2 04/04 Specimen Type: BLOOD Comment: Automated Differentia l Performed Ordering Provider: KATIE JONES Report Released Date/Time: Feb 23, 2023 09:34 AM Reporting Lab: [facility] [address] Performing Lab: [facility] [address] [facility] CBC & DIFF IG(META,MYE LO,PRO) 0.9 04/04 Specimen Type: BLOOD Comment: Automated Differentia l Performed Ordering Provider: KATIE JONES Report Released Date/Time: Feb 23, 2023 09:34 AM Reporting Lab: [facility] [address] Performing Lab: [facility] [address] [facility] CBC & DIFF IMMATURE GRANULOCYTE S [PRESENCE] IN BLOOD BY AUTOMATED COUNT 0.06 10*3/u L 0 - 0.1 04/04 Specimen Type: BLOOD Comment: Automated Differentia l Performed Ordering Provider: KATIE JONES Report Released Date/Time: Feb 23, 2023 09:34 AM Reporting Lab: [facility] [address] Performing Lab: [facility] [address] [facility] IRON GROUP IRON [MASS/VOLUM E] IN SERUM OR PLASMA 69 ug/dL 65 - 175 04/04 Specimen Type: PLASMA No comment entered. Ordering Provider: KATIE JONES Report Released Date/Time: Feb 23, 2023 09:34 AM Reporting Lab: [facility] [address] Performing Lab: [facility] [address] [facility] IRON GROUP IRON BINDING CAPACITY [MASS/VOLUM E] IN SERUM OR PLASMA 263 ug/dL 250 - 425 04/04 Specimen Type: PLASMA No comment entered. Ordering Provider: KATIE JONES Report Released Date/Time: Feb 23, 2023 09:34 AM Reporting Lab: [facility] [address] Performing Lab: [facility] [address] [facility] IRON GROUP FERRITIN [MASS/VOLUM E] IN SERUM OR PLASMA 453.6 ng/mL 21.8 - 274.7 04/04 H Specimen Type: PLASMA No comment entered. Ordering Provider: KATIE JONES Report Released Date/Time: Feb 23, 2023 09:34 AM Reporting Lab: [facility] [address] Performing Lab: [facility] [address] [facility] IRON GROUP IRON SATURATION 26 20 - 50 04/04 Specimen Type: PLASMA No comment entered. Ordering Provider: KATIE JONES Report Released Date/Time: Feb 23, 2023 09:34 AM Reporting Lab: [facility] [address] Performing Lab: [facility] [address] [facility] IRON GROUP TRANSFERRIN [MASS/VOLUM E] IN SERUM OR PLASMA 210 mg/dL 163 - 382 04/04 Specimen Type: PLASMA No comment entered. Ordering Provider: KATIE JONES Report Released Date/Time: Feb 23, 2023 09:34 AM Reporting Lab: [facility] [address] Performing Lab: [facility] [address] [facility] COMPREHEN SIVE METABOLIC PANEL+MG CREATININE [MASS/VOLUM E] IN SERUM OR PLASMA 0.9 mg/dL 0.7 - 1.2 02/22 Specimen Type: PLASMA No comment entered. Ordering Provider: KATIE JONES Report Released Date/Time: Feb 22, 2023 10:40 AM Reporting Lab: [facility] [address] Performing Lab: [facility] [address] [facility] COMPREHEN SIVE METABOLIC PANEL+MG UREA NITROGEN [MASS/VOLUM E] IN SERUM OR PLASMA 16 mg/dL 8 - 26 02/22 Specimen Type: PLASMA No comment entered. Ordering Provider: KATIE JONES Report Released Date/Time: Feb 22, 2023 10:40 AM Reporting Lab: [facility] [address] Performing Lab: [facility] [address] [facility] COMPREHEN SIVE METABOLIC PANEL+MG GLUCOSE [MASS/VOLUM E] IN SERUM OR PLASMA 88 mg/dL 70 - 100 02/22 Specimen Type: PLASMA No comment entered. Ordering Provider: KATIE JONES Report Released Date/Time: Feb 22, 2023 10:40 AM Reporting Lab: [facility] [address] Performing Lab: [facility] [address] [facility] COMPREHEN SIVE METABOLIC PANEL+MG SODIUM [MOLES/VOLU ME] IN SERUM OR PLASMA 141 mmol/L 136 - 145 02/22 Specimen Type: PLASMA No comment entered. Ordering Provider: KATIE JONES Report Released Date/Time: Feb 22, 2023 10:40 AM Reporting Lab: [facility] [address] Performing Lab: [facility] [address] [facility] COMPREHEN SIVE METABOLIC PANEL+MG POTASSIUM [MOLES/VOLU ME] IN SERUM OR PLASMA 4.4 mmol/L 3.5 - 5.1 02/22 Specimen Type: PLASMA No comment entered. Ordering Provider: KATIE JONES Report Released Date/Time: Feb 22, 2023 10:40 AM Reporting Lab: [facility] [address] Performing Lab: [facility] [address] [facility] COMPREHEN SIVE METABOLIC PANEL+MG CHLORIDE [MOLES/VOLU ME] IN SERUM OR PLASMA 109 mmol/L 98 - 107 02/22 H Specimen Type: PLASMA No comment entered. Ordering Provider: KATIE JONES Report Released Date/Time: Feb 22, 2023 10:40 AM Reporting Lab: [facility] [address] Performing Lab: [facility] [address] [facility] COMPREHEN SIVE METABOLIC PANEL+MG CARBON DIOXIDE, TOTAL [MOLES/VOLU ME] IN SERUM OR PLASMA 24 mmol/L 22 - 29 02/22 Specimen Type: PLASMA No comment entered. Ordering Provider: KATIE JONES Report Released Date/Time: Feb 22, 2023 10:40 AM Reporting Lab: [facility] [address] Performing Lab: [facility] [address] [facility] COMPREHEN SIVE METABOLIC PANEL+MG CALCIUM [MASS/VOLUM E] IN SERUM OR PLASMA 9.1 mg/dL 8.4 - 10.2 02/22 Specimen Type: PLASMA No comment entered. Ordering Provider: KATIE JONES Report Released Date/Time: Feb 22, 2023 10:40 AM Reporting Lab: [facility] [address] Performing Lab: [facility] [address] [facility] COMPREHEN SIVE METABOLIC PANEL+MG PROTEIN [MASS/VOLUM E] IN SERUM OR PLASMA 6.7 g/dL 6.0 - 8.3 02/22 Specimen Type: PLASMA No comment entered. Ordering Provider: KATIE JONES Report Released Date/Time: Feb 22, 2023 10:40 AM Reporting Lab: [facility] [address] Performing Lab: [facility] [address] [facility] COMPREHEN SIVE METABOLIC PANEL+MG ALBUMIN [MASS/VOLUM E] IN SERUM OR PLASMA 3.9 g/dL 3.5 - 5.2 02/22 Specimen Type: PLASMA No comment entered. Ordering Provider: KATIE JONES Report Released Date/Time: Feb 22, 2023 10:40 AM Reporting Lab: [facility] [address] Performing Lab: [facility] [address] [facility] COMPREHEN SIVE METABOLIC PANEL+MG BILIRUBIN.T OTAL [MASS/VOLUM E] IN SERUM OR PLASMA 0.8 mg/dL 0.2 - 1.2 02/22 Specimen Type: PLASMA No comment entered. Ordering Provider: KATIE JONES Report Released Date/Time: Feb 22, 2023 10:40 AM Reporting Lab: [facility] [address] Performing Lab: [facility] [address] [facility] COMPREHEN SIVE METABOLIC PANEL+MG MAGNESIUM [MASS/VOLUM E] IN SERUM OR PLASMA 2.2 mg/dL 1.6 - 2.6 02/22 Specimen Type: PLASMA No comment entered. Ordering Provider: KATIE JONES Report Released Date/Time: Feb 22, 2023 10:40 AM Reporting Lab: [facility] [address] Performing Lab: [facility] [address] [facility] COMPREHEN SIVE METABOLIC PANEL+MG ANION GAP IN SERUM OR PLASMA 8 mmol/L 5 - 15 02/22 Specimen Type: PLASMA No comment entered. Ordering Provider: KATIE JONES Report Released Date/Time: Feb 22, 2023 10:40 AM Reporting Lab: [facility] [address] Performing Lab: [facility] [address] [facility] COMPREHEN SIVE METABOLIC PANEL+MG ALKALINE PHOSPHATASE [ENZYMATIC ACTIVITY/VO LUME] IN SERUM OR PLASMA 70 U/L 40 - 150 02/22 Specimen Type: PLASMA No comment entered. Ordering Provider: KATIE JONES Report Released Date/Time: Feb 22, 2023 10:40 AM Reporting Lab: [facility] [address] Performing Lab: [facility] [address] [facility] COMPREHEN SIVE METABOLIC PANEL+MG ALANINE AMINOTRANSF ERASE [ENZYMATIC ACTIVITY/VO LUME] IN SERUM OR PLASMA 10 U/L 02/22 Specimen Type: PLASMA No comment entered. Ordering Provider: KATIE JONES Report Released Date/Time: Feb 22, 2023 10:40 AM Reporting Lab: [facility] [address] Performing Lab: [facility] [address] [facility] COMPREHEN SIVE METABOLIC PANEL+MG ASPARTATE AMINOTRANSF ERASE [ENZYMATIC ACTIVITY/VO LUME] IN SERUM OR PLASMA 19 U/L 02/22 Specimen Type: PLASMA No comment entered. Ordering Provider: KATIE JONES Report Released Date/Time: Feb 22, 2023 10:40 AM Reporting Lab: [facility] [address] Performing Lab: [facility] [address] [facility] COMPREHEN SIVE METABOLIC PANEL+MG GLOMERULAR FILTRATION RATE/1.73 SQ M.PREDICTED [VOLUME RATE/AREA] IN SERUM, PLASMA OR BLOOD BY CREATININE- BASED FORMULA (CKD-EPI 2020) 83 02/22 Specimen Type: PLASMA No comment entered. Ordering Provider: KATIE JONES Report Released Date/Time: Feb 22, 2023 10:40 AM Reporting Lab: [facility] [address] Performing Lab: [facility] [address] [facility] HEMOGLOBI N A1C HEMOGLOBIN A1C/HEMOGLO BIN.TOTAL [...] Feb 22, 2023 10:40 AM Reporting Lab: [facility] [address] [facility] [address] Performing Lab: [facility] [address] [facility] Vital Signs Combined list of inpatient and outpatient Vital Signs from Department of Defense and [facility], ranging from 12 months to all on record, depending upon the facility. Vital Sign Value Date Comments Source SYSTOLIC BLOOD PRESSURE 128 02/28/2024 09:18:48 [facility] DIASTOLIC BLOOD PRESSURE 74 02/28/2024 09:18:48 [facility] PULSE OXIMETRY 95 02/28/2024 09:18:48 S [...] [facility]OC SYSTOLIC BLOOD PRESSURE 159 07/11/2023 14:56:56 [facility] DIASTOLIC BLOOD PRESSURE 84 07/11/2023 14:56:56 [facility] PULSE OXIMETRY 97% 07/11/2023 14:56:56 S [...] [facility] 2) Encounters from the Department of Defense facilities going back up to 280 months. Location Location Details Encounter Type Encounter Number Reason For Visit Attending Provider ADM Date DC Date Status Disposition Source [place] [facility] Outpatient Encounter [id number] 02/01 [facility] OFFICE O/P EST MOD 30-39 MIN [id number] Diagnos is: ICD-10- CM Z00.8 Encount er for other general examina tion
Bob JONES EBECCA L 02/22 [facility] [place] [facility] Outpatient Encounter [id number] 02/24 [facility] [place] [facility] Outpatient Encounter [id number] 03/20 [facility] [place] [facility] [place] [id number] Diagnos is: ICD-10- CM Z01.118 Encntr for exam of ears and hearing w oth abnorma l finding s
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, right eye<br/ > KAM FLORES 04/10 [facility] [place] [facility] Outpatient Encounter [id number] 04/11 [facility] [place] [facility] Outpatient Encounter [id number] 04/19 [facility] [place] [facility] OFFICE O/P NEW MOD 45-59 MIN [id number] Diagnos is: ICD-10- CM 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, right eye<br/ > GRAMATES,P EGGY H 05/10 [facility] CONFORMITY EVALUATION [id number] Diagnos is: ICD-10- CM Z46.1 Encount er for fitting and adjustm ent of hearing aid<br/ > NEERU TINAJERO 05/30 [facility] Outpatient Encounter [id number] 07[facility]P EST LOW 20-29 MIN [id number] Diagnos is: ICD-10- CM G47.39 Other sleep apnea<b r/> Bob JONES EBECCA L 07/11 [facility] EAR IMPRESSION [id number] Diagnos is: ICD-10- CM Z46.1 Encount er for fitting and adjustm ent of hearing aid<br/ > NEERU TINAJERO 08/02 [facility] OFFICE O/P EST MOD 30 MIN [id number] Diagnos is: ICD-10- CM 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
NEERU [facility]INAJERO 01[facility]14 [facility] O/P EST MOD 30 MIN [id number] Diagnos is: ICD-10- CM Z00.8 Encount er for other general examina tion
Bob JONES EBECCA L 02/27 [facility] OFF/OP EST MAY X REQ PHY/QHP [id number] Diagnos is: ICD-10- CM Z71.9 [employer] ing, unspeci fied
WHITEMARC A R 03/14 [facility] [place] [facility] OFFICE O/P EST HI 40 MIN [id number] Diagnos is: ICD-10- CM I87.2 Venous insuffi ciency (chroni c) (periph eral)<b r/> MANUELA GUTIERREZ ENRIQUE 05/24 [place] [facility] Social History Combined list of available smoking, tobacco, and other social history from Department of Defense and [facility] facilities. Social History Type Response Date Comment Sourc e Tobacco smoking status NHIS MD-TOBACCO NEVER USED 02/28/20 [facility] History of tobacco use MD-TOBACCO FORMER USER 02/22/2023 [facility] FERNANDE[facility] Plan of Care List of future care activities from [facility] facilities. Additional future care activities may be listed in the Assessment and Plan section. Date/Time Care Activity Care Activity Detail Facili ty 06/27/2024 AMBULATORY - SURGERY AMB[facility]ATORY - SURGERY [facility] 06/27/2024 AMBULATORY - SURGERY AMBULATORY - SURGERY [facility] 07/24/2024 AMBULATORY - NONE AMBULATORY - NONE [facility] [place] [facility] Advance Directives List of completed, amended, or rescinded Advance Directives on record at Department [facility] facilities. An actual copy of the Directive is not included. Date Advance Directive Provider Source 04/19/2023 [facility] DIRECTIVE DISCUSSION [facility] 04/19/2023 [facility]
--- OUTSIDE RECORDS SUMMARY | 2024-05-29 11:16 | XMS_ITS | Referral Summary ---
Author Organization [facility] Address [address] [place] [address] Care Team Providers Care Skein Winder Name Role Phone Unavailable Primary Care Provider Unavailabl e Source Comments Patient records contain information from all sites at [facility]. For routine questions regarding patient records, call [phone] during business hours, M-F 8:00 AM - 5:00 PM Central Time. Record requests for emergency care only can be directed to [phone] at any time.[facility] Allergies No known active allergies [...] Comments Blood Pressure 140/74 07/12/2020 11:15 AM PHLEBOTOMIST MEDICAL LAB ASSISTANT Pulse 60 07/12/2020 11:15 AM PHLEBOTOMIST MEDICAL LAB ASSISTANT Temperature 37.3 ??C (99.1 ??F) 07/12/2020 1 1:15 AM PHLEBOTOMIST MEDICAL LAB ASSISTANT Respiratory Rate 20 07/12/2020 8:28 AM PHLEBOTOMIST MEDICAL LAB ASSISTANT Oxygen Saturation 96% 07/12/2020 11: 15 AM PHLEBOTOMIST MEDICAL LAB ASSISTANT Inhaled Oxygen Concentration - - Weight 101 kg (222 lb 10.6 oz) 2016 2:13 PM CDT Vital sign result from Clinical Notes. Height 175.3 cm (5' 9) 07/12/2020 8:27 AM PHLEBOTOMIST MEDICAL LAB ASSISTANT Body Mass Index 32.98 09/20/2016 4:53 PM PHLEBOTOMIST MEDICAL LAB ASSISTANT Plan of Treatment Not on file
--- OUTSIDE RECORDS SUMMARY | 2024-05-29 11:17 | XMS_ITS | Clinical Summary ---
Author Organization [facility] Address [address], [place] [address] Care Team Providers Care Pin Puller Name Role Phone Unavailable Primary Care Provider Unavailabl e Source Comments You are receiving this document as you are listed as the primary care provider,follow-up provider, or the patient has been referred to you for consultation.This is in compliance with the Medicare and[facility] E[facility] Incentive Program,which states Providers who transition [...] Active Problems Problem Noted Date Diagnosed Date ETSSIE (obstructive sleep apnea) 11/16/2023 Excessive daytime sleepiness [...] Personal/Famil y [address] [facility] [place] [address]
--- OUTSIDE RECORDS SUMMARY | 2024-05-29 11:17 | XMS_ITS | Clinical Summary ---
Author Organization [facility] Address [facility] [place] [address] Care Team Providers Care Inter Com Installer Name Role Phone Clinic, 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
--- OUTSIDE RECORDS SUMMARY | 2024-05-29 11:17 | XMS_ITS | Clinical Summary ---
Author Organization [facility] Address [place], [place] [address] Care Team Providers Care Bear Keeper Name Role Phone Trace Tom MD Primary [...] 65+ 05/05/2024 Medical Devices Implanted Type Area Genetic Scientist Device Identifier Shelf Expiration Date Model / Serial / Lot Cancellous Bone Screw Implanted:Qty: 1 on 01/30/2018 by Dickson Sevilla MD at [facility] Right: Hip [employer] 10/29/2022 / / [id number] Cluster Acetabluar Shell Implanted:Qty: 1 on 01/30/2018 by Dickson Sevilla MD at [facility] Right: Hip [employer] 10/16/2022 / / [id number] Polyethlene Insert Implanted:Qty: 1 on 01/30/2018 by Dickson Sevilla MD at [facility] Right: Hip [employer] 07/09/2022 / / [id number] Neck Angle Hip Stem Implanted:Qty: 1 on 01/30/2018 by Dickson Sevilla MD at [facility] Right: Hip [employer] 11/24/2022 / / [id number] C-Taper Femoral Head Implanted:Qty: 1 on 01/30/2018 by Dickson Sevilla MD at [facility] Right: Hip [employer] 10/29/2022 / [...] 10:51 AM 01/30/2018 2:57 PM Care Teams Bear Keeper Relationship Specialty Start Date End Date Trace Tom MD [address] [place] [address] PCP - General Family Practice 01/25/22
--- OUTSIDE RECORDS SUMMARY | 2024-05-29 11:17 | XMS_ITS ---
Author Organization [facility] Address [address] [place] [address] Care Team Providers Care Last Sawyer Name Role Phone Unavailable Unavailable Unavailable Surgery Details Not on file Complications Check Surgery Details section. Procedure Estimated Blood Loss Check Surgery Details section. Procedure Findings Check Surgery Details section. Procedure Specimens Taken Check Surgery Details section.
--- OUTSIDE RECORDS SUMMARY | 2024-05-29 11:17 | XMS_ITS | Referral Summary ---
Author Organization [place] Address [facility] [place] [address] Care Team Providers Care Movie Shot Camera Operator Name Role Phone Clinic, [facility] Primary Care Provider + Allergies No known [...] of Treatment Not on file Care Teams Movie Shot Camera Operator Relationship Specialty Start Date End Date Clinic, [address] [address] PCP - General 06/26/20
== END 2024-05-29 11:15 | disposition home or self-care (01) ==
LOC: WOUND 11:15
PROVIDERS: Visit Provider Surgery
DX: I87.312 Chronic venous hypertension (idiopathic) with ulcer of left lower extremity (principal); L97.828 Non-pressure chronic ulcer of other part of left lower leg with other specified severity; S81.801A Unspecified open wound, right lower leg, initial encounter
CPT/HCPCS: G0463

== ENCOUNTER 2024-06-05 11:09 | Outpatient (CLI) | payer MEDICARE, BC, SELFPAY ==
--- OUTSIDE RECORDS SUMMARY | 2024-06-05 11:11 | XMS_ITS | Continuity of Care Document ---
Author Name [facility] Organization [facility] Care Team Providers Care Marriage And Family Therapist Name Role Phone [facility] Unavailable Unavailable Problems Combined list of problems from Department of Defense and Veterans Affairs facilities. It does not include entries that were removed or entered in error. Problem Status Onset Date Problem Type Date of Resolution Comments Source Exposure to potentially hazardous substance ([facility] [id number]) Active 11/10/19 24 Condition Nov 10, 2023 Entered By: FLORES KENNEDY [facility] Documentation Initiative [facility] Edema Active Condition Feb 22 Entered By: GARY JONES Comment: trated for prostate ca with 44 radiation treatmentsFeb 22, 2023 Entered By: GARY JONES Comment: treated fro prostate cancer with 44 radiation treatments [facility] 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 Active Condition Feb 22, 2023 Entered By: GARY JONES Comment: treated prostate cancer with 44 radiation treatments [facility] Malignant melanoma Active Condition [facility] Obstructive Sleep Apnea of Adult ([facility] [id number]) Active Condition Dec 28, 2023 Entered By: WILEY ARTHUR Comment: See scanned records in [place] for details [facility] Diagnosis: ICD-10-CM 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) Active Diagnosis [facility] Diagnosis: ICD-10-CM Z71.9 Counseling, unspecified Active Diagnosis [facility] Diagnosis: ICD-10-CM Z00.8 Encounter for other general examination Active Diagnosis [facility] Diagnosis: ICD-10-CM 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 loss, bilateral Active Diagnosis [facility] Diagnosis: ICD-10-CM 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, right eye Active Diagnosis [facility] Diagnosis: ICD-10-CM Z46.1 Encounter for fitting and adjustment of hearing aid Active Diagnosis [facility] Diagnosis: ICD-10-CM G47.39 Other sleep apnea Active Diagnosis [facility] Diagnosis: ICD-10-CM 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, right eye Active Diagnosis [facility] Diagnosis: ICD-10-CM Z01.118 Encntr for exam of ears and hearing w oth abnormal findings Active Diagnosis [facility] Medications Combined list of outpatient medications from [...] Jul 12, 2023 2 Jul 12, 2024 [id number] Jul 12, 2023 [facility] RESPIR [facility] (INHAL ATION) ACTIVE 07/12/2024 [id number] GARY JONES 2022 2 JIMMY BARRETT [...] Nov 01, 2023 15 Nov 01, 2024 [id number] Nov 02, 2023 [facility]AM[facility] ,CHRISTINA H [place] [facility] OPHTHA LMIC ACTIVE 11/01/2024 [id number] GRAMATES, CHRISTINA H 2023 15 [place] [facility] CHOLECALCIF VAL TAB CHOLECAL CIFEROL [...] ed by: GARY JONES Document ed at: [facility] ORAL ACTIVE GARY JONES 2023 JIMMY [...] Feb 28, 2024 90 Feb 28, 2025 [id number] Feb 28, 2024 [facility]AL [facility]IVE 02/28/2025 [id number] GARY JONES 2023 90 JIM[facility]RE[facility] ZINC 50MG (FROM SULFATE) CAP ZINC 50MG (FROM SULFATE) CAP Non-VA TAKE 1 CAPSULE BY MOUTH EVERY DAY UNKNOWN Feb 22, 2023 Non-VA Document ed by: GARY JONES Document ed at: [facility] ORAL ACTIVE GARY JONES 2022 JIMMY BARRETT Immunizations Combined list of available immunizations from the Department of Defense and Veterans Affairs facilities. Immunization Series Date Given Administered By Site Reaction Lot Number CVX Code Drug Training And Development Head Status Comments Source COVID-19 ([employer]), MRNA, LNP-S, PF, JASON-SUCROSE, 30 MCG/0.3 ML (AGES 12+ YEARS) 1 2022 TOOTIE ANDERSON LEFT DELTO ID [id number] 309 complet ed [facility] INFLUENZA, HIGH-DOSE, QUADRIVALENT 2022 TOOTIE ANDERSON LEFT DELTO ID [id number] 197 complet ed [facility] PNEUMOCOCCAL CONJUGATE PCV20, POLYSACCHARID E [id number] CONJUGATE, ADJUVANT, PF 2022 TOOTIE ANDERSON LEFT DELTO ID [id number] 216 complet ed [facility] INFLUENZA, HIGH-DOSE, QUADRIVALENT, PF 2021 197 complet ed [facility] INFLUENZA, UNSPECIFIED FORMULATION 2021 88 complet ed [facility] COVID-19 (MODERNA), MRNA, LNP-S, PF, 100 MCG/0.5ML DOSE OR 50 MCG/0.25ML DOSE 3 2020 207 complet ed [facility] INFLUENZA, HIGH-DOSE, QUADRIVALENT, PF 2020 197 complet ed [facility] COVID-19 (MODERNA), MRNA, LNP-S, PF, 100 MCG/0.5ML DOSE OR 50 MCG/0.25ML DOSE 2 2020 207 complet ed [facility] COVID-19 (MODERNA), MRNA, LNP-S, PF, 100 MCG/0.5ML DOSE OR 50 MCG/0.25ML DOSE 1 2020 207 complet ed [facility] INFLUENZA, HIGH-DOSE, TRIVALENT, PF 2018 135 complet ed [facility] INFLUENZA, HIGH-DOSE, TRIVALENT, PF 2016 135 complet ed [facility] TDAP 2016 115 complet ed [facility] INFLUENZA, SPLIT VIRUS, QUADRIVALENT, PF 2015 150 complet ed [facility] INFLUENZA, HIGH-DOSE, TRIVALENT, PF 2015 135 complet ed [facility] INFLUENZA, HIGH-DOSE, TRIVALENT, PF 2012 135 complet ed [facility] INFLUENZA, SPLIT VIRUS, TRIVALENT, PRESERVATIVE 2012 141 complet ed [facility] TDAP 2011 115 complet ed [facility] INFLUENZA, SPLIT VIRUS, TRIVALENT, PF 2010 140 complet ed [facility] HEP B, UNSPECIFIED FORMULATION 2009 45 complet ed [facility] NOVEL INFLUENZA-H1N 1-09 2009 127 complet ed [place] [facility] Results Combined list of recent [...] AM Reporting Lab: [facility] [address] Performing Lab: [facility] [address] [facility] CBC & DIFF ERYTHROCYTE S [#/VOLUME] IN BLOOD BY AUTOMATED COUNT 4.19 10*6/u L 4.6 - 6.2 02/27 L Specimen Type: BLOOD Comment: Automated Differentia l Performed Ordering Provider: KATIE JONES Report Released Date/Time: Feb 28, 2024 09:41 AM Reporting Lab: [facility] [address] Performing Lab: [facility] [address] [facility] CBC & DIFF HEMOGLOBIN [MASS/VOLUM E] IN BLOOD 13.4 g/dL 13.5 - 17.9 02/27 L Specimen Type: BLOOD Comment: Automated Differentia l Performed Ordering Provider: KATIE JONES Report Released Date/Time: Feb 28, 2024 09:41 AM Reporting Lab: [facility] [address] Performing Lab: [facility] [address] [facility] CBC & DIFF HEMATOCRIT [VOLUME FRACTION] OF BLOOD BY AUTOMATED COUNT 40.6 41 - 54 02/27 L Specimen Type: BLOOD Comment: Automated Differentia l Performed Ordering Provider: KATIE JONES Report Released Date/Time: Feb 28, 2024 09:41 AM Reporting Lab: [facility] [address] Performing Lab: [facility] [address] [facility] CBC & DIFF MCV [ENTITIC VOLUME] BY AUTOMATED COUNT 96.9 fL 80 - 100 02/27 Specimen Type: BLOOD Comment: Automated Differentia l Performed Ordering Provider: KATIE JONES Report Released Date/Time: Feb 28, 2024 09:41 AM Reporting Lab: [facility] [address] Performing Lab: [facility] [address] [facility] CBC & DIFF MCH [ENTITIC MASS] BY AUTOMATED COUNT 32.0 pg 27 - 33 02/27 Specimen Type: BLOOD Comment: Automated Differentia l Performed Ordering Provider: KATIE JONES Report Released Date/Time: Feb 28, 2024 09:41 AM Reporting Lab: [facility] [address] Performing Lab: [facility] [address] [facility] CBC & DIFF MCHC [MASS/VOLUM E] BY AUTOMATED COUNT 33.0 g/dL 32.0 - 37.5 02/27 Specimen Type: BLOOD Comment: Automated Differentia l Performed Ordering Provider: KATIE JONES Report Released Date/Time: Feb 28, 2024 09:41 AM Reporting Lab: [facility] [address] Performing Lab: [facility] [address] [facility] CBC & DIFF PLATELETS [#/VOLUME] IN BLOOD BY AUTOMATED COUNT 273 10*3/u L 150 - 400 02/27 Specimen Type: BLOOD Comment: Automated Differentia l Performed Ordering Provider: KATIE JONES Report Released Date/Time: Feb 28, 2024 09:41 AM Reporting Lab: [facility] [address] Performing Lab: [facility] [address] [facility] CBC & DIFF PLATELET MEAN VOLUME [ENTITIC VOLUME] IN BLOOD BY AUTOMATED COUNT 9.8 fL 7.4 - 10.4 02/27 Specimen Type: BLOOD Comment: Automated Differentia l Performed Ordering Provider: KATIE JONES Report Released Date/Time: Feb 28, 2024 09:41 AM Reporting Lab: [facility] [address] Performing Lab: [facility] [address] [facility] CBC & DIFF NEUTROPHILS /100 LEUKOCYTES IN BLOOD BY MANUAL COUNT 67.8 40.0 - 80.0 02/27 Specimen Type: BLOOD Comment: Automated Differentia l Performed Ordering Provider: KATIE JONES Report Released Date/Time: Feb 28, 2024 09:41 AM Reporting Lab: [facility] [address] Performing Lab: [facility] [address] [facility] CBC & DIFF LYMPHOCYTES /100 LEUKOCYTES IN BLOOD BY MANUAL COUNT 18.9 15.0 - 45.0 02/27 Specimen Type: BLOOD Comment: Automated Differentia l Performed Ordering Provider: KATIE JONES Report Released Date/Time: Feb 28, 2024 09:41 AM Reporting Lab: [facility] [address] Performing Lab: [facility] [address] [facility] CBC & DIFF MONOCYTES/1 00 LEUKOCYTES IN BLOOD BY AUTOMATED COUNT 9.5 2.0 - 12.0 02/27 Specimen Type: BLOOD Comment: Automated Differentia l Performed Ordering Provider: KATIE JONES Report Released Date/Time: Feb 28, 2024 09:41 AM Reporting Lab: [facility] [address] Performing Lab: [facility] [address] [facility] CBC & DIFF EOSINOPHILS /100 LEUKOCYTES IN BLOOD BY AUTOMATED COUNT 2.6 0.0 - 6.0 02/27 Specimen Type: BLOOD Comment: Automated Differentia l Performed Ordering Provider: KATIE JONES Report Released Date/Time: Feb 28, 2024 09:41 AM Reporting Lab: [facility] [address] Performing Lab: [facility] [address] [facility] CBC & DIFF BASOPHILS/1 00 LEUKOCYTES IN BLOOD BY MANUAL COUNT 0.7 0.0 - 2.0 02/27 Specimen Type: BLOOD Comment: Automated Differentia l Performed Ordering Provider: KATIE JONES Report Released Date/Time: Feb 28, 2024 09:41 AM Reporting Lab: [facility] [address] Performing Lab: [facility] [address] [facility] CBC & DIFF ERYTHROCYTE DISTRIBUTIO N WIDTH [RATIO] BY AUTOMATED COUNT 13.8 11.5 - 14.5 02/27 Specimen Type: BLOOD Comment: Automated Differentia l Performed Ordering Provider: KATIE JONES Report Released Date/Time: Feb 28, 2024 09:41 AM Reporting Lab: [facility] [address] Performing Lab: [facility] [address] [facility] CBC & DIFF LYMPHOCYTES [#/VOLUME] IN BLOOD BY AUTOMATED COUNT 1.39 10*3/u L 1.0 - 4.0 02/27 Specimen Type: BLOOD Comment: Automated Differentia l Performed Ordering Provider: KATIE JONES Report Released Date/Time: Feb 28, 2024 09:41 AM Reporting Lab: [facility] [address] Performing Lab: [facility] [address] [facility] CBC & DIFF MONOCYTES [#/VOLUME] IN BLOOD BY AUTOMATED COUNT 0.70 10*3/u L 0.1 - 1.0 02/27 Specimen Type: BLOOD Comment: Automated Differentia l Performed Ordering Provider: KATIE JONES Report Released Date/Time: Feb 28, 2024 09:41 AM Reporting Lab: [facility] [address] Performing Lab: [facility] [address] [facility] CBC & DIFF NEUTROPHILS [#/VOLUME] IN BLOOD BY AUTOMATED COUNT 4.97 10*3/u L 2.0 - 7.7 02/27 Specimen Type: BLOOD Comment: Automated Differentia l Performed Ordering Provider: KATIE JONES Report Released Date/Time: Feb 28, 2024 09:41 AM Reporting Lab: [facility] [address] Performing Lab: [facility] [address] [facility] CBC & DIFF EOSINOPHILS [#/VOLUME] IN BLOOD BY AUTOMATED COUNT 0.19 10*3/u L 0 - 0.5 02/27 Specimen Type: BLOOD Comment: Automated Differentia l Performed Ordering Provider: KATIE JONES Report Released Date/Time: Feb 28, 2024 09:41 AM Reporting Lab: [facility] [address] Performing Lab: [facility] [address] [facility] CBC & DIFF BASOPHILS [#/VOLUME] IN BLOOD BY AUTOMATED COUNT 0.05 10*3/u L 0 - 0.2 02/27 Specimen Type: BLOOD Comment: Automated Differentia l Performed Ordering Provider: KATIE JONES Report Released Date/Time: Feb 28, 2024 09:41 AM Reporting Lab: [facility] [address] Performing Lab: [facility] [address] [facility] CBC & DIFF IG(META,MYE LO,PRO) 0.5 02/27 Specimen Type: BLOOD Comment: Automated Differentia l Performed Ordering Provider: KATIE JONES Report Released Date/Time: Feb 28, 2024 09:41 AM Reporting Lab: [facility] [address] Performing Lab: [facility] [address] [facility] CBC & DIFF IMMATURE GRANULOCYTE S [PRESENCE] IN BLOOD BY AUTOMATED COUNT 0.04 10*3/u L 0 - 0.1 02/27 Specimen Type: BLOOD Comment: Automated Differentia l Performed Ordering Provider: KATIE JONES Report Released Date/Time: Feb 28, 2024 09:41 AM Reporting Lab: [facility] [address] Performing Lab: [facility] [address] [facility] COMPREHEN SIVE METABOLIC PANEL+MG CREATININE [MASS/VOLUM E] IN SERUM OR PLASMA 1.0 mg/dL 0.7 - 1.2 02/27 Specimen Type: PLASMA No comment entered. Ordering Provider: KATIE JONES Report Released Date/Time: Feb 28, 2024 09:41 AM Reporting Lab: [facility] [address] Performing Lab: [facility] [address] [facility] COMPREHEN SIVE METABOLIC PANEL+MG UREA NITROGEN [MASS/VOLUM E] IN SERUM OR PLASMA 24 mg/dL 8 - 26 02/27 Specimen Type: PLASMA No comment entered. Ordering Provider: KATIE JONES Report Released Date/Time: Feb 28, 2024 09:41 AM Reporting Lab: [facility] [address] Performing Lab: [facility] [address] [facility] COMPREHEN SIVE METABOLIC PANEL+MG GLUCOSE [MASS/VOLUM E] IN SERUM OR PLASMA 90 mg/dL 70 - 100 02/27 Specimen Type: PLASMA No comment entered. Ordering Provider: KATIE JONES Report Released Date/Time: Feb 28, 2024 09:41 AM Reporting Lab: [facility] [address] Performing Lab: [facility] [address] [facility] COMPREHEN SIVE METABOLIC PANEL+MG SODIUM [MOLES/VOLU ME] IN SERUM OR PLASMA 143 mmol/L 136 - 145 02/27 Specimen Type: PLASMA No comment entered. Ordering Provider: KATIE JONES Report Released Date/Time: Feb 28, 2024 09:41 AM Reporting Lab: [facility] [address] Performing Lab: [facility] [address] [facility] COMPREHEN SIVE METABOLIC PANEL+MG POTASSIUM [MOLES/VOLU ME] IN SERUM OR PLASMA 4.1 mmol/L 3.5 - 5.1 02/27 Specimen Type: PLASMA No comment entered. Ordering Provider: KATIE JONES Report Released Date/Time: Feb 28, 2024 09:41 AM Reporting Lab: [facility] [address] Performing Lab: [facility] [address] [facility] COMPREHEN SIVE METABOLIC PANEL+MG CHLORIDE [MOLES/VOLU ME] IN SERUM OR PLASMA 107 mmol/L 98 - 107 02/27 Specimen Type: PLASMA No comment entered. Ordering Provider: KATIE JONES Report Released Date/Time: Feb 28, 2024 09:41 AM Reporting Lab: [facility] [address] Performing Lab: [facility] [address] [facility] COMPREHEN SIVE METABOLIC PANEL+MG CARBON DIOXIDE, TOTAL [MOLES/VOLU ME] IN SERUM OR PLASMA 27 mmol/L 22 - 29 02/27 Specimen Type: PLASMA No comment entered. Ordering Provider: KATIE JONES Report Released Date/Time: Feb 28, 2024 09:41 AM Reporting Lab: [facility] [address] Performing Lab: [facility] [address] [facility] COMPREHEN SIVE METABOLIC PANEL+MG CALCIUM [MASS/VOLUM E] IN SERUM OR PLASMA 9.8 mg/dL 8.4 - 10.2 02/27 Specimen Type: PLASMA No comment entered. Ordering Provider: KATIE JONES Report Released Date/Time: Feb 28, 2024 09:41 AM Reporting Lab: [facility] [address] Performing Lab: [facility] [address] [facility] COMPREHEN SIVE METABOLIC PANEL+MG PROTEIN [MASS/VOLUM E] IN SERUM OR PLASMA 7.3 g/dL 6.0 - 8.3 02/27 Specimen Type: PLASMA No comment entered. Ordering Provider: KATIE JONES Report Released Date/Time: Feb 28, 2024 09:41 AM Reporting Lab: [facility] [address] Performing Lab: [facility] [address] [facility] COMPREHEN SIVE METABOLIC PANEL+MG ALBUMIN [MASS/VOLUM E] IN SERUM OR PLASMA 4.2 g/dL 3.5 - 5.2 02/27 Specimen Type: PLASMA No comment entered. Ordering Provider: KATIE JONES Report Released Date/Time: Feb 28, 2024 09:41 AM Reporting Lab: [facility] [address] Performing Lab: [facility] [address] [facility] COMPREHEN SIVE METABOLIC PANEL+MG BILIRUBIN.T OTAL [MASS/VOLUM E] IN SERUM OR PLASMA 0.8 mg/dL 0.2 - 1.2 02/27 Specimen Type: PLASMA No comment entered. Ordering Provider: KATIE JONES Report Released Date/Time: Feb 28, 2024 09:41 AM Reporting Lab: [facility] [address] Performing Lab: [facility] [address] [facility] COMPREHEN SIVE METABOLIC PANEL+MG MAGNESIUM [MASS/VOLUM E] IN SERUM OR PLASMA 2.3 mg/dL 1.6 - 2.6 02/27 Specimen Type: PLASMA No comment entered. Ordering Provider: KATIE JONES Report Released Date/Time: Feb 28, 2024 09:41 AM Reporting Lab: [facility] [address] Performing Lab: [facility] [address] [facility] COMPREHEN SIVE METABOLIC PANEL+MG ANION GAP IN SERUM OR PLASMA 9 mmol/L 5 - 15 02/27 Specimen Type: PLASMA No comment entered. Ordering Provider: KATIE JONES Report Released Date/Time: Feb 28, 2024 09:41 AM Reporting Lab: [facility] [address] Performing Lab: [facility] [address] [facility] COMPREHEN SIVE METABOLIC PANEL+MG ALKALINE PHOSPHATASE [ENZYMATIC ACTIVITY/VO LUME] IN SERUM OR PLASMA 66 U/L 40 - 150 02/27 Specimen Type: PLASMA No comment entered. Ordering Provider: KATIE JONES Report Released Date/Time: Feb 28, 2024 09:41 AM Reporting Lab: [facility] [address] Performing Lab: [facility] [address] [facility] COMPREHEN SIVE METABOLIC PANEL+MG ALANINE AMINOTRANSF ERASE [ENZYMATIC ACTIVITY/VO LUME] IN SERUM OR PLASMA 13 U/L <55 - 55 02/27 Specimen Type: PLASMA No comment entered. Ordering Provider: KATIE JONES Report Released Date/Time: Feb 28, 2024 09:41 AM Reporting Lab: [facility] [address] Performing Lab: [facility] [address] [facility] COMPREHEN SIVE METABOLIC PANEL+MG ASPARTATE AMINOTRANSF ERASE [ENZYMATIC ACTIVITY/VO LUME] IN SERUM OR PLASMA 18 U/L <34 - 34 02/27 Specimen Type: PLASMA No comment entered. Ordering Provider: KATIE JONES Report Released Date/Time: Feb 28, 2024 09:41 AM Reporting Lab: [facility] [address] Performing Lab: [facility] [address] [facility] COMPREHEN SIVE METABOLIC PANEL+MG GLOMERULAR FILTRATION RATE/1.73 SQ M.PREDICTED [VOLUME RATE/AREA] IN SERUM, PLASMA OR BLOOD BY CREATININE- BASED FORMULA (CKD-EPI 2020) 73 60 02/27 Specimen Type: PLASMA No comment entered. Ordering Provider: KATIE JONES Report Released Date/Time: Feb 28, 2024 09:41 AM Reporting Lab: [facility] [address] Performing Lab: [facility] [address] [facility] PSA PROSTATE SPECIFIC AG [MASS/VOLUM E] IN SERUM OR PLASMA 0.28 ng/mL <4.00 - 4.00 02/27 Specimen Type: SERUM No comment entered. Ordering Provider: KATIE JONES Report Released Date/Time: Feb 28, 2024 09:41 AM Reporting Lab: [facility] [address] Performing Lab: [facility] [address] [facility] LIPID PANEL,NON -FASTING CHOLESTEROL [MASS/VOLUM E] IN SERUM OR PLASMA 236 mg/dL <199 - 199 02/27 H Specimen Type: PLASMA No comment entered. Ordering Provider: KATIE JONES Report Released Date/Time: Feb 28, 2024 09:51 AM Reporting Lab: [facility] [address] Performing Lab: [facility] [address] [facility] LIPID PANEL,NON -FASTING CHOLESTEROL IN HDL [MASS/VOLUM E] IN SERUM OR PLASMA 48 mg/dL 40 02/27 Specimen Type: PLASMA No comment entered. Ordering Provider: KATIE JONES Report Released Date/Time: Feb 28, 2024 09:51 AM Reporting Lab: [facility] [address] Performing Lab: [facility] [address] [facility] LIPID PANEL,NON -FASTING CHOLESTEROL IN LDL [MASS/VOLUM E] IN SERUM OR PLASMA BY CALCULATION 161 mg/dL <99 - 99 02/27 H Specimen Type: PLASMA No comment entered. Ordering Provider: KATIE JONES Report Released Date/Time: Feb 28, 2024 09:51 AM Reporting Lab: [facility] [address] Performing Lab: [facility] [address] [facility] LIPID PANEL,NON -FASTING CHOLESTEROL IN VLDL [MASS/VOLUM E] IN SERUM OR PLASMA BY CALCULATION 27 mg/dL <29 - 29 02/27 Specimen Type: PLASMA No comment entered. Ordering Provider: KATIE JONES Report Released Date/Time: Feb 28, 2024 09:51 AM Reporting Lab: [facility] [address] Performing Lab: [facility] [address] [facility] LIPID PANEL,NON -FASTING CHOLESTEROL NON HDL [MASS/VOLUM E] IN SERUM OR PLASMA 188 mg/dL <129 - 129 02/27 H Specimen Type: PLASMA No comment entered. Ordering Provider: KATIE JONES Report Released Date/Time: Feb 28, 2024 09:51 AM Reporting Lab: [facility] [address] Performing Lab: [facility] [address] [facility] LIPID PANEL,NON -FASTING TRIGLYCERID E [MASS/VOLUM E] IN SERUM OR PLASMA 134 mg/dL <149 - 149 02/27 Specimen Type: PLASMA No comment entered. Ordering Provider: KATIE JONES Report Released Date/Time: Feb 28, 2024 09:51 AM Reporting Lab: [facility] [address] Performing Lab: [facility] [address] [facility] B 12 COBALAMIN (VITAMIN B12) [MASS/VOLUM E] IN SERUM OR PLASMA 532 pg/mL 213 - 816 04/04 Specimen Type: SERUM No comment entered. Ordering Provider: KATIE JONES Report Released Date/Time: Feb 23, 2023 09:34 AM Reporting Lab: [facility] [address] Performing Lab: [facility] [address] [facility] FOLATE FOLATE [MASS/VOLUM E] IN SERUM OR PLASMA 14.8 ng/mL 7.0 04/04 Specimen Type: SERUM No comment entered. Ordering Provider: KATIE JONES Report Released Date/Time: Feb 23, 2023 09:34 AM Reporting Lab: [facility] [address] Performing Lab: [facility] [address] [facility] CBC & DIFF LEUKOCYTES [#/VOLUME] IN BLOOD BY AUTOMATED COUNT 6.47 10*3/u L 4.0 - 11.0 04/04 Specimen Type: BLOOD Comment: Automated Differentia l Performed Ordering Provider: KATIE JONES Report Released Date/Time: Feb 23, 2023 09:34 AM Reporting Lab: [facility] [address] Performing Lab: [facility] [address] [facility] CBC & DIFF ERYTHROCYTE S [#/VOLUME] IN BLOOD BY AUTOMATED COUNT 3.99 10*6/u L 4.6 - 6.2 04/04 L Specimen Type: BLOOD Comment: Automated Differentia l Performed Ordering Provider: KATIE JONES Report Released Date/Time: Feb 23, 2023 09:34 AM Reporting Lab: [facility] [address] Performing Lab: [facility] [address] [facility] CBC & DIFF HEMOGLOBIN [MASS/VOLUM E] IN BLOOD 12.6 g/dL 13.5 - 17.9 04/04 L Specimen Type: BLOOD Comment: Automated Differentia l Performed Ordering Provider: KATIE JONES Report Released Date/Time: Feb 23, 2023 09:34 AM Reporting Lab: [facility] [id number] Performing Lab: [facility] [id number] [facility] CBC & DIFF HEMATOCRIT [VOLUME FRACTION] OF BLOOD BY AUTOMATED COUNT 38.2 41 - 54 04/04 L Specimen Type: BLOOD Comment: Automated Differentia l Performed Ordering Provider: KATIE JONES Report Released Date/Time: Feb 23, 2023 09:34 AM Reporting Lab: [facility] [id number] Performing Lab: [facility] [address] [facility] CBC & DIFF MCV [ENTITIC VOLUME] BY AUTOMATED COUNT 95.7 fL 80 - 100 04/04 Specimen Type: BLOOD Comment: Automated Differentia l Performed Ordering Provider: KATIE JONES Report Released Date/Time: Feb 23, 2023 09:34 AM Reporting Lab: [facility] [address] Performing Lab: [facility] [address] [facility] CBC & DIFF MCH [ENTITIC MASS] BY AUTOMATED COUNT 31.6 pg 27 - 33 04/04 Specimen Type: BLOOD Comment: Automated Differentia l Performed Ordering Provider: KATIE JONES Report Released Date/Time: Feb 23, 2023 09:34 AM Reporting Lab: [facility] [address] Performing Lab: [facility] [address] [facility] CBC & DIFF MCHC [MASS/VOLUM E] BY AUTOMATED COUNT 33.0 g/dL 32.0 - 37.5 04/04 Specimen Type: BLOOD Comment: Automated Differentia l Performed Ordering Provider: KATIE JONES Report Released Date/Time: Feb 23, 2023 09:34 AM Reporting Lab: [facility] [address] Performing Lab: [facility] [address] [facility] CBC & DIFF PLATELETS [#/VOLUME] IN BLOOD BY AUTOMATED COUNT 285 10*3/u L 150 - 400 04/04 Specimen Type: BLOOD Comment: Automated Differentia l Performed Ordering Provider: KATIE JONES Report Released Date/Time: Feb 23, 2023 09:34 AM Reporting Lab: [facility] [address] Performing Lab: [facility] [address] [facility] CBC & DIFF PLATELET MEAN VOLUME [ENTITIC VOLUME] IN BLOOD BY AUTOMATED COUNT 9.0 fL 7.4 - 10.4 04/04 Specimen Type: BLOOD Comment: Automated Differentia l Performed Ordering Provider: KATIE JONES Report Released Date/Time: Feb 23, 2023 09:34 AM Reporting Lab: [facility] [address] Performing Lab: [facility] [address] [facility] CBC & DIFF NEUTROPHILS /100 LEUKOCYTES IN BLOOD BY MANUAL COUNT 67.9 40.0 - 80.0 04/04 Specimen Type: BLOOD Comment: Automated Differentia l Performed Ordering Provider: KATIE JONES Report Released Date/Time: Feb 23, 2023 09:34 AM Reporting Lab: [facility] [address] Performing Lab: [facility] [address] [facility] CBC & DIFF LYMPHOCYTES /100 LEUKOCYTES IN BLOOD BY MANUAL COUNT 18.7 15.0 - 45.0 04/04 Specimen Type: BLOOD Comment: Automated Differentia l Performed Ordering Provider: KATIE JONES Report Released Date/Time: Feb 23, 2023 09:34 AM Reporting Lab: [facility] [address] Performing Lab: [facility] [address] [facility] CBC & DIFF MONOCYTES/1 00 LEUKOCYTES IN BLOOD BY AUTOMATED COUNT 8.8 2.0 - 12.0 04/04 Specimen Type: BLOOD Comment: Automated Differentia l Performed Ordering Provider: KATIE JONES Report Released Date/Time: Feb 23, 2023 09:34 AM Reporting Lab: [facility] [address] Performing Lab: [facility] [address] [facility] CBC & DIFF EOSINOPHILS /100 LEUKOCYTES IN BLOOD BY AUTOMATED COUNT 3.1 0.0 - 6.0 04/04 Specimen Type: BLOOD Comment: Automated Differentia l Performed Ordering Provider: KATIE JONES Report Released Date/Time: Feb 23, 2023 09:34 AM Reporting Lab: [facility] [address] Performing Lab: [facility] [address] [facility] CBC & DIFF BASOPHILS/1 00 LEUKOCYTES IN BLOOD BY MANUAL COUNT 0.6 0.0 - 2.0 04/04 Specimen Type: BLOOD Comment: Automated Differentia l Performed Ordering Provider: KATIE JONES Report Released Date/Time: Feb 23, 2023 09:34 AM Reporting Lab: [facility] [address] Performing Lab: [facility] [address] [facility] CBC & DIFF ERYTHROCYTE DISTRIBUTIO N WIDTH [RATIO] BY AUTOMATED COUNT 14.1 11.5 - 14.5 04/04 Specimen Type: BLOOD Comment: Automated Differentia l Performed Ordering Provider: KATIE JONES Report Released Date/Time: Feb 23, 2023 09:34 AM Reporting Lab: [facility] [address] Performing Lab: [facility] [address] [facility] CBC & DIFF LYMPHOCYTES [#/VOLUME] IN BLOOD BY AUTOMATED COUNT 1.21 10*3/u L 1.0 - 4.0 04/04 Specimen Type: BLOOD Comment: Automated Differentia l Performed Ordering Provider: KATIE JONES Report Released Date/Time: Feb 23, 2023 09:34 AM Reporting Lab: [facility] [address] Performing Lab: [facility] [address] [facility] CBC & DIFF MONOCYTES [#/VOLUME] IN BLOOD BY AUTOMATED COUNT 0.57 10*3/u L 0.1 - 1.0 04/04 Specimen Type: BLOOD Comment: Automated Differentia l Performed Ordering Provider: KATIE JONES Report Released Date/Time: Feb 23, 2023 09:34 AM Reporting Lab: [facility] [address] Performing Lab: [facility] [address] [facility] CBC & DIFF NEUTROPHILS [#/VOLUME] IN BLOOD BY AUTOMATED COUNT 4.39 10*3/u L 2.0 - 7.7 04/04 Specimen Type: BLOOD Comment: Automated Differentia l Performed Ordering Provider: KATIE JONES Report Released Date/Time: Feb 23, 2023 09:34 AM Reporting Lab: [facility] [address] Performing Lab: [facility] [address] [facility] CBC & DIFF EOSINOPHILS [#/VOLUME] IN BLOOD BY AUTOMATED COUNT 0.20 10*3/u L 0 - 0.5 04/04 Specimen Type: BLOOD Comment: Automated Differentia l Performed Ordering Provider: KATIE JONES Report Released Date/Time: Feb 23, 2023 09:34 AM Reporting Lab: [facility] [address] Performing Lab: [facility] [address] [facility] CBC & DIFF BASOPHILS [#/VOLUME] IN BLOOD BY AUTOMATED COUNT 0.04 10*3/u L 0 - 0.2 04/04 Specimen Type: BLOOD Comment: Automated Differentia l Performed Ordering Provider: KATIE JONES Report Released Date/Time: Feb 23, 2023 09:34 AM Reporting Lab: [facility] [address] Performing Lab: [facility] [address] [facility] CBC & DIFF IG(META,MYE LO,PRO) 0.9 04/04 Specimen Type: BLOOD Comment: Automated Differentia l Performed Ordering Provider: KATIE JONES Report Released Date/Time: Feb 23, 2023 09:34 AM Reporting Lab: [facility] [address] Performing Lab: [facility] [address] [facility] CBC & DIFF IMMATURE GRANULOCYTE S [PRESENCE] IN BLOOD BY AUTOMATED COUNT 0.06 10*3/u L 0 - 0.1 04/04 Specimen Type: BLOOD Comment: Automated Differentia l Performed Ordering Provider: KATIE JONES Report Released Date/Time: Feb 23, 2023 09:34 AM Reporting Lab: [facility] [address] Performing Lab: [facility] [address] [facility] IRON GROUP IRON [MASS/VOLUM E] IN SERUM OR PLASMA 69 ug/dL 65 - 175 04/04 Specimen Type: PLASMA No comment entered. Ordering Provider: KATIE JONES Report Released Date/Time: Feb 23, 2023 09:34 AM Reporting Lab: [facility] [address] Performing Lab: [facility] [address] [facility] IRON GROUP IRON BINDING CAPACITY [MASS/VOLUM E] IN SERUM OR PLASMA 263 ug/dL 250 - 425 04/04 Specimen Type: PLASMA No comment entered. Ordering Provider: KATIE JONES Report Released Date/Time: Feb 23, 2023 09:34 AM Reporting Lab: [facility] [address] Performing Lab: [facility] [address] [facility] IRON GROUP FERRITIN [MASS/VOLUM E] IN SERUM OR PLASMA 453.6 ng/mL 21.8 - 274.7 04/04 H Specimen Type: PLASMA No comment entered. Ordering Provider: KATIE JONES Report Released Date/Time: Feb 23, 2023 09:34 AM Reporting Lab: [facility] [address] Performing Lab: [facility] [address] [facility] IRON GROUP IRON SATURATION 26 20 - 50 04/04 Specimen Type: PLASMA No comment entered. Ordering Provider: KATIE JONES Report Released Date/Time: Feb 23, 2023 09:34 AM Reporting Lab: [facility] [address] Performing Lab: [facility] [address] [facility] IRON GROUP TRANSFERRIN [MASS/VOLUM E] IN SERUM OR PLASMA 210 mg/dL 163 - 382 04/04 Specimen Type: PLASMA No comment entered. Ordering Provider: KATIE JONES Report Released Date/Time: Feb 23, 2023 09:34 AM Reporting Lab: [facility] [address] Performing Lab: [facility] [address] [facility] COMPREHEN SIVE METABOLIC PANEL+MG CREATININE [MASS/VOLUM E] IN SERUM OR PLASMA 0.9 mg/dL 0.7 - 1.2 02/22 Specimen Type: PLASMA No comment entered. Ordering Provider: KATIE JONES Report Released Date/Time: Feb 22, 2023 10:40 AM Reporting Lab: [facility] [address] Performing Lab: [facility] [address] [facility] COMPREHEN SIVE METABOLIC PANEL+MG UREA NITROGEN [MASS/VOLUM E] IN SERUM OR PLASMA 16 mg/dL 8 - 26 02/22 Specimen Type: PLASMA No comment entered. Ordering Provider: KATIE JONES Report Released Date/Time: Feb 22, 2023 10:40 AM Reporting Lab: [facility] [address] Performing Lab: [facility] [address] [facility] COMPREHEN SIVE METABOLIC PANEL+MG GLUCOSE [MASS/VOLUM E] IN SERUM OR PLASMA 88 mg/dL 70 - 100 02/22 Specimen Type: PLASMA No comment entered. Ordering Provider: KATIE JONES Report Released Date/Time: Feb 22, 2023 10:40 AM Reporting Lab: [facility] [address] Performing Lab: [facility] [address] [facility] COMPREHEN SIVE METABOLIC PANEL+MG SODIUM [MOLES/VOLU ME] IN SERUM OR PLASMA 141 mmol/L 136 - 145 02/22 Specimen Type: PLASMA No comment entered. Ordering Provider: KATIE JONES Report Released Date/Time: Feb 22, 2023 10:40 AM Reporting Lab: [facility] [address] Performing Lab: [facility] [address] [facility] COMPREHEN SIVE METABOLIC PANEL+MG POTASSIUM [MOLES/VOLU ME] IN SERUM OR PLASMA 4.4 mmol/L 3.5 - 5.1 02/22 Specimen Type: PLASMA No comment entered. Ordering Provider: KATIE JONES Report Released Date/Time: Feb 22, 2023 10:40 AM Reporting Lab: [facility] [address] Performing Lab: [facility] [address] [facility] COMPREHEN SIVE METABOLIC PANEL+MG CHLORIDE [MOLES/VOLU ME] IN SERUM OR PLASMA 109 mmol/L 98 - 107 02/22 H Specimen Type: PLASMA No comment entered. Ordering Provider: KATIE JONES Report Released Date/Time: Feb 22, 2023 10:40 AM Reporting Lab: [facility] [address] Performing Lab: [facility] [address] [facility] COMPREHEN SIVE METABOLIC PANEL+MG CARBON DIOXIDE, TOTAL [MOLES/VOLU ME] IN SERUM OR PLASMA 24 mmol/L 22 - 29 02/22 Specimen Type: PLASMA No comment entered. Ordering Provider: KATIE JONES Report Released Date/Time: Feb 22, 2023 10:40 AM Reporting Lab: [facility] [address] Performing Lab: [facility] [address] [facility] COMPREHEN SIVE METABOLIC PANEL+MG CALCIUM [MASS/VOLUM E] IN SERUM OR PLASMA 9.1 mg/dL 8.4 - 10.2 02/22 Specimen Type: PLASMA No comment entered. Ordering Provider: KATIE JONES Report Released Date/Time: Feb 22, 2023 10:40 AM Reporting Lab: [facility] [address] Performing Lab: [facility] [address] [facility] COMPREHEN SIVE METABOLIC PANEL+MG PROTEIN [MASS/VOLUM E] IN SERUM OR PLASMA 6.7 g/dL 6.0 - 8.3 02/22 Specimen Type: PLASMA No comment entered. Ordering Provider: KATIE JONES Report Released Date/Time: Feb 22, 2023 10:40 AM Reporting Lab: [facility] [address] Performing Lab: [facility] [address] [facility] COMPREHEN SIVE METABOLIC PANEL+MG ALBUMIN [MASS/VOLUM E] IN SERUM OR PLASMA 3.9 g/dL 3.5 - 5.2 02/22 Specimen Type: PLASMA No comment entered. Ordering Provider: KATIE JONES Report Released Date/Time: Feb 22, 2023 10:40 AM Reporting Lab: [facility] [address] Performing Lab: [facility] [address] [facility] COMPREHEN SIVE METABOLIC PANEL+MG BILIRUBIN.T OTAL [MASS/VOLUM E] IN SERUM OR PLASMA 0.8 mg/dL 0.2 - 1.2 02/22 Specimen Type: PLASMA No comment entered. Ordering Provider: KATIE JONES Report Released Date/Time: Feb 22, 2023 10:40 AM Reporting Lab: [facility] [address] Performing Lab: [facility] [address] [facility] COMPREHEN SIVE METABOLIC PANEL+MG MAGNESIUM [MASS/VOLUM E] IN SERUM OR PLASMA 2.2 mg/dL 1.6 - 2.6 02/22 Specimen Type: PLASMA No comment entered. Ordering Provider: KATIE JONES Report Released Date/Time: Feb 22, 2023 10:40 AM Reporting Lab: [facility] [address] Performing Lab: [facility] [address] [facility] COMPREHEN SIVE METABOLIC PANEL+MG ANION GAP IN SERUM OR PLASMA 8 mmol/L 5 - 15 02/22 Specimen Type: PLASMA No comment entered. Ordering Provider: KATIE JONES Report Released Date/Time: Feb 22, 2023 10:40 AM Reporting Lab: [facility] [address] Performing Lab: [facility] [address] [facility] COMPREHEN SIVE METABOLIC PANEL+MG ALKALINE PHOSPHATASE [ENZYMATIC ACTIVITY/VO LUME] IN SERUM OR PLASMA 70 U/L 40 - 150 02/22 Specimen Type: PLASMA No comment entered. Ordering Provider: KATIE JONES Report Released Date/Time: Feb 22, 2023 10:40 AM Reporting Lab: [facility] [address] Performing Lab: [facility] [address] [facility] COMPREHEN SIVE METABOLIC PANEL+MG ALANINE AMINOTRANSF ERASE [ENZYMATIC ACTIVITY/VO LUME] IN SERUM OR PLASMA 10 U/L 02/22 Specimen Type: PLASMA No comment entered. Ordering Provider: KATIE JONES Report Released Date/Time: Feb 22, 2023 10:40 AM Reporting Lab: [facility] [address] Performing Lab: [facility] [address] [facility] COMPREHEN SIVE METABOLIC PANEL+MG ASPARTATE AMINOTRANSF ERASE [ENZYMATIC ACTIVITY/VO LUME] IN SERUM OR PLASMA 19 U/L 02/22 Specimen Type: PLASMA No comment entered. Ordering Provider: KATIE JONES Report Released Date/Time: Feb 22, 2023 10:40 AM Reporting Lab: [facility] [address] Performing Lab: [facility] [address] [facility] COMPREHEN SIVE METABOLIC PANEL+MG GLOMERULAR FILTRATION RATE/1.73 SQ M.PREDICTED [VOLUME RATE/AREA] IN SERUM, PLASMA OR BLOOD BY CREATININE- BASED FORMULA (CKD-EPI 2020) 83 02/22 Specimen Type: PLASMA No comment entered. Ordering Provider: KATIE JONES Report Released Date/Time: Feb 22, 2023 10:40 AM Reporting Lab: [facility] [address] Performing Lab: [facility] [address] [facility] HEMOGLOBI N A1C HEMOGLOBIN A1C/HEMOGLO BIN.TOTAL [...] Feb 22, 2023 10:40 AM Reporting Lab: [facility] [address] Performing Lab: [facility] [address] [facility] Vital Signs Combined list of inpatient and outpatient Vital Signs from [facility] and [facility], ranging from 12 months to all on record, depending upon the facility. Vital Sign Value Date Comments Source SYSTOLIC BLOOD PRESSURE 128 02/28/2024 09:18:48 [facility] DIASTOLIC BLOOD PRESSURE 74 02/28/2024 09:18:48 [facility] PULSE OXIMETRY 95 02/28/2024 09:18:48 S [...] [facility]OC SYSTOLIC BLOOD PRESSURE 159 07/11/2023 14:56:56 [facility] DIASTOLIC BLOOD PRESSURE 84 07/11/2023 14:56:56 [facility] PULSE OXIMETRY 97% 07/11/2023 14:56:56 S [...] [facility] 2) Encounters from the Department of Defense facilities going back up to 280 months. Location Location Details Encounter Type Encounter Number Reason For Visit Attending Provider ADM Date DC Date Status Disposition Source [place] [facility] Outpatient Encounter [id number] 02/01 [facility] OFFICE O/P EST MOD 30-39 MIN [id number] Diagnos is: ICD-10- CM Z00.8 Encount er for other general examina tion
Bob JONES EBECCA L 02/22 [facility] [place] [facility] Outpatient Encounter [id number] 02/24 [facility] [place] [facility] Outpatient Encounter [id number] 03/20 [facility] [place] [facility] [place] [id number] Diagnos is: ICD-10- CM Z01.118 Encntr for exam of ears and hearing w oth abnorma l finding s
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, right eye<br/ > KAM FLORES 04/10 [facility] [place] [facility] Outpatient Encounter [id number] 04/11 [facility] [place] [facility] Outpatient Encounter [id number] 04/19 [facility] [place] [facility] OFFICE O/P NEW MOD 45-59 MIN [id number] Diagnos is: ICD-10- CM 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
[facility]JERO [facility] OFF[facility] O/P EST MOD 30 MIN [id number] Diagnos is: ICD-10- CM Z00.8 Encount er for other general examina tion
Bob JONES EBECCA L 02/27 [facility] OFF/OP EST MAY X REQ PHY/QHP [id number] Diagnos is: ICD-10- CM Z71.9 [place] Machine Operator ing, unspeci fied
WHITEMARC A R 03/14 [facility] [place] [facility] OFFICE O/P EST HI 40 MIN [id number] Diagnos is: ICD-10- CM I87.2 Venous insuffi ciency (chroni c) (periph eral)<b r/> MANUELA GUTIERREZ ENRIQUE 05/24 [place] [facility] Social History Combined list of available smoking, tobacco, and other social history from [facility] and [facility] facilities. Social History Type Response Date Comment Sourc e Tobacco smoking status UTIS PA-TOBACCO NEVER USED 02/28/20 SHON FERANNDEZ History of tobacco use PA-TOBACCO FORMER USER 02/22/2023 SHON FERNANDEZ Plan of Care List of future care activities from [facility] facilities. Additional future care activities may be listed in the Assessment and Plan section. Date/Time Care Activity Care Activity Detail Facili ty 06/27/2024 AMBULATORY - SURGERY [facility] - SURGERY [facility] 06/27/2024 AMBULATORY - SURGERY AMBUL[facility]ORY - SURGERY [facility] 07/24/2024 AMBULATORY - NONE AMBULATORY - NONE [facility] 08/06/2024 AMBULATORY - SURGERY AMBULATORY - SURGERY [facility] Advance Directives List of completed, amended, or rescinded Advance Directives on record at Department [facility] facilities. An actual copy of the Directive is not included. Date Advance Directive Provider Source 04/19/2023 [facility] DIS[facility] 04/19/2023 [facility]
--- OUTSIDE RECORDS SUMMARY | 2024-06-05 11:12 | XMS_ITS ---
Author Organization [facility] Address [address] [place] [address] Care Team Providers Care Traffic Line Painter Name Role Phone Unavailable Unavailable Unavailable Surgery Details Not on file Complications Check Surgery Details section. Procedure Estimated Blood Loss Check Surgery Details section. Procedure Findings Check Surgery Details section. Procedure Specimens Taken Check Surgery Details section.
--- OUTSIDE RECORDS SUMMARY | 2024-06-05 11:12 | XMS_ITS | Clinical Summary ---
Author Organization [facility] Address [facility] [place] [address] Care Team Providers Care Manager Small Business Name Role Phone Clinic, [facility] Primary Care Provider + Allergies No known [...] of Treatment Not on file Care Teams Manager Small Business Relationship Specialty Start Date End Date Clinic, [address] [address] PCP - General 06/26/20
--- OUTSIDE RECORDS SUMMARY | 2024-06-05 11:12 | XMS_ITS | Clinical Summary ---
Author Organization [facility] Address [place], [place] [address] Care Team Providers Care Controlled Area Checker Name Role Phone Trace Tom MD Primary [...] 65+ (1 of 1 - PCV) 2001 RSV vaccine for adults or pr egnancy (1 - 1-dose 75+ series) 11/24/2011 COVID-19 vaccine series ( season) 2024 07/13/2021, 12/01/2020, 11/04/2020 Influenza for age 65+ 05/05/2024 Medical Devices Implanted Type Area Cardiovascular Physician Assistant Device Identifier Shelf Expiration Date Model / Serial / Lot Cancellous Bone Screw Implanted:Qty: 1 on 01/30/2018 by Dickson Sevilla MD at [facility] Right: Hip [employer] 10/29/2022 / / [id number] Cluster Acetabluar Shell Implanted:Qty: 1 on 01/30/2018 by Dickson Sevilla MD at [facility] Right: Hip [employer] 10/16/2022 / / [id number] Polyethlene Insert Implanted:Qty: 1 on 01/30/2018 by Dickson Sevilla MD at [facility] Right: Hip [employer] 07/09/2022 / / [id number] Neck Angle Hip Stem Implanted:Qty: 1 on 01/30/2018 by Dickson Sevilla MD at [facility] Right: Hip [employer] 11/24/2022 / / [id number] C-Taper Femoral Head Implanted:Qty: 1 on 01/30/2018 by Dickson Sevilla MD at [facility] Right: Hip [employer] 10/29/2022 / / [id number] Advance Directives [...] 10:51 AM 01/30/2018 2:57 PM Care Teams Controlled Area Checker Relationship Specialty Start Date End Date Trace Tom MD [address] [place] [address] PCP - General Family Practice 01/25/22
--- OUTSIDE RECORDS SUMMARY | 2024-06-05 11:12 | XMS_ITS | Referral Summary ---
Author Organization [place] Address [facility] [place] [address] Care Team Providers Care Inverter And Clipper Name Role Phone Clinic, [facility] Primary Care Provider + Allergies No [...] of Treatment Not on file Care Teams Inverter And Clipper Relationship Specialty Start Date End Date Clinic, [address] [address] PCP - General 06/26/20
--- OUTSIDE RECORDS SUMMARY | 2024-06-05 11:12 | XMS_ITS | Clinical Summary ---
Author Organization [facility] Address [address] [place] [id number] Care Team Providers Care Plywood And Veneer Repairer Name Role Phone Unavailable Primary Care Provider Unavailabl e Source Comments Patient records contain information from all sites at [facility]. For routine questions regarding patient records, call [phone] during business hours, M-F 8:00 AM - 5:00 PM Central Time. Record requests for emergency care only can be directed to [phone] at any time.[facility] Allergies No known active allergies Medications Medication [...] Blood Pressure 140/74 07/12/2020 11:15 AM DIRECTOR APPOINTMENT Pulse 60 07/12/2020 11:15 AM DIRECTOR APPOINTMENT Temperature 37.3 ??C (99.1 ??F) 07/12/2020 1 1:15 AM DIRECTOR APPOINTMENT Respiratory Rate 20 07/12/2020 8:28 AM DIRECTOR APPOINTMENT Oxygen Saturation 96% 07/12/2020 11: 15 AM DIRECTOR APPOINTMENT Inhaled Oxygen Concentration - - Weight 101 kg (222 lb 10.6 oz) 2016 2:13 PM CDT Vital sign result from Clinical Notes. Height 175.3 cm (5' 9) 07/12/2020 8:27 AM DIRECTOR APPOINTMENT Body Mass Index 32.98 09/20/2016 4:53 PM DIRECTOR APPOINTMENT Plan of Treatment Health Maintenance Due Date [...]
--- OUTSIDE RECORDS SUMMARY | 2024-06-05 11:12 | XMS_ITS | Referral Summary ---
Author Organization [facility] Address [address] [place] [address] Care Team Providers Care First Aid Teacher Name Role Phone Unavailable Primary Care Provider Unavailabl e Source Comments Patient records contain information from all sites at [facility]. For routine questions regarding patient records, call [phone] during business hours, M-F 8:00 AM - 5:00 PM Central Time. Record requests for emergency care only can be directed to [phone] at any time.[facility] Allergies No known active allergies Medications [...] Comments Blood Pressure 140/74 07/12/2020 11:15 AM FREIGHT FORWARDER Pulse 60 07/12/2020 11:15 AM FREIGHT FORWARDER Temperature 37.3 ??C (99.1 ??F) 07/12/2020 1 1:15 AM FREIGHT FORWARDER Respiratory Rate 20 07/12/2020 8:28 AM FREIGHT FORWARDER Oxygen Saturation 96% 07/12/2020 11: 15 AM FREIGHT FORWARDER Inhaled Oxygen Concentration - - Weight 101 kg (222 lb 10.6 oz) 2016 2:13 PM CDT Vital sign result from Clinical Notes. Height 175.3 cm (5' 9) 07/12/2020 8:27 AM FREIGHT FORWARDER Body Mass Index 32.98 09/20/2016 4:53 PM FREIGHT FORWARDER Plan of Treatment Not on file
--- OUTSIDE RECORDS SUMMARY | 2024-06-05 11:12 | XMS_ITS | Clinical Summary ---
Author Organization [facility] Address [address], [place] [address] Care Team Providers Care Solar System Installer Name Role Phone Unavailable Primary Care Provider Unavailabl e Source Comments You are receiving this document as you are listed as the primary care provider,follow-up provider, or the patient has been referred to you for consultation.This is in compliance with the Medicare and[facility] EHR Incentive Program,which states Providers who transition [...] [address] [facility] [place] [id number]
== END 2024-06-05 11:10 | disposition home or self-care (01) ==
LOC: WOUND 11:09
PROVIDERS: Visit Provider Surgery
DX: I87.312 Chronic venous hypertension (idiopathic) with ulcer of left lower extremity (principal); L97.822 Non-pressure chronic ulcer of other part of left lower leg with fat layer exposed; S81.801A Unspecified open wound, right lower leg, initial encounter
CPT/HCPCS: G0463

== ENCOUNTER 2024-06-12 11:18 | Outpatient (CLI) | payer MEDICARE, BC, SELFPAY ==
--- OUTSIDE RECORDS SUMMARY | 2024-06-12 11:20 | XMS_ITS | Continuity of Care Document ---
Author Name [facility] Organization [facility] Care Team Providers Care Plaster Form Maker Name Role Phone [facility] Unavailable Unavailable Problems Combined list of problems from Department of Defense and Veterans Affairs facilities. It does not include entries that were removed or entered in error. Problem Status Onset Date Problem Type Date of Resolution Comments Source Exposure to potentially hazardous substance ([facility] [id number]) Active 11/10/19 24 Condition Nov 10, 2023 Entered By: FLORES KENNEDY Comment: [facility] [place] [facility] Documentation Initiative [facility] Edema Active Condition Feb 22 Entered By: GARY JONES Comment: trated for prostate ca with 44 radiation treatmentsFeb 22, 2023 Entered By: GARY JONES Comment: treated fro prostate cancer with 44 radiation treatments [facility] 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 Active Condition Feb 22, 2023 Entered By: GARY JONES Comment: treated prostate cancer with 44 radiation treatments [facility] Malignant melanoma Active Condition [facility] Obstructive Sleep Apnea of Adult ([facility] [id number]) Active Condition Dec 28, 2023 Entered By: WILEY ARTHUR Comment: See scanned records in [place] for details [facility] Diagnosis: ICD-10-CM 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) Active Diagnosis [facility] Diagnosis: ICD-10-CM Z71.9 Counseling, unspecified Active Diagnosis [facility] Diagnosis: ICD-10-CM Z00.8 Encounter for other general examination Active Diagnosis [facility] Diagnosis: ICD-10-CM 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 loss, bilateral Active Diagnosis [facility] Diagnosis: ICD-10-CM 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, right eye Active Diagnosis [facility] Diagnosis: ICD-10-CM Z46.1 Encounter for fitting and adjustment of hearing aid Active Diagnosis [facility] Diagnosis: ICD-10-CM G47.39 Other sleep apnea Active Diagnosis [facility] Diagnosis: ICD-10-CM 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 Medication Details Route Status Patient Instructions Prescription Expires Prescription Number Last Dispense Date Ordering Provider Order Date Order Qty Source ALBUTEROL 90MCG/ACTUA T (CFC-F) INHL,ORAL,8 .5GM DOSE COUNTER INHALE 1 PUFF BY INHALATI ON EVERY 6 HOURS NEEDED FOR SHORTNES S OF BREATH RESPIR ATORY (INHAL ATION) ACTIVE 07/12/2024 [id number] IVETH JONESCA L 2022 2 [facility] ASCORBIC ACID 500MG TAB TAKE ONE TABLET BY MOUTH EVERY DAY ORAL ACTIVE IVETH JONESCA L 2022 [facility] CARBOXYMETH YLCELLULOSE NA 0.5% SOLN,OPH INSTILL 1 DROP IN BOTH EYES FOUR TIMES A DAY NEEDED FOR DRY EYES OPHTHA LMIC ACTIVE 11/01/2024 [id number] 4 GRAMATES, CHRISTINA H 2023 15 [place] [facility] CHOLECALCIF VAL TAB TAKE 1 TAB BY MOUTH ORAL ACTIVE IVETH JONESCA L 2023 [facility] IBUPROFEN 600MG TAB TAKE ONE TABLET BY MOUTH THREE TIMES A DAY NEEDED ORAL ACTIVE GLADYS JONESECCA L 2023 [facility] MULTIVITAMI NS CAP/TAB TAKE ONE TABLET BY MOUTH EVERY DAY ORAL ACTIVE GLADYS JONESECCA L 2022 [facility] TORSEMIDE 20MG TAB TAKE ONE TABLET BY MOUTH EVERY DAY FOR EXCESS FLUID ORAL ACTIVE 02/28/2025 [id number] 4 IVETH JONESCA L 2023 90 [facility] ZINC 50MG (FROM SULFATE) CAP TAKE 1 CAPSULE BY MOUTH EVERY DAY ORAL ACTIVE GLADYS JONESECCA L 2022 [facility] Immunizations Combined list of available immunizations from the Department of Defense and Veterans Affairs facilities. 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 Status Comments Source COVID-19 (PFIZER), MRNA, LNP-S, PF, JASON-SUCROSE, 30 MCG/0.3 ML (AGES 12+ YEARS) 1 2022 TOOTIE ANDERSON LEFT DELTO ID [id number] 309 complet ed [facility] INFLUENZA, HIGH-DOSE, QUADRIVALENT 2022 TOOTIE ANDERSON LEFT DELTO ID [id number] 197 complet ed [facility] PNEUMOCOCCAL CONJUGATE PCV20, POLYSACCHARID E [id number] CONJUGATE, ADJUVANT, PF 2022 TOOTIE ANDERSON LEFT DELTO ID [id number] 216 complet ed [facility] INFLUENZA, HIGH-DOSE, QUADRIVALENT, PF 2021 197 complet ed [facility] INFLUENZA, UNSPECIFIED FORMULATION 2021 88 complet ed [facility] COVID-19 (MODERNA), MRNA, LNP-S, PF, 100 MCG/0.5ML DOSE OR 50 MCG/0.25ML DOSE 3 2020 207 complet [facility] INFLUENZA, HIGH-DOSE, QUADRIVALENT, PF 2020 197 complet [facility] COVID-19 (MODERNA), MRNA, LNP-S, PF, 100 MCG/0.5ML DOSE OR 50 MCG/0.25ML DOSE 2 2020 207 complet [facility] COVID-19 (MODERNA), MRNA, LNP-S, PF, 100 MCG/0.5ML DOSE OR 50 MCG/0.25ML DOSE 1 2020 207 complet [facility] INFLUENZA, HIGH-DOSE, TRIVALENT, PF 2018 135 complet [facility] INFLUENZA, HIGH-DOSE, TRIVALENT, PF 2016 135 complet [facility] TDAP 2016 115 complet [facility] INFLUENZA, SPLIT VIRUS, QUADRIVALENT, PF 2015 150 complet [facility] INFLUENZA, HIGH-DOSE, TRIVALENT, PF 2015 135 complet ed [facility] INFLUENZA, HIGH-DOSE, TRIVALENT, PF 2012 135 complet ed [facility] INFLUENZA, SPLIT VIRUS, TRIVALENT, PRESERVATIVE 2012 141 complet ed [facility] TDAP 2011 115 complet ed [facility] INFLUENZA, SPLIT VIRUS, TRIVALENT, PF 2010 140 complet ed [facility] HEP B, UNSPECIFIED FORMULATION 2009 45 complet ed [facility] NOVEL INFLUENZA-H1N 1-09 2008 127 complet [facility] Results Combined list of recent chemistry, hematology [...] Feb 28, 2024 09:41 AM Reporting Lab: [facility] [address] Performing Lab: [facility] [address] [facility] CBC & DIFF ERYTHROCYTE S [#/VOLUME] IN BLOOD BY AUTOMATED COUNT 4.19 10*6/u L 4.6 - 6.2 02/27 L Specimen Type: BLOOD Comment: Automated Differentia l Performed Ordering Provider: KATIE JONES Report Released Date/Time: Feb 28, 2024 09:41 AM Reporting Lab: [facility] [address] Performing Lab: [facility] [address] [facility] CBC & DIFF HEMOGLOBIN [MASS/VOLUM E] IN BLOOD 13.4 g/dL 13.5 - 17.9 02/27 L Specimen Type: BLOOD Comment: Automated Differentia l Performed Ordering Provider: KATIE JONES Report Released Date/Time: Feb 28, 2024 09:41 AM Reporting Lab: [facility] [address] Performing Lab: [facility] [address] [facility] CBC & DIFF HEMATOCRIT [VOLUME FRACTION] OF BLOOD BY AUTOMATED COUNT 40.6 41 - 54 02/27 L Specimen Type: BLOOD Comment: Automated Differentia l Performed Ordering Provider: KATIE JONES Report Released Date/Time: Feb 28, 2024 09:41 AM Reporting Lab: [facility] [address] Performing Lab: [facility] [address] [facility] CBC & DIFF MCV [ENTITIC VOLUME] BY AUTOMATED COUNT 96.9 fL 80 - 100 02/27 Specimen Type: BLOOD Comment: Automated Differentia l Performed Ordering Provider: KATIE JONES Report Released Date/Time: Feb 28, 2024 09:41 AM Reporting Lab: [facility] [address] Performing Lab: [facility] [address] [facility] CBC & DIFF MCH [ENTITIC MASS] BY AUTOMATED COUNT 32.0 pg 27 - 33 02/27 Specimen Type: BLOOD Comment: Automated Differentia l Performed Ordering Provider: KATIE JONES Report Released Date/Time: Feb 28, 2024 09:41 AM Reporting Lab: [facility] [address] Performing Lab: [facility] [address] [facility] CBC & DIFF MCHC [MASS/VOLUM E] BY AUTOMATED COUNT 33.0 g/dL 32.0 - 37.5 02/27 Specimen Type: BLOOD Comment: Automated Differentia l Performed Ordering Provider: KATIE JONES Report Released Date/Time: Feb 28, 2024 09:41 AM Reporting Lab: [facility] [address] Performing Lab: [facility] [address] [facility] CBC & DIFF PLATELETS [#/VOLUME] IN BLOOD BY AUTOMATED COUNT 273 10*3/u L 150 - 400 02/27 Specimen Type: BLOOD Comment: Automated Differentia l Performed Ordering Provider: KATIE JONES Report Released Date/Time: Feb 28, 2024 09:41 AM Reporting Lab: [facility] [address] Performing Lab: [facility] [address] [facility] CBC & DIFF PLATELET MEAN VOLUME [ENTITIC VOLUME] IN BLOOD BY AUTOMATED COUNT 9.8 fL 7.4 - 10.4 02/27 Specimen Type: BLOOD Comment: Automated Differentia l Performed Ordering Provider: KATIE JONES Report Released Date/Time: Feb 28, 2024 09:41 AM Reporting Lab: [facility] [address] Performing Lab: [facility] [address] [facility] CBC & DIFF NEUTROPHILS /100 LEUKOCYTES IN BLOOD BY MANUAL COUNT 67.8 40.0 - 80.0 02/27 Specimen Type: BLOOD Comment: Automated Differentia l Performed Ordering Provider: KATIE JONES Report Released Date/Time: Feb 28, 2024 09:41 AM Reporting Lab: [facility] [address] Performing Lab: [facility] [address] [facility] CBC & DIFF LYMPHOCYTES /100 LEUKOCYTES IN BLOOD BY MANUAL COUNT 18.9 15.0 - 45.0 02/27 Specimen Type: BLOOD Comment: Automated Differentia l Performed Ordering Provider: KATIE JONES Report Released Date/Time: Feb 28, 2024 09:41 AM Reporting Lab: [facility] [address] Performing Lab: [facility] [address] [facility] CBC & DIFF MONOCYTES/1 00 LEUKOCYTES IN BLOOD BY AUTOMATED COUNT 9.5 2.0 - 12.0 02/27 Specimen Type: BLOOD Comment: Automated Differentia l Performed Ordering Provider: KATIE JONES Report Released Date/Time: Feb 28, 2024 09:41 AM Reporting Lab: [facility] [address] Performing Lab: [facility] [address] [facility] CBC & DIFF EOSINOPHILS /100 LEUKOCYTES IN BLOOD BY AUTOMATED COUNT 2.6 0.0 - 6.0 02/27 Specimen Type: BLOOD Comment: Automated Differentia l Performed Ordering Provider: KATIE JONES Report Released Date/Time: Feb 28, 2024 09:41 AM Reporting Lab: [facility] [address] Performing Lab: [facility] [address] [facility] CBC & DIFF BASOPHILS/1 00 LEUKOCYTES IN BLOOD BY MANUAL COUNT 0.7 0.0 - 2.0 02/27 Specimen Type: BLOOD Comment: Automated Differentia l Performed Ordering Provider: KATIE JONES Report Released Date/Time: Feb 28, 2024 09:41 AM Reporting Lab: [facility] [address] Performing Lab: [facility] [address] [facility] CBC & DIFF ERYTHROCYTE DISTRIBUTIO N WIDTH [RATIO] BY AUTOMATED COUNT 13.8 11.5 - 14.5 02/27 Specimen Type: BLOOD Comment: Automated Differentia l Performed Ordering Provider: KATIE JONES Report Released Date/Time: Feb 28, 2024 09:41 AM Reporting Lab: [facility] [address] Performing Lab: [facility] [address] [facility] CBC & DIFF LYMPHOCYTES [#/VOLUME] IN BLOOD BY AUTOMATED COUNT 1.39 10*3/u L 1.0 - 4.0 02/27 Specimen Type: BLOOD Comment: Automated Differentia l Performed Ordering Provider: KATIE JONES Report Released Date/Time: Feb 28, 2024 09:41 AM Reporting Lab: [facility] [address] Performing Lab: [facility] [address] [facility] CBC & DIFF MONOCYTES [#/VOLUME] IN BLOOD BY AUTOMATED COUNT 0.70 10*3/u L 0.1 - 1.0 02/27 Specimen Type: BLOOD Comment: Automated Differentia l Performed Ordering Provider: KATIE JONES Report Released Date/Time: Feb 28, 2024 09:41 AM Reporting Lab: [facility] [address] Performing Lab: [facility] [address] [facility] CBC & DIFF NEUTROPHILS [#/VOLUME] IN BLOOD BY AUTOMATED COUNT 4.97 10*3/u L 2.0 - 7.7 02/27 Specimen Type: BLOOD Comment: Automated Differentia l Performed Ordering Provider: KATIE JONES Report Released Date/Time: Feb 28, 2024 09:41 AM Reporting Lab: [facility] [address] Performing Lab: [facility] [address] [facility] CBC & DIFF EOSINOPHILS [#/VOLUME] IN BLOOD BY AUTOMATED COUNT 0.19 10*3/u L 0 - 0.5 02/27 Specimen Type: BLOOD Comment: Automated Differentia l Performed Ordering Provider: KATIE JONES Report Released Date/Time: Feb 28, 2024 09:41 AM Reporting Lab: [facility] [address] Performing Lab: [facility] [address] [facility] CBC & DIFF BASOPHILS [#/VOLUME] IN BLOOD BY AUTOMATED COUNT 0.05 10*3/u L 0 - 0.2 02/27 Specimen Type: BLOOD Comment: Automated Differentia l Performed Ordering Provider: KATIE JONES Report Released Date/Time: Feb 28, 2024 09:41 AM Reporting Lab: [facility] [address] Performing Lab: [facility] [address] [facility] CBC & DIFF IG(META,MYE LO,PRO) 0.5 02/27 Specimen Type: BLOOD Comment: Automated Differentia l Performed Ordering Provider: KATIE JONES Report Released Date/Time: Feb 28, 2024 09:41 AM Reporting Lab: [facility] [address] Performing Lab: [facility] [address] [facility] CBC & DIFF IMMATURE GRANULOCYTE S [PRESENCE] IN BLOOD BY AUTOMATED COUNT 0.04 10*3/u L 0 - 0.1 02/27 Specimen Type: BLOOD Comment: Automated Differentia l Performed Ordering Provider: KATIE JONES Report Released Date/Time: Feb 28, 2024 09:41 AM Reporting Lab: [facility] [address] Performing Lab: [facility] [address] [facility] COMPREHEN SIVE METABOLIC PANEL+MG CREATININE [MASS/VOLUM E] IN SERUM OR PLASMA 1.0 mg/dL 0.7 - 1.2 02/27 Specimen Type: PLASMA No comment entered. Ordering Provider: KATIE JONES Report Released Date/Time: Feb 28, 2024 09:41 AM Reporting Lab: [facility] [address] Performing Lab: [facility] [address] [facility] COMPREHEN SIVE METABOLIC PANEL+MG UREA NITROGEN [MASS/VOLUM E] IN SERUM OR PLASMA 24 mg/dL 8 - 02/27 Specimen Type: PLASMA No comment entered. Ordering Provider: KATIE JONES Report Released Date/Time: Feb 28, 2024 09:41 AM Reporting Lab: [facility] [address] Performing Lab: [facility] [address] [facility] COMPREHEN SIVE METABOLIC PANEL+MG GLUCOSE [MASS/VOLUM E] IN SERUM OR PLASMA 90 mg/dL 70 - 100 02/27 Specimen Type: PLASMA No comment entered. Ordering Provider: KATIE JONES Report Released Date/Time: Feb 28, 2024 09:41 AM Reporting Lab: [facility] [address] Performing Lab: [facility] [address] [facility] COMPREHEN SIVE METABOLIC PANEL+MG SODIUM [MOLES/VOLU ME] IN SERUM OR PLASMA 143 mmol/L 136 - 145 02/27 Specimen Type: PLASMA No comment entered. Ordering Provider: KATIE JONES Report Released Date/Time: Feb 28, 2024 09:41 AM Reporting Lab: [facility] [address] Performing Lab: [facility] [address] [facility] COMPREHEN SIVE METABOLIC PANEL+MG POTASSIUM [MOLES/VOLU ME] IN SERUM OR PLASMA 4.1 mmol/L 3.5 - 5.1 02/27 Specimen Type: PLASMA No comment entered. Ordering Provider: KATIE JONES Report Released Date/Time: Feb 28, 2024 09:41 AM Reporting Lab: [facility] [address] Performing Lab: [facility] [address] [facility] COMPREHEN SIVE METABOLIC PANEL+MG CHLORIDE [MOLES/VOLU ME] IN SERUM OR PLASMA 107 mmol/L 98 - 107 02/27 Specimen Type: PLASMA No comment entered. Ordering Provider: KATIE JONES Report Released Date/Time: Feb 28, 2024 09:41 AM Reporting Lab: [facility] [address] Performing Lab: [facility] [address] [facility] COMPREHEN SIVE METABOLIC PANEL+MG CARBON DIOXIDE, TOTAL [MOLES/VOLU ME] IN SERUM OR PLASMA 27 mmol/L 22 - 29 02/27 Specimen Type: PLASMA No comment entered. Ordering Provider: KATIE JONES Report Released Date/Time: Feb 28, 2024 09:41 AM Reporting Lab: [facility] [address] Performing Lab: [facility] [address] [facility] COMPREHEN SIVE METABOLIC PANEL+MG CALCIUM [MASS/VOLUM E] IN SERUM OR PLASMA 9.8 mg/dL 8.4 - 10.2 02/27 Specimen Type: PLASMA No comment entered. Ordering Provider: KATIE JONES Report Released Date/Time: Feb 28, 2024 09:41 AM Reporting Lab: [facility] [address] Performing Lab: [facility] [address] [facility] COMPREHEN SIVE METABOLIC PANEL+MG PROTEIN [MASS/VOLUM E] IN SERUM OR PLASMA 7.3 g/dL 6.0 - 8.3 02/27 Specimen Type: PLASMA No comment entered. Ordering Provider: KATIE JONES Report Released Date/Time: Feb 28, 2024 09:41 AM Reporting Lab: [facility] [address] Performing Lab: [facility] [address] [facility] COMPREHEN SIVE METABOLIC PANEL+MG ALBUMIN [MASS/VOLUM E] IN SERUM OR PLASMA 4.2 g/dL 3.5 - 5.2 02/27 Specimen Type: PLASMA No comment entered. Ordering Provider: KATIE JONES Report Released Date/Time: Feb 28, 2024 09:41 AM Reporting Lab: [facility] [address] Performing Lab: [facility] [address] [facility] COMPREHEN SIVE METABOLIC PANEL+MG BILIRUBIN.T OTAL [MASS/VOLUM E] IN SERUM OR PLASMA 0.8 mg/dL 0.2 - 1.2 02/27 Specimen Type: PLASMA No comment entered. Ordering Provider: KATIE JONES Report Released Date/Time: Feb 28, 2024 09:41 AM Reporting Lab: [facility] [address] Performing Lab: [facility] [address] [facility] COMPREHEN SIVE METABOLIC PANEL+MG MAGNESIUM [MASS/VOLUM E] IN SERUM OR PLASMA 2.3 mg/dL 1.6 - 2.6 02/27 Specimen Type: PLASMA No comment entered. Ordering Provider: KATIE JONES Report Released Date/Time: Feb 28, 2024 09:41 AM Reporting Lab: [facility] [address] Performing Lab: [facility] [address] [facility] COMPREHEN SIVE METABOLIC PANEL+MG ANION GAP IN SERUM OR PLASMA 9 mmol/L 5 - 15 02/27 Specimen Type: PLASMA No comment entered. Ordering Provider: KATIE JONES Report Released Date/Time: Feb 28, 2024 09:41 AM Reporting Lab: [facility] [address] Performing Lab: [facility] [address] [facility] COMPREHEN SIVE METABOLIC PANEL+MG ALKALINE PHOSPHATASE [ENZYMATIC ACTIVITY/VO LUME] IN SERUM OR PLASMA 66 U/L 40 - 150 02/27 Specimen Type: PLASMA No comment entered. Ordering Provider: KATIE JONES Report Released Date/Time: Feb 28, 2024 09:41 AM Reporting Lab: [facility] [address] Performing Lab: [facility] [address] [facility] COMPREHEN SIVE METABOLIC PANEL+MG ALANINE AMINOTRANSF ERASE [ENZYMATIC ACTIVITY/VO LUME] IN SERUM OR PLASMA 13 U/L <55 - 55 02/27 Specimen Type: PLASMA No comment entered. Ordering Provider: KATIE JONES Report Released Date/Time: Feb 28, 2024 09:41 AM Reporting Lab: [facility] [address] Performing Lab: [facility] [address] [facility] COMPREHEN SIVE METABOLIC PANEL+MG ASPARTATE AMINOTRANSF ERASE [ENZYMATIC ACTIVITY/VO LUME] IN SERUM OR PLASMA 18 U/L <34 - 34 02/27 Specimen Type: PLASMA No comment entered. Ordering Provider: KATIE JONES Report Released Date/Time: Feb 28, 2024 09:41 AM Reporting Lab: [facility] [address] Performing Lab: [facility] [address] [facility] COMPREHEN SIVE METABOLIC PANEL+MG GLOMERULAR FILTRATION RATE/1.73 SQ M.PREDICTED [VOLUME RATE/AREA] IN SERUM, PLASMA OR BLOOD BY CREATININE- BASED FORMULA (CKD-EPI 2020) 73 60 02/27 Specimen Type: PLASMA No comment entered. Ordering Provider: KATIE JONES Report Released Date/Time: Feb 28, 2024 09:41 AM Reporting Lab: [facility] [address] Performing Lab: [facility] [address] [facility] PSA PROSTATE SPECIFIC AG [MASS/VOLUM E] IN SERUM OR PLASMA 0.28 ng/mL <4.00 - 4.00 02/27 Specimen Type: SERUM No comment entered. Ordering Provider: KATIE JONES Report Released Date/Time: Feb 28, 2024 09:41 AM Reporting Lab: [facility] [address] Performing Lab: [facility] [address] [facility] LIPID PANEL,NON -FASTING CHOLESTEROL [MASS/VOLUM E] IN SERUM OR PLASMA 236 mg/dL <199 - 199 02/27 H Specimen Type: PLASMA No comment entered. Ordering Provider: KATIE JONES Report Released Date/Time: Feb 28, 2024 09:51 AM Reporting Lab: [facility] [address] Performing Lab: [facility] [address] [facility] LIPID PANEL,NON -FASTING CHOLESTEROL IN HDL [MASS/VOLUM E] IN SERUM OR PLASMA 48 mg/dL 40 02/27 Specimen Type: PLASMA No comment entered. Ordering Provider: KATIE JONES Report Released Date/Time: Feb 28, 2024 09:51 AM Reporting Lab: [facility] [address] Performing Lab: [facility] [address] [facility] LIPID PANEL,NON -FASTING CHOLESTEROL IN LDL [MASS/VOLUM E] IN SERUM OR PLASMA BY CALCULATION 161 mg/dL <99 - 99 02/27 H Specimen Type: PLASMA No comment entered. Ordering Provider: KATIE JONES Report Released Date/Time: Feb 28, 2024 09:51 AM Reporting Lab: [facility] [address] Performing Lab: [facility] [address] [facility] LIPID PANEL,NON -FASTING CHOLESTEROL IN VLDL [MASS/VOLUM E] IN SERUM OR PLASMA BY CALCULATION 27 mg/dL <29 - 29 02/27 Specimen Type: PLASMA No comment entered. Ordering Provider: KATIE JONES Report Released Date/Time: Feb 28, 2024 09:51 AM Reporting Lab: [facility] [address] Performing Lab: [facility] [address] [facility] LIPID PANEL,NON -FASTING CHOLESTEROL NON HDL [MASS/VOLUM E] IN SERUM OR PLASMA 188 mg/dL <129 - 129 02/27 H Specimen Type: PLASMA No comment entered. Ordering Provider: KATIE JONES Report Released Date/Time: Feb 28, 2024 09:51 AM Reporting Lab: [facility] [address] Performing Lab: [facility] [address] [facility] LIPID PANEL,NON -FASTING TRIGLYCERID E [MASS/VOLUM E] IN SERUM OR PLASMA 134 mg/dL <149 - 149 02/27 Specimen Type: PLASMA No comment entered. Ordering Provider: KATIE JONES Report Released Date/Time: Feb 28, 2024 09:51 AM Reporting Lab: [facility] [address] Performing Lab: [facility] [address] [facility] B 12 COBALAMIN (VITAMIN B12) [MASS/VOLUM E] IN SERUM OR PLASMA 532 pg/mL 213 - 816 04/04 Specimen Type: SERUM No comment entered. Ordering Provider: KATIE JONES Report Released Date/Time: Feb 23, 2023 09:34 AM Reporting Lab: [facility] [address] Performing Lab: [facility] [address] [facility] FOLATE FOLATE [MASS/VOLUM E] IN SERUM OR PLASMA 14.8 ng/mL 7.0 04/04 Specimen Type: SERUM No comment entered. Ordering Provider: KATIE JONES Report Released Date/Time: Feb 23, 2023 09:34 AM Reporting Lab: [facility] [address] Performing Lab: [facility] [address] [facility] CBC & DIFF LEUKOCYTES [#/VOLUME] IN BLOOD BY AUTOMATED COUNT 6.47 10*3/u L 4.0 - 11.0 04/04 Specimen Type: BLOOD Comment: Automated Differentia l Performed Ordering Provider: KATIE JONES Report Released Date/Time: Feb 23, 2023 09:34 AM Reporting Lab: [facility] [id number] Performing Lab: [facility] [address] [facility] CBC & DIFF ERYTHROCYTE S [#/VOLUME] IN BLOOD BY AUTOMATED COUNT 3.99 10*6/u L 4.6 - 6.2 04/04 L Specimen Type: BLOOD Comment: Automated Differentia l Performed Ordering Provider: KATIE JONES Report Released Date/Time: Feb 23, 2023 09:34 AM Reporting Lab: [facility] [phone] Performing Lab: [facility] [address] [facility] CBC & DIFF HEMOGLOBIN [MASS/VOLUM E] IN BLOOD 12.6 g/dL 13.5 - 17.9 04/04 L Specimen Type: BLOOD Comment: Automated Differentia l Performed Ordering Provider: KATIE JONES Report Released Date/Time: Feb 23, 2023 09:34 AM Reporting Lab: [facility] [address] Performing Lab: [facility] [address] [facility] CBC & DIFF HEMATOCRIT [VOLUME FRACTION] OF BLOOD BY AUTOMATED COUNT 38.2 41 - 54 04/04 L Specimen Type: BLOOD Comment: Automated Differentia l Performed Ordering Provider: KATIE JONES Report Released Date/Time: Feb 23, 2023 09:34 AM Reporting Lab: [facility] [address] Performing Lab: [facility] [address] [facility] CBC & DIFF MCV [ENTITIC VOLUME] BY AUTOMATED COUNT 95.7 fL 80 - 100 04/04 Specimen Type: BLOOD Comment: Automated Differentia l Performed Ordering Provider: KATIE JONES Report Released Date/Time: Feb 23, 2023 09:34 AM Reporting Lab: [facility] [address] Performing Lab: [facility] [address] [facility] CBC & DIFF MCH [ENTITIC MASS] BY AUTOMATED COUNT 31.6 pg 27 - 33 04/04 Specimen Type: BLOOD Comment: Automated Differentia l Performed Ordering Provider: KATIE JONES Report Released Date/Time: Feb 23, 2023 09:34 AM Reporting Lab: [facility] [address] Performing Lab: [facility] [address] [facility] CBC & DIFF MCHC [MASS/VOLUM E] BY AUTOMATED COUNT 33.0 g/dL 32.0 - 37.5 04/04 Specimen Type: BLOOD Comment: Automated Differentia l Performed Ordering Provider: KATIE JONES Report Released Date/Time: Feb 23, 2023 09:34 AM Reporting Lab: [facility] [address] Performing Lab: [facility] [address] [facility] CBC & DIFF PLATELETS [#/VOLUME] IN BLOOD BY AUTOMATED COUNT 285 10*3/u L 150 - 400 04/04 Specimen Type: BLOOD Comment: Automated Differentia l Performed Ordering Provider: KATIE JONES Report Released Date/Time: Feb 23, 2023 09:34 AM Reporting Lab: [facility] [address] Performing Lab: [facility] [address] [facility] CBC & DIFF PLATELET MEAN VOLUME [ENTITIC VOLUME] IN BLOOD BY AUTOMATED COUNT 9.0 fL 7.4 - 10.4 04/04 Specimen Type: BLOOD Comment: Automated Differentia l Performed Ordering Provider: KATIE JONES Report Released Date/Time: Feb 23, 2023 09:34 AM Reporting Lab: [facility] [address] Performing Lab: [facility] [address] [facility] CBC & DIFF NEUTROPHILS /100 LEUKOCYTES IN BLOOD BY MANUAL COUNT 67.9 40.0 - 80.0 04/04 Specimen Type: BLOOD Comment: Automated Differentia l Performed Ordering Provider: KATIE JONES Report Released Date/Time: Feb 23, 2023 09:34 AM Reporting Lab: [facility] [address] Performing Lab: [facility] [address] [facility] CBC & DIFF LYMPHOCYTES /100 LEUKOCYTES IN BLOOD BY MANUAL COUNT 18.7 15.0 - 45.0 04/04 Specimen Type: BLOOD Comment: Automated Differentia l Performed Ordering Provider: KATIE JONES Report Released Date/Time: Feb 23, 2023 09:34 AM Reporting Lab: [facility] [address] Performing Lab: [facility] [address] [facility] CBC & DIFF MONOCYTES/1 00 LEUKOCYTES IN BLOOD BY AUTOMATED COUNT 8.8 2.0 - 12.0 04/04 Specimen Type: BLOOD Comment: Automated Differentia l Performed Ordering Provider: KATIE JONES Report Released Date/Time: Feb 23, 2023 09:34 AM Reporting Lab: [facility] [address] Performing Lab: [facility] [address] [facility] CBC & DIFF EOSINOPHILS /100 LEUKOCYTES IN BLOOD BY AUTOMATED COUNT 3.1 0.0 - 6.0 04/04 Specimen Type: BLOOD Comment: Automated Differentia l Performed Ordering Provider: KATIE JONES Report Released Date/Time: Feb 23, 2023 09:34 AM Reporting Lab: [facility] [address] Performing Lab: [facility] [address] [facility] CBC & DIFF BASOPHILS/1 00 LEUKOCYTES IN BLOOD BY MANUAL COUNT 0.6 0.0 - 2.0 04/04 Specimen Type: BLOOD Comment: Automated Differentia l Performed Ordering Provider: KATIE JONES Report Released Date/Time: Feb 23, 2023 09:34 AM Reporting Lab: [facility] [address] Performing Lab: [facility] [address] [facility] CBC & DIFF ERYTHROCYTE DISTRIBUTIO N WIDTH [RATIO] BY AUTOMATED COUNT 14.1 11.5 - 14.5 04/04 Specimen Type: BLOOD Comment: Automated Differentia l Performed Ordering Provider: KATIE JONES Report Released Date/Time: Feb 23, 2023 09:34 AM Reporting Lab: [facility] [address] Performing Lab: [facility] [address] [facility] CBC & DIFF LYMPHOCYTES [#/VOLUME] IN BLOOD BY AUTOMATED COUNT 1.21 10*3/u L 1.0 - 4.0 04/04 Specimen Type: BLOOD Comment: Automated Differentia l Performed Ordering Provider: KATIE JONES Report Released Date/Time: Feb 23, 2023 09:34 AM Reporting Lab: [facility] [address] Performing Lab: [facility] [address] [facility] CBC & DIFF MONOCYTES [#/VOLUME] IN BLOOD BY AUTOMATED COUNT 0.57 10*3/u L 0.1 - 1.0 04/04 Specimen Type: BLOOD Comment: Automated Differentia l Performed Ordering Provider: KATIE JONES Report Released Date/Time: Feb 23, 2023 09:34 AM Reporting Lab: [facility] [address] Performing Lab: [facility] [address] [facility] CBC & DIFF NEUTROPHILS [#/VOLUME] IN BLOOD BY AUTOMATED COUNT 4.39 10*3/u L 2.0 - 7.7 04/04 Specimen Type: BLOOD Comment: Automated Differentia l Performed Ordering Provider: KATIE JONES Report Released Date/Time: Feb 23, 2023 09:34 AM Reporting Lab: [facility] [address] Performing Lab: [facility] [address] [facility] CBC & DIFF EOSINOPHILS [#/VOLUME] IN BLOOD BY AUTOMATED COUNT 0.20 10*3/u L 0 - 0.5 04/04 Specimen Type: BLOOD Comment: Automated Differentia l Performed Ordering Provider: KATIE JONES Report Released Date/Time: Feb 23, 2023 09:34 AM Reporting Lab: [facility] [address] Performing Lab: [facility] [address] [facility] CBC & DIFF BASOPHILS [#/VOLUME] IN BLOOD BY AUTOMATED COUNT 0.04 10*3/u L 0 - 0.2 04/04 Specimen Type: BLOOD Comment: Automated Differentia l Performed Ordering Provider: KATIE JONES Report Released Date/Time: Feb 23, 2023 09:34 AM Reporting Lab: [facility] [address] Performing Lab: [facility] [address] [facility] CBC & DIFF IG(META,MYE LO,PRO) 0.9 04/04 Specimen Type: BLOOD Comment: Automated Differentia l Performed Ordering Provider: KATIE JONES Report Released Date/Time: Feb 23, 2023 09:34 AM Reporting Lab: [facility] [address] Performing Lab: [facility] [address] [facility] CBC & DIFF IMMATURE GRANULOCYTE S [PRESENCE] IN BLOOD BY AUTOMATED COUNT 0.06 10*3/u L 0 - 0.1 04/04 Specimen Type: BLOOD Comment: Automated Differentia l Performed Ordering Provider: KATIE JONES Report Released Date/Time: Feb 23, 2023 09:34 AM Reporting Lab: [facility] [address] Performing Lab: [facility] [address] [facility] IRON GROUP IRON [MASS/VOLUM E] IN SERUM OR PLASMA 69 ug/dL 65 - 175 04/04 Specimen Type: PLASMA No comment entered. Ordering Provider: KATIE JONES Report Released Date/Time: Feb 23, 2023 09:34 AM Reporting Lab: [facility] [address] Performing Lab: [facility] [address] [facility] IRON GROUP IRON BINDING CAPACITY [MASS/VOLUM E] IN SERUM OR PLASMA 263 ug/dL 250 - 425 04/04 Specimen Type: PLASMA No comment entered. Ordering Provider: KATIE JONES Report Released Date/Time: Feb 23, 2023 09:34 AM Reporting Lab: [facility] [address] Performing Lab: [facility] [address] [facility] IRON GROUP FERRITIN [MASS/VOLUM E] IN SERUM OR PLASMA 453.6 ng/mL 21.8 - 274.7 04/04 H Specimen Type: PLASMA No comment entered. Ordering Provider: KATIE JONES Report Released Date/Time: Feb 23, 2023 09:34 AM Reporting Lab: [facility] [address] Performing Lab: [facility] [address] [facility] IRON GROUP IRON SATURATION 26 20 - 50 04/04 Specimen Type: PLASMA No comment entered. Ordering Provider: KATIE JONES Report Released Date/Time: Feb 23, 2023 09:34 AM Reporting Lab: [facility] [address] Performing Lab: [facility] [address] [facility] IRON GROUP TRANSFERRIN [MASS/VOLUM E] IN SERUM OR PLASMA 210 mg/dL 163 - 382 04/04 Specimen Type: PLASMA No comment entered. Ordering Provider: KATIE JONES Report Released Date/Time: Feb 23, 2023 09:34 AM Reporting Lab: [facility] [address] Performing Lab: [facility] [address] [facility] COMPREHEN SIVE METABOLIC PANEL+MG CREATININE [MASS/VOLUM E] IN SERUM OR PLASMA 0.9 mg/dL 0.7 - 1.2 02/22 Specimen Type: PLASMA No comment entered. Ordering Provider: KATIE JONES Report Released Date/Time: Feb 22, 2023 10:40 AM Reporting Lab: [facility] [address] Performing Lab: [facility] [address] [facility] COMPREHEN SIVE METABOLIC PANEL+MG UREA NITROGEN [MASS/VOLUM E] IN SERUM OR PLASMA 16 mg/dL 8 - 26 02/22 Specimen Type: PLASMA No comment entered. Ordering Provider: KATIE JONES Report Released Date/Time: Feb 22, 2023 10:40 AM Reporting Lab: [facility] [address] Performing Lab: [facility] [address] [facility] COMPREHEN SIVE METABOLIC PANEL+MG GLUCOSE [MASS/VOLUM E] IN SERUM OR PLASMA 88 mg/dL 70 - 100 02/22 Specimen Type: PLASMA No comment entered. Ordering Provider: KATIE JONES Report Released Date/Time: Feb 22, 2023 10:40 AM Reporting Lab: [facility] [address] Performing Lab: [facility] [address] [facility] COMPREHEN SIVE METABOLIC PANEL+MG SODIUM [MOLES/VOLU ME] IN SERUM OR PLASMA 141 mmol/L 136 - 145 02/22 Specimen Type: PLASMA No comment entered. Ordering Provider: KATIE JONES Report Released Date/Time: Feb 22, 2023 10:40 AM Reporting Lab: [facility] [address] Performing Lab: [facility] [address] [facility] COMPREHEN SIVE METABOLIC PANEL+MG POTASSIUM [MOLES/VOLU ME] IN SERUM OR PLASMA 4.4 mmol/L 3.5 - 5.1 02/22 Specimen Type: PLASMA No comment entered. Ordering Provider: KATIE JONES Report Released Date/Time: Feb 22, 2023 10:40 AM Reporting Lab: [facility] [address] Performing Lab: [facility] [address] [facility] COMPREHEN SIVE METABOLIC PANEL+MG CHLORIDE [MOLES/VOLU ME] IN SERUM OR PLASMA 109 mmol/L 98 - 107 02/22 H Specimen Type: PLASMA No comment entered. Ordering Provider: KATIE JONES Report Released Date/Time: Feb 22, 2023 10:40 AM Reporting Lab: [facility] [address] Performing Lab: [facility] [address] [facility] COMPREHEN SIVE METABOLIC PANEL+MG CARBON DIOXIDE, TOTAL [MOLES/VOLU ME] IN SERUM OR PLASMA 24 mmol/L 22 - 29 02/22 Specimen Type: PLASMA No comment entered. Ordering Provider: KATIE JONES Report Released Date/Time: Feb 22, 2023 10:40 AM Reporting Lab: [facility] [address] Performing Lab: [facility] [address] [facility] COMPREHEN SIVE METABOLIC PANEL+MG CALCIUM [MASS/VOLUM E] IN SERUM OR PLASMA 9.1 mg/dL 8.4 - 10.2 02/22 Specimen Type: PLASMA No comment entered. Ordering Provider: KATIE JONES Report Released Date/Time: Feb 22, 2023 10:40 AM Reporting Lab: [facility] [address] Performing Lab: [facility] [address] [facility] COMPREHEN SIVE METABOLIC PANEL+MG PROTEIN [MASS/VOLUM E] IN SERUM OR PLASMA 6.7 g/dL 6.0 - 8.3 02/22 Specimen Type: PLASMA No comment entered. Ordering Provider: KATIE JONES Report Released Date/Time: Feb 22, 2023 10:40 AM Reporting Lab: [facility] [address] Performing Lab: [facility] [address] [facility] COMPREHEN SIVE METABOLIC PANEL+MG ALBUMIN [MASS/VOLUM E] IN SERUM OR PLASMA 3.9 g/dL 3.5 - 5.2 02/22 Specimen Type: PLASMA No comment entered. Ordering Provider: KATIE JONES Report Released Date/Time: Feb 22, 2023 10:40 AM Reporting Lab: [facility] [address] Performing Lab: [facility] [address] [facility] COMPREHEN SIVE METABOLIC PANEL+MG BILIRUBIN.T OTAL [MASS/VOLUM E] IN SERUM OR PLASMA 0.8 mg/dL 0.2 - 1.2 02/22 Specimen Type: PLASMA No comment entered. Ordering Provider: KATIE JONES Report Released Date/Time: Feb 22, 2023 10:40 AM Reporting Lab: [facility] [address] Performing Lab: [facility] [address] [facility] COMPREHEN SIVE METABOLIC PANEL+MG MAGNESIUM [MASS/VOLUM E] IN SERUM OR PLASMA 2.2 mg/dL 1.6 - 2.6 02/22 Specimen Type: PLASMA No comment entered. Ordering Provider: KATIE JONES Report Released Date/Time: Feb 22, 2023 10:40 AM Reporting Lab: [facility] [address] Performing Lab: [facility] [address] [facility] COMPREHEN SIVE METABOLIC PANEL+MG ANION GAP IN SERUM OR PLASMA 8 mmol/L 5 - 15 02/22 Specimen Type: PLASMA No comment entered. Ordering Provider: KATIE JONES Report Released Date/Time: Feb 22, 2023 10:40 AM Reporting Lab: [facility] [address] Performing Lab: [facility] [address] [facility] COMPREHEN SIVE METABOLIC PANEL+MG ALKALINE PHOSPHATASE [ENZYMATIC ACTIVITY/VO LUME] IN SERUM OR PLASMA 70 U/L 40 - 150 02/22 Specimen Type: PLASMA No comment entered. Ordering Provider: KATIE JONES Report Released Date/Time: Feb 22, 2023 10:40 AM Reporting Lab: [facility] [address] Performing Lab: [facility] [address] [facility] COMPREHEN SIVE METABOLIC PANEL+MG ALANINE AMINOTRANSF ERASE [ENZYMATIC ACTIVITY/VO LUME] IN SERUM OR PLASMA 10 U/L 02/22 Specimen Type: PLASMA No comment entered. Ordering Provider: KATIE JONES Report Released Date/Time: Feb 22, 2023 10:40 AM Reporting Lab: [facility] [address] Performing Lab: [facility] [address] [facility] COMPREHEN SIVE METABOLIC PANEL+MG ASPARTATE AMINOTRANSF ERASE [ENZYMATIC ACTIVITY/VO LUME] IN SERUM OR PLASMA 19 U/L 02/22 Specimen Type: PLASMA No comment entered. Ordering Provider: KATIE JONES Report Released Date/Time: Feb 22, 2023 10:40 AM Reporting Lab: [facility] [address] Performing Lab: [facility] [address] [facility] COMPREHEN SIVE METABOLIC PANEL+MG GLOMERULAR FILTRATION RATE/1.73 SQ M.PREDICTED [VOLUME RATE/AREA] IN SERUM, PLASMA OR BLOOD BY CREATININE- BASED FORMULA (CKD-EPI 2020) 83 02/22 Specimen Type: PLASMA No comment entered. Ordering Provider: KATIE JONES Report Released Date/Time: Feb 22, 2023 10:40 AM Reporting Lab: [facility] [address] Performing Lab: [facility] [address] [facility] HEMOGLOBI N A1C HEMOGLOBIN A1C/HEMOGLO BIN.TOTAL [...] Feb 22, 2023 10:40 AM Reporting Lab: [facility] [address] Performing Lab: [facility] [address] [facility] Vital Signs Combined list of inpatient and outpatient Vital Signs from Department of Defense and Veterans Affairs, ranging from 12 months to all on record, depending upon the facility. Vital Sign Value Date Comments Source SYSTOLIC BLOOD PRESSURE 128 02/28/2024 09:18:48 [facility] DIASTOLIC BLOOD PRESSURE 74 02/28/2024 09:18:48 [facility] PULSE OXIMETRY 95 02/28/2024 09:18:48 S [...] [facility] SYSTOLIC BLOOD PRESSURE 159 07/11/2023 14:56:56 [facility] DIASTOLIC BLOOD PRESSURE 84 07/11/2023 14:56:56 [facility] PULSE OXIMETRY 97% 07/11/2023 14:56:56 [facility] WEIGHT 209.6 07/11/2023 14:56:56 [facility] BMI 32kg/m2 07/11/2023 14:56:56 [facility] PAIN 0 07/11/2023 14:56:56 [facility] TEMPERATURE 98 07/11/2023 14:56:56 [facility] PULSE 50 07/11/2023 14:56:56 [facility] RESPIRATION 16 07/11/2023 14:56:56 [facility] Encounters Combined list of: 1) Encounters from [facility] Affairs facilities going back up to thelast 18 months. 2) Encounters from the Department of [facility] facilities going back up to 280 months. Location Location Details Encounter Type Encounter Number Reason For Visit Attending Provider ADM Date DC Date Status Disposition Source [facility] Outpatient Encounter [id number] 02/01 [facility] OFFICE O/P EST MOD 30-39 MIN [id number] Diagnos is: ICD-10- CM Z00.8 Encount er for other general examina tion
Bob JONES EBECCA L 02[facility]22 [facility] Outpatient Encounter [id number] 02/24 [facility] [place] [place] [facility] Outpatient Encounter [id number] 03[facility] [place] [id number] Diagnos is: ICD-10- CM Z01.118 Encntr for exam of ears and hearing w oth abnorma l finding s
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, right eye<br/ > FLORES,PA CELIA M 04/10 [facility] Outpatient Encounter [id number] 04/11 [facility] Outpatient Encounter [id number] 04/19 [facility] OFFICE O/P NEW MOD 45-59 MIN [id number] Diagnos is: ICD-10- CM 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, right eye<br/ > GRAMATES,P EGGY H 05/10 [facility] CONFORMITY EVALUATION [id number] Diagnos is: ICD-10- CM Z46.1 Encount er for fitting and adjustm ent of hearing aid<br/ > NEERU TINAJERO 05/30 [facility] Outpatient Encounter [id number] 07/01 [facility] OFFICE O/P EST LOW 20-29 MIN [id number] Diagnos is: ICD-10- CM G47.39 Other sleep apnea<b r/> Bob JONES EBMANA L 07/11 [facility] EAR IMPRESSION [id number] Diagnos is: ICD-10- CM Z46.1 Encount er for fitting and adjustm ent of hearing aid<br/ > NEERU TINAJERO 08/02 [facility] OFFICE O/P EST MOD 30 MIN [id number] Diagnos is: ICD-10- CM 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
NEERU TINAJERO 01/14 [facility] OFFICE O/P EST MOD 30 MIN [id number] Diagnos is: ICD-10- CM Z00.8 Encount er for other general examina tion
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
WHITE,TERR A R 03/14 [facility] OFFICE O/P EST HI 40 MIN [id number] Diagnos is: ICD-10- CM I87.2 Venous insuffi ciency (chroni c) (periph eral)<b r/> MANUELA GUTIERREZ 05/24 [facility] Social History Combined list of available smoking, tobacco, and other social history from Department of Defense and Veterans Affairs facilities. Social History Type Response Date Comment Sourc e Tobacco smoking status [facility] NEVER USED 02/28/20 [facility] History of tobacco use [place]-TOBACCO FORMER USER 02/22/2023 [facility] Plan of Care List of future care activities from Department Veterans Affairs [facility] Affairs facilities. Additional future care activities may be listed in the Assessment and Plan section. Date/Time Care Activity Care Activity Detail Facili ty 06/27/2024 AMBULATORY - SURGERY [facility] - [facility]GERY [facility] 06/27/2024 AMBULATORY - SURGERY AMBULATORY - SURGERY [facility] 07/24/2024 AMBULATORY - NONE AMBULATORY - NONE [facility] 08/06/2024 AMBULATORY - SURGERY AMBULATORY - SURGERY [facility] 07/24/2024 Imaging - Ultrasound Order US VE NOUS INSUFFICIENCY LOWER EXTREMITY (BILATERAL) (P) [facility] Advance Directives List of completed, amended, or rescinded Advance Directives on record at Department of [facility] facilities. An actual copy of the Directive is not included. Date Advance Directive Provider Source 04/19/2023 ADVANCE DIRECTIVE DISCUSSION [facility] 04/19/2023 ADVANCE DIRECTIVE YOVANA RHODES [facility]
--- OUTSIDE RECORDS SUMMARY | 2024-06-12 11:20 | XMS_ITS | Clinical Summary ---
Author Organization [facility] Address [address] [place] [address] Care Team Providers Care Insurance Claims Assistant Name Role Phone Unavailable Primary Care Provider Unavailabl e Source Comments Patient records contain information from all sites at [facility]. For routine questions regarding patient records, call [phone] during business hours, M-F 8:00 AM - 5:00 PM Central Time. Record requests for emergency care only can be directed to [phone] at any time.[facility] Allergies No known active allergies Medications [...] Comments Blood Pressure 140/74 07/12/2020 11:15 AM EVP AND CHIEF OPERATING OFFICER Pulse 60 07/12/2020 11:15 AM EVP AND CHIEF OPERATING OFFICER Temperature 37.3 ??C (99.1 ??F) 07/12/2020 1 1:15 AM [employer]P AND CHIEF OPERATING OFFICER Respiratory Rate 20 07/12/2020 8:28 AM EVP AND CHIEF OPERATING OFFICER Oxygen Saturation 96% 07/12/2020 11: 15 AM [employer] OFFICER Inhaled Oxygen Concentration - - Weight 101 kg (222 lb 10.6 oz) 2016 2:13 PM CDT Vital sign result from Clinical Notes. Height 175.3 cm (5' 9) 07/12/2020 8:27 AM [employer]ATING OFFICER Body Mass Index 32.98 09/20/2016 4:53 PM [employer]PERATING OFFICER Plan of Treatment Health Maintenance Due Date [...]
--- OUTSIDE RECORDS SUMMARY | 2024-06-12 11:21 | XMS_ITS | Clinical Summary ---
Author Organization [facility] Address [address], [place] [address] Care Team Providers Care Gliding Pilot Instructor Name Role Phone Unavailable Primary Care Provider Unavailabl e Source Comments You are receiving this document as you are listed as the primary care provider,follow-up provider, or the patient has been referred to you for consultation.This is in compliance with the Medicare and[facility] E[facility] Incentive Program,which states Providers who transition [...] on patient's age to complete this topic RSV Aged Out No longer eligi ble based on patient's age to complete this topic [email or web address] Aged Out No longer eligi ble based on patient's age to complete this topic DASHAWN COTE Personal/Famil y 1935 [address] [place] [address]
--- OUTSIDE RECORDS SUMMARY | 2024-06-12 11:21 | XMS_ITS ---
Author Organization [facility] Address [address] [place] [address] Care Team Providers Care Mechanical Facilities Technician Name Role Phone Unavailable Unavailable Unavailable Surgery Details Not on file Complications Check Surgery Details section. Procedure Estimated Blood Loss Check Surgery Details section. Procedure Findings Check Surgery Details section. Procedure Specimens Taken Check Surgery Details section.
--- OUTSIDE RECORDS SUMMARY | 2024-06-12 11:21 | XMS_ITS | Referral Summary ---
Author Organization [place] Address [facility] [place] [address] Care Team Providers Care Cardroom Worker Name Role Phone Clinic, [facility] Primary Care Provider + Allergies No [...] of Treatment Not on file Care Teams Cardroom Worker Relationship Specialty Start Date End Date Clinic, [address] [address] PCP - General 06/26/20
--- OUTSIDE RECORDS SUMMARY | 2024-06-12 11:21 | XMS_ITS | Clinical Summary ---
Author Organization [facility] Address [place], [place] [address] Care Team Providers Care Gym Teacher Name Role Phone Trace Tom MD Primary [...] 65+ 05/05/2024 Medical Devices Implanted Type Area Head Of Drama Device Identifier Shelf Expiration Date Model / Serial / Lot Cancellous Bone Screw Implanted:Qty: 1 on 01/30/2018 by Dickson Sevilla MD at [facility] Right: Hip [employer] 10/29/2022 / / [id number] Cluster Acetabluar Shell Implanted:Qty: 1 on 01/30/2018 by Dickson Sevilla MD at [facility] Right: Hip [employer] 10/16/2022 / / [id number] Polyethlene Insert Implanted:Qty: 1 on 01/30/2018 by Dickson Sevilla MD at [facility] Right: Hip [employer] 07/09/2022 / / [id number] 132 Neck Angle Hip Stem Implanted:Qty: 1 on 01/30/2018 by Dickson Sevilla MD at [facility] Right: Hip [employer] 11/24/2022 / / [id number] C-Taper Femoral Head Implanted:Qty: 1 on 01/30/2018 by Dickson Sevilla MD at [facility] Right: Hip [employer] 10/29/2022 / / [id number] Advance Directives [...] 10:51 AM 01/30/2018 2:57 PM Care Teams Gym Teacher Relationship Specialty Start Date End Date Trace Tom MD [address] [place] [address] PCP - General Family Practice 01/25/22
--- OUTSIDE RECORDS SUMMARY | 2024-06-12 11:21 | XMS_ITS | Referral Summary ---
Author Organization [facility] Address [address] [place] [address] Care Team Providers Care Oil Distributor Name Role Phone Unavailable Primary Care Provider Unavailabl e Source Comments Patient records contain information from all sites at [facility]. For routine questions regarding patient records, call [phone] during business hours, M-F 8:00 AM - 5:00 PM Central Time. Record requests for emergency care only can be directed to [phone] at any time.[facility] Allergies No known active allergies Medications [...] Comments Blood Pressure 140/74 07/12/2020 11:15 AM SOLAR WATER HEATER INSTALLER Pulse 60 07/12/2020 11:15 AM SOLAR WATER HEATER INSTALLER Temperature 37.3 ??C (99.1 ??F) 07/12/2020 1 1:15 AM SOLAR WATER HEATER INSTALLER Respiratory Rate 20 07/12/2020 8:28 AM SOLAR WATER HEATER INSTALLER Oxygen Saturation 96% 07/12/2020 11: 15 AM SOLAR WATER HEATER INSTALLER Inhaled Oxygen Concentration - - Weight 101 kg (222 lb 10.6 oz) 2016 2:13 PM CDT Vital sign result from Clinical Notes. Height 175.3 cm (5' 9) 07/12/2020 8:27 AM SOLAR WATER HEATER INSTALLER Body Mass Index 32.98 09/20/2016 4:53 PM SOLAR WATER HEATER INSTALLER Plan of Treatment Not on file
--- OUTSIDE RECORDS SUMMARY | 2024-06-12 11:21 | XMS_ITS | Clinical Summary ---
Author Organization [place] Address [facility]0 [facility] [place] [address] Care Team Providers Care Huc Name Role Phone Clinic, [facility] Primary Care Provider + Allergies No [...] of Treatment Not on file Care Teams Huc Relationship Specialty Start Date End Date Clinic, [address] [address] PCP - General 06/26/20
== END 2024-06-12 11:19 | disposition home or self-care (01) ==
LOC: WOUND 11:18
PROVIDERS: Visit Provider Surgery
DX: I87.313 Chronic venous hypertension (idiopathic) with ulcer of bilateral lower extremity (principal); L97.822 Non-pressure chronic ulcer of other part of left lower leg with fat layer exposed; L97.818 Non-pressure chronic ulcer of other part of right lower leg with other specified severity
CPT/HCPCS: G0463

== ENCOUNTER 2024-06-19 11:13 | Outpatient (CLI) | payer MEDICARE, BC, SELFPAY ==
--- OUTSIDE RECORDS SUMMARY | 2024-06-19 11:15 | XMS_ITS | Clinical Summary ---
Author Organization [facility] Address [place], [place] [address] Care Team Providers Care Delivery Director Name Role Phone Trace Tom MD Primary [...] 65+ 05/05/2024 Medical Devices Implanted Type Area Typing Teacher Device Identifier Shelf Expiration Date Model / Serial / Lot Cancellous Bone Screw Implanted:Qty: 1 on 01/30/2018 by Dickson Sevilla MD at [facility] Right: Hip [employer] 10/29/2022 / / [id number] Cluster Acetabluar Shell Implanted:Qty: 1 on 01/30/2018 by Dickson Sevilla MD at [facility] Right: Hip [employer] 10/16/2022 / / [id number] Polyethlene Insert Implanted:Qty: 1 on 01/30/2018 by Dikcson Sevilla MD at [facility] Right: Hip [employer] 07/09/2022 / / [id number] 132 Neck Angle Hip Stem Implanted:Qty: 1 on 01/30/2018 by Dickson Sevilla MD at [facility] Right: Hip [employer] 11/24/2022 / / [id number] C-Taper Femoral Head Implanted:Qty: 1 on 01/30/2018 by Dickson Sevilla MD at [facility] Right: Hip [employer] 10/29/2022 / / [id number] Advance Directives [...] 10:51 AM 01/30/2018 2:57 PM Care Teams Delivery Director Relationship Specialty Start Date End Date Trace Tom MD [address] [place] [address] PCP - General Family Practice 01/25/22
--- OUTSIDE RECORDS SUMMARY | 2024-06-19 11:15 | XMS_ITS | Referral Summary ---
Author Organization [place] Address [facility] [place] [place] [address] Care Team Providers Care Financial Accountant Name Role Phone Clinic, [facility] Primary Care Provider + Allergies [...] of Treatment Not on file Care Teams Financial Accountant Relationship Specialty Start Date End Date Clinic, [address] [address] PCP - General 06/26/20
--- OUTSIDE RECORDS SUMMARY | 2024-06-19 11:15 | XMS_ITS | Clinical Summary ---
Author Organization [facility] Address [address], [place] [address] Care Team Providers Care Lozenge Dough Mixer Name Role Phone Unavailable Primary Care Provider Unavailabl e Source Comments You are receiving this document as you are listed as the primary care provider,follow-up provider, or the patient has been referred to you for consultation.This is in compliance with the Medicare and[facility] EHR Incentive Program,which states Providers who transition [...] COTE Personal/Famil y 1935 [address] [place] [address]
--- OUTSIDE RECORDS SUMMARY | 2024-06-19 11:15 | XMS_ITS | Clinical Summary ---
Author Organization [facility] Address [address] [place] [address] Care Team Providers Care Barrel Turner Name Role Phone Unavailable Primary Care Provider Unavailabl e Source Comments Patient records contain information from all sites at [facility]. For routine questions regarding patient records, call [phone] during business hours, M-F 8:00 AM - 5:00 PM Central Time. Record requests for emergency care only can be directed to [phone] at any time.[facility] Allergies No known active allergies Medications multivitamin-min erals-lutein (Multivitamin 50 Plus) tablet Take 1 tablet by mouth daily. 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 Height 175.3 cm (5' 9) 07/12/2020 8:27 AM HUMANITIES DEPARTMENT CHAIR Body Mass Index 32.98 09/20/2016 4:53 PM HUMANITIES DEPARTMENT CHAIR Plan of Treatment Health Maintenance Due Date [...] Pneumococcal vaccine (65+ years) Completed 02/23/20 23 Insurance MEDICARE [facility] [place] [address]
--- OUTSIDE RECORDS SUMMARY | 2024-06-19 11:15 | XMS_ITS ---
Author Organization [facility] Address [address] [place] [address] Care Team Providers Care Retort Setter Name Role Phone Unavailable Unavailable Unavailable Surgery Details Not on file Complications Check Surgery Details section. Procedure Estimated Blood Loss Check Surgery Details section. Procedure Findings Check Surgery Details section. Procedure Specimens Taken Check Surgery Details section.
--- OUTSIDE RECORDS SUMMARY | 2024-06-19 11:15 | XMS_ITS | Continuity of Care Document ---
Author Name [facility] Organization [facility] Care Team Providers Care Primary Substance Abuse Counselor Name Role Phone [facility] Unavailable Unavailable Problems Combined list of problems from Department of Defense and Veterans Affairs facilities. It does not include entries that were removed or entered in error. Problem Status Onset Date Problem Type Date of Resolution Comments Source Exposure to potentially hazardous substance ([facility] [id number]) Active 11/10/19 24 Condition Nov 10, 2023 Entered By: FLORES KENNEDY Comment: [facility] [facility] Documentation Initiative [facility] Edema Active Condition Feb 22 Entered By: GARY JONES Comment: trated for prostate ca with 44 radiation treatmentsFeb 22, 2023 Entered By: GARY JONES Comment: treated fro prostate cancer with 44 radiation treatments [facility] 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 Active Condition Feb 22, 2023 Entered By: GARY JONES Comment: treated prostate cancer with 44 radiation treatments [facility] Malignant melanoma Active Condition [facility] Obstructive Sleep Apnea of Adult ([facility] [id number]) Active Condition Dec 28, 2023 Entered By: WILEY ARTHUR Comment: See scanned records in [place] for details [facility] Diagnosis: ICD-10-CM 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) Active Diagnosis [facility] Diagnosis: ICD-10-CM Z71.9 Counseling, unspecified Active Diagnosis [facility] Diagnosis: ICD-10-CM Z00.8 Encounter for other general examination Active Diagnosis [facility] Diagnosis: ICD-10-CM 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 loss, bilateral Active Diagnosis [facility] Diagnosis: ICD-10-CM 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, right eye Active Diagnosis [facility] Diagnosis: ICD-10-CM Z46.1 Encounter for fitting and adjustment of hearing aid Active Diagnosis [facility] Diagnosis: ICD-10-CM G47.39 Other sleep apnea Active Diagnosis [facility] Diagnosis: ICD-10-CM 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, right eye Active Diagnosis [facility] Diagnosis: ICD-10-CM Z01.118 Encntr for exam of ears and hearing w oth abnormal findings Active Diagnosis [facility] Medications Combined list of outpatient medications [...] BREATH RESPIR ATORY (INHAL ATION) ACTIVE 07/12/2024 [id number] IVETH JONESCA L 2022 2 [facility] ASCORBIC ACID 500MG TAB TAKE ONE TABLET BY MOUTH EVERY DAY ORAL ACTIVE IVETH JONESCA L 2022 [facility] CARBOXYMETH YLCELLULOSE NA 0.5% SOLN,OPH INSTILL 1 DROP IN BOTH EYES FOUR TIMES A DAY NEEDED FOR DRY EYES OPHTHA LMIC ACTIVE 11/01/2024 [id number] 4 GRAMATES, CHRISTINA H 2023 15 [facility] CHOLECALCIF VAL TAB TAKE 1 TAB BY [...] DAY FOR EXCESS FLUID ORAL ACTIVE 02/28/2025 [id number] 4 IVETH JONESCA L 2023 90 [facility] ZINC 50MG (FROM SULFATE) CAP TAKE 1 CAPSULE BY MOUTH EVERY DAY ORAL ACTIVE GLADYS JONESECCA L 2022 [facility] Immunizations Combined list of available immunizations from the Department of Defense and Veterans Affairs facilities. Immunization Series Date Given Administered By Site Reaction Lot Number CVX Code Drug Athletic Monitor Status Comments Source COVID-19 (PFIZER), MRNA, LNP-S, PF, JASON-SUCROSE, 30 MCG/0.3 ML (AGES 12+ YEARS) 1 2022 TOOTIE ANDERSON LEFT DELTO ID [id number] 309 complet ed [facility] INFLUENZA, HIGH-DOSE, QUADRIVALENT 2022 TOOTIE ANDERSON LEFT DELTO ID [id number] 197 complet ed [facility] PNEUMOCOCCAL CONJUGATE PCV20, POLYSACCHARID E [id number] CONJUGATE, ADJUVANT, PF 2022 TOOTIE ANDERSON LEFT DELTO ID [id number] 216 complet ed [facility] INFLUENZA, HIGH-DOSE, QUADRIVALENT, PF 2021 197 complet ed [facility] INFLUENZA, UNSPECIFIED FORMULATION 2021 88 complet ed [facility] COVID-19 (MODERNA), MRNA, LNP-S, PF, 100 MCG/0.5ML DOSE OR 50 MCG/0.25ML DOSE 3 2020 207 complet [facility] INFLUENZA, HIGH-DOSE, QUADRIVALENT, PF 2020 197 complet [facility] COVID-19 (MODERNA), MRNA, LNP-S, PF, 100 MCG/0.5ML DOSE OR 50 MCG/0.25ML DOSE 2 2020 207 complet [facility] COVID-19 (MODERNA), MRNA, LNP-S, PF, 100 MCG/0.5ML DOSE OR 50 MCG/0.25ML DOSE 1 2020 207 complet [facility] INFLUENZA, HIGH-DOSE, TRIVALENT, PF 2018 135 complet [facility] INFLUENZA, HIGH-DOSE, TRIVALENT, PF 2016 135 complet [facility] TDAP 2016 115 complet [facility] INFLUENZA, SPLIT VIRUS, QUADRIVALENT, PF 2015 150 complet [facility] INFLUENZA, HIGH-DOSE, TRIVALENT, PF 2015 135 complet ed [facility] INFLUENZA, HIGH-DOSE, TRIVALENT, PF 2012 135 complet ed [facility] INFLUENZA, SPLIT VIRUS, TRIVALENT, PRESERVATIVE 2012 141 complet ed [facility] TDAP 2011 115 complet ed [facility] INFLUENZA, SPLIT VIRUS, TRIVALENT, PF 2010 140 complet ed [facility] HEP B, UNSPECIFIED FORMULATION 2009 45 complet ed [facility] NOVEL INFLUENZA-H1N 1-09 2008 127 complet [facility] Results Combined list of recent chemistry, hematology [...] Feb 28, 2024 09:41 AM Reporting Lab: [facility] [address] Performing Lab: [facility] [address] [facility] CBC & DIFF ERYTHROCYTE S [#/VOLUME] IN BLOOD BY AUTOMATED COUNT 4.19 10*6/u L 4.6 - 6.2 02/27 L Specimen Type: BLOOD Comment: Automated Differentia l Performed Ordering Provider: KATIE JONES Report Released Date/Time: Feb 28, 2024 09:41 AM Reporting Lab: [facility] [address] Performing Lab: [facility] [address] [facility] CBC & DIFF HEMOGLOBIN [MASS/VOLUM E] IN BLOOD 13.4 g/dL 13.5 - 17.9 02/27 L Specimen Type: BLOOD Comment: Automated Differentia l Performed Ordering Provider: KATIE JONES Report Released Date/Time: Feb 28, 2024 09:41 AM Reporting Lab: [facility] [address] Performing Lab: [facility] [address] [facility] CBC & DIFF HEMATOCRIT [VOLUME FRACTION] OF BLOOD BY AUTOMATED COUNT 40.6 41 - 54 02/27 L Specimen Type: BLOOD Comment: Automated Differentia l Performed Ordering Provider: KATIE JONES Report Released Date/Time: Feb 28, 2024 09:41 AM Reporting Lab: [facility] [address] Performing Lab: [facility] [address] [facility] CBC & DIFF MCV [ENTITIC VOLUME] BY AUTOMATED COUNT 96.9 fL 80 - 100 02/27 Specimen Type: BLOOD Comment: Automated Differentia l Performed Ordering Provider: KATIE JONES Report Released Date/Time: Feb 28, 2024 09:41 AM Reporting Lab: [facility] [address] Performing Lab: [facility] [address] [facility] CBC & DIFF MCH [ENTITIC MASS] BY AUTOMATED COUNT 32.0 pg 27 - 33 02/27 Specimen Type: BLOOD Comment: Automated Differentia l Performed Ordering Provider: KATIE JONES Report Released Date/Time: Feb 28, 2024 09:41 AM Reporting Lab: [facility] [address] Performing Lab: [facility] [address] [facility] CBC & DIFF MCHC [MASS/VOLUM E] BY AUTOMATED COUNT 33.0 g/dL 32.0 - 37.5 02/27 Specimen Type: BLOOD Comment: Automated Differentia l Performed Ordering Provider: KATIE JONES Report Released Date/Time: Feb 28, 2024 09:41 AM Reporting Lab: [facility] [address] Performing Lab: [facility] [address] [facility] CBC & DIFF PLATELETS [#/VOLUME] IN BLOOD BY AUTOMATED COUNT 273 10*3/u L 150 - 400 02/27 Specimen Type: BLOOD Comment: Automated Differentia l Performed Ordering Provider: KATIE JONES Report Released Date/Time: Feb 28, 2024 09:41 AM Reporting Lab: [facility] [address] Performing Lab: [facility] [address] [facility] CBC & DIFF PLATELET MEAN VOLUME [ENTITIC VOLUME] IN BLOOD BY AUTOMATED COUNT 9.8 fL 7.4 - 10.4 02/27 Specimen Type: BLOOD Comment: Automated Differentia l Performed Ordering Provider: KATIE JONES Report Released Date/Time: Feb 28, 2024 09:41 AM Reporting Lab: [facility] [address] Performing Lab: [facility] [address] [facility] CBC & DIFF NEUTROPHILS /100 LEUKOCYTES IN BLOOD BY MANUAL COUNT 67.8 40.0 - 80.0 02/27 Specimen Type: BLOOD Comment: Automated Differentia l Performed Ordering Provider: KATIE JONES Report Released Date/Time: Feb 28, 2024 09:41 AM Reporting Lab: [facility] [address] Performing Lab: [facility] [address] [facility] CBC & DIFF LYMPHOCYTES /100 LEUKOCYTES IN BLOOD BY MANUAL COUNT 18.9 15.0 - 45.0 02/27 Specimen Type: BLOOD Comment: Automated Differentia l Performed Ordering Provider: KATIE JONES Report Released Date/Time: Feb 28, 2024 09:41 AM Reporting Lab: [facility] [address] Performing Lab: [facility] [address] [facility] CBC & DIFF MONOCYTES/1 00 LEUKOCYTES IN BLOOD BY AUTOMATED COUNT 9.5 2.0 - 12.0 02/27 Specimen Type: BLOOD Comment: Automated Differentia l Performed Ordering Provider: KATIE JONES Report Released Date/Time: Feb 28, 2024 09:41 AM Reporting Lab: [facility] [address] Performing Lab: [facility] [address] [facility] CBC & DIFF EOSINOPHILS /100 LEUKOCYTES IN BLOOD BY AUTOMATED COUNT 2.6 0.0 - 6.0 02/27 Specimen Type: BLOOD Comment: Automated Differentia l Performed Ordering Provider: KATIE JONES Report Released Date/Time: Feb 28, 2024 09:41 AM Reporting Lab: [facility] [address] Performing Lab: [facility] [address] [facility] CBC & DIFF BASOPHILS/1 00 LEUKOCYTES IN BLOOD BY MANUAL COUNT 0.7 0.0 - 2.0 02/27 Specimen Type: BLOOD Comment: Automated Differentia l Performed Ordering Provider: KATIE JONES Report Released Date/Time: Feb 28, 2024 09:41 AM Reporting Lab: [facility] [address] Performing Lab: [facility] [address] [facility] CBC & DIFF ERYTHROCYTE DISTRIBUTIO N WIDTH [RATIO] BY AUTOMATED COUNT 13.8 11.5 - 14.5 02/27 Specimen Type: BLOOD Comment: Automated Differentia l Performed Ordering Provider: KATIE JONES Report Released Date/Time: Feb 28, 2024 09:41 AM Reporting Lab: [facility] [address] Performing Lab: [facility] [address] [facility] CBC & DIFF LYMPHOCYTES [#/VOLUME] IN BLOOD BY AUTOMATED COUNT 1.39 10*3/u L 1.0 - 4.0 02/27 Specimen Type: BLOOD Comment: Automated Differentia l Performed Ordering Provider: KATIE JONES Report Released Date/Time: Feb 28, 2024 09:41 AM Reporting Lab: [facility] [address] Performing Lab: [facility] [address] [facility] CBC & DIFF MONOCYTES [#/VOLUME] IN BLOOD BY AUTOMATED COUNT 0.70 10*3/u L 0.1 - 1.0 02/27 Specimen Type: BLOOD Comment: Automated Differentia l Performed Ordering Provider: KATIE JONES Report Released Date/Time: Feb 28, 2024 09:41 AM Reporting Lab: [facility] [address] Performing Lab: [facility] [address] [facility] CBC & DIFF NEUTROPHILS [#/VOLUME] IN BLOOD BY AUTOMATED COUNT 4.97 10*3/u L 2.0 - 7.7 02/27 Specimen Type: BLOOD Comment: Automated Differentia l Performed Ordering Provider: KATIE JONES Report Released Date/Time: Feb 28, 2024 09:41 AM Reporting Lab: [facility] [address] Performing Lab: [facility] [address] [facility] CBC & DIFF EOSINOPHILS [#/VOLUME] IN BLOOD BY AUTOMATED COUNT 0.19 10*3/u L 0 - 0.5 02/27 Specimen Type: BLOOD Comment: Automated Differentia l Performed Ordering Provider: KATIE JONES Report Released Date/Time: Feb 28, 2024 09:41 AM Reporting Lab: [facility] [address] Performing Lab: [facility] [address] [facility] CBC & DIFF BASOPHILS [#/VOLUME] IN BLOOD BY AUTOMATED COUNT 0.05 10*3/u L 0 - 0.2 02/27 Specimen Type: BLOOD Comment: Automated Differentia l Performed Ordering Provider: KATIE JONES Report Released Date/Time: Feb 28, 2024 09:41 AM Reporting Lab: [facility] [address] Performing Lab: [facility] [address] [facility] CBC & DIFF IG(META,MYE LO,PRO) 0.5 02/27 Specimen Type: BLOOD Comment: Automated Differentia l Performed Ordering Provider: KATIE JONES Report Released Date/Time: Feb 28, 2024 09:41 AM Reporting Lab: [facility] [address] Performing Lab: [facility] [address] [facility] CBC & DIFF IMMATURE GRANULOCYTE S [PRESENCE] IN BLOOD BY AUTOMATED COUNT 0.04 10*3/u L 0 - 0.1 02/27 Specimen Type: BLOOD Comment: Automated Differentia l Performed Ordering Provider: KATIE JONES Report Released Date/Time: Feb 28, 2024 09:41 AM Reporting Lab: [facility] [address] Performing Lab: [facility] [address] [facility] COMPREHEN SIVE METABOLIC PANEL+MG CREATININE [MASS/VOLUM E] IN SERUM OR PLASMA 1.0 mg/dL 0.7 - 1.2 02/27 Specimen Type: PLASMA No comment entered. Ordering Provider: KATIE JONES Report Released Date/Time: Feb 28, 2024 09:41 AM Reporting Lab: [facility] [address] Performing Lab: [facility] [address] [facility] COMPREHEN SIVE METABOLIC PANEL+MG UREA NITROGEN [MASS/VOLUM E] IN SERUM OR PLASMA 24 mg/dL 8 - 02/27 Specimen Type: PLASMA No comment entered. Ordering Provider: KATIE JONES Report Released Date/Time: Feb 28, 2024 09:41 AM Reporting Lab: [facility] [address] Performing Lab: [facility] [address] [facility] COMPREHEN SIVE METABOLIC PANEL+MG GLUCOSE [MASS/VOLUM E] IN SERUM OR PLASMA 90 mg/dL 70 - 100 02/27 Specimen Type: PLASMA No comment entered. Ordering Provider: KATIE JONES Report Released Date/Time: Feb 28, 2024 09:41 AM Reporting Lab: [facility] [address] Performing Lab: [facility] [address] [facility] COMPREHEN SIVE METABOLIC PANEL+MG SODIUM [MOLES/VOLU ME] IN SERUM OR PLASMA 143 mmol/L 136 - 145 02/27 Specimen Type: PLASMA No comment entered. Ordering Provider: KATIE JONES Report Released Date/Time: Feb 28, 2024 09:41 AM Reporting Lab: [facility] [address] Performing Lab: [facility] [address] [facility] COMPREHEN SIVE METABOLIC PANEL+MG POTASSIUM [MOLES/VOLU ME] IN SERUM OR PLASMA 4.1 mmol/L 3.5 - 5.1 02/27 Specimen Type: PLASMA No comment entered. Ordering Provider: KATIE JONES Report Released Date/Time: Feb 28, 2024 09:41 AM Reporting Lab: [facility] [address] Performing Lab: [facility] [address] [facility] COMPREHEN SIVE METABOLIC PANEL+MG CHLORIDE [MOLES/VOLU ME] IN SERUM OR PLASMA 107 mmol/L 98 - 107 02/27 Specimen Type: PLASMA No comment entered. Ordering Provider: KATIE JONES Report Released Date/Time: Feb 28, 2024 09:41 AM Reporting Lab: [facility] [address] Performing Lab: [facility] [address] [facility] COMPREHEN SIVE METABOLIC PANEL+MG CARBON DIOXIDE, TOTAL [MOLES/VOLU ME] IN SERUM OR PLASMA 27 mmol/L 22 - 29 02/27 Specimen Type: PLASMA No comment entered. Ordering Provider: KATIE JONES Report Released Date/Time: Feb 28, 2024 09:41 AM Reporting Lab: [facility] [address] Performing Lab: [facility] [address] [facility] COMPREHEN SIVE METABOLIC PANEL+MG CALCIUM [MASS/VOLUM E] IN SERUM OR PLASMA 9.8 mg/dL 8.4 - 10.2 02/27 Specimen Type: PLASMA No comment entered. Ordering Provider: KATIE JONES Report Released Date/Time: Feb 28, 2024 09:41 AM Reporting Lab: [facility] [address] Performing Lab: [facility] [address] [facility] COMPREHEN SIVE METABOLIC PANEL+MG PROTEIN [MASS/VOLUM E] IN SERUM OR PLASMA 7.3 g/dL 6.0 - 8.3 02/27 Specimen Type: PLASMA No comment entered. Ordering Provider: KATIE JONES Report Released Date/Time: Feb 28, 2024 09:41 AM Reporting Lab: [facility] [address] Performing Lab: [facility] [address] [facility] COMPREHEN SIVE METABOLIC PANEL+MG ALBUMIN [MASS/VOLUM E] IN SERUM OR PLASMA 4.2 g/dL 3.5 - 5.2 02/27 Specimen Type: PLASMA No comment entered. Ordering Provider: KATIE JONES Report Released Date/Time: Feb 28, 2024 09:41 AM Reporting Lab: [facility] [address] Performing Lab: [facility] [address] [facility] COMPREHEN SIVE METABOLIC PANEL+MG BILIRUBIN.T OTAL [MASS/VOLUM E] IN SERUM OR PLASMA 0.8 mg/dL 0.2 - 1.2 02/27 Specimen Type: PLASMA No comment entered. Ordering Provider: KATIE JONES Report Released Date/Time: Feb 28, 2024 09:41 AM Reporting Lab: [facility] [address] Performing Lab: [facility] [address] [facility] COMPREHEN SIVE METABOLIC PANEL+MG MAGNESIUM [MASS/VOLUM E] IN SERUM OR PLASMA 2.3 mg/dL 1.6 - 2.6 02/27 Specimen Type: PLASMA No comment entered. Ordering Provider: KATIE JONES Report Released Date/Time: Feb 28, 2024 09:41 AM Reporting Lab: [facility] [address] Performing Lab: [facility] [address] [facility] COMPREHEN SIVE METABOLIC PANEL+MG ANION GAP IN SERUM OR PLASMA 9 mmol/L 5 - 15 02/27 Specimen Type: PLASMA No comment entered. Ordering Provider: KATIE JONES Report Released Date/Time: Feb 28, 2024 09:41 AM Reporting Lab: [facility] [address] Performing Lab: [facility] [address] [facility] COMPREHEN SIVE METABOLIC PANEL+MG ALKALINE PHOSPHATASE [ENZYMATIC ACTIVITY/VO LUME] IN SERUM OR PLASMA 66 U/L 40 - 150 02/27 Specimen Type: PLASMA No comment entered. Ordering Provider: KATIE JONES Report Released Date/Time: Feb 28, 2024 09:41 AM Reporting Lab: [facility] [address] Performing Lab: [facility] [address] [facility] COMPREHEN SIVE METABOLIC PANEL+MG ALANINE AMINOTRANSF ERASE [ENZYMATIC ACTIVITY/VO LUME] IN SERUM OR PLASMA 13 U/L <55 - 55 02/27 Specimen Type: PLASMA No comment entered. Ordering Provider: KATIE JONES Report Released Date/Time: Feb 28, 2024 09:41 AM Reporting Lab: [facility] [address] Performing Lab: [facility] [address] [facility] COMPREHEN SIVE METABOLIC PANEL+MG ASPARTATE AMINOTRANSF ERASE [ENZYMATIC ACTIVITY/VO LUME] IN SERUM OR PLASMA 18 U/L <34 - 34 02/27 Specimen Type: PLASMA No comment entered. Ordering Provider: KATIE JONES Report Released Date/Time: Feb 28, 2024 09:41 AM Reporting Lab: [facility] [address] Performing Lab: [facility] [address] [facility] COMPREHEN SIVE METABOLIC PANEL+MG GLOMERULAR FILTRATION RATE/1.73 SQ M.PREDICTED [VOLUME RATE/AREA] IN SERUM, PLASMA OR BLOOD BY CREATININE- BASED FORMULA (CKD-EPI 2020) 73 60 02/27 Specimen Type: PLASMA No comment entered. Ordering Provider: KATIE JONES Report Released Date/Time: Feb 28, 2024 09:41 AM Reporting Lab: [facility] [address] Performing Lab: [facility] [address] [facility] PSA PROSTATE SPECIFIC AG [MASS/VOLUM E] IN SERUM OR PLASMA 0.28 ng/mL <4.00 - 4.00 02/27 Specimen Type: SERUM No comment entered. Ordering Provider: KATIE JONES Report Released Date/Time: Feb 28, 2024 09:41 AM Reporting Lab: [facility] [address] Performing Lab: [facility] [address] [facility] LIPID PANEL,NON -FASTING CHOLESTEROL [MASS/VOLUM E] IN SERUM OR PLASMA 236 mg/dL <199 - 199 02/27 H Specimen Type: PLASMA No comment entered. Ordering Provider: KATIE JONES Report Released Date/Time: Feb 28, 2024 09:51 AM Reporting Lab: [facility] [address] Performing Lab: [facility] [address] [facility] LIPID PANEL,NON -FASTING CHOLESTEROL IN HDL [MASS/VOLUM E] IN SERUM OR PLASMA 48 mg/dL 40 02/27 Specimen Type: PLASMA No comment entered. Ordering Provider: KATIE JONES Report Released Date/Time: Feb 28, 2024 09:51 AM Reporting Lab: [facility] [address] Performing Lab: [facility] [address] [facility] LIPID PANEL,NON -FASTING CHOLESTEROL IN LDL [MASS/VOLUM E] IN SERUM OR PLASMA BY CALCULATION 161 mg/dL <99 - 99 02/27 H Specimen Type: PLASMA No comment entered. Ordering Provider: KATIE JONES Report Released Date/Time: Feb 28, 2024 09:51 AM Reporting Lab: [facility] [address] Performing Lab: [facility] [address] [facility] LIPID PANEL,NON -FASTING CHOLESTEROL IN VLDL [MASS/VOLUM E] IN SERUM OR PLASMA BY CALCULATION 27 mg/dL <29 - 29 02/27 Specimen Type: PLASMA No comment entered. Ordering Provider: KATIE JONES Report Released Date/Time: Feb 28, 2024 09:51 AM Reporting Lab: [facility] [address] Performing Lab: [facility] [address] [facility] LIPID PANEL,NON -FASTING CHOLESTEROL NON HDL [MASS/VOLUM E] IN SERUM OR PLASMA 188 mg/dL <129 - 129 02/27 H Specimen Type: PLASMA No comment entered. Ordering Provider: KATIE JONES Report Released Date/Time: Feb 28, 2024 09:51 AM Reporting Lab: [facility] [address] Performing Lab: [facility] [address] [facility] LIPID PANEL,NON -FASTING TRIGLYCERID E [MASS/VOLUM E] IN SERUM OR PLASMA 134 mg/dL <149 - 149 02/27 Specimen Type: PLASMA No comment entered. Ordering Provider: KATIE JONES Report Released Date/Time: Feb 28, 2024 09:51 AM Reporting Lab: [facility] [address] Performing Lab: [facility] [address] [facility] B 12 COBALAMIN (VITAMIN B12) [MASS/VOLUM E] IN SERUM OR PLASMA 532 pg/mL 213 - 816 04/04 Specimen Type: SERUM No comment entered. Ordering Provider: KATIE JONES Report Released Date/Time: Feb 23, 2023 09:34 AM Reporting Lab: [facility] [address] Performing Lab: [facility] [address] [facility] FOLATE FOLATE [MASS/VOLUM E] IN SERUM OR PLASMA 14.8 ng/mL 7.0 04/04 Specimen Type: SERUM No comment entered. Ordering Provider: KATIE JONES Report Released Date/Time: Feb 23, 2023 09:34 AM Reporting Lab: [facility] [address] Performing Lab: [facility] [address] [facility] CBC & DIFF LEUKOCYTES [#/VOLUME] IN BLOOD BY AUTOMATED COUNT 6.47 10*3/u L 4.0 - 11.0 04/04 Specimen Type: BLOOD Comment: Automated Differentia l Performed Ordering Provider: KATIE JONES Report Released Date/Time: Feb 23, 2023 09:34 AM Reporting Lab: [facility] [address] Performing Lab: [facility] [address] [facility] CBC & DIFF ERYTHROCYTE S [#/VOLUME] IN BLOOD BY AUTOMATED COUNT 3.99 10*6/u L 4.6 - 6.2 04/04 L Specimen Type: BLOOD Comment: Automated Differentia l Performed Ordering Provider: KATIE JONES Report Released Date/Time: Feb 23, 2023 09:34 AM Reporting Lab: [facility] [address] Performing Lab: [facility] [address] [facility] CBC & DIFF HEMOGLOBIN [MASS/VOLUM E] IN BLOOD 12.6 g/dL 13.5 - 17.9 04/04 L Specimen Type: BLOOD Comment: Automated Differentia l Performed Ordering Provider: KATIE JONES Report Released Date/Time: Feb 23, 2023 09:34 AM Reporting Lab: [facility] [address] Performing Lab: [facility] [address] [facility] CBC & DIFF HEMATOCRIT [VOLUME FRACTION] OF BLOOD BY AUTOMATED COUNT 38.2 41 - 54 04/04 L Specimen Type: BLOOD Comment: Automated Differentia l Performed Ordering Provider: KATIE JONES Report Released Date/Time: Feb 23, 2023 09:34 AM Reporting Lab: [facility] [id number] Performing Lab: [facility] [address] [facility] CBC & DIFF MCV [ENTITIC VOLUME] BY AUTOMATED COUNT 95.7 fL 80 - 100 04/04 Specimen Type: BLOOD Comment: Automated Differentia l Performed Ordering Provider: KATIE JONES Report Released Date/Time: Feb 23, 2023 09:34 AM Reporting Lab: [facility] [phone] Performing Lab: [facility] [address] [facility] CBC & DIFF MCH [ENTITIC MASS] BY AUTOMATED COUNT 31.6 pg 27 - 33 04/04 Specimen Type: BLOOD Comment: Automated Differentia l Performed Ordering Provider: KATIE JONES Report Released Date/Time: Feb 23, 2023 09:34 AM Reporting Lab: [facility] [address] Performing Lab: [facility] [facility] [address] [facility] CBC & DIFF MCHC [MASS/VOLUM E] BY AUTOMATED COUNT 33.0 g/dL 32.0 - 37.5 04/04 Specimen Type: BLOOD Comment: Automated Differentia l Performed Ordering Provider: KATIE JONES Report Released Date/Time: Feb 23, 2023 09:34 AM Reporting Lab: [facility] [address] Performing Lab: [facility] [address] [facility] CBC & DIFF PLATELETS [#/VOLUME] IN BLOOD BY AUTOMATED COUNT 285 10*3/u L 150 - 400 04/04 Specimen Type: BLOOD Comment: Automated Differentia l Performed Ordering Provider: KATIE JONES Report Released Date/Time: Feb 23, 2023 09:34 AM Reporting Lab: [facility] [address] Performing Lab: [facility] [address] [facility] CBC & DIFF PLATELET MEAN VOLUME [ENTITIC VOLUME] IN BLOOD BY AUTOMATED COUNT 9.0 fL 7.4 - 10.4 04/04 Specimen Type: BLOOD Comment: Automated Differentia l Performed Ordering Provider: KATIE JONES Report Released Date/Time: Feb 23, 2023 09:34 AM Reporting Lab: [facility] [address] Performing Lab: [facility] [address] [facility] CBC & DIFF NEUTROPHILS /100 LEUKOCYTES IN BLOOD BY MANUAL COUNT 67.9 40.0 - 80.0 04/04 Specimen Type: BLOOD Comment: Automated Differentia l Performed Ordering Provider: KATIE JONES Report Released Date/Time: Feb 23, 2023 09:34 AM Reporting Lab: [facility] [address] Performing Lab: [facility] [address] [facility] CBC & DIFF LYMPHOCYTES /100 LEUKOCYTES IN BLOOD BY MANUAL COUNT 18.7 15.0 - 45.0 04/04 Specimen Type: BLOOD Comment: Automated Differentia l Performed Ordering Provider: KATIE JONES Report Released Date/Time: Feb 23, 2023 09:34 AM Reporting Lab: [facility] [address] Performing Lab: [facility] [address] [facility] CBC & DIFF MONOCYTES/1 00 LEUKOCYTES IN BLOOD BY AUTOMATED COUNT 8.8 2.0 - 12.0 04/04 Specimen Type: BLOOD Comment: Automated Differentia l Performed Ordering Provider: KATIE JONES Report Released Date/Time: Feb 23, 2023 09:34 AM Reporting Lab: [facility] [address] Performing Lab: [facility] [address] [facility] CBC & DIFF EOSINOPHILS /100 LEUKOCYTES IN BLOOD BY AUTOMATED COUNT 3.1 0.0 - 6.0 04/04 Specimen Type: BLOOD Comment: Automated Differentia l Performed Ordering Provider: KATIE JONES Report Released Date/Time: Feb 23, 2023 09:34 AM Reporting Lab: [facility] [address] Performing Lab: [facility] [address] [facility] CBC & DIFF BASOPHILS/1 00 LEUKOCYTES IN BLOOD BY MANUAL COUNT 0.6 0.0 - 2.0 04/04 Specimen Type: BLOOD Comment: Automated Differentia l Performed Ordering Provider: KATIE JONES Report Released Date/Time: Feb 23, 2023 09:34 AM Reporting Lab: [facility] [address] Performing Lab: [facility] [address] [facility] CBC & DIFF ERYTHROCYTE DISTRIBUTIO N WIDTH [RATIO] BY AUTOMATED COUNT 14.1 11.5 - 14.5 04/04 Specimen Type: BLOOD Comment: Automated Differentia l Performed Ordering Provider: KATIE JONES Report Released Date/Time: Feb 23, 2023 09:34 AM Reporting Lab: [facility] [address] Performing Lab: [facility] [address] [facility] CBC & DIFF LYMPHOCYTES [#/VOLUME] IN BLOOD BY AUTOMATED COUNT 1.21 10*3/u L 1.0 - 4.0 04/04 Specimen Type: BLOOD Comment: Automated Differentia l Performed Ordering Provider: KATIE JONES Report Released Date/Time: Feb 23, 2023 09:34 AM Reporting Lab: [facility] [address] Performing Lab: [facility] [address] [facility] CBC & DIFF MONOCYTES [#/VOLUME] IN BLOOD BY AUTOMATED COUNT 0.57 10*3/u L 0.1 - 1.0 04/04 Specimen Type: BLOOD Comment: Automated Differentia l Performed Ordering Provider: KATIE JONES Report Released Date/Time: Feb 23, 2023 09:34 AM Reporting Lab: [facility] [address] Performing Lab: [facility] [address] [facility] CBC & DIFF NEUTROPHILS [#/VOLUME] IN BLOOD BY AUTOMATED COUNT 4.39 10*3/u L 2.0 - 7.7 04/04 Specimen Type: BLOOD Comment: Automated Differentia l Performed Ordering Provider: KATIE JONES Report Released Date/Time: Feb 23, 2023 09:34 AM Reporting Lab: [facility] [address] Performing Lab: [facility] [address] [facility] CBC & DIFF EOSINOPHILS [#/VOLUME] IN BLOOD BY AUTOMATED COUNT 0.20 10*3/u L 0 - 0.5 04/04 Specimen Type: BLOOD Comment: Automated Differentia l Performed Ordering Provider: KATIE JONES Report Released Date/Time: Feb 23, 2023 09:34 AM Reporting Lab: [facility] [address] Performing Lab: [facility] [address] [facility] CBC & DIFF BASOPHILS [#/VOLUME] IN BLOOD BY AUTOMATED COUNT 0.04 10*3/u L 0 - 0.2 04/04 Specimen Type: BLOOD Comment: Automated Differentia l Performed Ordering Provider: KATIE JONES Report Released Date/Time: Feb 23, 2023 09:34 AM Reporting Lab: [facility] [address] Performing Lab: [facility] [address] [facility] CBC & DIFF IG(META,MYE LO,PRO) 0.9 04/04 Specimen Type: BLOOD Comment: Automated Differentia l Performed Ordering Provider: KATIE JONES Report Released Date/Time: Feb 23, 2023 09:34 AM Reporting Lab: [facility] [address] Performing Lab: [facility] [address] [facility] CBC & DIFF IMMATURE GRANULOCYTE S [PRESENCE] IN BLOOD BY AUTOMATED COUNT 0.06 10*3/u L 0 - 0.1 04/04 Specimen Type: BLOOD Comment: Automated Differentia l Performed Ordering Provider: KATIE JONES Report Released Date/Time: Feb 23, 2023 09:34 AM Reporting Lab: [facility] [address] Performing Lab: [facility] [address] [facility] IRON GROUP IRON [MASS/VOLUM E] IN SERUM OR PLASMA 69 ug/dL 65 - 175 04/04 Specimen Type: PLASMA No comment entered. Ordering Provider: KATIE JONES Report Released Date/Time: Feb 23, 2023 09:34 AM Reporting Lab: [facility] [address] Performing Lab: [facility] [address] [facility] IRON GROUP IRON BINDING CAPACITY [MASS/VOLUM E] IN SERUM OR PLASMA 263 ug/dL 250 - 425 04/04 Specimen Type: PLASMA No comment entered. Ordering Provider: KATIE JONES Report Released Date/Time: Feb 23, 2023 09:34 AM Reporting Lab: [facility] [address] Performing Lab: [facility] [address] [facility] IRON GROUP FERRITIN [MASS/VOLUM E] IN SERUM OR PLASMA 453.6 ng/mL 21.8 - 274.7 04/04 H Specimen Type: PLASMA No comment entered. Ordering Provider: KATIE JONES Report Released Date/Time: Feb 23, 2023 09:34 AM Reporting Lab: [facility] [address] Performing Lab: [facility] [address] [facility] IRON GROUP IRON SATURATION 26 20 - 50 04/04 Specimen Type: PLASMA No comment entered. Ordering Provider: KATIE JONES Report Released Date/Time: Feb 23, 2023 09:34 AM Reporting Lab: [facility] [address] Performing Lab: [facility] [address] [facility] IRON GROUP TRANSFERRIN [MASS/VOLUM E] IN SERUM OR PLASMA 210 mg/dL 163 - 382 04/04 Specimen Type: PLASMA No comment entered. Ordering Provider: KATIE JONES Report Released Date/Time: Feb 23, 2023 09:34 AM Reporting Lab: [facility] [address] Performing Lab: [facility] [address] [facility] COMPREHEN SIVE METABOLIC PANEL+MG CREATININE [MASS/VOLUM E] IN SERUM OR PLASMA 0.9 mg/dL 0.7 - 1.2 02/22 Specimen Type: PLASMA No comment entered. Ordering Provider: KATIE JONES Report Released Date/Time: Feb 22, 2023 10:40 AM Reporting Lab: [facility] [address] Performing Lab: [facility] [address] [facility] COMPREHEN SIVE METABOLIC PANEL+MG UREA NITROGEN [MASS/VOLUM E] IN SERUM OR PLASMA 16 mg/dL 8 - 26 02/22 Specimen Type: PLASMA No comment entered. Ordering Provider: KATIE JONES Report Released Date/Time: Feb 22, 2023 10:40 AM Reporting Lab: [facility] [address] Performing Lab: [facility] [address] [facility] COMPREHEN SIVE METABOLIC PANEL+MG GLUCOSE [MASS/VOLUM E] IN SERUM OR PLASMA 88 mg/dL 70 - 100 02/22 Specimen Type: PLASMA No comment entered. Ordering Provider: KATIE JONES Report Released Date/Time: Feb 22, 2023 10:40 AM Reporting Lab: [facility] [address] Performing Lab: [facility] [address] [facility] COMPREHEN SIVE METABOLIC PANEL+MG SODIUM [MOLES/VOLU ME] IN SERUM OR PLASMA 141 mmol/L 136 - 145 02/22 Specimen Type: PLASMA No comment entered. Ordering Provider: KATIE JONES Report Released Date/Time: Feb 22, 2023 10:40 AM Reporting Lab: [facility] [address] Performing Lab: [facility] [address] [facility] COMPREHEN SIVE METABOLIC PANEL+MG POTASSIUM [MOLES/VOLU ME] IN SERUM OR PLASMA 4.4 mmol/L 3.5 - 5.1 02/22 Specimen Type: PLASMA No comment entered. Ordering Provider: KATIE JONES Report Released Date/Time: Feb 22, 2023 10:40 AM Reporting Lab: [facility] [address] Performing Lab: [facility] [address] [facility] COMPREHEN SIVE METABOLIC PANEL+MG CHLORIDE [MOLES/VOLU ME] IN SERUM OR PLASMA 109 mmol/L 98 - 107 02/22 H Specimen Type: PLASMA No comment entered. Ordering Provider: KATIE JONES Report Released Date/Time: Feb 22, 2023 10:40 AM Reporting Lab: [facility] [address] Performing Lab: [facility] [address] [facility] COMPREHEN SIVE METABOLIC PANEL+MG CARBON DIOXIDE, TOTAL [MOLES/VOLU ME] IN SERUM OR PLASMA 24 mmol/L 22 - 29 02/22 Specimen Type: PLASMA No comment entered. Ordering Provider: KATIE JONES Report Released Date/Time: Feb 22, 2023 10:40 AM Reporting Lab: [facility] [address] Performing Lab: [facility] [address] [facility] COMPREHEN SIVE METABOLIC PANEL+MG CALCIUM [MASS/VOLUM E] IN SERUM OR PLASMA 9.1 mg/dL 8.4 - 10.2 02/22 Specimen Type: PLASMA No comment entered. Ordering Provider: KATIE JONES Report Released Date/Time: Feb 22, 2023 10:40 AM Reporting Lab: [facility] [address] Performing Lab: [facility] [address] [facility] COMPREHEN SIVE METABOLIC PANEL+MG PROTEIN [MASS/VOLUM E] IN SERUM OR PLASMA 6.7 g/dL 6.0 - 8.3 02/22 Specimen Type: PLASMA No comment entered. Ordering Provider: KATIE JONES Report Released Date/Time: Feb 22, 2023 10:40 AM Reporting Lab: [facility] [address] Performing Lab: [facility] [address] [facility] COMPREHEN SIVE METABOLIC PANEL+MG ALBUMIN [MASS/VOLUM E] IN SERUM OR PLASMA 3.9 g/dL 3.5 - 5.2 02/22 Specimen Type: PLASMA No comment entered. Ordering Provider: KATIE JONES Report Released Date/Time: Feb 22, 2023 10:40 AM Reporting Lab: [facility] [address] Performing Lab: [facility] [address] [facility] COMPREHEN SIVE METABOLIC PANEL+MG BILIRUBIN.T OTAL [MASS/VOLUM E] IN SERUM OR PLASMA 0.8 mg/dL 0.2 - 1.2 02/22 Specimen Type: PLASMA No comment entered. Ordering Provider: KATIE JONES Report Released Date/Time: Feb 22, 2023 10:40 AM Reporting Lab: [facility] [address] Performing Lab: [facility] [address] [facility] COMPREHEN SIVE METABOLIC PANEL+MG MAGNESIUM [MASS/VOLUM E] IN SERUM OR PLASMA 2.2 mg/dL 1.6 - 2.6 02/22 Specimen Type: PLASMA No comment entered. Ordering Provider: KATIE JONES Report Released Date/Time: Feb 22, 2023 10:40 AM Reporting Lab: [facility] [address] Performing Lab: [facility] [address] [facility] COMPREHEN SIVE METABOLIC PANEL+MG ANION GAP IN SERUM OR PLASMA 8 mmol/L 5 - 15 02/22 Specimen Type: PLASMA No comment entered. Ordering Provider: KATIE JONES Report Released Date/Time: Feb 22, 2023 10:40 AM Reporting Lab: [facility] [address] Performing Lab: [facility] [address] [facility] COMPREHEN SIVE METABOLIC PANEL+MG ALKALINE PHOSPHATASE [ENZYMATIC ACTIVITY/VO LUME] IN SERUM OR PLASMA 70 U/L 40 - 150 02/22 Specimen Type: PLASMA No comment entered. Ordering Provider: KATIE JONES Report Released Date/Time: Feb 22, 2023 10:40 AM Reporting Lab: [facility] [address] Performing Lab: [facility] [address] [facility] COMPREHEN SIVE METABOLIC PANEL+MG ALANINE AMINOTRANSF ERASE [ENZYMATIC ACTIVITY/VO LUME] IN SERUM OR PLASMA 10 U/L 02/22 Specimen Type: PLASMA No comment entered. Ordering Provider: KATIE JONES Report Released Date/Time: Feb 22, 2023 10:40 AM Reporting Lab: [facility] [address] Performing Lab: [facility] [address] [facility] COMPREHEN SIVE METABOLIC PANEL+MG ASPARTATE AMINOTRANSF ERASE [ENZYMATIC ACTIVITY/VO LUME] IN SERUM OR PLASMA 19 U/L 02/22 Specimen Type: PLASMA No comment entered. Ordering Provider: KATIE JONES Report Released Date/Time: Feb 22, 2023 10:40 AM Reporting Lab: [facility] [address] Performing Lab: [facility] [address] [facility] COMPREHEN SIVE METABOLIC PANEL+MG GLOMERULAR FILTRATION RATE/1.73 SQ M.PREDICTED [VOLUME RATE/AREA] IN SERUM, PLASMA OR BLOOD BY CREATININE- BASED FORMULA (CKD-EPI 2020) 83 02/22 Specimen Type: PLASMA No comment entered. Ordering Provider: KATIE JONES Report Released Date/Time: Feb 22, 2023 10:40 AM Reporting Lab: [facility] [address] Performing Lab: [facility] [address] [facility] HEMOGLOBI N A1C HEMOGLOBIN A1C/HEMOGLO BIN.TOTAL [...] Feb 22, 2023 10:40 AM Reporting Lab: [facility] [address] Performing Lab: [facility] [address] [facility] Vital Signs Combined list of inpatient and outpatient Vital Signs from Department of Defense and Veterans Affairs, ranging from 12 months to all on record, depending upon the facility. Vital Sign Value Date Comments Source SYSTOLIC BLOOD PRESSURE 128 02/28/2024 09:18:48 [facility] DIASTOLIC BLOOD PRESSURE 74 02/28/2024 09:18:48 [facility] PULSE OXIMETRY 95 02/28/2024 09:18:48 S [...] [facility] SYSTOLIC BLOOD PRESSURE 159 07/11/2023 14:56:56 [facility] DIASTOLIC BLOOD PRESSURE 84 07/11/2023 14:56:56 [facility] PULSE OXIMETRY 97% 07/11/2023 14:56:56 [facility] WEIGHT 209.6 07/11/2023 14:56:56 [facility] BMI 32kg/m2 07/11/2023 14:56:56 [facility] PAIN 0 07/11/2023 14:56:56 [facility] TEMPERATURE 98 07/11/2023 14:56:56 [facility] PULSE 50 07/11/2023 14:56:56 [facility] RESPIRATION 16 07/11/2023 14:56:56 [facility] Encounters Combined list of: 1) Encounters from [facility] Affairs facilities going back up to thelast 18 months. 2) Encounters from the Department of [facility] facilities going back up to 280 months. Location Location Details Encounter Type Encounter Number Reason For Visit Attending Provider ADM Date DC Date Status Disposition Source [facility] Outpatient Encounter [id number] 02/01 [facility] OFFICE O/P EST MOD 30-39 MIN [id number] Diagnos is: ICD-10- CM Z00.8 Encount er for other general examina tion
Bob JONES EBECCA L 02/22 [facility] Outpatient Encounter [id number] 02/24 [facility] Outpatient Encounter [id number] 03/20 [facility] [place] [place] [id number] Diagnos is: ICD-10- CM Z01.118 Encntr for exam of ears and hearing w oth abnorma l finding s
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
NEERU TINAJERO 01/14 [facility] OFFICE O/P EST MOD 30 MIN [id number] Diagnos is: ICD-10- CM Z00.8 Encount er for other general examina tion
Bob JONES EBECCA L 02/27 [facility] OFF/OP EST MAY X REQ PHY/QHP [id number] Diagnos is: ICD-10- CM Z71.9 Miter Sawyer ing, unspeci fied
WHITE,TERR A R 03/14 [facility] OFFICE O/P EST HI 40 MIN [id number] Diagnos is: ICD-10- CM I87.2 Venous insuffi ciency (chroni c) (periph eral)<b r/> MANUELA GUTIERREZ 05/24 [facility] Social History Combined list of available smoking, tobacco, and other social history from Department of Defense and Veterans Affairs facilities. Social History Type Response Date Comment Sourc e Tobacco smoking status IDIS MI-TOBACCO NEVER USED 02/28/20 [facility] History of tobacco use MI-TOBACCO FORMER USER 02/22/2023 [facility] Plan of Care List of future care activities from Department [facility] Affairs facilities. Additional future care activities may be listed in the Assessment and Plan section. Date/Time Care Activity Care Activity Detail Facili ty 06/27/2024 AMBULATORY - SURGERY AMBULATORY - SURGERY [facility] 06/27/2024 AMBULATORY - SURGERY AMB[facility]ORY - SURGERY [facility] 07/24/2024 AMBULATORY - NONE AMBULATORY - NONE [facility] 08/06/2024 AMBULATORY - SURGERY AMBULATORY - SURGERY [facility] 07/24/2024 Imaging - Ultrasound Order US VE NOUS INSUFFICIENCY LOWER EXTREMITY (BILATERAL) (P) [facility] Advance Directives List of completed, amended, or rescinded Advance Directives on record at Department of [facility] facilities. An actual copy of the Directive is not included. Date Advance Directive Provider Source 04/19/2023 ADVANCE DIRECTIVE DISCUSSION [facility] 04/19/2023 ADVANCE DIRECTIVE [facility]
--- OUTSIDE RECORDS SUMMARY | 2024-06-19 11:15 | XMS_ITS | Clinical Summary ---
Author Organization [place] Address [facility] [place] [address] Care Team Providers Care Bdc Manager Name Role Phone Clinic, [facility] Primary Care Provider + Allergies No [...] of Treatment Not on file Care Teams Bdc Manager Relationship Specialty Start Date End Date Clinic, [address] [address] PCP - General 06/26/20
--- OUTSIDE RECORDS SUMMARY | 2024-06-19 11:15 | XMS_ITS | Referral Summary ---
Author Organization [facility] Address [address] [place] [id number] Care Team Providers Care Online Merchandising Manager Name Role Phone Unavailable Primary Care Provider Unavailabl e Source Comments Patient records contain information from all sites at [facility]. For routine questions regarding patient records, call [phone] during business hours, M-F 8:00 AM - 5:00 PM Central Time. 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
== END 2024-06-19 11:14 | disposition home or self-care (01) ==
LOC: WOUND 11:13
PROVIDERS: Visit Provider Surgery
DX: I87.313 Chronic venous hypertension (idiopathic) with ulcer of bilateral lower extremity (principal); L97.828 Non-pressure chronic ulcer of other part of left lower leg with other specified severity; L97.818 Non-pressure chronic ulcer of other part of right lower leg with other specified severity
CPT/HCPCS: G0463